=== PATIENT | female | born 1975 | race Caucasian/White ===

== ENCOUNTER 2017-01-02 21:22 | Observation (INO) | payer MEDICARE, OTHER ==
[2017-01-02] MEDS ORDERED: SODIUM CHLORIDE 0.9% 500 ML IV STA (22:55)
[2017-01-02] MEDS ORDERED: ONDANSETRON 4 MG/2 ML VIAL IVP STA (22:55)
[2017-01-02] MEDS ORDERED: HYDROmorphone 1 MG/ML 1 ML SYRINGE IVP STA (22:55)
[2017-01-02] MEDS ORDERED: SODIUM CHLORIDE 0.9% 1,000 ML IV STA (22:55)
[2017-01-02] MEDS ORDERED: PANTOPRAZOLE 40 MG/10 ML VIAL IVP STA (22:55)
--- NOTE | 2017-01-02 23:02 | ED ---
General Adult HPI <Pawel Pemberton - Last Filed: 01/03/17 03:28> - General Source: patient, family, RN notes reviewed, old records reviewed Mode of arrival: ambulatory Limitations: no limitations <AlfredoNilay - Last Filed: 01/09/17 13:30> - General Chief complaint: Abdominal Pain Stated complaint: abdominal pain/vomiting/diarrhea Time Seen by Provider: 01/02/17 22:24 - History of Present Illness Initial comments: Chief complaint and history of present illness a 41-year-old female with complaint of epigastric to the supraumbilical area pain started acutely approximately 6 hours ago. Started 1 hour after eating. She had nausea vomiting 2 times and loose stool 4 times. Patient points to the area just above the umbilicus is feeling is a hard ball there. (Nilay Fuentes) - Related Data Home Medications Medication Instructions Recorded Confirmed ALPRAZolam [Xanax] 0.5 mg PO QID PRN 04/03/14 01/02/17 Cyclobenzaprine [Flexeril] 10 mg PO HS PRN 04/03/14 01/02/17 DULoxetine HCL [Cymbalta] 60 mg PO BID 04/03/14 01/02/17 HYDROcodone/APAP 10-325MG [[place] 1 tab PO Q4HR PRN 04/03/14 01/02/17 10-325] Pantoprazole Sodium [Protonix] 40 mg PO BID 04/03/14 01/02/17 Albuterol Nebulized [Ventolin 2.5 mg INHALATION RT-Q6H PRN 03/29/16 01/02/17 Nebulized] Albuterol Inhaler [Ventolin Hfa 1 - 2 puff INHALATION RT-Q4H PRN 08/15/16 Inhaler] EPINEPHrine (Auto Inject) [Epipen] 0.3 mg IM ONCE PRN 08/15/16 01/02/17 Nicotine Polacrilex [Nicorette] 4 mg PO QID PRN 08/15/16 01/02/17 Zolpidem [Ambien] 10 mg PO HS PRN 08/15/16 01/02/17 traMADol HCL [Tramadol HCl] 50 mg PO TID 11/11/16 01/02/17 Metoprolol Tartrate [Lopressor] 25 mg PO BID 01/02/17 01/02/17 Previous Rx's Medication Instructions Recorded Budesonide-Formot 160-4.5 Mcg 2 puff INHALATION BID #1 inhaler 01/04/17 [Symbicort 160-4.5 Mcg Inhaler] Ondansetron Odt [Zofran Odt] 4 mg PO Q8HR PRN #20 tab 01/04/17 predniSONE 10 mg PO DAILY #30 tab 01/04/17 Allergies Allergy/AdvReac Type Severity Reaction Status Date / Time fentanyl Allergy Rash/Hives Verified 01/03/17 04:52 Iodinated Contrast Media - Allergy Anaphylaxis Verified 01/03/17 04:52 Oral and [Iodinated Contrast Media - IV Dye] shellfish derived Allergy Anaphylaxis Verified 01/03/17 04:52 buspirone AdvReac Confusion Verified 01/03/17 04:52 Review of Systems ROS Other: All systems not noted in ROS Statement are negative. <Pawel Pemberton - Last Filed: 01/03/17 03:28> ROS Other: All systems not noted in ROS Statement are negative. <Nilay Fuentes - Last Filed: 01/09/17 13:30> ROS Statement: Those systems with pertinent positive or pertinent negative responses have been documented in the HPI. Review of systems no headache no chest pain no shortness of breath she has epigastric pain that is episodic. No radiation to the back. Nausea vomiting several times diarrhea 4 times. No neuro deficits. All systems are reviewed. Past medical problems significant for asthma, TIA, DVT 15 years ago. Fibro-myalgia, GERD, osteoarthritis clubfeet. Surgeries lumpectomy on the breast benign. Multiple ear surgeries. Hysterectomy. Multiple bilateral club foot surgeries. Family history oximetry. Patient has ALLERGIES to fentanyl, IV dye and buspirone. Patient is a smoker strongly encouraged to stop smoking. (Nilay Fuentes) Past Medical History Past Medical History: Asthma, COPD, CVA/TIA, Deep Vein Thrombosis (DVT), Fibromyalgia, GERD/Reflux, Osteoarthritis (OA) Additional Past Medical History / Comment(s): *DEAF IN RIGHT EAR.RECENT: PATIENT STATES HER PCP TOLD HER SHE MIGHT HAVE HAD A TIA & INCREASED HEART RATE. SEE DR[facility] FOR CARDIOVASCULAR DETAILS. Neuropathy feet; UNSTEADY WHEN UP/BALANCE ISSUES. Dvt right leg-2001. PT STATED HAS BEEN EXPOSED TO BLACK MOLD . History of Any Multi-Drug Resistant Organisms: None Reported Past Surgical History: Breast Surgery, Ear Surgery, Hysterectomy Additional Past Surgical History / Comment(s): Multiple day clubfoot. TUBES IN EARS, Kartush patches both ears D/T PERFORATED TYMPANIC MEMBRANES. POLYPS REMOVED FROM THROAT-BENIGN. Lt breast biopsy-NEG. BRONCHOSOCPY-BENIGN NODULE REMOVED. DEVIATED SEPTUM. COLONOSOCPY. Past Anesthesia/Blood Transfusion Reactions: Motion Sickness, Postoperative Nausea & Vomiting (PONV) Additional Past Anesthesia/Blood Transfusion Reaction / Comment(s): Problems/w/ anes in Nov after colonoscopy. Too much given & couldn't wake up".....However, patient states they have to give her more meds to get her to be sedated. Past Psychological History: Anxiety Smoking Status: Current every day smoker Past Alcohol Use History: None Reported Additional Past Alcohol Use History / Comment(s): PT STATED HAS SMOKED ON AND OFF X 25 YEARS CURRENTLY SMOKING LESS THAN A PACK A WEEK. Past Drug Use History: None Reported - Past Family History Mother Family Medical History: Diabetes Mellitus Additional Family Medical History / Comment(s): IRREG HEART BEAT. GRANDMOTHER HAD COLON CANCER AND HEART DISEASE Father Family Medical History: Hyperlipidemia, Hypertension Sister(s) Family Medical History: AFIB, Cancer, CVA/TIA, Hypertension Additional Family Medical History / Comment(s): CERVICAL CANCER <Nilay Fuentes - Last Filed: 01/09/17 13:30> General Exam <Pawel Pemberton - Last Filed: 01/03/17 03:28> Limitations: no limitations <Nilay Fuentes - Last Filed: 01/09/17 13:30> - General Exam Comments Initial Comments: General: The patient is awake and alert, mild to moderate distress. Low epigastric and high Cipro umbilical area pain. Vital signs temp 98.9 pulse 1:30, respiratory rate 20 pulse ox 97% room air blood pressure 135/85. Elevated systolic diastolic most likely due to pain. Eye: Pupils are equal, round and reactive to light, extra-ocular movements are intact ; there is normal conjunctiva bilaterally. No signs of icterus. Ears, nose, mouth and throat: There are moist mucous membranes and no oral lesions. Neck: The neck is supple, there is no tenderness , no anterior cervical lymphadenopathy. Cardiovascular: No murmur, rub or gallop is appreciated. Tachycardic heart rate 1:30 down to 1:15. Patient reports she's always tachycardia. She is on metoprolol. Respiratory: Lungs are clear to auscultation, respirations are non-labored, breath sounds are equal. No wheezes, stridor, rales, or rhonchi. Gastrointestinal: Rebound or referred pain to the mid abdomen just above the umbilicus. Palpation finds mild firmness and possible small hernia causing a discomfort in the mid abdomen. Active bowel sounds.. Back: No back pain Musculoskeletal: History of clubfeet multiple surgeries. Neurological: No neuro deficits. Skin: Skin is warm and dry and no rashes or lesions are noted. (Nilay Fuentes) Course <Pawel Pemberton - Last Filed: 01/03/17 03:28> <Nilay Fuentes - Last Filed: 01/09/17 13:30> Vital Signs 01/02/17 01/02/17 01/02/17 21:56 22:52 23:59 Temperature 98.9 F 98.3 F 97.0 F L Pulse Rate 130 H 122 H 96 Respiratory 20 20 18 Rate Blood Pressure 135/85 148/82 142/80 O2 Sat by Pulse 97 98 100 Oximetry 01/03/17 01/03/17 01/03/17 00:24 01:45 02:41 Temperature 101.5 F H 100.0 F H 99.0 F Pulse Rate 110 H 98 Respiratory 18 18 Rate Blood Pressure 126/88 128/76 O2 Sat by Pulse 98 98 Oximetry - Reevaluation(s) Reevaluation #1: 01/03/17 01:18 The patient was endorsed to me by Dr. Fuentes at 1 AM at our shift change. CAT scan the abdomen is pending. (Pawel Pemberton) Reevaluation #2: 01/03/17 03:28 Evaluation the patient reveals she still has severe crampy abdominal pain. Is more upper than lower. I did discuss the findings with her. She will be admitted for pain control (Pawel Pemberton) Medical Decision Making - Lab Data Result diagrams: 01/02/17 22:15 01/02/17 22:15 - Radiology Data Radiology results: report reviewed (I did review the imaging and reports is evidence of 4.5 cm adnexal mass likely a cyst.), image reviewed <Pawel Pemberton - Last Filed: 01/03/17 03:28> - Lab Data Result diagrams: 01/02/17 22:15 01/02/17 22:15 <Nilay Fuentes - Last Filed: 01/09/17 13:30> - Medical Decision Making Labs show white count 12 hemoglobin 16 hematocrit of 49. Potassium is 4.0 with a BUN of 17 creatinine 0.7 with a GFR greater than 60. Glucose 112. Plasma lactic acid mildly elevated 3.5. Amylase lipase within normal limits. X-ray of the abdomen was done and reviewed by radiologist his impression is there is no sign of intestinal obstruction or pneumoperitoneum. There is no fecal pattern seen. There are no pathologic calcifications over the kidneys. Lung bases are clear. Impression; there is a lack of fecal pattern that could relate to diarrhea. No free air. This is a change compared to old abdomen x- ray. No evidence of bowel obstruction. As read by Dr. Mclain The patient's lactic acid is elevated she continues to mid abdominal discomfort. She does have an ALLERGY to iodine. But when she has her CAT scan she is premedicated. The patient will receive IV Benadryl, Pepcid and Solu- Medrol per protocol. Patient will have the redi-cat2 agent used for iodine ALLERGY risk. Final disposition will be made by Dr. Pemberton (Nilay Fuentes) - Lab Data Lab Results 01/02/17 01/02/17 01/02/17 Range/Units 22:15 22:15 22:15 WBC 12.4 H (3.8-10.6) k/uL RBC 5.29 (3.80-5.40) m/uL Hgb 16.4 H (11.4-16.0) gm/dL Hct 49.4 H (34.0-46.0) % MCV 93.5 (80.0-100.0) fL MCH 31.1 (25.0-35.0) pg MCHC 33.3 (31.0-37.0) g/dL RDW 13.1 (11.5-15.5) % Plt Count 293 (150-450) k/uL Neutrophils % 88 % Lymphocytes % 7 % Monocytes % 3 % Eosinophils % 2 % Basophils % 0 % Neutrophils # 10.9 H (1.3-7.7) k/uL Lymphocytes # 0.9 L (1.0-4.8) k/uL Monocytes # 0.3 (0-1.0) k/uL Eosinophils # 0.2 (0-0.7) k/uL Basophils # 0.0 (0-0.2) k/uL Sodium 141 (137-145) mmol/L Potassium 4.0 (3.5-5.1) mmol/L Chloride 105 (98-107) mmol/L Carbon Dioxide 20 L (22-30) mmol/L Anion Gap 16 mmol/L BUN 17 (7-17) mg/dL Creatinine 0.70 (0.52-1.04) mg/dL Est GFR (MDRD) Af Amer >60 (>60 ml/min/1.73 sqM) Est GFR (MDRD) Non-Af >60 (>60 ml/min/1.73 sqM) Glucose 112 H (74-99) mg/dL Plasma Lactic Acid Louie 3.5 H* (0.7-2.0) mmol/L Calcium 9.5 (8.4-10.2) mg/dL Total Bilirubin 0.6 (0.2-1.3) mg/dL AST 23 (14-36) U/L ALT 26 (9-52) U/L Alkaline Phosphatase 100 (38-126) U/L Total Protein 7.7 (6.3-8.2) g/dL Albumin 4.6 (3.5-5.0) g/dL Amylase 43 (30-110) U/L Lipase 36 (23-300) U/L Urine Color Urine Appearance (Clear) Urine pH (5.0-8.0) Ur Specific [place] (1.001-1.035) Urine Protein (Negative) Urine Glucose (UA) (Negative) Urine Ketones (Negative) Urine Blood (Negative) Urine Nitrate (Negative) Urine Bilirubin (Negative) Urine Urobilinogen (<2.0) mg/dL Ur Leukocyte Esterase (Negative) 01/03/17 01/03/17 Range/Units 00:15 03:15 WBC (3.8-10.6) k/uL RBC (3.80-5.40) m/uL Hgb (11.4-16.0) gm/dL Hct (34.0-46.0) % MCV (80.0-100.0) fL MCH (25.0-35.0) pg MCHC (31.0-37.0) g/dL RDW (11.5-15.5) % Plt Count (150-450) k/uL Neutrophils % % Lymphocytes % % Monocytes % % Eosinophils % % Basophils % % Neutrophils # (1.3-7.7) k/uL Lymphocytes # (1.0-4.8) k/uL Monocytes # (0-1.0) k/uL Eosinophils # (0-0.7) k/uL Basophils # (0-0.2) k/uL Sodium (137-145) mmol/L Potassium (3.5-5.1) mmol/L Chloride (98-107) mmol/L Carbon Dioxide (22-30) mmol/L Anion Gap mmol/L BUN (7-17) mg/dL Creatinine (0.52-1.04) mg/dL Est GFR (MDRD) Af Amer (>60 ml/min/1.73 sqM) Est GFR (MDRD) Non-Af (>60 ml/min/1.73 sqM) Glucose (74-99) mg/dL Plasma Lactic Acid Louie 1.6 (0.7-2.0) mmol/L Calcium (8.4-10.2) mg/dL Total Bilirubin (0.2-1.3) mg/dL AST (14-36) U/L ALT (9-52) U/L Alkaline Phosphatase (38-126) U/L Total Protein (6.3-8.2) g/dL Albumin (3.5-5.0) g/dL Amylase (30-110) U/L Lipase (23-300) U/L Urine Color Yellow Urine Appearance Clear (Clear) Urine pH 5.0 (5.0-8.0) Ur Specific [place] 1.019 (1.001-1.035) Urine Protein Negative (Negative) Urine Glucose (UA) Negative (Negative) Urine Ketones Negative (Negative) Urine Blood Negative (Negative) Urine Nitrate Negative (Negative) Urine Bilirubin Negative (Negative) Urine Urobilinogen <2.0 (<2.0) mg/dL Ur Leukocyte Esterase Negative (Negative) Disposition <Pawel Pemberton - Last Filed: 01/03/17 03:28> <Nilay Fuentes - Last Filed: 01/09/17 13:30> Clinical Impression: Abdominal pain, Intractable abdominal pain, Spastic colon, Adnexal cyst Disposition: ADMITTED IP TO THIS HOSP Condition: Stable
[2017-01-02 23:22] LABS: Basophils % (A) 0 %; CH 31.9; CHCM 34.3; Eosinophils # (A) 0.2 k/uL (0-0.7); Eosinophils % (A) 2 %; HCT 49.4 % (34.0-46.0); HDW 2.55; HGB 16.4 gm/dL (11.4-16.0); Luc # (Auto) 0.06; Luc % (Auto) 1; Lymphocytes # (A) 0.9 k/uL (1.0-4.8); Lymphocytes % (A) 7 %; MCH 31.1 pg (25.0-35.0); MCHC 33.3 g/dL (31.0-37.0); MCV 93.5 fL (80.0-100.0); Mean Platelet Volume 7.7; Monocytes # (A) 0.3 k/uL (0-1.0); Monocytes % (A) 3 %; Neutrophils # (A) 10.9 k/uL (1.3-7.7); Neutrophils % (A) 88 %; RBC 5.29 m/uL (3.80-5.40); RDW 13.1 % (11.5-15.5); WBC 12.4 k/uL (3.8-10.6); WBC (Perox) 11.32
[2017-01-02 23:33] LABS: ALT 26 U/L (9-52); AST 23 U/L (14-36); Alkaline Phosphatase 100 U/L (38-126); Amylase 43 U/L (30-110); Anion Gap 16 mmol/L; Blood Urea Nitrogen 17 mg/dL (7-17); Calcium 9.5 mg/dL (8.4-10.2); Carbon Dioxide 20 mmol/L (22-30); Chloride 105 mmol/L (98-107); Glucose 112 mg/dL (74-99); Non-African American GFR(MDRD) >60 (>60 ml/min/1.73 sqM); Sodium 141 mmol/L (137-145); Total Bilirubin 0.6 mg/dL (0.2-1.3); Total Protein 7.7 g/dL (6.3-8.2)
--- NOTE | 2017-01-02 23:41 | XR ---
EXAMINATION TYPE: XR KUB DATE OF EXAM: 01/02/2017 11:36 PM COMPARISON: 10/18/2013 HISTORY: Abdominal pain TECHNIQUE: 2 views FINDINGS: There is no sign of intestinal obstruction or pneumoperitoneum. There is no fecal pattern s een. There are no pathologic calcifications over the kidneys. Lung bases are clear. IMPRESSION: There is a lack of fecal pattern that could relate to diarrhea. No free air. This is a ch joel compared to old abdomen x-ray. No evidence of a bowel obstruction.
[2017-01-03] MEDS ORDERED: ACETAMINOPHEN IV (For NPO) 1,000 MG in EMPTY BAG 1 BAG IVPB STA (00:17)
[2017-01-03] MEDS ORDERED: FAMOTIDINE 20 MG/2 ML VIAL IV STA (00:25)
[2017-01-03] MEDS ORDERED: diphenhydrAMINE 50 MG/ML 1 ML VIAL IVP STA (00:25)
[2017-01-03] MEDS ORDERED: PROMETHAZINE INJ 6.25 MG in SODIUM CHLORIDE 0.9% 50 ML IVPB STA (00:25)
[2017-01-03] MEDS ORDERED: methylPREDNISolone SOD SUCCI 125 MG/2 ML VIAL IM STA (00:26)
[2017-01-03] MEDS ORDERED: BARIUM SULFATE 450 ML ORAL.SUSP BOTTLE PO PRN (00:26)
[2017-01-03] MEDS ORDERED: RX INFO: IV CONTRAST WAS GIVEN 1 EACH MISC MISCELLANE PRN (00:26)
[2017-01-03 00:28] LABS: Appearance,Urine Clear (Clear); Bilirubin,Urine Negative (Negative); Glucose,Urine (UA) Negative (Negative); Ketones,Urine Negative (Negative); Leukocyte Esterase,Urine Negative (Negative); Nitrite,Urine Negative (Negative); Protein,Urine Negative (Negative); Specific Gravity,Urine 1.019 (1.001-1.035); UA Billing (MACRO vs. MICRO) CHEM; Urobilinogen,Urine <2.0 mg/dL (<2.0)
[2017-01-03] MEDS ORDERED: HYDROmorphone 1 MG/ML 1 ML SYRINGE IVP STA ×2 (01:43→03:11)
--- NOTE | 2017-01-03 02:50 | CT ---
EXAMINATION TYPE: CT abdomen pelvis wo con DATE OF EXAM: 01/03/2017 2:38 AM COMPARISON: 10/18/2013 HISTORY: Abdominal pain CT DLP: mGycm Automated exposure control for dose reduction was used. TECHNIQUE: Helical acquisition of images was performed from the lung bases through the pelvis. FINDINGS: Lung bases are clear. There is no pleural effusion. The liver spleen pancreas appear normal. Bile lori ts are not dilated. Gallbladder appears normal. There is no adrenal mass. Kidneys have normal size an d contour. There is no hydronephrosis. There is no retroperitoneal adenopathy. There is no ascites. B ladder distends smoothly. There is no sign of a pelvic mass. There is a 4.5 cm cyst in the pelvis on the right side. Hysterectomy is noted. Appendix is not seen. There is no sign of appendicitis. I see no intestinal wall thickening. There are no dilated loops. There is no evidence of a bowel obstructio n. There is fairly normal contrast opacification of the small bowel. Bony structures are intact. IMPRESSION: LARGE RIGHT ADNEXAL CYST CONSISTENT WITH OVARIAN CYST APPEARS NEW COMPARED TO LAST CT SCAN. APPENDIX IS NOT SEEN. THERE IS NO SIGN OF APPENDICITIS.
[2017-01-03] MEDS ORDERED: DICYCLOMINE 10 MG/ML 2 ML AMP IM STA (03:11)
[2017-01-03] MEDS ORDERED: NALOXONE 0.4 MG/ML 1 ML VIAL IV PRN (03:29)
[2017-01-03] MEDS: SODIUM CHLORIDE 0.9% 1,000 ML IV SCH ×4 (04:28→18:23)
[2017-01-03 04:44] VITALS: BMI 34.4
[2017-01-03] MEDS: HYDROmorphone 1 MG/ML 1 ML SYRINGE IV PRN ×5 (05:41→23:36)
[2017-01-03] MEDS: ONDANSETRON 4 MG/2 ML VIAL IVP PRN ×3 (05:42→23:36)
[2017-01-03] MEDS: PANTOPRAZOLE 40 MG/10 ML VIAL IV SCH ×2 (07:48→20:11)
[2017-01-03] MEDS: IPRATROPIUM-ALBUTEROL 3 ML NEB INHALATION SCH ×4 (09:40→20:30)
[2017-01-03] MEDS ORDERED: traMADol 50 MG TAB PO PRN (13:45)
[2017-01-03] MEDS ORDERED: ALBUTEROL NEBULIZED 2.5 MG/3 ML INHALATION PRN (13:46)
[2017-01-03] MEDS ORDERED: HYDROcodone/APAP 10-325MG 1 EACH TAB PO PRN (13:47)
[2017-01-03] MEDS ORDERED: CYCLOBENZAPRINE 10 MG TAB PO PRN (13:47)
[2017-01-03] MEDS ORDERED: ALPRAZolam 0.5 MG TAB PO PRN (13:47)
--- NOTE | 2017-01-03 17:18 | HP ---
DATE OF ADMISSION: Patient is a 41-year-old female who came in with epigastric abdominal pain, generalized body aches and fevers which started yesterday. Patient has not been eating well and patient has nausea, vomiting and loose stools; about 4 times loose stools and nausea, vomiting twice ( ) and patient was found to have fevers. Patient had an abdominal CT which was negative except for incidental finding of an ovarian cyst which appears to be a physiological cyst. Patient denies any cough, runny nose. Patient denied any dysuria. Home medications include: 1. Alprazolam. 2. Cyclobenzaprine. 3. Duloxetine. 4. Hydrocodone/acetaminophen . 5. Pantoprazole. 6. Albuterol. 7. Epinephrine. 8. Nicorette. 9. Zolpidem. 10. Tramadol. 11. Metoprolol. ALLERGIES: 1. FENTANYL. 2. IODINATED CONTRAST. 3. SHELLFISH. 4. BUSPIRONE. REVIEW OF SYSTEMS: GENERAL: As described in HPI. CONSTITUTIONAL: No fever, no malaise, no fatigue. HEENT: No recent visual problems or hearing problems. Denied any sore throat. CARDIOVASCULAR: No chest pain, orthopnea, PND, no palpitations, no syncope. PULMONARY: No shortness of breath, no cough, no hemoptysis. GASTROINTESTINAL: As described in HPI. NEUROLOGICAL: No headaches, no weakness, no numbness. HEMATOLOGICAL: Denies any bleeding or petechiae. GENITOURINARY: Denies any burning micturition, frequency, or urgency. MUSCULOSKELETAL/RHEUMATOLOGICAL: Denies any joint pain, swelling, or any muscle pain. ENDOCRINE: Denies any polyuria or polydipsia. The rest of the 14 point review of systems is negative. Past medical history is significant for: 1. COPD. 2. CVA/TIA. 3. DVT in the past. 4. Asthma. 5. Fibromyalgia. 6. Gastroesophageal reflux disease. 7. Neuropathy. 8. Obesity. SOCIAL HISTORY: Patient continues to smoke; trying to cut down on smoking. Denied any alcohol abuse or any drug abuse. Psychological history is significant for anxiety. FAMILY HISTORY: Mother had diabetes mellitus. Father had hypertension, hyperlipidemia. Sister had atrial fibrillation, cancer, CVA, TIA. PHYSICAL EXAMINATION: VITAL SIGNS: Temperature 98.9, pulse of 130 when she came in; 24 hour T-max of 101.5, respiratory rate of 18. Blood pressure is 142/80. Saturating at 100% on room air. GENERAL: Patient appears to be sick-looking tired, with malaise. Alert and oriented x3. HEENT: Pupils are round and equally reacting to light. EOMI. No scleral icterus. No conjunctival pallor. Normocephalic, atraumatic. No pharyngeal erythema. No thyromegaly. CARDIOVASCULAR: S1 and S2 present. No murmurs, rubs, or gallops. PULMONARY: Chest is clear to auscultation, no wheezing or crackles. ABDOMEN: Soft, nontender, nondistended, normoactive bowel sounds. No palpable organomegaly. MUSCULOSKELETAL: No joint swelling or deformity. EXTREMITIES: No cyanosis, clubbing, or pedal edema. NEUROLOGICAL: Gross neurological examination did not reveal any focal deficits. SKIN: No rashes. LABORATORY DATA: CBC, CMP are abnormal for elevated WBC count of 12,400, hemoglobin of 16.4. Patient does have elevated lactic acid of 3.5. UA is essentially negative. Chest x-ray did not show any acute abnormality. ASSESSMENT AND PLAN: 1. Severe sepsis secondary to viral gastroenteritis. Patient is on IV fluids. I do not believe patient will need any antibiotics. Will continue to watch her with IV fluids. Patient's lactic acidosis has improved. If patient's symptoms improve, patient will discharged tomorrow. 2. Patient has history of sinus tachycardia, for which patient is on metoprolol, which will be continued. 3. Chronic obstructive pulmonary disease with minimal exacerbation. 4. Asthma with minimal exacerbation. 5. Nicotine ( ) counseling was provided. Patient will be started on albuterol as well as Symbicort. 6. History of cerebrovascular accident, transient ischemic attack in the past. 7. History of deep venous thrombosis. 8. Fibromyalgia. 9. Gastroesophageal reflux disease. For above-mentioned chronic medical problems, I will go and continue her home medications.
[2017-01-03] MEDS: METOPROLOL TARTRATE 25 MG TAB PO SCH (20:11)
[2017-01-03] MEDS: DULoxetine HCL 60 MG CAPSULE.DR PO SCH (20:11)
[2017-01-03] MEDS: SYMBICORT 160-4.5 MCG INHALER INHALATION SCH (20:30)
[2017-01-04] MEDS: SYMBICORT 160-4.5 MCG INHALER INHALATION SCH (07:58)
[2017-01-04] MEDS: IPRATROPIUM-ALBUTEROL 3 ML NEB INHALATION SCH ×2 (07:58→14:35)
[2017-01-04] MEDS: METOPROLOL TARTRATE 25 MG TAB PO SCH (08:40)
[2017-01-04] MEDS: DULoxetine HCL 60 MG CAPSULE.DR PO SCH (08:41)
[2017-01-04] MEDS: ONDANSETRON 4 MG/2 ML VIAL IVP PRN (09:18)
[2017-01-04] MEDS: SODIUM CHLORIDE 0.9% 1,000 ML IV SCH (10:38)
[2017-01-04 14:00] VITALS: BP 138/84; PULSE 76; RESP 16; TEMP 97.9
--- NOTE | 2017-01-05 08:10 | DS ---
DATE OF ADMISSION: 01/03/2017 DATE OF DISCHARGE: 01/04/2017 Patient is admitted secondary to gastroenteritis. Patient has significant improvement but patient is still nauseous. Patient is still wheezing significantly, because of which I am starting on oral steroids for her asthma exacerbation. Patient was seen and examined on the day of discharge. Patient is still wheezing significantly because of which I am starting her on oral steroid for her asthma exacerbation. Patient was seen and examined on the day of discharge. Vitals are stable. PHYSICAL EXAMINATION: GENERAL: The patient is alert and oriented x3, not in any acute distress. Well developed, well nourished. HEENT: Pupils are round and equally reacting to light. EOMI. No scleral icterus. No conjunctival pallor. Normocephalic, atraumatic. No pharyngeal erythema. No thyromegaly. CARDIOVASCULAR: S1 and S2 present. No murmurs, rubs, or gallops. PULMONARY: Patient is still wheezing, has significant expiratory wheezing. ABDOMEN: Soft, nontender, nondistended, normoactive bowel sounds. No palpable organomegaly. MUSCULOSKELETAL: No joint swelling or deformity. EXTREMITIES: No cyanosis, clubbing, or pedal edema. NEUROLOGICAL: Gross neurological examination did not reveal any focal deficits. SKIN: No rashes. ASSESSMENT AND PLAN: 1. Severe sepsis secondary to viral gastroenteritis, which is improving. Patient was asked to take ( ), resolved. Patient improved with IV fluids and patient was asked to drink lots of water at home. Patient had 4 episodes of diarrhea today. 2. Sinus tachycardia due to intravascular volume depletion. 3. Asthma with acute asthma exacerbation. Patient appears to have moderate persistent asthma. 4. Nicotine dependence counseling was provided. 5. Cerebrovascular accident. 6. Deep venous thrombosis. 7. Fibromyalgia. 8. Gastroesophageal reflux disease. I am discharging patient on budesonide formoterol and tapering dose of prednisone and patient will follow with Dr. Judah Murdock on January 11 at 2:45. Please refer to my depart summary for further details of discharge medications. Activity as tolerated. Regular diet. Nicotine cessation counseling was provided and low-calorie diet. Spent greater than 35 minutes in total discharge process.
== END 2017-01-04 17:22 | disposition home or self-care (01) ==
LOC: EC 21:22 → 3SUR 01-03 03:30
PROVIDERS: ADMIT Internal Medicine; ATTEND Internal Medicine
DX: A08.4 Viral intestinal infection, unspecified (principal); R65.20 Severe sepsis without septic shock; B97.89 Other viral agents as the cause of diseases classified elsewhere; A41.89 Other specified sepsis; E86.9 Volume depletion, unspecified; J45.41 Moderate persistent asthma with (acute) exacerbation; M79.7 Fibromyalgia; K21.9 Gastro-esophageal reflux disease without esophagitis; Z86.73 Personal history of transient ischemic attack (TIA), and cerebral infarction without residual deficits; Z86.718 Personal history of other venous thrombosis and embolism; F41.9 Anxiety disorder, unspecified; E87.2 Acidosis; F17.210 Nicotine dependence, cigarettes, uncomplicated; Z91.041 Radiographic dye allergy status; N83.201 Unspecified ovarian cyst, right side; Z79.891 Long term (current) use of opiate analgesic; Z79.899 Other long term (current) drug therapy; Z88.5 Allergy status to narcotic agent; Z88.8 Allergy status to other drugs, medicaments and biological substances
CPT/HCPCS: 36415 ×2; 80053; 82150; 83605 ×2; 83690; 85025; 81003; 87086; 80299; 74000; 74176; 99285; 96375 ×2; 96361 ×2; 96365; 96376 ×2; 96372; G0378 ×2; J0500; J2550; J2405 ×3; J1170 ×2; J0131; C9113 ×2; 87324

== ENCOUNTER → 2017-02-14 | Outpatient (CLI) | payer MEDICARE, OTHER ==
--- NOTE | 2017-02-14 17:54 | US ---
EXAMINATION TYPE: US transvaginal DATE OF EXAM: 02/14/2017 5:18 PM COMPARISON: NONE CLINICAL HISTORY: N83.291 Cyst of ovary. Abnormal CT TECHNIQUE: Transvaginal pelvic ultrasound with color Doppler. Date of LMP: hysterectomy EXAM MEASUREMENTS: Uterus: Surgically absent cm Endometrial Stripe: Surgically absent cm Right Ovary: 1.9 x 0.9 x 1.1 cm Left Ovary: not identified cm TECHNOLOGIST IMPRESSION: wnl 1. Uterus: Surgically absent 2. Endometrium: Surgically absent 3. Right Ovary: normal appearing ovary with large cyst measuring 5.1 x 4.2 x 4.4 cm, there does appe ar to be normal blood flow to the ovarian tissue 4. Left Ovary: not identified 5. Bilateral Adnexa: wnl 6. Posterior cul-de-sac: no free fluid IMPRESSION: There is a large simple cyst on the right ovary. Hysterectomy noted. The cyst measures 5 x 4 cm. Right ovary shows no sign of torsion on the color Doppler images. Cyst is not changed compare d to CT scan of 01/03/2017.
== END | disposition home or self-care (01) ==
LOC: RADUSWWP 16:57
PROVIDERS: ATTEND Family Medicine
DX: N83.291 Other ovarian cyst, right side (principal)
CPT/HCPCS: 76830

== ENCOUNTER → 2017-03-22 | Outpatient (CLI) | payer MEDICARE, OTHER ==
[2017-03-22 11:44] LABS: Basophils # (A) 0.1 k/uL (0-0.2); Basophils % (A) 1 %; CH 31.9; CHCM 34.3; Eosinophils # (A) 0.2 k/uL (0-0.7); Eosinophils % (A) 2 %; HCT 45.5 % (34.0-46.0); HDW 2.52; HGB 15.5 gm/dL (11.4-16.0); Luc % (Auto) 2; Lymphocytes % (A) 28 %; MCH 31.7 pg (25.0-35.0); MCHC 33.9 g/dL (31.0-37.0); MCV 93.4 fL (80.0-100.0); Mean Platelet Volume 7.1; Monocytes # (A) 0.4 k/uL (0-1.0); Monocytes % (A) 4 %; Neutrophils # (A) 6.8 k/uL (1.3-7.7); Neutrophils % (A) 64 %; RBC 4.88 m/uL (3.80-5.40); RDW 13.5 % (11.5-15.5); WBC 10.6 k/uL (3.8-10.6); WBC (Perox) 10.61
== END | disposition home or self-care (01) ==
LOC: LABPAT 10:48
PROVIDERS: ATTEND Obstetrics & Gynecology
DX: Z01.812 Encounter for preprocedural laboratory examination (principal)
CPT/HCPCS: 85025

== ENCOUNTER 2017-03-28 06:19 | Day surgery (SDC) | payer MEDICARE, OTHER ==
[2017-03-23 14:27] VITALS: BMI 33.4
[~2017-03-28 06:19] MED LIST: DEXAMETHASONE SOD PHOSPHATE 10 MG/ML 1 ML VIAL IV ONE; LACTATED RINGERS 1,000 ML IV SCH; LIDOCAINE 1% 20 ML VIAL (10MG/ML) FOR IV START INTRADERMA PRN; MIDAZOLAM 2 MG/2 ML VIAL IV PRN; ONDANSETRON 4 MG/2 ML VIAL IVP ONE; Pre Op ABX Message 1 EACH MISC MISCELLANE ONE; SCOPOLAMINE 1.5MG/72HR PATCH TRANSDERM ONE
[2017-03-28] MEDS ORDERED: HEPARIN SODIUM,PORCINE 5,000 UNIT/ML 1 ML VIAL SQ ONE (07:39)
[2017-03-28] MEDS ORDERED: KETOROLAC 30 MG/ML 1 ML VIAL ONE (07:42)
[2017-03-28] MEDS ORDERED: SUCCINYLCHOLINE CHLORIDE VIAL 200 MG/10 ML VIAL IV ONE (07:42)
[2017-03-28] MEDS ORDERED: MIDAZOLAM 2 MG/2 ML VIAL ONE (07:42)
[2017-03-28] MEDS ORDERED: fentaNYL (PF) 50 MCG/ML 2 ML AMP ONE (07:42)
[2017-03-28] MEDS ORDERED: ONDANSETRON 4 MG/2 ML VIAL ONE (07:42)
[2017-03-28] MEDS ORDERED: LIDOCAINE 1% INJ 10MG/ML (20 ML MDV) ONE (07:42)
[2017-03-28] MEDS ORDERED: PROPOFOL 10 MG/ML 20 ML VIAL IV ONE (07:42)
[2017-03-28] MEDS ORDERED: BUPIVACAINE (PF) 0.25% 30 ML VIAL SQ ONE ×2 (08:13→08:39)
[2017-03-28] MEDS ORDERED: LACTATED RINGERS 1,000 ML IV ONE ×2 (08:37)
--- NOTE | 2017-03-28 08:56 | P.OP ---
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 She was prepped and draped in normal sterile fashion and placed in the dorsal lithotomy position. Initially bladder was drained of urine with red rubber catheter and a force of with tach were inserted in the vagina to help lift the ovary. Once this, gloves were changed attention was turned to the abdominal portion procedure where 3 mL of quarter percent Marcaine were injected periumbilically. Through this injected anesthetic a 5 mm skin incision was made and through this incision under direct visualization with an optical trocar and sleeve the camera was inserted. Once peritoneal placement was assured gas was left fully insufflate the abdomen and patient's placement steep Trendelenburg position. Second port and sleeve were then inserted 4 cm inferior intensity murmurs lateral to the umbilicus and again another 5 mm skin incision was made and this port was also placed under direct visualization. Once placed ovary was identified and elevated. Once this was accomplished a J- hook was used to create a opening in the ovary. And some clear mucinous fluid did expel. However I was unable to extend the opening and open drainage was unable to make any more changes to the ovary due to how much was moving its proximity to the bowel therefore a third port was inserted through a 1 cm skin incision on the side of the abdomen and once this was placed again under direct visualization R was elevated and removed laterally the left side sit infundibula pelvic ligaments and she structures to the tube could be identified due to the fact that I was unable to continue to open the cyst up I was concerned that it would just recur and with its mucinous nature having a higher rate of recurrence we did use a 5 mm paddle LigaSure to clamp behind the right ovary through the infundibulopelvic ligament and going stepwise across the adjacent mesosalpinx tissues to remove the ovary and tube. Once it was removed the LigaSure system was removed and the ovary was grasped and elevated and using a gallbladder bag was placed in the gallbladder bag and removed. Once this was removed observations the pelvis was completely done and irrigation of the pelvis was completely done. Once this was accomplished instruments were removed and seeing no other gross pathology gas was allowed to expel from the abdomen. 5 deep breaths were provided during this process. 4-0 Vicryl was then used to close the 2 smaller incision subcuticularly single 0 Vicryl sutures then placed at the deep subcuticular tissues and the larger incision and the skin there was also closed with 4-0 Vicryl. The remaining 7 mL of quarter percent Marcaine were then injected around these incisions instruments removed from vagina sponge, lap, needle counts were correct 2 and patient was taken to the recovery room in stable and satisfactory condition. Plan - Discharge Summary New Discharge Prescriptions: HYDROcodone/APAP 10-325MG [[place] 10-325] 1 tab PO Q4HR PRN #30 tab PRN Reason: Pain Discharge Medication List ALPRAZolam [Xanax] 0.5 mg PO QID PRN 04/03/14 [History] Cyclobenzaprine [Flexeril] 10 mg PO HS PRN 04/03/14 [History] DULoxetine HCL [Cymbalta] 60 mg PO BID 04/03/14 [History] HYDROcodone/APAP 10-325MG [[place] 10-325] 1 tab PO Q4HR PRN 04/03/14 [History] Pantoprazole Sodium [Protonix] 40 mg PO BID 04/03/14 [History] Albuterol Nebulized [Ventolin Nebulized] 2.5 mg INHALATION RT-Q6H PRN 03/29/16 [ History] EPINEPHrine (Auto Inject) [Epipen] 0.3 mg IM ONCE PRN 08/15/16 [History] traMADol HCL [Tramadol HCl] 50 mg PO TID 11/11/16 [History] Metoprolol Tartrate [Lopressor] 37.5 mg PO BID 01/02/17 [History] Budesonide-Formot 160-4.5 Mcg [Symbicort 160-4.5 Mcg Inhaler] 2 puff INHALATION BID #1 inhaler 01/04/17 [Rx] Albuterol Sulfate [Proair Hfa] 1 - 2 puff INHALATION Q6HR PRN 03/23/17 [History] Promethazine [Phenergan] 25 mg PO TID PRN 03/23/17 [History] hydrOXYzine HCL [Atarax] 25 mg PO TID PRN 03/23/17 [History] rOPINIRole HCL [Requip] 0.5 mg PO HS 03/23/17 [History] HYDROcodone/APAP 10-325MG [[place] 10-325] 1 tab PO Q4HR PRN #30 tab 03/28/17 [Rx] Follow up Appointment(s)/Referral(s): Talib Atkins DO [Doctor of Osteopathic Medicine] - 2 Weeks Patient Instructions/Handouts: *Surgery [facility] - Scopalamine Patch Instructions Activity/Diet/Wound Care/Special Instructions: The pelvic rest, no heavy lifting, limit stairs and driving. If any high temperatures, heavy bleeding, or severe pain call my office
[2017-03-28 09:09] VITALS: TEMP 96.8
--- NOTE | 2017-03-28 09:20 | P.HPOB ---
History of Present Illness H&P Date: 03/28/17 Chief Complaint: Right ovarian mass Anna is 41-year-old female who has a enlarging 6-8 cm right ovarian mass. It was noted in December when she was having significant pelvic and abdominal pain. She was seen in the emergency room. I did see her in follow-up from her primary care provider. She did have an ultrasound revealed slightly enlarging cystic mass with a normal CA-125. Due to the fact that she was in such significant pain and she was having severe nausea and difficulty and functioning she was scheduled for a diagnostic laparoscopy with possible very and cystotomy versus oophorectomy. Risks/benefits/alternatives to this procedure were discussed with the patient in detail and all questions were answered for her prior to proceeding to the operating room. Risks did include but were not limited to damage to bladder, bowel, vascular injuries, nerve injuries, bleeding, and infection. On physical exam her vital signs are stable and afebrile. Heart regular, lungs clear, extremities without pain. Pelvic exam is notable for some pelvic fullness on the right side. Abdomen is otherwise soft and nontender. Assessment enlarging right ovarian mass with significant pain. Plan diagnostic laparoscopy with possible ovarian cystotomy versus cystectomy versus oophorectomy. Past Medical History Past Medical History: Asthma, COPD, CVA/TIA, Deep Vein Thrombosis (DVT), Fibromyalgia, GERD/Reflux, Osteoarthritis (OA) Additional Past Medical History / Comment(s): *DEAF IN RIGHT EAR.RECENT: PATIENT STATES HER PCP TOLD HER SHE MIGHT HAVE HAD A TIA & INCREASED HEART RATE. SEE DR. [facility] H & P FOR CARDIOVASCULAR DETAILS. Neuropathy feet; UNSTEADY WHEN UP/BALANCE ISSUES. Dvt right leg-2001. PT STATED HAS BEEN EXPOSED TO BLACK MOLD . History of Any Multi-Drug Resistant Organisms: None Reported Past Surgical History: Breast Surgery, Ear Surgery, Heart Catheterization, Hysterectomy Additional Past Surgical History / Comment(s): Multiple day clubfoot. TUBES IN EARS, Kartush patches both ears D/T PERFORATED TYMPANIC MEMBRANES. POLYPS REMOVED FROM THROAT-BENIGN. Lt breast biopsy-NEG. BRONCHOSOCPY-BENIGN NODULE REMOVED. DEVIATED SEPTUM. COLONOSOCPY. Past Anesthesia/Blood Transfusion Reactions: Motion Sickness, Postoperative Nausea & Vomiting (PONV) Additional Past Anesthesia/Blood Transfusion Reaction / Comment(s): Problems/w/ anes in Nov after colonoscopy. Too much given & couldn't wake up".....However, patient states they have to give her more meds to get her to be sedated. Past Psychological History: Anxiety Smoking Status: Current every day smoker Past Alcohol Use History: None Reported Additional Past Alcohol Use History / Comment(s): PT STATED HAS SMOKED ON AND OFF X 25 YEARS CURRENTLY SMOKING LESS THAN A PACK A WEEK. Past Drug Use History: None Reported - Past Family History Mother Family Medical History: Diabetes Mellitus Additional Family Medical History / Comment(s): IRREG HEART BEAT. GRANDMOTHER HAD COLON CANCER AND HEART DISEASE Father Family Medical History: Hyperlipidemia, Hypertension Sister(s) Family Medical History: AFIB, Cancer, CVA/TIA, Hypertension Additional Family Medical History / Comment(s): CERVICAL CANCER Medications and Allergies Home Medications Medication Instructions Recorded Confirmed Type ALPRAZolam [Xanax] 0.5 mg PO QID PRN 04/03/14 03/28/17 History Cyclobenzaprine [Flexeril] 10 mg PO HS PRN 04/03/14 03/28/17 History DULoxetine HCL [Cymbalta] 60 mg PO BID 04/03/14 03/28/17 History HYDROcodone/APAP 10-325MG [[place] 1 tab PO Q4HR PRN 04/03/14 03/28/17 History 10-325] Pantoprazole Sodium [Protonix] 40 mg PO BID 04/03/14 03/28/17 History Albuterol Nebulized [Ventolin 2.5 mg INHALATION RT-Q6H PRN 03/29/16 03/28/17 History Nebulized] EPINEPHrine (Auto Inject) [Epipen] 0.3 mg IM ONCE PRN 08/15/16 03/28/17 History traMADol HCL [Tramadol HCl] 50 mg PO TID 11/11/16 03/28/17 History Metoprolol Tartrate [Lopressor] 37.5 mg PO BID 01/02/17 03/28/17 History Albuterol Sulfate [Proair Hfa] 1 - 2 puff INHALATION Q6HR PRN 03/23/17 03/28/17 History Promethazine [Phenergan] 25 mg PO TID PRN 03/23/17 03/28/17 History hydrOXYzine HCL [Atarax] 25 mg PO TID PRN 03/23/17 03/28/17 History rOPINIRole HCL [Requip] 0.5 mg PO HS 03/23/17 03/28/17 History Allergies Allergy/AdvReac Type Severity Reaction Status Date / Time fentanyl Allergy Rash/Hives Verified 03/28/17 06:35 Iodinated Contrast Media - Allergy Anaphylaxis Verified 03/28/17 06:35 Oral and [Iodinated Contrast Media - IV Dye] shellfish derived Allergy Anaphylaxis Verified 03/28/17 06:35 buspirone AdvReac Confusion Verified 03/28/17 06:35 Exam Osteopathic Statement: *. No significant issues noted on an osteopathic structural exam other than those noted in the History and Physical/Consult. - Vital Signs Vital signs: Vital Signs Temp Pulse Resp BP Pulse Ox 03/28/17 09:10 72 16 120/75 95 03/28/17 08:55 96.8 F L 75 16 121/75 94 L 03/28/17 06:38 97.8 F 104 H 16 115/72 97 Intake and Output 03/27/17 03/28/17 03/28/17 22:59 06:59 14:59 Intake Total 1100 Output Total 80 Balance 1020 Intake: IV 1100 Output: Urine 50 Estimated Blood Loss 30 - OBG Physical Exam Abdomen: bowel sounds normal, no diffuse tenderness, no bruit present, no guarding noted, no hepatomegaly, no splenomegaly, no mass Vagina: normal moisture Cervix: absent Uterus: absent Adnexa: right: mass
[2017-03-28] MEDS: HYDROmorphone 1 MG/ML 1 ML SYRINGE IVP PRN ×4 (09:36→10:18)
[2017-03-28] MEDS ORDERED: METOCLOPRAMIDE 5 MG/ML 2 ML VIAL IVP ONE (09:44)
[2017-03-28 09:56] VITALS: RESP 18
[2017-03-28] MEDS ORDERED: diphenhydrAMINE 50 MG/ML 1 ML VIAL IVP ONE (10:31)
[2017-03-28] MEDS ORDERED: HYDROcodone/APAP 10-325MG 1 EACH TAB PO ONE (11:20)
[2017-03-28 11:54] VITALS: BP 118/76; PULSE 72
== END 2017-03-28 12:19 | disposition home or self-care (01) ==
LOC: OR 06:19
PROVIDERS: ATTEND Obstetrics & Gynecology
DX: D27.0 Benign neoplasm of right ovary (principal); N83.8 Other noninflammatory disorders of ovary, fallopian tube and broad ligament; J44.9 Chronic obstructive pulmonary disease, unspecified; F17.200 Nicotine dependence, unspecified, uncomplicated; K21.9 Gastro-esophageal reflux disease without esophagitis; M19.90 Unspecified osteoarthritis, unspecified site; M79.7 Fibromyalgia; G62.9 Polyneuropathy, unspecified; F41.9 Anxiety disorder, unspecified; F32.9 Major depressive disorder, single episode, unspecified; Z79.891 Long term (current) use of opiate analgesic; Z79.51 Long term (current) use of inhaled steroids; Z79.899 Other long term (current) drug therapy; Z88.8 Allergy status to other drugs, medicaments and biological substances; Z91.041 Radiographic dye allergy status; Z91.013 Allergy to seafood
CPT/HCPCS: 88307; 58661; J2250; J0330; J1200; J1644; J1100; J2765; J2405; J2001; J3010; J1885; J1170; J2704

== ENCOUNTER 2017-04-03 14:23 | Inpatient (IN) | payer MEDICARE, OTHER ==
[2017-04-03] MEDS ORDERED: ONDANSETRON 4 MG/2 ML VIAL IVP STA (15:06)
[2017-04-03] MEDS ORDERED: MORPHINE SULFATE 4 MG/ML SYRINGE IVP STA ×2 (15:06→17:48)
[2017-04-03] MEDS ORDERED: SODIUM CHLORIDE 0.9% 500 ML IV STA (15:06)
[2017-04-03 15:36] LABS: Basophils # (A) 0.1 k/uL (0-0.2); Basophils % (A) 1 %; CH 32.2; CHCM 33.9; Eosinophils # (A) 0.3 k/uL (0-0.7); Eosinophils % (A) 3 %; HCT 36.1 % (34.0-46.0); HDW 2.55; Luc # (Auto) 0.17; Luc % (Auto) 2; Lymphocytes # (A) 2.1 k/uL (1.0-4.8); Lymphocytes % (A) 23 %; MCHC 33.5 g/dL (31.0-37.0); MCV 95.5 fL (80.0-100.0); Monocytes # (A) 0.2 k/uL (0-1.0); Monocytes % (A) 3 %; Neutrophils # (A) 6.4 k/uL (1.3-7.7); Neutrophils % (A) 69 %; RBC 3.78 m/uL (3.80-5.40); RDW 14.5 % (11.5-15.5); WBC 9.3 k/uL (3.8-10.6); WBC (Perox) 9.55
[2017-04-03 15:44] LABS: ALT 27 U/L (9-52); AST 22 U/L (14-36); Alkaline Phosphatase 75 U/L (38-126); Anion Gap 8 mmol/L; Blood Urea Nitrogen 17 mg/dL (7-17); Calcium 8.9 mg/dL (8.4-10.2); Carbon Dioxide 25 mmol/L (22-30); Chloride 107 mmol/L (98-107); Glucose 101 mg/dL (74-99); Non-African American GFR(MDRD) >60 (>60 ml/min/1.73 sqM); Potassium 3.9 mmol/L (3.5-5.1); Sodium 140 mmol/L (137-145); Total Bilirubin 0.6 mg/dL (0.2-1.3); Total Protein 6.3 g/dL (6.3-8.2)
[2017-04-03 15:46] LABS: HGB 12.1 gm/dL (11.4-16.0)
[2017-04-03 15:52] LABS: Prothrombin Time 9.8 sec (9.0-12.0)
--- NOTE | 2017-04-03 15:57 | ED ---
General Adult HPI - General Chief complaint: Abdominal Pain Stated complaint: Post Op, Abcess Time Seen by Provider: 04/03/17 14:46 Source: patient, RN notes reviewed, old records reviewed Mode of arrival: wheelchair Limitations: no limitations - History of Present Illness Initial comments: 42-year-old female presenting for lower abdominal pain. Patient states she had an ovarian surgery and cyst removal on 04-[address] Atkins. She states since this time she said worsening lower abdominal pain. She states her friend who is a nurse evaluated her and thought that she may have an infection of her abdomen such came to the ED. She denies any nausea or vomiting. She denies any fevers or chills. - Related Data Home Medications Medication Instructions Recorded Confirmed ALPRAZolam [Xanax] 0.5 mg PO QID PRN 04/03/14 04/03/17 Cyclobenzaprine [Flexeril] 10 mg PO HS PRN 04/03/14 04/03/17 DULoxetine HCL [Cymbalta] 60 mg PO BID 04/03/14 04/03/17 Pantoprazole Sodium [Protonix] 40 mg PO BID 04/03/14 04/03/17 Albuterol Nebulized [Ventolin 2.5 mg INHALATION RT-Q6H PRN 03/29/16 04/03/17 Nebulized] EPINEPHrine (Auto Inject) [Epipen] 0.3 mg IM ONCE PRN 08/15/16 04/03/17 traMADol HCL [Tramadol HCl] 50 mg PO TID PRN 11/11/16 04/03/17 Albuterol Sulfate [Proair Hfa] 1 - 2 puff INHALATION RT-Q6H PRN 03/23/17 Promethazine [Phenergan] 25 mg PO TID PRN 03/23/17 04/03/17 hydrOXYzine HCL [Atarax] 25 mg PO TID PRN 03/23/17 04/03/17 Budesonide-Formot 160-4.5 Mcg 2 puff INHALATION RT-BID 04/03/17 04/03/17 [Symbicort 160-4.5 Mcg Inhaler] Fluconazole [Diflucan] 100 mg PO BID 04/03/17 04/03/17 HYDROcodone/APAP 10-325MG [[place] 1 tab PO Q4HR PRN 04/03/17 04/03/17 10-325] Magnesium Oxide [Mag-Ox] 400 mg PO BID 04/03/17 04/03/17 Metoprolol Tartrate [Lopressor] 37.5 mg PO BID 04/03/17 04/03/17 rOPINIRole HCL [Requip] 1 mg PO HS 04/03/17 04/03/17 Previous Rx's Medication Instructions Recorded Ibuprofen [Motrin] 600 mg PO Q6HR PRN #30 tab 03/28/17 Allergies Allergy/AdvReac Type Severity Reaction Status Date / Time fentanyl Allergy Rash/Hives Verified 04/03/17 16:00 Iodinated Contrast Media - Allergy Anaphylaxis Verified 04/03/17 16:00 Oral and [Iodinated Contrast Media - IV Dye] shellfish derived Allergy Anaphylaxis Verified 04/03/17 16:00 buspirone AdvReac Hallucinati Verified 04/03/17 16:00 ons Review of Systems ROS Statement: Those systems with pertinent positive or pertinent negative responses have been documented in the HPI. ROS Other: All systems not noted in ROS Statement are negative. Past Medical History Past Medical History: Asthma, COPD, CVA/TIA, Deep Vein Thrombosis (DVT), Fibromyalgia, GERD/Reflux, Osteoarthritis (OA) Additional Past Medical History / Comment(s): *DEAF IN RIGHT EAR.RECENT: PATIENT STATES HER PCP TOLD HER SHE MIGHT HAVE HAD A TIA & INCREASED HEART RATE. SEE DR. [facility] H & P FOR CARDIOVASCULAR DETAILS. Neuropathy feet; UNSTEADY WHEN UP/BALANCE ISSUES. Dvt right leg-2001. PT STATED HAS BEEN EXPOSED TO BLACK MOLD . History of Any Multi-Drug Resistant Organisms: None Reported Past Surgical History: Breast Surgery, Ear Surgery, Heart Catheterization, Hysterectomy Additional Past Surgical History / Comment(s): Multiple day clubfoot. TUBES IN EARS, Kartush patches both ears D/T PERFORATED TYMPANIC MEMBRANES. POLYPS REMOVED FROM THROAT-BENIGN. Lt breast biopsy-NEG. BRONCHOSOCPY-BENIGN NODULE REMOVED. DEVIATED SEPTUM. COLONOSOCPY. right salpingo-oophorectomy Past Anesthesia/Blood Transfusion Reactions: Motion Sickness, Postoperative Nausea & Vomiting (PONV) Additional Past Anesthesia/Blood Transfusion Reaction / Comment(s): Problems/w/ anes in Nov after colonoscopy. Too much given & couldn't wake up".....However, patient states they have to give her more meds to get her to be sedated. Past Psychological History: Anxiety Smoking Status: Current every day smoker Past Alcohol Use History: None Reported Additional Past Alcohol Use History / Comment(s): PT STATED HAS SMOKED ON AND OFF X 25 YEARS CURRENTLY SMOKING LESS THAN A PACK A WEEK. Past Drug Use History: None Reported - Past Family History Mother Family Medical History: Diabetes Mellitus Additional Family Medical History / Comment(s): IRREG HEART BEAT. GRANDMOTHER HAD COLON CANCER AND HEART DISEASE Father Family Medical History: Hyperlipidemia, Hypertension Sister(s) Family Medical History: AFIB, Cancer, CVA/TIA, Hypertension Additional Family Medical History / Comment(s): CERVICAL CANCER General Exam - General Exam Comments Initial Comments: General: Awake and Alert. No acute distress. Does not appear acutely ill. These. Eyes: JOSH, EOM intact. No nystagmus. No scleral icterus. HENT: Atraumatic, normocephalic. Mucous membranes moist. Trachea midline. Neck: The neck is supple, there is no tenderness or JVD. Cardiovascular: Regular rate and rhythm. No murmur, rub, or gallop is appreciated. Distal pulses intact. Respiratory: Lungs are clear to auscultation bilaterally. No wheezes, rales, rhonchi. No respiratory distress. Gastrointestinal: Soft. Lower abdominal tenderness. Surgical port sites appear clean and intact. There is significant ecchymosis of the lower pannus with a firm mass within right lower abdominal wall approximately 5 cm by 5 cm. No rebound or guarding. Non-distended. No masses or organomegaly noted. No CVA tenderness. Musculoskeletal: No tenderness. Normal ROM. No gross deformity. No strength deficits. Neurological: A&Ox3. CN II-XII grossly intact, There are no obvious motor or sensory deficits. Coordination appears grossly intact. Speech is normal. Skin: Skin is warm and dry and no rashes or lesions are noted. Psychiatric: Cooperative, appropriate mood & affect, normal judgment. Limitations: no limitations Course Vital Signs 04/03/17 04/03/17 04/03/17 14:32 15:06 17:28 Temperature 97.2 F L 98.2 F 98.1 F Pulse Rate 99 70 Respiratory 16 16 Rate Blood Pressure 116/66 121/79 O2 Sat by Pulse 99 98 Oximetry 04/03/17 18:28 Temperature 97 F L Pulse Rate 109 H Respiratory 16 Rate Blood Pressure 120/63 O2 Sat by Pulse 96 Oximetry Medical Decision Making - Medical Decision Making 42-year-old female presenting for lower abdominal pain after recent ovarian surgery. No significant lower abdominal ecchymosis likely secondary surgery. There is palpable mass which is likely hematoma. Labwork and imaging ordered. Pain medication ordered. Patient with 3 g drop in hemoglobin since recent value. Given significant abdominal wall hematoma on CT with worsening pain, plan for admission for serial hemoglobins and further surgical intervention if required. Patient updated on results and imaging. Agreeable with plan for admission. Called and spoke to Dr. Atkins, updated on situation. Recommends admission to medicine with him on consult. Spoke with Dr. Winston, agrees with plan for admission. Requests consult to Dr. Atkins. - Lab Data Result diagrams: 04/03/17 15:21 04/03/17 15:21 Lab Results 04/03/17 04/03/17 04/03/17 Range/Units 15:21 15:21 15:21 WBC 9.3 (3.8-10.6) k/uL RBC 3.78 L (3.80-5.40) m/uL Hgb 12.1 D (11.4-16.0) gm/dL Hct 36.1 (34.0-46.0) % MCV 95.5 (80.0-100.0) fL MCH 32.0 (25.0-35.0) pg MCHC 33.5 (31.0-37.0) g/dL RDW 14.5 (11.5-15.5) % Plt Count 299 (150-450) k/uL Neutrophils % 69 % Lymphocytes % 23 % Monocytes % 3 % Eosinophils % 3 % Basophils % 1 % Neutrophils # 6.4 (1.3-7.7) k/uL Lymphocytes # 2.1 (1.0-4.8) k/uL Monocytes # 0.2 (0-1.0) k/uL Eosinophils # 0.3 (0-0.7) k/uL Basophils # 0.1 (0-0.2) k/uL PT 9.8 (9.0-12.0) sec INR 1.0 (<1.1) Sodium 140 (137-145) mmol/L Potassium 3.9 (3.5-5.1) mmol/L Chloride 107 (98-107) mmol/L Carbon Dioxide 25 (22-30) mmol/L Anion Gap 8 mmol/L BUN 17 (7-17) mg/dL Creatinine 0.60 (0.52-1.04) mg/dL Est GFR (MDRD) Af Amer >60 (>60 ml/min/1.73 sqM) Est GFR (MDRD) Non-Af >60 (>60 ml/min/1.73 sqM) Glucose 101 H (74-99) mg/dL Calcium 8.9 (8.4-10.2) mg/dL Total Bilirubin 0.6 (0.2-1.3) mg/dL AST 22 (14-36) U/L ALT 27 (9-52) U/L Alkaline Phosphatase 75 (38-126) U/L Total Protein 6.3 (6.3-8.2) g/dL Albumin 3.5 (3.5-5.0) g/dL Lipase 28 (23-300) U/L Urine Color Urine Appearance (Clear) Urine pH (5.0-8.0) Ur Specific [place] (1.001-1.035) Urine Protein (Negative) Urine Glucose (UA) (Negative) Urine Ketones (Negative) Urine Blood (Negative) Urine Nitrite (Negative) Urine Bilirubin (Negative) Urine Urobilinogen (<2.0) mg/dL Ur Leukocyte Esterase (Negative) 04/03/17 Range/Units 16:08 WBC (3.8-10.6) k/uL RBC (3.80-5.40) m/uL Hgb (11.4-16.0) gm/dL Hct (34.0-46.0) % MCV (80.0-100.0) fL MCH (25.0-35.0) pg MCHC (31.0-37.0) g/dL RDW (11.5-15.5) % Plt Count (150-450) k/uL Neutrophils % % Lymphocytes % % Monocytes % % Eosinophils % % Basophils % % Neutrophils # (1.3-7.7) k/uL Lymphocytes # (1.0-4.8) k/uL Monocytes # (0-1.0) k/uL Eosinophils # (0-0.7) k/uL Basophils # (0-0.2) k/uL PT (9.0-12.0) sec INR (<1.1) Sodium (137-145) mmol/L Potassium (3.5-5.1) mmol/L Chloride (98-107) mmol/L Carbon Dioxide (22-30) mmol/L Anion Gap mmol/L BUN (7-17) mg/dL Creatinine (0.52-1.04) mg/dL Est GFR (MDRD) Af Amer (>60 ml/min/1.73 sqM) Est GFR (MDRD) Non-Af (>60 ml/min/1.73 sqM) Glucose (74-99) mg/dL Calcium (8.4-10.2) mg/dL Total Bilirubin (0.2-1.3) mg/dL AST (14-36) U/L ALT (9-52) U/L Alkaline Phosphatase (38-126) U/L Total Protein (6.3-8.2) g/dL Albumin (3.5-5.0) g/dL Lipase (23-300) U/L Urine Color Yellow Urine Appearance Clear (Clear) Urine pH 6.0 (5.0-8.0) Ur Specific [place] 1.016 (1.001-1.035) Urine Protein Negative (Negative) Urine Glucose (UA) Negative (Negative) Urine Ketones Negative (Negative) Urine Blood Negative (Negative) Urine Nitrite Negative (Negative) Urine Bilirubin Negative (Negative) Urine Urobilinogen <2.0 (<2.0) mg/dL Ur Leukocyte Esterase Negative (Negative) - Radiology Data Radiology results: report reviewed, image reviewed Disposition Clinical Impression: Blood loss anemia, Status post oophorectomy, Postprocedural hematoma of abdominal wall, Abdominal pain Disposition: ADMITTED IP TO THIS [facility] Condition: Stable Decision to Admit Reason: Admit from EC
--- NOTE | 2017-04-03 16:12 | CT ---
EXAMINATION TYPE: CT abdomen pelvis wo con DATE OF EXAM: 04/03/2017 3:48 PM COMPARISON: Prior CT abdomen pelvis 03 January 2017 HISTORY: Right ovarian cyst removed on 03-28-17. Pain and swelling right lower quadrant. CT DLP: 1107.00 mGycm Automated exposure control for dose reduction was used. TECHNIQUE: Helical acquisition of images from the lung bases through the pelvis. FINDINGS: The lack of intravenous contrast could compromise sensitivity LUNG BASES: No significant abnormality is appreciated. AORTA: No significant abnormality is appreciated. LIVER/GB: The liver is enlarged. Gallbladder unremarkable PANCREAS: No significant abnormality is seen. SPLEEN: Borderline enlarged. ADRENALS: No significant abnormality is seen. KIDNEYS: No significant abnormality is seen. REPRODUCTIVE ORGANS: Uterus and right ovary are not visualized, left ovary is unremarkable URINARY BLADDER: No significant abnormality is seen. BOWEL: No significant abnormality is seen. FREE AIR: No Free Air is visible. ASCITES: Minimal free fluid in the pelvis. PELVIC ADENOPATHY: None visualized. RETROPERITONEAL ADENOPATHY: No Retroperitoneal Adenopathy visible. OSSEOUS STRUCTURES: Degenerative disc changes in the visualized spine, there is facet arthropathy Within the subcutaneous fat in the right lower quadrant there is abnormal increased attenuation which is somewhat lobular, measures 8.7 x 5.8 x 8.6 cm. Some associated increased attenuation present with in the subcutaneous fat. IMPRESSION: FINDINGS LIKELY REPRESENT HEMATOMA WITHIN THE SUBCUTANEOUS FAT SUPERFICIAL TO THE RECTUS MUSCLE ON TH E RIGHT POSSIBLY RELATED TO PATIENT'S SURGERY. NONCONTRAST EXAM.
[2017-04-03 16:13] LABS: Appearance,Urine Clear (Clear); Bilirubin,Urine Negative (Negative); Glucose,Urine (UA) Negative (Negative); Ketones,Urine Negative (Negative); Leukocyte Esterase,Urine Negative (Negative); Nitrite,Urine Negative (Negative); Protein,Urine Negative (Negative); Specific Gravity,Urine 1.016 (1.001-1.035); UA Billing (MACRO vs. MICRO) CHEM; Urobilinogen,Urine <2.0 mg/dL (<2.0)
[2017-04-03] MEDS ORDERED: HYDROmorphone 1 MG/ML 1 ML SYRINGE IVP STA (16:44)
[2017-04-03] MEDS ORDERED: LORazepam 1 MG TAB PO STA (16:44)
[2017-04-03] MEDS ORDERED: NALOXONE 0.4 MG/ML 1 ML VIAL IV PRN ×2 (17:18→19:51)
[2017-04-03] MEDS ORDERED: ONDANSETRON 4 MG/2 ML VIAL IVP PRN (17:18)
[2017-04-03] MEDS ORDERED: HYDROmorphone 1 MG/ML 1 ML SYRINGE IV PRN (17:18)
[2017-04-03] MEDS ORDERED: ACETAMINOPHEN TAB 325 MG TAB PO PRN ×2 (17:18→19:50)
[2017-04-03] MEDS ORDERED: HYDROcodone/APAP 5-325MG 1 EACH TAB PO PRN (17:18)
[2017-04-03] MEDS: HYDROmorphone 1 MG/ML 1 ML SYRINGE IV PRN ×2 (20:04→23:04)
[2017-04-03] MEDS: ONDANSETRON 4 MG/2 ML VIAL IVP PRN (20:09)
[2017-04-03] MEDS ORDERED: traMADol 50 MG TAB PO PRN (21:41)
[2017-04-03] MEDS ORDERED: ALBUTEROL NEBULIZED 2.5 MG/3 ML INHALATION PRN ×2 (21:41)
[2017-04-03] MEDS ORDERED: hydrOXYzine HCL 25 MG TAB PO PRN (21:41)
[2017-04-03] MEDS ORDERED: PROMETHAZINE 25 MG TAB PO PRN (21:41)
[2017-04-03] MEDS: ALPRAZolam 0.5 MG TAB PO PRN (22:00)
[2017-04-03] MEDS: PANTOPRAZOLE 40 MG TABLET PO SCH (22:02)
[2017-04-03] MEDS: MAGNESIUM OXIDE 400 MG TAB PO SCH (22:02)
[2017-04-03] MEDS: METOPROLOL TARTRATE 12.5 MG TAB PO SCH (22:02)
[2017-04-03] MEDS: DULoxetine HCL 60 MG CAPSULE.DR PO SCH (22:02)
[2017-04-03] MEDS: FLUCONAZOLE 100 MG TAB PO SCH (22:02)
[2017-04-03] MEDS: HYDROcodone/APAP 10-325MG 1 EACH TAB PO PRN (22:07)
[2017-04-04] MEDS: HYDROmorphone 1 MG/ML 1 ML SYRINGE IV PRN ×5 (02:01→19:41)
[2017-04-04] MEDS: HYDROcodone/APAP 10-325MG 1 EACH TAB PO PRN (02:02)
[2017-04-04] MEDS: ALPRAZolam 0.5 MG TAB PO PRN ×3 (04:00→19:41)
--- NOTE | 2017-04-04 07:33 | HP ---
DATE OF ADMISSION: 04/03/2017 PRESENTING COMPLAINT: Abdominal wall pain. HISTORY OF PRESENTING COMPLAINT: This is a 42-year-old patient of Dr. Murdock who on 03/28/17 underwent a right salpingo-oophorectomy by Dr. Atkins. Patient was discharged home. Patient is having abdominal wall pain on and off, getting a bit worse. Patient's pain has been rather significant. Denies any fever. This pain has been present since surgery. She says getting a bit worse. Patient's chronic stable medical conditions include asthma, fibromyalgia, GERD, DVT osteoarthritis of the feet and the patient is deaf in the right ear. Patient also has ( ) peripheral neuropathy. The ER physician did speak to Dr. Atkins who requested admission to medical service. REVIEW OF SYSTEMS: CONSTITUTIONAL: Tired. HEENT: None. RESPIRATORY: Occasional wheezing, some cough. CARDIOVASCULAR: None. GASTROINTESTINAL: Non. GENITOURINARY: None. MUSCULOSKELETAL: Aches and pains in different joints. DERMATOLOGICAL: Bruising of the abdominal wall. HEMATOLOGICAL: As above. LYMPHATICS: None. PSYCHIATRY: None. 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 Past medical history of asthma, fibromyalgia, GERD, stroke affecting the speech, DVT, osteoarthritis of the feet, peripheral neuropathy, deaf in the right ear. 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 SOCIAL HISTORY: The patient lives with her . Patient has been smoking for close to 25 years, down to 5 cigarettes a day. Alcohol none. FAMILY HISTORY: History of cervical cancer, hypertension, stroke, A. fib. HOME MEDICATIONS: 1. Ultram 50 mg p.o. t.i.d. p.r.n. 2. Requip 1 mg p.o. q.h.s. 3. Atarax 25 mg p.o. t.i.d. p.r.n. 4. Phenergan 25 mg p.o. t.i.d. p.r.n. 5. Protonix 40 mg p.o. b.i.d. 6. Lopressor 37.5 p.o. b.i.d. 7. Magnesium oxide 400 mg p.o. b.i.d. 8. Motrin 600 mg q.6 p.r.n. 9. [place] 10 one tablet q.6 p.r.n. 10. Diflucan 100 mg p.o. b.i.d. 11. EpiPen 0.3 mg q. p.r.n. 12. Cymbalta 60 mg p.o. b.i.d. 13. Flexeril 10 mg p.o. q.h.s. 14. Symbicort 160/4.5 two puffs b.i.d. 15. ProAir 1 to 2 puffs q.6 p.r.n. 16. Ventolin 2.5 q.6 p.r.n. 17. Xanax 0.5 p.o. t.i.d. p.r.n. Allergies to FENTANYL, IV CONTRAST, SHELLFISH, BUSPIRONE. On examination, temperature 98.1, pulse 70, respirations 16, blood pressure 121/79, pulse ox 98% on room air. GENERAL APPEARANCE: Well built, BMI of 32.6, lying in bed, comfortable. EYES: Pupils equal. Conjunctivae normal. HEENT: Oral cavity normal. NECK: JVD not raised. Mass not palpable. RESPIRATORY: Effort normal. LUNGS: Decreased breath sounds. Mild wheezing. CARDIOVASCULAR: First and second sounds normal. No edema. ABDOMEN: Somewhat distended, bruising of the lower abdomen with some tenderness. Incision sites from the laparoscopy are present, which seems to have abdominal wall hematoma. LYMPHATIC: No lymph node palpable of the neck or axillae. PSYCHIATRY: Alert and oriented x3. Mood and affect normal. NEUROLOGICAL: Pupils equal. Cranial nerves grossly intact. Power and sensation grossly intact. INVESTIGATIONS: White count 9.3, hemoglobin 12.1. Potassium 3.9. UA negative. CT scan of the abdomen and pelvis reveals an abdominal wall hematoma. ASSESSMENT: 1. Acute abdominal wall hematoma in a patient who underwent right salpingo-oophorectomy on 03/28/17. The patient is hemodynamically stable. I expect this is probably old hematoma which is now manifesting itself, maybe getting liquified. 2. Chronic obstructive pulmonary disease in a current smoker. 3. Chronic fibromyalgia. 4. Gastroesophageal reflux disease. 5. 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 6. Patient deaf in the right ear. 7. Peripheral neuropathy, cause unknown. PLAN: Home medications are resumed. Patient will be alternated with heat pad and ice pack. Consultation was made to Dr. Talib Atkins from [facility]. Will also ( ) the patient's hemoglobin and repeat hemoglobin in the morning. At this point, only symptomatic pain control will be done. I do not see any obvious need for intervention as no signs of infection at the present time. Care was discussed in detail with the patient.
[2017-04-04 08:08] LABS: Basophils # (A) 0.1 k/uL (0-0.2); Basophils % (A) 1 %; CH 32.5; CHCM 34.1; Eosinophils # (A) 0.3 k/uL (0-0.7); Eosinophils % (A) 3 %; HCT 33.8 % (34.0-46.0); HDW 2.67; HGB 11.4 gm/dL (11.4-16.0); Luc # (Auto) 0.19; Luc % (Auto) 2; Lymphocytes # (A) 2.4 k/uL (1.0-4.8); Lymphocytes % (A) 29 %; MCH 32.2 pg (25.0-35.0); MCHC 33.6 g/dL (31.0-37.0); MCV 95.9 fL (80.0-100.0); Mean Platelet Volume 6.9; Monocytes # (A) 0.3 k/uL (0-1.0); Monocytes % (A) 4 %; Neutrophils # (A) 5.2 k/uL (1.3-7.7); Neutrophils % (A) 62 %; RBC 3.53 m/uL (3.80-5.40); RDW 14.6 % (11.5-15.5); WBC 8.4 k/uL (3.8-10.6); WBC (Perox) 8.68
--- NOTE | 2017-04-04 08:42 | P.OBCN ---
History of Present Illness Consult date: 04/04/17 Requesting physician: Dillon Winston Reason for consult: pelvic pain Chief complaint: hematoma of incision History of present illness: Anna is seen and evaluated. She is well known to me and had surgery by me approximately a week ago. At that time we did provide her with heparin intraoperatively due to her history of DVT in her. Postoperatively she was noted to have bleeding in around her incisions but that did stop. In seeing her today there is a large amount of bruising all across the lower abdomen and what feels like almost a baseball size lump underneath the right lateral port site. CAT scan revealed what they believed was a hematoma. No hernia was seen. Will discuss possible CAT scan versus ultrasound-guided drainage with radiology. It is palpable and may very well be amenable to this management technique. Unfortunately for Anna, I think the heparin provided intraoperatively made this situation worse. Complicating the issue is her use of narcotics for an extended period of time making it difficult to have adequate pain control. She is otherwise stable in bed she has an appetite she is passing flatus and had bowel movements. She reports that she did not have this much pain when she was sent home. The pain has developed more severely over the last day or 2. As has this lump. Her vital signs are otherwise stable. Assessment postop hematoma subcuticularly. Plan consult radiology for recommendations and possible drainage. From my standpoint and not planning on taking her to surgery and will plan to advance her diet Past Medical History Past Medical History: Asthma, COPD, CVA/TIA, Deep Vein Thrombosis (DVT), Fibromyalgia, GERD/Reflux, Osteoarthritis (OA) Additional Past Medical History / Comment(s): *DEAF IN RIGHT EAR. PATIENT STATES HER PCP TOLD HER SHE MIGHT HAVE HAD A TIA & INCREASED HEART HR. SEE DR. VIVAS'S H & P FOR CARDIOVASCULAR DETAILS. Neuropathy feet; UNSTEADY WHEN UP/ BALANCE ISSUES- BORN CLUB FEET(HAD SEVERALSX) "I HAVE BAD KNEES AND BAD LT HIP" . Dvt right leg-2001. PT STATED HAS BEEN EXPOSED TO BLACK MOLD ."CONSTIPATION NO BM X 1 WEEK EXCEPT FOR FEW TINY PELLETS ONCE" History of Any Multi-Drug Resistant Organisms: None Reported Past Surgical History: Breast Surgery, Ear Surgery, Heart Catheterization, Hysterectomy Additional Past Surgical History / Comment(s): Multiple SX day clubfoot. TUBES IN EARS, Kartush patches both ears D/T PERFORATED TYMPANIC MEMBRANES. POLYPS REMOVED FROM THROAT-BENIGN. Lt breast biopsy-NEG. BRONCHOSOCPY-BENIGN NODULE REMOVED. DEVIATED SEPTUM. COLONOSOCPY. March right salpingo-oophorectomy Past Anesthesia/Blood Transfusion Reactions: Motion Sickness, Postoperative Nausea & Vomiting (PONV) Additional Past Anesthesia/Blood Transfusion Reaction / Comm: Problems/w/anes in Nov after colonoscopy. "Too much given & couldn't wake up".....However, patient states they have to give her more meds to get her to be sedated."AFTER 1 SX THEY TOLD ME STOPPED BREATHING DURING SX" Past Psychological History: Anxiety Additional Psychological History / Comment(s): PT LIVES WITH SUDARSHAN IN A SINGLE LEVEL HOME THAT HAS 2 STEPS IN WHICH TO ENTER. 1 INDOOR PET-DOG. HAS A CAREGIVER. USES A CANE WHEN UP NEEDED. PT STATED REALLY NEEDS A NEW SHOWER CHAIR. Smoking Status: Current every day smoker Past Alcohol Use History: None Reported Additional Past Alcohol Use History / Comment(s): PT STATED HAS SMOKED ON AND OFF X 25 YEARS CURRENTLY SMOKING 5 CIG PER DAY. Past Drug Use History: None Reported - Past Family History Mother Family Medical History: Diabetes Mellitus Additional Family Medical History / Comment(s): IRREG HEART BEAT. GRANDMOTHER HAD COLON CANCER AND HEART DISEASE Father Family Medical History: Hyperlipidemia, Hypertension Sister(s) Family Medical History: AFIB, Cancer, CVA/TIA, Hypertension Additional Family Medical History / Comment(s): CERVICAL CANCER Medications and Allergies Home Medications Medication Instructions Recorded Confirmed Type ALPRAZolam [Xanax] 0.5 mg PO QID PRN 04/03/14 04/03/17 History Cyclobenzaprine [Flexeril] 10 mg PO HS PRN 04/03/14 04/03/17 History DULoxetine HCL [Cymbalta] 60 mg PO BID 04/03/14 04/03/17 History Pantoprazole Sodium [Protonix] 40 mg PO BID 04/03/14 04/03/17 History Albuterol Nebulized [Ventolin 2.5 mg INHALATION RT-Q6H PRN 03/29/16 04/03/17 History Nebulized] EPINEPHrine (Auto Inject) [Epipen] 0.3 mg IM ONCE PRN 08/15/16 04/03/17 History traMADol HCL [Tramadol HCl] 50 mg PO TID PRN 11/11/16 04/03/17 History Albuterol Sulfate [Proair Hfa] 1 - 2 puff INHALATION RT-Q6H PRN 03/23/17 History Promethazine [Phenergan] 25 mg PO TID PRN 03/23/17 04/03/17 History hydrOXYzine HCL [Atarax] 25 mg PO TID PRN 03/23/17 04/03/17 History Budesonide-Formot 160-4.5 Mcg 2 puff INHALATION RT-BID 04/03/17 04/03/17 History [Symbicort 160-4.5 Mcg Inhaler] Fluconazole [Diflucan] 100 mg PO BID 04/03/17 04/03/17 History HYDROcodone/APAP 10-325MG [[place] 1 tab PO Q4HR PRN 04/03/17 04/03/17 History 10-325] Magnesium Oxide [Mag-Ox] 400 mg PO BID 04/03/17 04/03/17 History Metoprolol Tartrate [Lopressor] 37.5 mg PO BID 04/03/17 04/03/17 History rOPINIRole HCL [Requip] 1 mg PO HS 04/03/17 04/03/17 History Allergies Allergy/AdvReac Type Severity Reaction Status Date / Time fentanyl Allergy Rash/Hives Verified 04/03/17 16:00 Iodinated Contrast Media - Allergy Anaphylaxis Verified 04/03/17 16:00 Oral and [Iodinated Contrast Media - IV Dye] shellfish derived Allergy Anaphylaxis Verified 04/03/17 16:00 buspirone AdvReac Hallucinati Verified 04/03/17 16:00 ons Exam Osteopathic Statement: *. No significant issues noted on an osteopathic structural exam other than those noted in the History and Physical/Consult. - Vital Signs Vital signs: Vital Signs Temp Pulse Pulse Resp BP BP Pulse Ox 04/04/17 07:54 96/63 04/04/17 07:00 97.7 F 71 16 89/51 93 L 04/04/17 00:00 87 16 04/03/17 19:38 97.8 F 87 16 125/63 95 04/03/17 18:28 97 F L 109 H 16 120/63 96 Intake and Output 04/03/17 04/04/17 04/04/17 22:59 06:59 14:59 Intake Total 60 Balance 60 Intake: Oral 60 Other: # Voids 2 1 Results Result Diagrams: 04/04/17 07:58 04/03/17 15:21 Abnormal Lab Results - Last 24 Hours (Table) 04/04/17 Range/Units 07:58 RBC 3.53 L (3.80-5.40) m/uL Hct 33.8 L (34.0-46.0) %
[2017-04-04] MEDS: SYMBICORT 160-4.5 MCG INHALER INHALATION SCH ×2 (09:15→20:04)
[2017-04-04] MEDS: METOPROLOL TARTRATE 12.5 MG TAB PO SCH ×2 (09:21→21:32)
[2017-04-04] MEDS: FLUCONAZOLE 100 MG TAB PO SCH ×2 (09:21→21:32)
[2017-04-04] MEDS: DULoxetine HCL 60 MG CAPSULE.DR PO SCH ×2 (09:21→21:32)
[2017-04-04] MEDS: PANTOPRAZOLE 40 MG TABLET PO SCH ×2 (09:22→18:05)
[2017-04-04] MEDS: MAGNESIUM OXIDE 400 MG TAB PO SCH ×2 (09:22→21:32)
[2017-04-04] MEDS: SODIUM CHLORIDE 0.9% 1,000 ML IV SCH ×2 (11:26→17:19)
[2017-04-04 14:32] VITALS: BMI 32.5
[2017-04-04] MEDS ORDERED: LACTATED RINGERS 1,000 ML IV ONE (16:09)
[2017-04-04] MEDS ORDERED: LIDOCAINE 1% 20 ML VIAL (10MG/ML) FOR IV START INTRADERMA ONE (16:10)
[2017-04-04] MEDS ORDERED: ONDANSETRON 4 MG/2 ML VIAL IVP ONE (16:11)
[2017-04-04] MEDS ORDERED: DEXAMETHASONE SOD PHOSPHATE 10 MG/ML 1 ML VIAL IV ONE (16:11)
[2017-04-04] MEDS ORDERED: SCOPOLAMINE 1.5MG/72HR PATCH TRANSDERM ONE (16:14)
--- NOTE | 2017-04-04 16:16 | P.GSCN ---
History of Present Illness Consult date: 04/04/17 Reason for Consult: Abdominal wall hematoma History of present illness: Patient underwent a [place] assisted oophorectomy approximately 2 weeks ago. She has had progressive ecchymosis and swelling in the right lower abdomen since that time. CAT scan confirms a hematoma in the subcutaneous fat of the right lower abdominal wall. Denies fevers or chills. Pain is increasing. No change in bowel habits. No nausea or vomiting. No significant drainage from incision site. Review of Systems The patient denies any acute changes in his vision or hearing, no dysphagia or odynophagia, no chest pain or shortness of breath, no dysuria or hematuria, no headache, no runny nose, no rectal bleeding or melena, no unexplained weight loss Past Medical History Past Medical History: Asthma, COPD, CVA/TIA, Deep Vein Thrombosis (DVT), Fibromyalgia, GERD/Reflux, Osteoarthritis (OA) Additional Past Medical History / Comment(s): *DEAF IN RIGHT EAR. PATIENT STATES HER PCP TOLD HER SHE MIGHT HAVE HAD A TIA & INCREASED HEART HR. SEE DR. VIVAS'S H & P FOR CARDIOVASCULAR DETAILS. Neuropathy feet; UNSTEADY WHEN UP/ BALANCE ISSUES- BORN CLUB FEET(HAD SEVERALSX) "I HAVE BAD KNEES AND BAD LT HIP" . Dvt right leg-2001. PT STATED HAS BEEN EXPOSED TO BLACK MOLD ."CONSTIPATION NO BM X 1 WEEK EXCEPT FOR FEW TINY PELLETS ONCE" History of Any Multi-Drug Resistant Organisms: None Reported Past Surgical History: Breast Surgery, Ear Surgery, Heart Catheterization, Hysterectomy Additional Past Surgical History / Comment(s): Multiple SX day clubfoot. TUBES IN EARS, Kartush patches both ears D/T PERFORATED TYMPANIC MEMBRANES. POLYPS REMOVED FROM THROAT-BENIGN. Lt breast biopsy-NEG. BRONCHOSOCPY-BENIGN NODULE REMOVED. DEVIATED SEPTUM. COLONOSOCPY. March right salpingo-oophorectomy Past Anesthesia/Blood Transfusion Reactions: Motion Sickness, Postoperative Nausea & Vomiting (PONV) Additional Past Anesthesia/Blood Transfusion Reaction / Comm: Problems/w/anes in Nov after colonoscopy. "Too much given & couldn't wake up".....However, patient states they have to give her more meds to get her to be sedated."AFTER 1 SX THEY TOLD ME STOPPED BREATHING DURING SX" Past Psychological History: Anxiety Additional Psychological History / Comment(s): PT LIVES WITH SUDARSHAN IN A SINGLE LEVEL HOME THAT HAS 2 STEPS IN WHICH TO ENTER. 1 INDOOR PET-DOG. HAS A CAREGIVER. USES A CANE WHEN UP NEEDED. PT STATED REALLY NEEDS A NEW SHOWER CHAIR. Smoking Status: Current every day smoker Past Alcohol Use History: None Reported Additional Past Alcohol Use History / Comment(s): PT STATED HAS SMOKED ON AND OFF X 25 YEARS CURRENTLY SMOKING 5 CIG PER DAY. Past Drug Use History: None Reported - Past Family History Mother Family Medical History: Diabetes Mellitus Additional Family Medical History / Comment(s): IRREG HEART BEAT. GRANDMOTHER HAD COLON CANCER AND HEART DISEASE Father Family Medical History: Hyperlipidemia, Hypertension Sister(s) Family Medical History: AFIB, Cancer, CVA/TIA, Hypertension Additional Family Medical History / Comment(s): CERVICAL CANCER Medications and Allergies Home Medications Medication Instructions Recorded Confirmed Type ALPRAZolam [Xanax] 0.5 mg PO QID PRN 04/03/14 04/03/17 History Cyclobenzaprine [Flexeril] 10 mg PO HS PRN 04/03/14 04/03/17 History DULoxetine HCL [Cymbalta] 60 mg PO BID 04/03/14 04/03/17 History Pantoprazole Sodium [Protonix] 40 mg PO BID 04/03/14 04/03/17 History Albuterol Nebulized [Ventolin 2.5 mg INHALATION RT-Q6H PRN 03/29/16 04/03/17 History Nebulized] EPINEPHrine (Auto Inject) [Epipen] 0.3 mg IM ONCE PRN 08/15/16 04/03/17 History traMADol HCL [Tramadol HCl] 50 mg PO TID PRN 11/11/16 04/03/17 History Albuterol Sulfate [Proair Hfa] 1 - 2 puff INHALATION RT-Q6H PRN 03/23/17 History Promethazine [Phenergan] 25 mg PO TID PRN 03/23/17 04/03/17 History hydrOXYzine HCL [Atarax] 25 mg PO TID PRN 03/23/17 04/03/17 History Budesonide-Formot 160-4.5 Mcg 2 puff INHALATION RT-BID 04/03/17 04/03/17 History [Symbicort 160-4.5 Mcg Inhaler] Fluconazole [Diflucan] 100 mg PO BID 04/03/17 04/03/17 History HYDROcodone/APAP 10-325MG [[place] 1 tab PO Q4HR PRN 04/03/17 04/03/17 History 10-325] Magnesium Oxide [Mag-Ox] 400 mg PO BID 04/03/17 04/03/17 History Metoprolol Tartrate [Lopressor] 37.5 mg PO BID 04/03/17 04/03/17 History rOPINIRole HCL [Requip] 1 mg PO HS 04/03/17 04/03/17 History Allergies Allergy/AdvReac Type Severity Reaction Status Date / Time fentanyl Allergy Rash/Hives Verified 04/03/17 16:00 Iodinated Contrast Media - Allergy Anaphylaxis Verified 04/03/17 16:00 Oral and [Iodinated Contrast Media - IV Dye] shellfish derived Allergy Anaphylaxis Verified 04/03/17 16:00 buspirone AdvReac Hallucinati Verified 04/03/17 16:00 ons Surgical - Exam Vital Signs Temp Pulse Resp BP Pulse Ox 97.2 F L 99 16 116/66 99 04/03/17 14:32 04/03/17 14:32 04/03/17 14:32 04/03/17 14:32 04/03/17 14:32 Physical exam: General: Well-developed, well-nourished HEENT: Normocephalic, sclerae nonicteric Abdomen: Ecchymosis involving the entire lower abdomen, hematoma with tenderness right lower abdominal wall beneath the incision site, no erythema, nondistended Extremities: No edema Neuro: Alert and oriented Results - Labs 04/04/17 07:58 04/03/17 15:21 Abnormal Lab Results - Last 24 Hours (Table) 04/04/17 Range/Units 07:58 RBC 3.53 L (3.80-5.40) m/uL Hct 33.8 L (34.0-46.0) % Assessment and Plan (1) Postprocedural hematoma of abdominal wall Narrative/Plan: CAT scan was reviewed. The patient I discussed the options. We'll proceed with incision and drainage of the abdominal wall hematoma at this time. Risk of bleeding, infection, persistent hematoma, persistent ecchymosis, persistent pain, abscess formation, wound formation were discussed. She understands and wishes to proceed. Status: Acute
[2017-04-04] MEDS ORDERED: HYDROmorphone (PF) 1 MG/ML ONE (16:26)
[2017-04-04] MEDS ORDERED: MIDAZOLAM 2 MG/2 ML VIAL ONE (16:26)
[2017-04-04] MEDS ORDERED: PROPOFOL 10 MG/ML 20 ML VIAL IV ONE (16:26)
[2017-04-04] MEDS ORDERED: fentaNYL (PF) 50 MCG/ML 2 ML AMP ONE (16:26)
[2017-04-04] MEDS ORDERED: LIDOCAINE 1% INJ 10MG/ML (20 ML MDV) ONE (16:26)
[2017-04-04] MEDS ORDERED: SUCCINYLCHOLINE CHLORIDE VIAL 200 MG/10 ML VIAL IV ONE (16:26)
--- NOTE | 2017-04-04 16:59 | P.PCN ---
Date of Procedure: 04/04/17 Procedure(s) Performed: PREOPERATIVE DIAGNOSIS: Abdominal Wall hematoma POSTOPERATIVE DIAGNOSIS: Same PROCEDURE: Incision and drainage abdominal wall hematoma SURGEON: Gwen EBL: Minimal ANESTHESIA: General COMPLICATIONS: None OPERATIVE PROCEDURE: Patient was placed in the operating table in the supine position. The patient was placed under general anesthesia. The abdomen was prepped and draped in the usual sterile fashion. The previous right lower quadrant incision was lengthened slightly for a distance of approximately 2 cm total. Entrance into a subcutaneous hematoma cavity took place bluntly. The hematoma was evacuated fully. This was approximately 300 mL. The area was irrigated with saline. No active bleeding was seen. A 1/2 inch Anastasiia drain was left deep in the and sutured to the skin using a 4-0 nylon stitch. An additional 4-0 nylon suture was used to reapproximate the skin. A sterile dressing was applied. No active bleeding was seen during the procedure. DISPOSITION: Stable to recovery room
[2017-04-04] MEDS: ONDANSETRON 4 MG/2 ML VIAL IVP PRN (19:49)
[2017-04-04] MEDS: CYCLOBENZAPRINE 10 MG TAB PO PRN (21:32)
[2017-04-04] MEDS: HYDROcodone/APAP 5-325MG 1 EACH TAB PO PRN (22:34)
[2017-04-05] MEDS: ONDANSETRON 4 MG/2 ML VIAL IVP PRN ×2 (06:00→17:00)
[2017-04-05] MEDS: HYDROcodone/APAP 5-325MG 1 EACH TAB PO PRN (06:00)
[2017-04-05] MEDS: ALPRAZolam 0.5 MG TAB PO PRN ×3 (06:00→21:15)
[2017-04-05] MEDS: SODIUM CHLORIDE 0.9% 1,000 ML IV SCH ×2 (06:21→14:01)
--- NOTE | 2017-04-05 06:44 | PN ---
DATE OF SERVICE: 04/04/2017 PRESENTING COMPLAINT: Abdominal wall pain. INTERVAL HISTORY: This is a 42-year-old female who underwent a right salpingo-oophorectomy on 03/28/2017. Patient's hospital course was uneventful and was subsequently discharged home. Patient presented to emergency department on 04/03/2017 with worsening abdominal pain. Today the patient is awake, talking on the phone, alert, able to answer questions, talking to the nurse. Complains of abdominal pain. Review of systems done for constitutional, cardiovascular, GI, pulmonary, with relevant findings as above. CURRENT MEDICATIONS: [place], albuterol, Flexeril, Cymbalta, Dilaudid. Lopressor, Protonix, Ultram. VITAL SIGNS: Temperature 98.0, pulse 77. respirations 18, blood pressure 108/63, oxygen saturation 92% on 3 L nasal cannula. GENERAL APPEARANCE: Patient is awake, alert, participatory, talking on the phone, using personal electronic device. Patient was just informed; however, she is going to be going to surgery later in the day. Patient expressed some concerns regarding this and asked a few questions regarding the procedure itself. The patient is otherwise stable and in no acute distress. EYES: Pupils equal. Conjunctivae normal. NECK: JVD not raised. Mass not palpable. Respiratory effort normal. LUNGS: Decreased breath sounds, mild wheezing noted. CARDIOVASCULAR: S1, S2 sounds normal. No edema noted. ABDOMEN: Distended, bruising of the lower abdomen with some tenderness. Two puncture wounds on either side of both the left and right side of the abdomen from laparoscopy able to appreciate a rather significant hematoma to the right abdominal wall. PSYCHIATRY: Alert and oriented x3. Mood and affect are normal. INVESTIGATIONS: Hemoglobin 11.4. INR 1.0. ASSESSMENT: 1. Acute abdominal wall hematoma in a patient who underwent right salpingo-oophorectomy on 03/28/2017. The patient is hemodynamically stable. General Surgery was consulted and plans to take patient later today to OR for incision and drainage of the hematoma. 2. Chronic obstructive pulmonary disease in a current smoker. 3. Chronic fibromyalgia. 4. Gastroesophageal reflux disease. 5. 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 6. Patient deaf in the right ear. 7. Peripheral neuropathy, cause unknown. PLAN: Pain management of abdominal hematoma. Consultation with Dr. Talib Atkins. Labs to be repeated each day. Continue current pain management regimen. General Surgery consulted and plans to take patient to OR for an incision and drainage of the hematoma. Patient was seen and examined by nurse practitioner, Zamzam Hayes, and all elements of the case was discussed with attending, Dr. Winston.
[2017-04-05] MEDS: FLUCONAZOLE 100 MG TAB PO SCH ×2 (07:53→21:16)
[2017-04-05] MEDS: PANTOPRAZOLE 40 MG TABLET PO SCH ×2 (07:53→17:18)
[2017-04-05] MEDS: DULoxetine HCL 60 MG CAPSULE.DR PO SCH ×2 (07:53→21:15)
[2017-04-05] MEDS: METOPROLOL TARTRATE 12.5 MG TAB PO SCH ×2 (07:54→21:16)
[2017-04-05] MEDS: MAGNESIUM OXIDE 400 MG TAB PO SCH ×2 (07:55→21:16)
--- NOTE | 2017-04-05 07:55 | PN ---
DATE OF SERVICE: 04/04/2017 ATTENDING NOTE: This patient was seen and examined by me earlier today. I saw the note of my nurse practitioner, Ms. Raymelianae, I agree with the same except discussed below. This is a patient status post right salpingo-oophorectomy presented with rather large painful abdominal wall hematoma. Saw the patient earlier today, Dr. Hidalgo saw the patient, he is taking the patient down to the OR. Patient's is at the bedside. Still having significant pain abdominal wall. On examination, temperature 97.7, pulse 72, respiration 16, abdominal wall tender with an area of firmness in the lower abdominal wall, felt to be the hematoma. PSYCH: Alert and oriented x3. INVESTIGATIONS: White count 8.4. ASSESSMENT: 1. Large abdominal wall hematoma status post right salpingo-oophorectomy on 03/28/2017, slow to respond. To be evacuated today by Dr. Hidalgo. 2. Chronic obstructive pulmonary disease. 3. Medical condition, stable. PLAN: Care was discussed with the patient's at the bedside. The patient is going done for evacuation. Later in the evening I learned patient had about 300 mL of hematoma evacuated.
[2017-04-05] MEDS: SYMBICORT 160-4.5 MCG INHALER INHALATION SCH ×2 (07:57→19:41)
[2017-04-05] MEDS: HYDROcodone/APAP 10-325MG 1 EACH TAB PO PRN ×2 (08:01→20:35)
[2017-04-05] MEDS: HYDROmorphone 1 MG/ML 1 ML SYRINGE IV PRN ×4 (10:07→22:41)
--- NOTE | 2017-04-05 11:06 | P.PN ---
Progress Note - Text This a progress note from gynecologic standpoint. Anna is seen and evaluated this morning following her in the last night but Dr. Hidalgo. Overall she appears stable she does continue to complain of being very weak and tired hemoglobin stable vital signs are stable is unclear other than from an anesthetic standpoint why she would be week. We will try and add Motrin 600 into her medication regimen to decrease some of the inflammation as her principal complaint now is incisional tenderness. She does report that she feels significantly better than she did yesterday prior to having the I&D. We will defer to Dr. hopson and his associates for wound care. At this time she does not appear stable for discharge based on her increasing pain levels as she is having to do Dilaudid for pain IV. There could be consideration for switching her from [place] to Dilaudid by mouth but I will leave that up to medicine at this time. Otherwise from my standpoint she is stable but would prefer to keep her until tomorrow
[2017-04-05] MEDS: IBUPROFEN 600 MG TAB PO PRN ×2 (12:32→21:15)
[2017-04-05] MEDS ORDERED: MAGNESIUM CITRATE 296 ML BOTTLE PO ONE (20:35)
--- NOTE | 2017-04-05 21:31 | PN ---
DATE OF SERVICE: 04/05/2017 PRESENTING COMPLAINT: Abdominal wall pain. INTERVAL HISTORY: The patient is a 42-year-old female who underwent a right salpingo-oophorectomy on 03/28/2017. Patient's hospital course was uneventful and subsequently was discharged home. Patient presented to the emergency department on 04/03/2017 with worsening abdominal pain. Surgery was consulted and decision was made to take patient to the OR and she is postop day one from incision and drainage of abdominal wall hematoma. Today the patient is sitting up, family and friends at the bedside. Patient looks very worried, concerned regarding discharge planning as many multiple questions regarding home care and has a great concern about continuation of IV push Dilaudid. Review of systems done for constitutional, cardiovascular, GI, gastrointestinal pulmonary, with relevant findings as above. CURRENT MEDICATIONS: [place], albuterol, Flexeril, Cymbalta, Dilaudid, Lopressor, Protonix, Ultram. PHYSICAL EXAMINATION: VITAL SIGNS: Temperature 97.9, pulse 82, respiratory rate 16, blood pressure 120/60. Oxygen saturation 95% on room air. GENERAL APPEARANCE: Patient again is awake, alert, oriented. No acute distress noted or voiced. Has some complaints of abdominal pain, but otherwise in good spirits. EYES: Pupils equal. Conjunctivae normal. NECK: JVD not raised. Mass not palpable. RESPIRATORY: Effort normal. LUNGS: Decreased breath sounds mild wheezing noted. CARDIOVASCULAR: S1, S2 sounds normal. No edema noted. ABDOMEN: Distended bruising of the lower abdomen with some tenderness. Two puncture wounds on either side of both the left and the right abdomen from laparoscopic procedure. Two puncture wounds on either side of both the left and right side of the abdomen from laparoscopic procedure. Surgical dressing in place on the right side of the abdomen. Significant amount of drainage noted to the dressing. However, it is not seeped through. PSYCHIATRY: Alert and oriented x3. Mood and affect are normal. INVESTIGATIONS: No new lab values to report. Dr. Atkins saw the patient today and recommends holding discharge until tomorrow 04/06/2017. ASSESSMENT: 1. Acute abdominal wall hematoma in a patient who underwent right salpingo-oophorectomy on 03/28/2017. Patient is hemodynamically stable. General surgery consulted and completed incision and drainage of right abdominal wall hematoma. 300 mL of sanguinous drainage was evacuated. 2. Chronic obstructive pulmonary disease in a current smoker. 3. Chronic fibromyalgia. 4. Gastroesophageal reflux disease. 5. 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 6. Patient deaf in the right ear. 7. Peripheral neuropathy, cause unknown. PLAN: Continue management of abdominal pain attempting to eliminate hydromorphone as patient will not go home on IV medications. Dr. Atkins and Dr. Hidalgo will continue to follow patient's course. Labs to be repeated in the morning. Possible discharge on 04/06/2017. Patient was seen and examined by nurse practitioner Zamzam Hayes, all the elements of the case was discussed with the attending Dr. Winston. I performed a history and physical examination of this patient and discussed the same with the dictator. I agree with the dictator's note. Any additional findings/opinions, etc. will be noted.
[2017-04-05] MEDS: CYCLOBENZAPRINE 10 MG TAB PO PRN (22:18)
[2017-04-06] MEDS: ONDANSETRON 4 MG/2 ML VIAL IVP PRN ×2 (01:15→09:21)
[2017-04-06] MEDS: SODIUM CHLORIDE 0.9% 1,000 ML IV SCH (06:02)
[2017-04-06] MEDS: SYMBICORT 160-4.5 MCG INHALER INHALATION SCH (07:35)
--- NOTE | 2017-04-06 07:56 | PN ---
DATE OF SERVICE: 04/05/2017 ATTENDING NOTE: This patient is seen and examined by me earlier today. I reviewed the note of my nurse practitioner, Ms. Hayes. Patient's abdominal pain is actually better. Patient started to eat better. Feels that she has been puffing up getting IV fluids. On examination, LUNGS: Fair air entry. CARDIOVASCULAR: First and second sounds normal. ABDOMEN: Decreased tenderness. INVESTIGATIONS: No blood work from today. ASSESSMENT: 1. Status post abdominal wall hematoma, removed about 300 mL. 2. Chronic obstructive pulmonary disease in a current smoker. 3. Severe constipation. Patient has not a bowel movement for 4 to 5 days, she states from pain medications and decreased mobility. PLAN: Patient was ordered a soapsuds enema, but patient declined the same. Hence will go ahead and give the patient MAC citrate. Will discontinue the patient's IV Dilaudid later today and keep the patient on Brea temporarily. Patient may use a heating pad if needed. Encouraged to be out of bed. This was discussed with the patient and at the bedside. Patient should be able to be hopefully discharged tomorrow.
[2017-04-06 08:04] VITALS: BP 93/55; PULSE 68; RESP 18; TEMP 98
[2017-04-06 08:22] LABS: CH 32.5; CHCM 34.1; HCT 29.4 % (34.0-46.0); HDW 2.69; HGB 10.1 gm/dL (11.4-16.0); MCHC 34.5 g/dL (31.0-37.0); MCV 95.7 fL (80.0-100.0); Mean Platelet Volume 7.3; RBC 3.07 m/uL (3.80-5.40); RDW 14.9 % (11.5-15.5); WBC 10.6 k/uL (3.8-10.6)
[2017-04-06 08:34] LABS: Anion Gap 7 mmol/L; Blood Urea Nitrogen 19 mg/dL (7-17); Calcium 8.5 mg/dL (8.4-10.2); Carbon Dioxide 28 mmol/L (22-30); Chloride 104 mmol/L (98-107); Glucose 110 mg/dL (74-99); Non-African American GFR(MDRD) >60 (>60 ml/min/1.73 sqM); Potassium 4.2 mmol/L (3.5-5.1); Sodium 139 mmol/L (137-145)
[2017-04-06] MEDS: METOPROLOL TARTRATE 12.5 MG TAB PO SCH ×2 (09:19→09:22)
[2017-04-06] MEDS: MAGNESIUM OXIDE 400 MG TAB PO SCH (09:20)
[2017-04-06] MEDS: HYDROcodone/APAP 10-325MG 1 EACH TAB PO PRN (09:20)
[2017-04-06] MEDS: DULoxetine HCL 60 MG CAPSULE.DR PO SCH (09:20)
[2017-04-06] MEDS: PANTOPRAZOLE 40 MG TABLET PO SCH (09:20)
[2017-04-06] MEDS: ALPRAZolam 0.5 MG TAB PO PRN (09:20)
[2017-04-06] MEDS: FLUCONAZOLE 100 MG TAB PO SCH (09:23)
--- NOTE | 2017-04-07 10:39 | DS ---
DATE OF ADMISSION: 04/03/2017 DATE OF DISCHARGE: 04/06/2017 FINAL DIAGNOSES: 1. Acute abdominal wall hematoma secondary to abdominal surgery. 2. Recent right salpingo-oophorectomy. 3. Chronic obstructive pulmonary disease in a current smoker. 4. Chronic fibromyalgia. 5. Gastroesophageal reflux disease. 6. 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 7. Patient is deaf in the right ear. 8. Peripheral neuropathy. PROCEDURE: Surgical evacuation of hematoma in the abdominal wall. [employer]: Dr. Chandler Hidalgo from general surgery. HOSPITAL COURSE: This patient underwent a right salpingo-oophorectomy on 03/28/17 presented with abdominal hematoma. The hematoma ( ) 300 mL was removed. Doing much better at the time of discharge. On examination, decreased bruising, decreased tenderness. Patient had been advised against smoking. DISCHARGE MEDICATIONS: 1. Xanax 0.5 p.o. q.i.d. p.r.n. 2. Flexeril 10 mg p.o. q.h.s. p.r.n. 3. Cymbalta 60 mg p.o. b.i.d. 4. Protonix 40 mg p.o. b.i.d. 5. Ventolin 2.5 q.6 p.r.n. 6. EpiPen 0.3 IM p.r.n. 7. Tramadol 50 mg p.o. t.i.d. p.r.n. 8. ProAir 1 to 2 puffs q.6 p.r.n. 9. Phenergan 25 mg p.o. t.i.d. p.r.n. 10. Atarax 25 mg p.o. t.i.d. 11. Motrin 600 mg q.6 p.r.n. 12. Symbicort 160/4.5 two puffs b.i.d. 13. Diflucan 100 mg p.o. b.i.d. 14. [place] 10 one q.4 p.r.n. 15. Magnesium oxide 400 mg p.o. b.i.d. 16. Lopressor 37.5 p.o. b.i.d. 17. Requip 1 mg p.o. q.h.s. Follow up with Dr. Hidalgo on 04/13/17. Follow up with Dr. Atkins. Follow up with Dr. Murdock on 04/10/17. On exam, lungs decreased breath sounds. Decreased lower abdominal tenderness with mild bruising. PSYCH: Alert and oriented x3.
== END 2017-04-06 11:55 | disposition home or self-care (01) | DRG 909 ==
LOC: EC 14:23 → UNDOADMOB 17:18 → 3OBS 17:18 → EC 18:08 → OBSVTOIN 18:17 → 5MS5E 18:29
PROVIDERS: ADMIT Hospitalist; ATTEND Hospitalist
PROC: 0J980ZZ Drainage of Abdomen Subcutaneous Tissue and Fascia, Open Approach (ICD-10-PCS; principal; 2017-04-04 07:30)
DX: L76.32 Postprocedural hematoma of skin and subcutaneous tissue following other procedure (principal); G62.9 Polyneuropathy, unspecified; D50.0 Iron deficiency anemia secondary to blood loss (chronic); F17.210 Nicotine dependence, cigarettes, uncomplicated; H91.91 Unspecified hearing loss, right ear; J44.9 Chronic obstructive pulmonary disease, unspecified; J45.909 Unspecified asthma, uncomplicated; K21.9 Gastro-esophageal reflux disease without esophagitis; K59.00 Constipation, unspecified; M19.071 Primary osteoarthritis, right ankle and foot; M79.7 Fibromyalgia; Z80.0 Family history of malignant neoplasm of digestive organs; Z82.49 Family history of ischemic heart disease and other diseases of the circulatory system; Z86.718 Personal history of other venous thrombosis and embolism; Z86.73 Personal history of transient ischemic attack (TIA), and cerebral infarction without residual deficits; Z91.041 Radiographic dye allergy status; Z88.5 Allergy status to narcotic agent; Z91.013 Allergy to seafood
CPT/HCPCS: 36415; 74176; 80048; 80053; 81003; 83690; 85025; 85027; 85610; 96361; 96374; 96375; 96376; 99285

== ENCOUNTER → 2017-06-10 | Outpatient (CLI) | payer MEDICARE, OTHER | END | disposition home or self-care (01) | LOC: LABWHC1 11:12 | PROVIDERS: ATTEND Family Medicine | DX: Z01.810 Encounter for preprocedural cardiovascular examination (principal) | CPT/HCPCS: 36415; 93005 ==

== ENCOUNTER 2017-07-23 23:03 | Emergency (ER) | payer MEDICARE, OTHER ==
[2017-07-23] MEDS ORDERED: SODIUM CHLORIDE 0.9% 500 ML IV STA (23:32)
[2017-07-23] MEDS ORDERED: IPRATROPIUM-ALBUTEROL 3 ML NEB INHALATION STA (23:32)
[2017-07-23] MEDS ORDERED: KETOROLAC 30 MG/ML 1 ML VIAL IVP STA (23:32)
--- NOTE | 2017-07-23 23:37 | ED ---
General Adult HPI - General Chief complaint: Dizziness Stated complaint: blood pressure Time Seen by Provider: 07/23/17 23:21 Source: patient, RN notes reviewed Mode of arrival: wheelchair Limitations: no limitations - History of Present Illness Initial comments: This a 42-year-old female presents emergency Department chief complaint of fatigue. Patient states she's been fatigue over the last few days. Patient states that she is actually her primary care physician's yesterday for a checkup because she has thrush. Patient states that she was prescribed medications for thrush. Patient states that her vitals were stable and was not told any was abnormal. She states that she felt tired and slightly lightheaded at home so she decided take her blood pressure in which she has a wrist cough. She states she had multiple recurrent readings anywhere with a systolic pressure of 74-90. Patient states she call her primary care physician and advised to come emergency department. She denies any chest pain. She states she has ongoing shortness breath secondary to smoking and asthma. She has not used any breathing treatments or inhalers recently. Patient states she does have right low back pain and chronic pain though she takes Percocet and [place] for. She states that she's had increase in back pain because she had recent left foot surgery causing her to walk differently. Patient is requesting Toradol for this. Patient denies any dysuria or hematuria. Denies any abdominal pain including nausea vomiting diarrhea constipation. Patient has no focal weakness. Denies any headache or blurred vision. - Related Data Home Medications Medication Instructions Recorded Confirmed ALPRAZolam [Xanax] 0.5 mg PO QID PRN 04/03/14 04/03/17 Cyclobenzaprine [Flexeril] 10 mg PO HS PRN 04/03/14 04/03/17 DULoxetine HCL [Cymbalta] 60 mg PO BID 04/03/14 04/03/17 Pantoprazole Sodium [Protonix] 40 mg PO BID 04/03/14 04/03/17 Albuterol Nebulized [Ventolin 2.5 mg INHALATION RT-Q6H PRN 03/29/16 04/03/17 Nebulized] EPINEPHrine (Auto Inject) [Epipen] 0.3 mg IM ONCE PRN 08/15/16 04/03/17 traMADol HCL [Tramadol HCl] 50 mg PO TID PRN 11/11/16 04/03/17 Albuterol Sulfate [Proair Hfa] 1 - 2 puff INHALATION RT-Q6H PRN 03/23/17 Promethazine [Phenergan] 25 mg PO TID PRN 03/23/17 04/03/17 hydrOXYzine HCL [Atarax] 25 mg PO TID PRN 03/23/17 04/03/17 Budesonide-Formot 160-4.5 Mcg 2 puff INHALATION RT-BID 04/03/17 04/03/17 [Symbicort 160-4.5 Mcg Inhaler] Fluconazole [Diflucan] 100 mg PO BID 04/03/17 04/03/17 HYDROcodone/APAP 10-325MG [[place] 1 tab PO Q4HR PRN 04/03/17 04/03/17 10-325] Magnesium Oxide [Mag-Ox] 400 mg PO BID 04/03/17 04/03/17 Metoprolol Tartrate [Lopressor] 37.5 mg PO BID 04/03/17 04/03/17 rOPINIRole HCL [Requip] 1 mg PO HS 04/03/17 04/03/17 Previous Rx's Medication Instructions Recorded Ibuprofen [Motrin] 600 mg PO Q6HR PRN #30 tab 03/28/17 Allergies Allergy/AdvReac Type Severity Reaction Status Date / Time fentanyl Allergy Rash/Hives Verified 07/23/17 23:08 Iodinated Contrast- Oral and Allergy Anaphylaxis Verified 07/23/17 23:08 IV Dye [Iodinated Contrast Media - IV Dye] shellfish derived Allergy Anaphylaxis Verified 07/23/17 23:08 buspirone AdvReac Hallucinati Verified 07/23/17 23:08 ons Review of Systems ROS Statement: Those systems with pertinent positive or pertinent negative responses have been documented in the HPI. ROS Other: All systems not noted in ROS Statement are negative. Past Medical History Past Medical History: Asthma, COPD, CVA/TIA, Deep Vein Thrombosis (DVT), Fibromyalgia, GERD/Reflux, Osteoarthritis (OA) Additional Past Medical History / Comment(s): *DEAF IN RIGHT EAR. PATIENT STATES HER PCP TOLD HER SHE MIGHT HAVE HAD A TIA & INCREASED HEART HR. SEE DR. [facility] P FOR CARDIOVASCULAR DETAILS. Neuropathy feet; UNSTEADY WHEN UP/ BALANCE ISSUES- BORN CLUB FEET(HAD SEVERALSX) "I HAVE BAD KNEES AND BAD LT HIP" . Dvt right leg-2001. PT STATED HAS BEEN EXPOSED TO BLACK [facility] ."CONSTIPATION NO BM X 1 WEEK EXCEPT FOR FEW TINY PELLETS ONCE" History of Any Multi-Drug Resistant Organisms: None Reported Past Surgical History: Breast Surgery, Ear Surgery, Heart Catheterization, Hysterectomy Additional Past Surgical History / Comment(s): Multiple SX day clubfoot. TUBES IN EARS, [place] patches both ears D/T PERFORATED TYMPANIC MEMBRANES. POLYPS REMOVED FROM THROAT-BENIGN. Lt breast biopsy-NEG. BRONCHOSOCPY-BENIGN NODULE REMOVED. DEVIATED SEPTUM. COLONOSOCPY. March right salpingo-oophorectomy Past Anesthesia/Blood Transfusion Reactions: Motion Sickness, Postoperative Nausea & Vomiting (PONV) Additional Past Anesthesia/Blood Transfusion Reaction / Comment(s): Problems/w/ anes in Nov after colonoscopy. "Too much given & couldn't wake up".....However, patient states they have to give her more meds to get her to be sedated."AFTER 1 SX THEY TOLD ME STOPPED BREATHING DURING SX" Past Psychological History: Anxiety Smoking Status: Current every day smoker Past Alcohol Use History: None Reported Past Drug Use History: None Reported - Past Family History Mother Family Medical History: Diabetes Mellitus Additional Family Medical History / Comment(s): IRREG HEART BEAT. GRANDMOTHER HAD COLON CANCER AND HEART DISEASE Father Family Medical History: Hyperlipidemia, Hypertension Sister(s) Family Medical History: AFIB, Cancer, CVA/TIA, Hypertension Additional Family Medical History / Comment(s): CERVICAL CANCER General Exam Limitations: no limitations General appearance: alert, in no apparent distress Head exam: Present: atraumatic, normocephalic, normal inspection Eye exam: Present: normal appearance, PERRL, EOMI. Absent: scleral icterus, conjunctival injection, periorbital swelling ENT exam: Present: normal exam, normal oropharynx, mucous membranes moist, TM's normal bilaterally, normal external ear exam Neck exam: Present: normal inspection, full ROM. Absent: tenderness, meningismus, lymphadenopathy Respiratory exam: Present: normal lung sounds bilaterally. Absent: respiratory distress, wheezes, rales, rhonchi, stridor Cardiovascular Exam: Present: regular rate, normal rhythm, normal heart sounds. Absent: systolic murmur, diastolic murmur, rubs, gallop, clicks GI/Abdominal exam: Present: soft, normal bowel sounds. Absent: distended, tenderness, guarding, rebound, rigid Extremities exam: Present: normal inspection, full ROM, normal capillary refill. Absent: tenderness, pedal edema, joint swelling, calf tenderness Back exam: Present: full ROM, tenderness, paraspinal tenderness (Right low back) Neurological exam: Present: alert, oriented X3, CN II-XII intact, reflexes normal, other (Finger to nose intact bilaterally without or shooting.). Absent : motor sensory deficit Skin exam: Present: warm, dry, intact, normal color. Absent: rash Course Vital Signs 07/23/17 07/24/17 07/24/17 23:05 00:28 00:38 Temperature 98.6 F Pulse Rate 86 84 84 Respiratory 16 Rate Blood Pressure 107/63 O2 Sat by Pulse 98 Oximetry 07/24/17 01:16 Temperature Pulse Rate 72 Respiratory 18 Rate Blood Pressure 93/50 O2 Sat by Pulse 98 Oximetry EKG Findings - EKG Comments: EKG Findings:: EKG performed at 0:39 normal sinus rhythm with a rate of 71 NH interval 178, QRS duration 98 QTC is QTC 438/475 Medical Decision Making - Medical Decision Making 42-year-old female presented for fatigue. Patient's lab work essentially unremarkable. Patient's blood pressure is on the lower end of normal though this is appears to be her baseline. Patient is able to ambulate around emergency Department with no difficulty denies dizziness denies chest pain denies shortness of breath denies any focal weakness. Patient is requesting to be discharged at this time. Patient states her back pain is improved. Patient is advised to follow-up with Dr. Murdock tomorrow morning to review her medications. - Lab Data Result diagrams: 07/23/17 23:50 07/23/17 23:50 Lab Results 07/23/17 07/23/17 07/23/17 Range/Units 23:50 23:50 23:50 WBC 6.8 (3.8-10.6) k/uL RBC 4.30 (3.80-5.40) m/uL Hgb 13.7 (11.4-16.0) gm/dL Hct 39.8 (34.0-46.0) % MCV 92.6 (80.0-100.0) fL MCH 31.8 (25.0-35.0) pg MCHC 34.3 (31.0-37.0) g/dL RDW 13.6 (11.5-15.5) % Plt Count 281 (150-450) k/uL Neutrophils % 53 % Lymphocytes % 39 % Monocytes % 3 % Eosinophils % 4 % Basophils % 1 % Neutrophils # 3.6 (1.3-7.7) k/uL Lymphocytes # 2.6 (1.0-4.8) k/uL Monocytes # 0.2 (0-1.0) k/uL Eosinophils # 0.2 (0-0.7) k/uL Basophils # 0.0 (0-0.2) k/uL PT (9.0-12.0) sec INR (<1.2) APTT (22.0-30.0) sec Sodium 137 (137-145) mmol/L Potassium 3.7 (3.5-5.1) mmol/L Chloride 103 (98-107) mmol/L Carbon Dioxide 27 (22-30) mmol/L Anion Gap 7 mmol/L BUN 15 (7-17) mg/dL Creatinine 0.60 (0.52-1.04) mg/dL Est GFR (MDRD) Af Amer >60 (>60 ml/min/1.73 sqM) Est GFR (MDRD) Non-Af >60 (>60 ml/min/1.73 sqM) Glucose 124 H (74-99) mg/dL Calcium 9.2 (8.4-10.2) mg/dL Magnesium 1.9 (1.6-2.3) mg/dL Total Bilirubin 0.3 (0.2-1.3) mg/dL AST 20 (14-36) U/L ALT 29 (9-52) U/L Alkaline Phosphatase 83 (38-126) U/L Total Creatine Kinase 45 (30-135) U/L CK-MB (CK-2) <0.2 (0.0-2.4) ng/mL CK-MB (CK-2) Rel Index Troponin I <0.012 (0.000-0.034) ng/mL Total Protein 6.3 (6.3-8.2) g/dL Albumin 3.7 (3.5-5.0) g/dL TSH 3.590 (0.465-4.680) mIU/L Urine Color Urine Appearance (Clear) Urine pH (5.0-8.0) Ur Specific [place] (1.001-1.035) Urine Protein (Negative) Urine Glucose (UA) (Negative) Urine Ketones (Negative) Urine Blood (Negative) Urine Nitrite (Negative) Urine Bilirubin (Negative) Urine Urobilinogen (<2.0) mg/dL Ur Leukocyte Esterase (Negative) Urine RBC (0-5) /hpf Urine WBC (0-5) /hpf Ur Squamous Epith Cells (0-4) /hpf Hyaline Casts (0-2) /lpf Urine Mucus (None) /hpf Heterophile Antibody (Negative) 07/23/17 07/23/17 07/24/17 Range/Units 23:50 23:50 01:00 WBC (3.8-10.6) k/uL RBC (3.80-5.40) m/uL Hgb (11.4-16.0) gm/dL Hct (34.0-46.0) % MCV (80.0-100.0) fL MCH (25.0-35.0) pg MCHC (31.0-37.0) g/dL RDW (11.5-15.5) % Plt Count (150-450) k/uL Neutrophils % % Lymphocytes % % Monocytes % % Eosinophils % % Basophils % % Neutrophils # (1.3-7.7) k/uL Lymphocytes # (1.0-4.8) k/uL Monocytes # (0-1.0) k/uL Eosinophils # (0-0.7) k/uL Basophils # (0-0.2) k/uL PT 10.2 (9.0-12.0) sec INR 1.0 (<1.2) APTT 26.9 (22.0-30.0) sec Sodium (137-145) mmol/L Potassium (3.5-5.1) mmol/L Chloride (98-107) mmol/L Carbon Dioxide (22-30) mmol/L Anion Gap mmol/L BUN (7-17) mg/dL Creatinine (0.52-1.04) mg/dL Est GFR (MDRD) Af Amer (>60 ml/min/1.73 sqM) Est GFR (MDRD) Non-Af (>60 ml/min/1.73 sqM) Glucose (74-99) mg/dL Calcium (8.4-10.2) mg/dL Magnesium (1.6-2.3) mg/dL Total Bilirubin (0.2-1.3) mg/dL AST (14-36) U/L ALT (9-52) U/L Alkaline Phosphatase (38-126) U/L Total Creatine Kinase (30-135) U/L CK-MB (CK-2) (0.0-2.4) ng/mL CK-MB (CK-2) Rel Index Troponin I (0.000-0.034) ng/mL Total Protein (6.3-8.2) g/dL Albumin (3.5-5.0) g/dL TSH (0.465-4.680) mIU/L Urine Color Yellow Urine Appearance Cloudy H (Clear) Urine pH 6.0 (5.0-8.0) Ur Specific [place] 1.030 (1.001-1.035) Urine Protein Trace H (Negative) Urine Glucose (UA) Negative (Negative) Urine Ketones Negative (Negative) Urine Blood Negative (Negative) Urine Nitrite Negative (Negative) Urine Bilirubin Negative (Negative) Urine Urobilinogen 2.0 (<2.0) mg/dL Ur Leukocyte Esterase Negative (Negative) Urine RBC 1 (0-5) /hpf Urine WBC 1 (0-5) /hpf Ur Squamous Epith Cells 5 H (0-4) /hpf Hyaline Casts 3 H (0-2) /lpf Urine Mucus Many H (None) /hpf Heterophile Antibody Negative (Negative) Disposition Clinical Impression: Fatigue, Back pain, Nausea Disposition: HOME SELF-CARE Condition: Stable Instructions: Fatigue (ED) Additional Instructions: Please return to the Emergency Department if symptoms worsen or any other concerns. Referrals: Judah Murdock DO [Primary Care Provider] - 1-2 days Time of Disposition: 02:00
[2017-07-23] MEDS ORDERED: ONDANSETRON 4 MG/2 ML VIAL IVP STA (23:53)
[2017-07-24 00:09] LABS: Basophils % (A) 1 %; CH 31.9; CHCM 34.6; Eosinophils # (A) 0.2 k/uL (0-0.7); Eosinophils % (A) 4 %; HCT 39.8 % (34.0-46.0); HDW 2.48; HGB 13.7 gm/dL (11.4-16.0); Luc % (Auto) 2; Lymphocytes # (A) 2.6 k/uL (1.0-4.8); Lymphocytes % (A) 39 %; MCH 31.8 pg (25.0-35.0); MCHC 34.3 g/dL (31.0-37.0); MCV 92.6 fL (80.0-100.0); Mean Platelet Volume 7.3; Monocytes # (A) 0.2 k/uL (0-1.0); Monocytes % (A) 3 %; Neutrophils # (A) 3.6 k/uL (1.3-7.7); Neutrophils % (A) 53 %; RDW 13.6 % (11.5-15.5); WBC 6.8 k/uL (3.8-10.6); WBC (Perox) 7.21
--- NOTE | 2017-07-24 00:16 | XR ---
EXAM: XR Chest, 2 Views CLINICAL HISTORY: Reason: Weakness TECHNIQUE: Frontal and lateral views of the chest. COMPARISON: 08/15/16 FINDINGS: Lungs: Unremarkable. No consolidation. Pleural space: Unremarkable. No pneumothorax. Heart: Unremarkable. No cardiomegaly. Mediastinum: Unremarkable. Bones/joints: Unremarkable. IMPRESSION: Normal chest x-rays.
[2017-07-24 00:17] LABS: Partial Thromboplastin Time 26.9 sec (22.0-30.0); Prothrombin Time 10.2 sec (9.0-12.0)
[2017-07-24 00:21] LABS: ALT 29 U/L (9-52); AST 20 U/L (14-36); Alkaline Phosphatase 83 U/L (38-126); Anion Gap 7 mmol/L; Blood Urea Nitrogen 15 mg/dL (7-17); Calcium 9.2 mg/dL (8.4-10.2); Carbon Dioxide 27 mmol/L (22-30); Chloride 103 mmol/L (98-107); Glucose 124 mg/dL (74-99); Magnesium 1.9 mg/dL (1.6-2.3); Non-African American GFR(MDRD) >60 (>60 ml/min/1.73 sqM); Potassium 3.7 mmol/L (3.5-5.1); Sodium 137 mmol/L (137-145); Total Bilirubin 0.3 mg/dL (0.2-1.3); Total Protein 6.3 g/dL (6.3-8.2)
[2017-07-24 00:34] LABS: Creatine Kinase 45 U/L (30-135)
[2017-07-24 00:46] LABS: Creatine Kinase MB <0.2 ng/mL (0.0-2.4); Troponin I <0.012 ng/mL (0.000-0.034)
[2017-07-24] MEDS ORDERED: METOCLOPRAMIDE 5 MG/ML 2 ML VIAL IVP STA (01:01)
[2017-07-24 01:18] VITALS: RESP 18
[2017-07-24] MEDS ORDERED: ORPHENADRINE 30 MG/ML 2 ML VIAL IVP STA (01:23)
[2017-07-24] MEDS ORDERED: SODIUM CHLORIDE 0.9% 1,000 ML IV ONE (01:23)
[2017-07-24 01:38] LABS: Appearance,Urine Cloudy (Clear); Bilirubin,Urine Negative (Negative); Glucose,Urine (UA) Negative (Negative); Ketones,Urine Negative (Negative); Leukocyte Esterase,Urine Negative (Negative); Mucus,Urine Many /hpf; Nitrite,Urine Negative (Negative); Particle Count 11351; Protein,Urine Trace (Negative); RBC,Urine 1 /hpf (0-5); Squamous Epithelial Cell,Urine 5 /hpf (0-4); UA Billing (MACRO vs. MICRO) MICRO; WBC,Urine 1 /hpf (0-5)
[2017-07-24 02:08] VITALS: BP 101/58; PULSE 98; TEMP 97.2
== END 2017-07-24 02:06 | disposition home or self-care (01) ==
LOC: EC 23:03
DX: R53.83 Other fatigue (principal); M54.5 Low back pain; R11.0 Nausea; B37.9 Candidiasis, unspecified; R05 Cough; R06.02 Shortness of breath; G89.29 Other chronic pain; K21.9 Gastro-esophageal reflux disease without esophagitis; M19.90 Unspecified osteoarthritis, unspecified site; M79.7 Fibromyalgia; F41.9 Anxiety disorder, unspecified; F17.200 Nicotine dependence, unspecified, uncomplicated; Z95.5 Presence of coronary angioplasty implant and graft; Z98.890 Other specified postprocedural states; Z79.899 Other long term (current) drug therapy; Z79.51 Long term (current) use of inhaled steroids; Z88.5 Allergy status to narcotic agent; Z91.041 Radiographic dye allergy status; Z91.013 Allergy to seafood; Z88.8 Allergy status to other drugs, medicaments and biological substances; J44.9 Chronic obstructive pulmonary disease, unspecified; J45.909 Unspecified asthma, uncomplicated; Z86.73 Personal history of transient ischemic attack (TIA), and cerebral infarction without residual deficits
CPT/HCPCS: 36415; 94640; 80053; 84443; 82550; 82553; 83735; 84484; 85025; 85610; 85730; 86308; 81001; 71020; 99284; 96374; 96375 ×3; 96361; J2360; J2765; J2405; J1885

== ENCOUNTER 2018-03-16 09:46 | Observation (INO) | payer MEDICARE, OTHER ==
[2018-03-16] MEDS ORDERED: ONDANSETRON 4 MG/2 ML VIAL IVP STA (10:06)
[2018-03-16] MEDS ORDERED: SODIUM CHLORIDE 0.9% 500 ML IV STA (10:06)
--- NOTE | 2018-03-16 10:11 | ED ---
General Adult HPI - General Chief complaint: Chest Pain Stated complaint: Chest Pain Time Seen by Provider: 03/16/18 09:46 Source: patient, EMS, RN notes reviewed Mode of arrival: EMS Limitations: no limitations - History of Present Illness Initial comments: This a 42-year-old female presents emergency Department and reportedly was having some chest discomfort became very nauseated and vomited multiple times at home. Patient currently states she doesn't remember a lot of that in this is all related to be of the family. Patient currently only complains of nausea and some chest tightness. Patient denies any difficulty breathing shortness of breath per patient denies any episodes diaphoresis. Patient and family deny any syncopal episode. Patient denies any abdominal pain. Patient denies any dysuria hematuria urinary frequency. Patient denies any recent fever chills or cough. Patient denies headache patient denies numbness weakness. She had foot surgery about 7 weeks ago she was on antibiotics for infection there but is healing well now. - Related Data Home Medications Medication Instructions Recorded Confirmed DULoxetine HCL [Cymbalta] 60 mg PO BID 04/03/14 03/16/18 Pantoprazole Sodium [Protonix] 40 mg PO BID 04/03/14 03/16/18 Albuterol Nebulized [Ventolin 2.5 mg INHALATION RT-Q6H PRN 03/29/16 03/16/18 Nebulized] EPINEPHrine (Auto Inject) [Epipen] 0.3 mg IM ONCE PRN 08/15/16 03/16/18 traMADol HCL [Tramadol HCl] 50 mg PO TID PRN 11/11/16 03/16/18 Albuterol Sulfate [Proair Hfa] 1 - 2 puff INHALATION RT-Q6H PRN 03/23/17 hydrOXYzine HCL [Atarax] 25 mg PO TID PRN 03/23/17 03/16/18 Budesonide-Formot 160-4.5 Mcg 2 puff INHALATION RT-BID 04/03/17 03/16/18 [Symbicort 160-4.5 Mcg Inhaler] Carvedilol [Coreg] 3.125 mg PO DAILY 03/16/18 03/16/18 Cephalexin [Keflex] 500 mg PO QID 03/16/18 03/16/18 Pnv No.95/Ferrous Fum/Folic AC 1 tab PO DAILY 03/16/18 03/16/18 [ Multivitamin Tablet] oxyCODONE-APAP 10-325MG [Percocet 1 tab PO Q6HR PRN 03/16/18 03/16/18 10-325 mg] rOPINIRole HCL [Requip] 4 mg PO BID 03/16/18 03/16/18 tiZANidine [Zanaflex] 4 mg PO Q8HR 03/16/18 03/16/18 Allergies Allergy/AdvReac Type Severity Reaction Status Date / Time fentanyl Allergy Rash/Hives Verified 03/16/18 10:19 Iodinated Contrast- Oral and Allergy Anaphylaxis Verified 03/16/18 10:19 IV Dye [Iodinated Contrast Media - IV Dye] shellfish derived Allergy Anaphylaxis Verified 03/16/18 10:19 buspirone AdvReac Hallucinati Verified 03/16/18 10:19 ons Review of Systems ROS Statement: Those systems with pertinent positive or pertinent negative responses have been documented in the HPI. ROS Other: All systems not noted in ROS Statement are negative. Past Medical History Past Medical History: Asthma, COPD, CVA/TIA, Deep Vein Thrombosis (DVT), Fibromyalgia, GERD/Reflux, Osteoarthritis (OA) Additional Past Medical History / Comment(s): *DEAF IN RIGHT EAR. PATIENT STATES HER PCP TOLD HER SHE MIGHT HAVE HAD A TIA & INCREASED HEART HR. SEE DR. [facility]AS[facility] P FOR CARDIOVASCULAR DETAILS. Neuropathy feet; UNSTEADY WHEN UP/ BALANCE ISSUES- BORN CLUB FEET(HAD SEVERALSX) "I HAVE BAD KNEES AND BAD LT HIP" . Dvt right leg-2001. PT STATED HAS BEEN EXPOSED TO [facility] ."CONSTIPATION NO BM X 1 WEEK EXCEPT FOR FEW TINY PELLETS ONCE" History of Any Multi-Drug Resistant Organisms: None Reported Past Surgical History: Breast Surgery, Ear Surgery, Heart Catheterization, Hysterectomy Additional Past Surgical History / Comment(s): Multiple SX day clubfoot. TUBES IN EARS, Kartush patches both ears D/T PERFORATED TYMPANIC MEMBRANES. POLYPS REMOVED FROM THROAT-BENIGN. Lt breast biopsy-NEG. BRONCHOSOCPY-BENIGN NODULE REMOVED. DEVIATED SEPTUM. COLONOSOCPY. March right salpingo-oophorectomy Past Anesthesia/Blood Transfusion Reactions: Motion Sickness, Postoperative Nausea & Vomiting (PONV) Additional Past Anesthesia/Blood Transfusion Reaction / Comment(s): Problems/w/ anes in Nov after colonoscopy. "Too much given & couldn't wake up".....However, patient states they have to give her more meds to get her to be sedated."AFTER 1 SX THEY TOLD ME STOPPED BREATHING DURING SX" Past Psychological History: Anxiety Smoking Status: Current every day smoker Past Alcohol Use History: None Reported Past Drug Use History: None Reported - Past Family History Mother Family Medical History: Diabetes Mellitus Additional Family Medical History / Comment(s): IRREG HEART BEAT. GRANDMOTHER HAD COLON CANCER AND HEART DISEASE Father Family Medical History: Hyperlipidemia, Hypertension Sister(s) Family Medical History: AFIB, Cancer, CVA/TIA, Hypertension Additional Family Medical History / Comment(s): CERVICAL CANCER General Exam - General Exam Comments Initial Comments: GENERAL: Patient is well-developed and well-nourished. Patient is nontoxic and well- hydrated and is in mild distress. ENT: Neck is soft and supple. No significant lymphadenopathy is noted. Oropharynx is clear. Moist mucous membranes. Neck has full range of motion without eliciting any pain. EYES: The sclera were anicteric and conjunctiva were pink and moist. Extraocular movements were intact and pupils were equal round and reactive to light. Eyelids were unremarkable. PULMONARY: Unlabored respirations. Good breath sounds bilaterally. No audible rales rhonchi or wheezing was noted. CARDIOVASCULAR: There is a regular rate and rhythm without any murmurs gallops or rubs. ABDOMEN: Soft and nontender with normal bowel sounds. No palpable organomegaly was noted. There is no palpable pulsatile mass. SKIN: Skin is clear with no lesions or rashes and otherwise unremarkable. NEUROLOGIC: Patient is alert and oriented x3. Cranial nerves II through XII are grossly intact. Motor and sensory are also intact. Normal speech, volume and content. Symmetrical smile. MUSCULOSKELETAL: Normal extremities with adequate strength and full range of motion. No lower extremity swelling or edema. No calf tenderness. LYMPHATICS: No significant lymphadenopathy is noted PSYCHIATRIC: Normal psychiatric evaluation. Normal interpersonal interactions appears functionally intact in deals appropriately with others. No signs of depression. No signs of anxiety. Limitations: no limitations Course Vital Signs 03/16/18 03/16/18 03/16/18 09:46 10:58 11:00 Temperature 97.1 F L Pulse Rate 81 78 83 Respiratory 16 18 16 Rate Blood Pressure 127/77 115/64 111/56 O2 Sat by Pulse 95 97 97 Oximetry 03/16/18 03/16/18 11:58 14:45 Temperature Pulse Rate 83 81 Respiratory 16 16 Rate Blood Pressure 117/62 126/71 O2 Sat by Pulse 97 94 L Oximetry Medical Decision Making - Medical Decision Making EKG shows normal sinus rhythm at 76 bpm DE interval is 174 tresses 88 QT interval is 418 QTC is 470. Patient's EKG shows no ST segment elevation or depression or T wave abnormalities are seen. Chest x-ray shows no acute abnormality. Patient states she still having chest pain. Patient states she still does not remember what happened at the house. I spoke with Dr. Winston agreed to admit the patient I admitted the patient I consult to cardiology. - Lab Data Result diagrams: 03/16/18 09:59 03/16/18 09:59 Lab Results 03/16/18 03/16/18 03/16/18 Range/Units 09:59 09:59 09:59 WBC 9.7 (3.8-10.6) k/uL RBC 4.30 (3.80-5.40) m/uL Hgb 13.4 (11.4-16.0) gm/dL Hct 39.7 (34.0-46.0) % MCV 92.3 (80.0-100.0) fL MCH 31.2 (25.0-35.0) pg MCHC 33.8 (31.0-37.0) g/dL RDW 13.0 (11.5-15.5) % Plt Count 292 (150-450) k/uL Neutrophils % 63 % Lymphocytes % 29 % Monocytes % 3 % Eosinophils % 3 % Basophils % 1 % Neutrophils # 6.1 (1.3-7.7) k/uL Lymphocytes # 2.8 (1.0-4.8) k/uL Monocytes # 0.3 (0-1.0) k/uL Eosinophils # 0.3 (0-0.7) k/uL Basophils # 0.1 (0-0.2) k/uL PT (9.0-12.0) sec INR (<1.2) APTT (22.0-30.0) sec Sodium 141 (137-145) mmol/L Potassium 4.2 (3.5-5.1) mmol/L Chloride 103 (98-107) mmol/L Carbon Dioxide 26 (22-30) mmol/L Anion Gap 12 mmol/L BUN 19 H (7-17) mg/dL Creatinine 0.58 (0.52-1.04) mg/dL Est GFR (CKD-EPI)AfAm >90 (>60 ml/min/1.73 sqM) Est GFR (CKD-EPI)NonAf >90 (>60 ml/min/1.73 sqM) Glucose 121 H (74-99) mg/dL Calcium 9.1 (8.4-10.2) mg/dL Magnesium 2.0 (1.6-2.3) mg/dL Total Bilirubin 0.2 (0.2-1.3) mg/dL AST 30 (14-36) U/L ALT 41 (9-52) U/L Alkaline Phosphatase 97 (38-126) U/L Total Creatine Kinase 46 (30-135) U/L CK-MB (CK-2) 0.2 (0.0-2.4) ng/mL CK-MB (CK-2) Rel Index 0.4 Troponin I <0.012 (0.000-0.034) ng/mL Total Protein 6.3 (6.3-8.2) g/dL Albumin 3.9 (3.5-5.0) g/dL Amylase 50 (30-110) U/L Lipase 78 (23-300) U/L 03/16/18 Range/Units 09:59 WBC (3.8-10.6) k/uL RBC (3.80-5.40) m/uL Hgb (11.4-16.0) gm/dL Hct (34.0-46.0) % MCV (80.0-100.0) fL MCH (25.0-35.0) pg MCHC (31.0-37.0) g/dL RDW (11.5-15.5) % Plt Count (150-450) k/uL Neutrophils % % Lymphocytes % % Monocytes % % Eosinophils % % Basophils % % Neutrophils # (1.3-7.7) k/uL Lymphocytes # (1.0-4.8) k/uL Monocytes # (0-1.0) k/uL Eosinophils # (0-0.7) k/uL Basophils # (0-0.2) k/uL PT 10.0 (9.0-12.0) sec INR 1.0 (<1.2) APTT 25.5 (22.0-30.0) sec Sodium (137-145) mmol/L Potassium (3.5-5.1) mmol/L Chloride (98-107) mmol/L Carbon Dioxide (22-30) mmol/L Anion Gap mmol/L BUN (7-17) mg/dL Creatinine (0.52-1.04) mg/dL Est GFR (CKD-EPI)AfAm (>60 ml/min/1.73 sqM) Est GFR (CKD-EPI)NonAf (>60 ml/min/1.73 sqM) Glucose (74-99) mg/dL Calcium (8.4-10.2) mg/dL Magnesium (1.6-2.3) mg/dL Total Bilirubin (0.2-1.3) mg/dL AST (14-36) U/L ALT (9-52) U/L Alkaline Phosphatase (38-126) U/L Total Creatine Kinase (30-135) U/L CK-MB (CK-2) (0.0-2.4) ng/mL CK-MB (CK-2) Rel Index Troponin I (0.000-0.034) ng/mL Total Protein (6.3-8.2) g/dL Albumin (3.5-5.0) g/dL Amylase (30-110) U/L Lipase (23-300) U/L Disposition Clinical Impression: Chest pain, Altered mental status Disposition: ADMITTED IP TO THIS HOSP Is patient prescribed a controlled substance at d/c from ED?: No Time of Disposition: 12:02
[2018-03-16 10:19] LABS: Basophils # (A) 0.1 k/uL (0-0.2); Basophils % (A) 1 %; Eosinophils # (A) 0.3 k/uL (0-0.7); Eosinophils % (A) 3 %; HCT 39.7 % (34.0-46.0); HGB 13.4 gm/dL (11.4-16.0); Lymphocytes # (A) 2.8 k/uL (1.0-4.8); Lymphocytes % (A) 29 %; MCH 31.2 pg (25.0-35.0); MCHC 33.8 g/dL (31.0-37.0); MCV 92.3 fL (80.0-100.0); Mean Platelet Volume 7.1; Monocytes # (A) 0.3 k/uL (0-1.0); Monocytes % (A) 3 %; Neutrophils # (A) 6.1 k/uL (1.3-7.7); Neutrophils % (A) 63 %; Platelet Count 292 k/uL (150-450); WBC 9.7 k/uL (3.8-10.6)
[2018-03-16 10:29] LABS: ALT 41 U/L (9-52); AST 30 U/L (14-36); Albumin 3.9 g/dL (3.5-5.0); Alkaline Phosphatase 97 U/L (38-126); Amylase 50 U/L (30-110); Anion Gap 12 mmol/L; Blood Urea Nitrogen 19 mg/dL (7-17); Calcium 9.1 mg/dL (8.4-10.2); Carbon Dioxide 26 mmol/L (22-30); Chloride 103 mmol/L (98-107); Glucose 121 mg/dL (74-99); Lipase 78 U/L (23-300); Potassium 4.2 mmol/L (3.5-5.1); Sodium 141 mmol/L (137-145); Total Bilirubin 0.2 mg/dL (0.2-1.3); Total Protein 6.3 g/dL (6.3-8.2)
[2018-03-16 10:30] LABS: Partial Thromboplastin Time 25.5 sec (22.0-30.0)
[2018-03-16 10:54] LABS: Creatine Kinase 46 U/L (30-135)
[2018-03-16 11:07] LABS: Creatine Kinase MB 0.2 ng/mL (0.0-2.4); Troponin I <0.012 ng/mL (0.000-0.034)
--- NOTE | 2018-03-16 11:24 | XR ---
EXAMINATION TYPE: XR chest 2V DATE OF EXAM: 03/16/2018 COMPARISON: Chest x-ray July 23, 2017. HISTORY: Chest pain and nausea today. TECHNIQUE: Frontal and lateral views of the chest are obtained. FINDINGS: There is no focal air space opacity, pleural effusion, or pneumothorax seen. The cardiac silhouette size is stable and upper limits of normal. The osseous structures are intact. IMPRESSION: No acute process identified.
[2018-03-16] MEDS ORDERED: LORazepam 2 MG/ML INJ IV STA (12:01)
[2018-03-16] MEDS ORDERED: NITROGLYCERIN SL TABS 0.4 MG TAB SUBLINGUAL PRN (12:02)
[2018-03-16] MEDS ORDERED: oxyCODONE-APAP 10-325MG 1 EACH TAB PO STA (12:55)
[2018-03-16 14:13] LABS: Appearance,Urine Clear (Clear); Bilirubin,Urine Negative (Negative); Blood,Urine Negative (Negative); Color,Urine Yellow; Glucose,Urine (UA) Negative (Negative); Ketones,Urine Negative (Negative); Leukocyte Esterase,Urine Negative (Negative); Nitrite,Urine Negative (Negative); PH, Urine 6.5 (5.0-8.0); Protein,Urine Negative (Negative); Specific Gravity,Urine 1.017 (1.001-1.035); Urobilinogen,Urine <2.0 mg/dL (<2.0)
[2018-03-16 16:32] LABS: Creatine Kinase 40 U/L (30-135)
[2018-03-16 16:43] LABS: Creatine Kinase MB <0.2 ng/mL (0.0-2.4)
[2018-03-16 16:47] LABS: Troponin I <0.012 ng/mL (0.000-0.034)
[2018-03-16] MEDS ORDERED: oxyCODONE-APAP 10-325MG 1 EACH TAB PO PRN (16:48)
[2018-03-16] MEDS ORDERED: traMADol 50 MG TAB PO PRN ×2 (16:48→20:30)
[2018-03-16] MEDS ORDERED: PROCHLORPERAZINE 10 MG TAB PO PRN (16:48)
[2018-03-16] MEDS ORDERED: ALBUTEROL NEBULIZED 2.5 MG/3 ML INHALATION PRN (16:48)
[2018-03-16] MEDS: NITROGLYCERIN OINT 1 INCH/GM PACKET TOPICAL SCH (18:38)
[2018-03-16] MEDS: PANTOPRAZOLE 40 MG TABLET PO SCH (20:10)
[2018-03-16] MEDS: rOPINIRole HCL 4 MG TABLET PO SCH (20:10)
[2018-03-16] MEDS: DULoxetine HCL 60 MG CAPSULE.DR PO SCH (20:10)
[2018-03-16] MEDS: SYMBICORT 160-4.5 MCG INHALER INHALATION SCH (20:15)
[2018-03-16] MEDS: CEPHALEXIN 500 MG CAP PO SCH (21:23)
[2018-03-16] MEDS ORDERED: RX INFO: IV CONTRAST WAS GIVEN 1 EACH MISC MISCELLANE PRN (22:29)
[2018-03-16] MEDS ORDERED: diphenhydrAMINE 50 MG/ML 1 ML VIAL IVP ONE (22:30)
[2018-03-16] MEDS ORDERED: methylPREDNISolone SOD SUCCI 125 MG/2 ML VIAL IV ONE (22:30)
[2018-03-16] MEDS ORDERED: FAMOTIDINE 20 MG/2 ML VIAL IV ONE (22:30)
[2018-03-16] MEDS: tiZANidine 4 MG TAB PO SCH (22:59)
--- NOTE | 2018-03-16 23:50 | HP ---
HISTORY AND PHYSICAL DATE OF SERVICE: 03/16/2018 PRESENTING COMPLAINT: Chest pain. HISTORY OF PRESENT COMPLAINT: Pleasant 42-year-old patient of Dr. Murdock whose chronic stable medical conditions include COPD, fibromyalgia, GERD, deaf in the right ear, peripheral neuropathy. The patient states she was lying on the couch and she felt some discomfort in the chest. Then she turned around and next thing she remembers, EMS was there. I called the patient's at home. He told me that the patient was lying in the couch and started complaining of chest pain and then they called the caregiver Effie and the patient started having more and more chest pain, then started throwing up. Then EMS arrived and the patient was confused, did not remember that episode at all. Hence the patient was brought in here. The patient was related the incident by her , but the states the patient still does not remember what is going on. No prior history of head injury or seizure activity. Currently chest pain-free. The patient's EKG showed nonspecific findings and troponins were negative. REVIEW OF SYSTEMS: CONSTITUTIONAL: None. HEENT: Deaf in the right ear. RESPIRATORY: As above. CARDIOVASCULAR: As above. GASTROINTESTINAL: Heartburn. GENITOURINARY: None. MUSCULOSKELETAL: Pain in both the feet. DERMATOLOGICAL: None. HEMATOLOGIC: None. LYMPHATIC: None. PSYCHIATRY: None. NEUROLOGICAL: Peripheral neuropathy. PAST MEDICAL HISTORY: COPD, fibromyalgia, GERD, deaf in the right ear, peripheral neuropathy, osteoarthritis of the feet, DVT in the right leg in 2001. PAST SURGICAL HISTORY: Breast surgery, ear surgery, tubes in the ear, right salpingo-oophorectomy. PSYCH HISTORY: Anxiety. SOCIAL HISTORY: , smoking half a pack a day for last 18 years. , has a caregiver. FAMILY HISTORY: A. fib., stroke, hypertension. MEDICATIONS: 1. Compazine 25 q.8. 2. ProAir 1-2 puffs every 6 hours p.r.n. 3. Ventolin 2.5 every 6 hours p.r.n. 4. Cymbalta 60 mg b.i.d. 5. Keflex 500 mg p.o. q.i.d. 6. Zanaflex 4 mg p.o. q.8. 7. Percocet 10, 1 tablet every 6 hours p.r.n. 8. 1 tablet p.o. daily. 9. Requip 4 mg p.o. b.i.d. 10.Coreg 3.125 p.o. daily. 11.Ultram 50 mg p.o. t.i.d. p.r.n. 12.Protonix 40 mg p.o. b.i.d. 13.EpiPen p.r.n. 14.Symbicort 160/4.5, 2 puffs b.i.d. ALLERGY: PENICILLIN, IV CONTRAST DYE, BUSPIRONE. EXAMINATION: VITAL SIGNS: On presentation, temperature 97.1, pulse 81, respirations 16, blood pressure 127/37, pulse ox 95% on room air. GENERAL APPEARANCE: Well-built, BMI 34.2, lying in bed, comfortable. EYES: Pupils equal. Conjunctivae normal. HEENT: External ears and nose normal. Oral cavity normal. NECK: JVD not raised. Mass not palpable. RESPIRATORY: Effort normal. LUNGS: Mild wheezing. CARDIOVASCULAR: First and second sounds normal. No edema. ABDOMEN: Soft, nontender. Liver and spleen not palpable. LYMPHATIC: No lymph nodes palpable in neck or axillae. PSYCHIATRY: Alert and oriented x3. Mood and affect normal. NEUROLOGICAL: Pupils equal. Cranial nerves grossly intact. Power and sensation grossly intact. INVESTIGATIONS: White count 9.7, hemoglobin 13.4. Potassium 4.2, BUN 19, creatinine 0.58. Troponin less than 0.012 x2. EKG: Some nonspecific findings. UA negative. ASSESSMENT: 1. This is a patient presents with chest pain, episodes of vomiting, does not remember the episode. Given that the patient has a history of deep venous thrombosis in the past, need to rule out pulmonary embolism. Also, cardiac cause needs to be ruled out. Will send up for urgent CT scan. 2. Chronic obstructive pulmonary disease in a current smoker. 3. Chronic fibromyalgia. 4. Gastroesophageal reflux disease. 5. Deaf in the right ear. 6. Peripheral neuropathy. 7. Secondary osteoarthritis in both the feet. 8. Obesity; BMI 34.2. PLAN: CT scan of the chest ordered. Home medications are resumed. Cardiac enzymes are in place. Will have Cardiology see the patient. MMODL / IJN: [id number] /
[2018-03-16 23:53] LABS: Creatine Kinase 41 U/L (30-135)
[2018-03-17 00:06] LABS: Creatine Kinase MB <0.2 ng/mL (0.0-2.4); Troponin I <0.012 ng/mL (0.000-0.034)
[2018-03-17] MEDS: NITROGLYCERIN OINT 1 INCH/GM PACKET TOPICAL SCH ×2 (00:33→05:26)
--- NOTE | 2018-03-17 00:44 | CT ---
EXAMINATION TYPE: CT angio chest DATE OF EXAM: 03/17/2018 12:32 AM COMPARISON: 01/28/2013 HISTORY: Prior on syanpse 2012, R/O PE, cough, congestion CT DLP: 516.00 mGycm Automated exposure control for dose reduction was used. CONTRAST: CTA scan of the thorax is performed with IV Contrast, patient injected with 70 mL of Isovue 370, pulm onary embolism protocol. There are 3-D post processed images.. FINDINGS: The lungs are clear of infiltrate. There is no pleural effusion. There is no evidence of a pulmonary mass. Heart size is normal. There is no pericardial effusion. There is no evidence of thoracic aortic aneurysm or dissection. Ascending aorta measures 2.7 cm. There is normal contrast opacification of the pulmonary arteries. I see no filling defects. There is no mediastinal adenopathy. There are a few bronchial lymph nodes that measure up to 1.4 cm. There is a 1.5 cm single pretracheal lymph node. The bony thorax is intact. There is minor spurring in the tho racic spine. IMPRESSION: NO EVIDENCE OF PULMONARY EMBOLISM. NONSPECIFIC MEDIASTINAL AND BRONCHIAL LYMPH NODES. BRONCHIAL LYMPH NODES ARE SLIGHTLY INCREASED COMPARED TO LAST EXAM.
[2018-03-17 01:48] LABS: Cholesterol 164 mg/dL (<200); HDL Cholesterol 42 mg/dL (40-60); LDL Cholesterol,Calculated 98 mg/dL (0-99); Triglycerides 120 mg/dL (<150)
[2018-03-17] MEDS: oxyCODONE-APAP 10-325MG 1 EACH TAB PO PRN ×2 (07:01→12:24)
[2018-03-17] MEDS: rOPINIRole HCL 4 MG TABLET PO SCH (07:02)
[2018-03-17] MEDS: SYMBICORT 160-4.5 MCG INHALER INHALATION SCH (07:11)
[2018-03-17] MEDS ORDERED: CARVEDILOL 3.125 MG TAB PO SCH (07:30)
[2018-03-17] MEDS ORDERED: ASPIRIN 325 MG TAB PO SCH (09:00)
--- NOTE | 2018-03-17 09:29 | CONS ---
CONSULTATION Mrs. Medrano is a 42-year-old female who presented with symptoms of chest discomfort. According to her, she was sitting on the couch when she had a squeezing feeling in the chest. She kind of squeezed her chest and subsequently she could not remember anything until the EMS came in and was quite confused. She has no chest pain at this point. She is not very active physically, but has no significant exertional chest pain. She has dyspnea on exertion. She has some dizziness. No palpitation. No syncope. She has some peripheral edema after leg surgery. No PND. No orthopnea. She has been followed by Dr. Epps in the past and was seen by him in July of 2016, at that time for chest discomfort. Because of an abnormal EKG, Dr. Epps proceeded to perform cardiac catheterization revealed no evidence of obstructive coronary disease with preserved ventricular size and systolic function. Subsequently, she underwent transesophageal echocardiogram in October of the same year because of a possible TIA and the left ventricular size and systolic function were normal. There was trace mitral regurgitation. No other acute changes. She feels some fluttering in the chest and has been documented to have sinus tachycardia on an event monitor. The patient is quite concerned about the palpitation and the chest discomfort. She denies any recent syncope. Her coronary risk factors are remarkable for the history of smoking. She is nondiabetic. Her lipid profile is not available to me. MEDICATION: List includes: Albuterol, Symbicort, Coreg 3.125 mg daily, Duloxetine, Protonix, Compazine, Percocet, Requip, Zanaflex, and tramadol. REVIEW OF SYSTEMS: RESPIRATORY system: She has history of asthma, chronic obstructive lung disease. GI system. She has no recent GI bleed. No peptic ulcer disease. system: No recent dysuria or hematuria. Nervous system: She has a questionable history of TIA in the past. PAST MEDICAL HISTORY: Past medical history remarkable for history of fibromyalgia, gastroesophageal reflux disease, history of COPD, and chronic tobacco use. PHYSICAL EXAMINATION: She is a 42-year-old female, alert, oriented, no apparent distress. Blood pressure 110/60 with a heart in the 80s. HEAD: Normocephalic. Eyes: Sclerae anicteric. Neck good upstroke. No bruit. No jugular venous distention. LUNGS: Clear to auscultation. Heart regular rate and rhythm S1, S2. No S3 with systolic murmur heard at the base. No diastolic murmur. No rub. ABDOMEN: Soft, obese, nontender. Positive bowel sounds. No megaly. EXTREMITIES: No edema. LAB DATA: Revealed hemoglobin of 13.4, troponin less than 0.012, BUN and creatinine of 19 and 0.58, potassium 4.2, cholesterol 164, LDL of 42. EKG revealed a sinus mechanism, normal axis and intervals with minor nonspecific ST-T wave changes. CT angiogram revealed no evidence of pulmonary embolism. IMPRESSION: 1. Chest discomfort, atypical for ischemic heart disease. No evidence to suggest cardiac etiology. 2. History of fibromyalgia. 3. History of chronic tobacco use. 4. History of aortic regurgitation, mild with no evidence of consequence at this point. 5. Questionable history of transient ischemic attack with recent change in mental status. RECOMMENDATION: From the cardiac standpoint, I do not see any evidence to suggest any cardiac abnormality. She should be able to be discharged home from the cardiac standpoint and follow as an outpatient with Dr. Epps. Thank you for this consult. MMODL / IJN: [id number] /
[2018-03-17 09:40] VITALS: RESP 16
[2018-03-17] MEDS: CEPHALEXIN 500 MG CAP PO SCH ×2 (09:43→12:22)
[2018-03-17] MEDS: PANTOPRAZOLE 40 MG TABLET PO SCH (09:43)
[2018-03-17] MEDS: DULoxetine HCL 60 MG CAPSULE.DR PO SCH (09:43)
[2018-03-17] MEDS: tiZANidine 4 MG TAB PO SCH (09:43)
[2018-03-17] MEDS ORDERED: PRENATAL VIT-IRON-FOLIC ACID 1 EACH CAP PO SCH (12:00)
[2018-03-17 12:33] VITALS: BP 101/56; PULSE 94; TEMP 98.2
--- NOTE | 2018-03-17 16:27 | DS ---
DISCHARGE SUMMARY DATE OF ADMISSION: 03/16/2018. DATE OF DISCHARGE: 03/17/2018 FINAL DIAGNOSES: 1. Possible panic attack. 2. Chronic obstructive pulmonary disease in a current smoker. 3. Chronic fibromyalgia. 4. Gastroesophageal reflux disease. 5. Deaf in the right ear. 6. Peripheral neuropathy. 7. Secondary osteoarthritis of both feet. 8. Obesity; body mass index 34.2. 9. Chronic nicotine dependence. Patient is a cigarette smoker. HOSPITAL COURSE: This patient presented with an episode of some chest pain. Troponins were negative. EKG was unremarkable. PE was ruled out. It is possible patient may have had a panic attack. Patient otherwise is feeling well. Patient's caregiver is present. Patient did not have any tongue-biting or incontinence or any shaking episode. Troponins were negative. CONSULTATION: Dr. Gomez from Cardiology. DISCHARGE MEDICATIONS: 1. Cymbalta 60 mg b.i.d. 2. Protonix 40 mg b.i.d. 3. Albuterol 2.5 q.6 p.r.n. 4. EpiPen p.r.n. 5. Ultram 50 mg t.i.d. p.r.n. 6. ProAir 1-2 puffs q.6 p.r.n. 7. Symbicort 160/4.5 two puffs b.i.d. 8. Coreg 3.125 p.o. daily. 9. Keflex complete course. 10. multivitamin 1 tablet p.o. daily. 11.Compazine 25 q.8 p.r.n. 12.Percocet 10 one tablet q.6 p.r.n. 13.Requip 4 mg p.o. b.i.d. 14.Zanaflex 4 mg p.o. q.8. 15.Aspirin 81 mg p.o. daily. 16.Nicotine 14 mg patch. DISPOSITION: Home. Follow up with Dr. Murdock in 3 days Smoking cessation counseling was done with the patient at length and the caregiver and did tell her this was the best time to stop. More than 3 minutes was spent on this aspect of the care. MMODL / IJN: [id number] /
--- NOTE | 2018-03-19 08:50 | EEG ---
ELECTROENCEPHALOGRAM REPORT DATE OF SERVICE: 03/17/2018. REASON FOR TESTING: Altered mental status. DESCRIPTION OF THE PROCEDURE: This EEG was performed using a 21 channel digital electroencephalograph, following international 10-20 system. DESCRIPTION OF THE RECORDING: From the beginning of the tracing, and with patient's eyes closed, the background rhythm was mostly consisting of 8 Hz alpha frequency in the posterior occipital leads. No obvious asymmetry is seen. Photic stimulation was performed with a good driving response seen. No pathological waves were elicited. Occasional dysregulation is seen. Movement and muscle artifacts are seen. Hyperventilation was not performed. Later in the tracing, the patient does reach stage II of sleep during the tracing and occasional sleep spindles are seen. No epileptiform discharges were seen. Her EKG lead showed a regular rate and rhythm. INTERPRETATION: This asleep and awake EEG is abnormal due to the presence of occasional dysregulation. This could be consistent with a reduced seizure threshold. No obvious epileptiform discharges were seen. The absence of epileptiform discharges does not rule out the diagnosis of epilepsy, therefore clinical correlation is recommended. Thank you for allowing me to participate in the care of your patient. If you have any questions, please feel free to contact me. MMODL / IJN: [id number] /
--- NOTE | 2018-04-19 23:05 | DS ---
DISCHARGE SUMMARY ADDENDUM TO DISCHARGE SUMMARY: DATE OF ADMISSION: 03/16/2018 DATE OF DISCHARGE: 03/17/2018 On examination, lungs reveal fair air entry. CARDIOVASCULAR: First and second sounds normal. PSYCHIATRY: Alert and oriented x3. Mood and affect normal. MMODL / IJN: [id number] /
== END 2018-03-17 15:40 | disposition home or self-care (01) ==
LOC: EC 09:46 → 3OBS 12:02
PROVIDERS: ADMIT Hospitalist; ATTEND Hospitalist
DX: R07.89 Other chest pain (principal); R41.82 Altered mental status, unspecified; R11.2 Nausea with vomiting, unspecified; J44.9 Chronic obstructive pulmonary disease, unspecified; F17.210 Nicotine dependence, cigarettes, uncomplicated; M79.7 Fibromyalgia; K21.9 Gastro-esophageal reflux disease without esophagitis; H91.91 Unspecified hearing loss, right ear; G62.9 Polyneuropathy, unspecified; Z68.34 Body mass index [BMI] 34.0-34.9, adult; R42 Dizziness and giddiness; I35.1 Nonrheumatic aortic (valve) insufficiency; K59.00 Constipation, unspecified; F41.9 Anxiety disorder, unspecified; Q66.89 Other specified congenital deformities of feet; M19.272 Secondary osteoarthritis, left ankle and foot; M19.271 Secondary osteoarthritis, right ankle and foot; E66.9 Obesity, unspecified; Z79.51 Long term (current) use of inhaled steroids; Z88.8 Allergy status to other drugs, medicaments and biological substances; Z91.041 Radiographic dye allergy status; Z88.5 Allergy status to narcotic agent; Z91.013 Allergy to seafood; Z86.73 Personal history of transient ischemic attack (TIA), and cerebral infarction without residual deficits; Z83.3 Family history of diabetes mellitus; Z80.0 Family history of malignant neoplasm of digestive organs; Z82.49 Family history of ischemic heart disease and other diseases of the circulatory system; Z83.49 Family history of other endocrine, nutritional and metabolic diseases; Z80.49 Family history of malignant neoplasm of other genital organs
CPT/HCPCS: 96361 ×2; 96374 ×2; 96375 ×3; 99285 ×2; 36415; 95819; 93005; 80061; 80053; 82150; 82550; 82553; 83690; 83735; 84484; 85025; 85610; 85730; 81003; 71046; 71275; G0378 ×2; J2060; J1200; J2930; J2405; S0197; Q9967

== ENCOUNTER 2018-04-29 18:18 | Emergency (ER) | payer MEDICARE, OTHER ==
[2018-04-29] MEDS ORDERED: methylPREDNISolone SOD SUCCI 125 MG/2 ML VIAL IV STA (18:39)
[2018-04-29] MEDS ORDERED: IPRATROPIUM-ALBUTEROL 3 ML NEB INHALATION STA (18:39)
--- NOTE | 2018-04-29 18:42 | ED ---
SOB HPI - General Chief Complaint: Shortness of Breath Stated Complaint: MOHINDER Time Seen by Provider: 04/29/18 18:31 Source: patient, RN notes reviewed, old records reviewed Mode of arrival: wheelchair Limitations: no limitations - History of Present Illness Initial Comments: 43-year-old with history of asthma presents emergency Department with 2 days of difficulty breathing and cough. Patient states that she's been using her breathing treatments at home with very little relief. Patient states that she has had no nausea or vomiting. She denies any chest pain. Patient states that she feels like she vomited cold and cannot get a good deep breath of air. Patient denies any fever or chills. Cough has been nonproductive. - Related Data Home Medications Medication Instructions Recorded Confirmed DULoxetine HCL [Cymbalta] 60 mg PO BID 04/03/14 03/16/18 Pantoprazole Sodium [Protonix] 40 mg PO BID 04/03/14 03/16/18 Albuterol Nebulized [Ventolin 2.5 mg INHALATION RT-Q6H PRN 03/29/16 03/16/18 Nebulized] EPINEPHrine (Auto Inject) [Epipen] 0.3 mg IM ONCE PRN 08/15/16 03/16/18 traMADol HCL [Tramadol HCl] 50 mg PO TID PRN 11/11/16 03/16/18 Albuterol Sulfate [Proair Hfa] 1 - 2 puff INHALATION RT-Q6H PRN 03/23/17 Budesonide-Formot 160-4.5 Mcg 2 puff INHALATION RT-BID 04/03/17 03/16/18 [Symbicort 160-4.5 Mcg Inhaler] Carvedilol [Coreg] 3.125 mg PO DAILY 03/16/18 03/16/18 Cephalexin [Keflex] 500 mg PO QID 03/16/18 03/16/18 Pnv No.95/Ferrous Fum/Folic AC 1 tab PO DAILY 03/16/18 03/16/18 [ Multivitamin Tablet] Prochlorperazine [Compazine] 25 mg PO Q8H PRN 03/16/18 03/16/18 oxyCODONE-APAP 10-325MG [Percocet 1 tab PO Q6HR PRN 03/16/18 03/16/18 10-325 mg] rOPINIRole HCL [Requip] 4 mg PO BID 03/16/18 03/16/18 tiZANidine [Zanaflex] 4 mg PO Q8HR 03/16/18 03/16/18 Previous Rx's Medication Instructions Recorded Aspirin 81 mg PO DAILY #1 chewable 03/17/18 Nicotine 14Mg/24Hr Patch [Habitrol] 1 patch TRANSDERM DAILY #30 patch 03/17/18 Azithromycin [Zithromax Z-pack] 250 mg PO DIRECTED #6 tab 04/29/18 predniSONE 50 mg PO DAILY #5 tablet 04/29/18 Allergies Allergy/AdvReac Type Severity Reaction Status Date / Time fentanyl Allergy Rash/Hives Verified 04/29/18 18:26 Iodinated Contrast- Oral and Allergy Anaphylaxis Verified 04/29/18 18:26 IV Dye [Iodinated Contrast Media - IV Dye] shellfish derived Allergy Anaphylaxis Verified 04/29/18 18:26 buspirone AdvReac Hallucinati Verified 04/29/18 18:26 ons Review of Systems ROS Statement: Those systems with pertinent positive or pertinent negative responses have been documented in the HPI. ROS Other: All systems not noted in ROS Statement are negative. Past Medical History Past Medical History: Asthma, COPD, CVA/TIA, Deep Vein Thrombosis (DVT), Fibromyalgia, GERD/Reflux, Osteoarthritis (OA) Additional Past Medical History / Comment(s): *DEAF IN RIGHT EAR. PATIENT STATES HER PCP TOLD HER SHE MIGHT HAVE HAD A TIA & INCREASED HEART HR- tachycardia. SEE DR. VIVAS'S H & P FOR CARDIOVASCULAR DETAILS. Neuropathy feet ; UNSTEADY WHEN UP/BALANCE ISSUES- BORN CLUB FEET(HAD SEVERALSX) "I HAVE BAD KNEES AND BAD LT HIP". Dvt right leg-2001. PT STATED HAS BEEN EXPOSED TO BLACK MOLD . History of Any Multi-Drug Resistant Organisms: None Reported Past Surgical History: Breast Surgery, Ear Surgery, Heart Catheterization, Hysterectomy Additional Past Surgical History / Comment(s): Multiple SX day clubfoot. TUBES IN EARS, Kartush patches both ears D/T PERFORATED TYMPANIC MEMBRANES. POLYPS REMOVED FROM THROAT-BENIGN. Lt breast biopsy-NEG. BRONCHOSOCPY-BENIGN NODULE REMOVED."brochal septalplasty". COLONOSOCPY. March right salpingo- oophorectomy, rt foot fusion/plate and srews sx done jan 18 2018 pt stated only lite bearing and currently using w/c since sx Past Anesthesia/Blood Transfusion Reactions: Motion Sickness, Postoperative Nausea & Vomiting (PONV) Additional Past Anesthesia/Blood Transfusion Reaction / Comment(s): Problems/w/ anes in Nov after colonoscopy. "Too much given & couldn't wake up".....However, patient states they have to give her more meds to get her to be sedated."AFTER 1 SX THEY TOLD ME I STOPPED BREATHING DURING SX" Past Psychological History: Anxiety Smoking Status: Current every day smoker Past Alcohol Use History: None Reported Past Drug Use History: None Reported - Past Family History Mother Family Medical History: Diabetes Mellitus Additional Family Medical History / Comment(s): IRREG HEART BEAT. GRANDMOTHER HAD COLON CANCER AND HEART DISEASE Father Family Medical History: Hyperlipidemia, Hypertension Sister(s) Family Medical History: AFIB, Cancer, CVA/TIA, Hypertension Additional Family Medical History / Comment(s): CERVICAL CANCER General Exam - General Exam Comments Initial Comments: 43-year-old female. Limitations: no limitations General appearance: alert, in no apparent distress Head exam: Present: atraumatic, normocephalic, normal inspection Eye exam: Present: normal appearance, PERRL, EOMI. Absent: scleral icterus, conjunctival injection, periorbital swelling ENT exam: Present: normal exam, mucous membranes moist Neck exam: Present: normal inspection. Absent: tenderness, meningismus, lymphadenopathy Respiratory exam: Present: normal lung sounds bilaterally, wheezes. Absent: respiratory distress, rales, rhonchi, stridor Cardiovascular Exam: Present: regular rate, normal rhythm, normal heart sounds. Absent: systolic murmur, diastolic murmur, rubs, gallop, clicks GI/Abdominal exam: Present: soft, normal bowel sounds. Absent: distended, tenderness, guarding, rebound, rigid Extremities exam: Present: normal inspection, full ROM, normal capillary refill. Absent: tenderness, pedal edema, joint swelling, calf tenderness Back exam: Present: normal inspection Neurological exam: Present: alert, oriented X3, CN II-XII intact Psychiatric exam: Present: normal affect, normal mood Skin exam: Present: warm, dry, intact, normal color. Absent: rash Course Vital Signs 04/29/18 04/29/18 04/29/18 18:24 18:44 18:57 Temperature 98.0 F Pulse Rate 100 101 H 108 H Respiratory 20 Rate Blood Pressure 121/63 O2 Sat by Pulse 99 Oximetry 04/29/18 04/29/18 04/29/18 19:01 20:04 22:00 Temperature 98.7 F Pulse Rate 94 87 Respiratory 22 18 18 Rate Blood Pressure 135/72 138/87 O2 Sat by Pulse 97 99 Oximetry Medical Decision Making - Medical Decision Making 3-year-old with history of asthma presents emergency Department with 2 days of difficulty breathing and cough. Patient states that she's been using her breathing treatments at home with very little relief. Patient states that she has had no nausea or vomiting. She denies any chest pain. Patient states that she feels like she vomited cold and cannot get a good deep breath of air. Patient denies any fever or chills. PAtient give duonebb treatment and solumedrol. She had significant wheezing. THis was improved. CXR questiion mild CHF. BNP obtianed and negative. EKG was within normal limitis. Troponin negative and other lab work was negative. Patient informed of results. Will treat for asthmatic bronchitis. Will start on azithromycin with close contact with history of CAP and solumedrol. Request new nebulizer machine. Discussed follow up and return parameters. - Lab Data Result diagrams: 04/29/18 18:59 04/29/18 18:59 Lab Results 04/29/18 04/29/18 04/29/18 Range/Units 18:59 18:59 18:59 WBC 13.4 H (3.8-10.6) k/uL RBC 4.39 (3.80-5.40) m/uL Hgb 13.9 (11.4-16.0) gm/dL Hct 40.4 (34.0-46.0) % MCV 91.9 (80.0-100.0) fL MCH 31.6 (25.0-35.0) pg MCHC 34.4 (31.0-37.0) g/dL RDW 13.5 (11.5-15.5) % Plt Count 209 (150-450) k/uL Neutrophils % 83 % Lymphocytes % 10 % Monocytes % 3 % Eosinophils % 3 % Basophils % 0 % Neutrophils # 11.1 H (1.3-7.7) k/uL Lymphocytes # 1.3 (1.0-4.8) k/uL Monocytes # 0.4 (0-1.0) k/uL Eosinophils # 0.3 (0-0.7) k/uL Basophils # 0.1 (0-0.2) k/uL PT (9.0-12.0) sec INR (<1.2) APTT (22.0-30.0) sec D-Dimer (<0.60) mg/L FEU Sodium 139 (137-145) mmol/L Potassium 3.7 (3.5-5.1) mmol/L Chloride 104 (98-107) mmol/L Carbon Dioxide 22 (22-30) mmol/L Anion Gap 13 mmol/L BUN 19 H (7-17) mg/dL Creatinine 0.58 (0.52-1.04) mg/dL Est GFR (CKD-EPI)AfAm >90 (>60 ml/min/1.73 sqM) Est GFR (CKD-EPI)NonAf >90 (>60 ml/min/1.73 sqM) Glucose 101 H (74-99) mg/dL Calcium 9.2 (8.4-10.2) mg/dL Magnesium 1.8 (1.6-2.3) mg/dL Total Bilirubin 0.6 (0.2-1.3) mg/dL AST 64 H (14-36) U/L ALT 59 H (9-52) U/L Alkaline Phosphatase 112 (38-126) U/L Total Creatine Kinase (30-135) U/L CK-MB (CK-2) (0.0-2.4) ng/mL CK-MB (CK-2) Rel Index Troponin I (0.000-0.034) ng/mL NT-Pro-B Natriuret Pep pg/mL Total Protein 6.7 (6.3-8.2) g/dL Albumin 4.2 (3.5-5.0) g/dL 04/29/18 04/29/18 04/29/18 Range/Units 18:59 19:33 19:33 WBC (3.8-10.6) k/uL RBC (3.80-5.40) m/uL Hgb (11.4-16.0) gm/dL Hct (34.0-46.0) % MCV (80.0-100.0) fL MCH (25.0-35.0) pg MCHC (31.0-37.0) g/dL RDW (11.5-15.5) % Plt Count (150-450) k/uL Neutrophils % % Lymphocytes % % Monocytes % % Eosinophils % % Basophils % % Neutrophils # (1.3-7.7) k/uL Lymphocytes # (1.0-4.8) k/uL Monocytes # (0-1.0) k/uL Eosinophils # (0-0.7) k/uL Basophils # (0-0.2) k/uL PT 10.0 (9.0-12.0) sec INR 1.0 (<1.2) APTT 26.0 (22.0-30.0) sec D-Dimer 0.54 (<0.60) mg/L FEU Sodium (137-145) mmol/L Potassium (3.5-5.1) mmol/L Chloride (98-107) mmol/L Carbon Dioxide (22-30) mmol/L Anion Gap mmol/L BUN (7-17) mg/dL Creatinine (0.52-1.04) mg/dL Est GFR (CKD-EPI)AfAm (>60 ml/min/1.73 sqM) Est GFR (CKD-EPI)NonAf (>60 ml/min/1.73 sqM) Glucose (74-99) mg/dL Calcium (8.4-10.2) mg/dL Magnesium (1.6-2.3) mg/dL Total Bilirubin (0.2-1.3) mg/dL AST (14-36) U/L ALT (9-52) U/L Alkaline Phosphatase (38-126) U/L Total Creatine Kinase 56 (30-135) U/L CK-MB (CK-2) 0.5 (0.0-2.4) ng/mL CK-MB (CK-2) Rel Index 0.9 Troponin I <0.012 (0.000-0.034) ng/mL NT-Pro-B Natriuret Pep 133 pg/mL Total Protein (6.3-8.2) g/dL Albumin (3.5-5.0) g/dL 04/29/18 20:06 EKG performed at 19 drainage is normal sinus rhythm, nonspecific T-wave abnormality. Ventricular rate about her basement. Intervals 162. QRS is 90. QTQTC 346/446 ms. - Radiology Data Radiology results: report reviewed Correlate with CHF exacerbation as there is cardiomegaly with perhaps central alveolar edema bilaterally. No suspicious. Focal infiltrate is seen. Disposition Clinical Impression: Asthma, Bronchitis Disposition: HOME SELF-CARE Condition: Good Instructions: Asthma (ED), Acute Bronchitis (ED) Additional Instructions: Patient has follow-up with primary care provider. Take the medication as prescribed. Return to the emergency department if any alarming signs or symptoms occur. Prescriptions: Azithromycin [Zithromax Z-pack] 250 mg PO DIRECTED #6 tab predniSONE 50 mg PO DAILY #5 tablet Is patient prescribed a controlled substance at d/c from ED?: No When asked, does pt state using other controlled substances?: No If prescribed controlled substance>3 days was MAPS reviewed?: No If opioid is for acute pain is fill amount 7 days or less?: No If Rx opioid, was Start Talking consent form obtained?: No Referrals: Judah Murdock DO [Primary Care Provider] - 1-2 days Time of Disposition: 21:55
[2018-04-29 19:13] LABS: Basophils # (A) 0.1 k/uL (0-0.2); Basophils % (A) 0 %; Eosinophils # (A) 0.3 k/uL (0-0.7); Eosinophils % (A) 3 %; HCT 40.4 % (34.0-46.0); HGB 13.9 gm/dL (11.4-16.0); Lymphocytes # (A) 1.3 k/uL (1.0-4.8); Lymphocytes % (A) 10 %; MCH 31.6 pg (25.0-35.0); MCHC 34.4 g/dL (31.0-37.0); MCV 91.9 fL (80.0-100.0); Mean Platelet Volume 7.5; Monocytes # (A) 0.4 k/uL (0-1.0); Monocytes % (A) 3 %; Neutrophils # (A) 11.1 k/uL (1.3-7.7); Neutrophils % (A) 83 %; Platelet Count 209 k/uL (150-450); RBC 4.39 m/uL (3.80-5.40); RDW 13.5 % (11.5-15.5); WBC 13.4 k/uL (3.8-10.6)
[2018-04-29 19:22] LABS: ALT 59 U/L (9-52); AST 64 U/L (14-36); Albumin 4.2 g/dL (3.5-5.0); Alkaline Phosphatase 112 U/L (38-126); Anion Gap 13 mmol/L; Blood Urea Nitrogen 19 mg/dL (7-17); Calcium 9.2 mg/dL (8.4-10.2); Carbon Dioxide 22 mmol/L (22-30); Chloride 104 mmol/L (98-107); Glucose 101 mg/dL (74-99); Potassium 3.7 mmol/L (3.5-5.1); Sodium 139 mmol/L (137-145); Total Bilirubin 0.6 mg/dL (0.2-1.3); Total Protein 6.7 g/dL (6.3-8.2)
--- NOTE | 2018-04-29 19:22 | XR ---
EXAMINATION TYPE: XR chest 2V DATE OF EXAM: 04/29/2018 COMPARISON: Chest x-ray March 16, 2018. HISTORY: History of recent surgery to foot with chest pain today. TECHNIQUE: Frontal and lateral views of the chest are obtained. FINDINGS: There is persistent cardiomegaly. Perihilar opacities bilaterally are now present . No ple ural effusion or pneumothorax is seen bilaterally. The osseous structures are intact. IMPRESSION: Correlate for CHF exacerbation as there is cardiomegaly with perhaps mild central alveol ar edema bilaterally. No suspicious peripheral focal infiltrate is seen.
[2018-04-29] MEDS ORDERED: SODIUM CHLORIDE 0.9% 1,000 ML IV STA (19:24)
[2018-04-29] MEDS ORDERED: ACETAMINOPHEN TAB 500 MG TAB PO STA (19:46)
[2018-04-29] MEDS ORDERED: ONDANSETRON 4 MG/2 ML VIAL IVP STA (20:03)
[2018-04-29 20:05] VITALS: RESP 18
[2018-04-29 20:07] LABS: Creatine Kinase 56 U/L (30-135); D-Dimer 0.54 mg/L FEU (<0.60)
[2018-04-29 20:20] LABS: Creatine Kinase MB 0.5 ng/mL (0.0-2.4); Troponin I <0.012 ng/mL (0.000-0.034)
[2018-04-29 22:15] VITALS: BP 138/87; PULSE 87; TEMP 98.7
== END 2018-04-29 22:15 | disposition home or self-care (01) ==
LOC: EC 18:18
DX: J44.9 Chronic obstructive pulmonary disease, unspecified (principal); K21.9 Gastro-esophageal reflux disease without esophagitis; F41.9 Anxiety disorder, unspecified; F17.200 Nicotine dependence, unspecified, uncomplicated; Z86.718 Personal history of other venous thrombosis and embolism; Z86.73 Personal history of transient ischemic attack (TIA), and cerebral infarction without residual deficits; Z95.5 Presence of coronary angioplasty implant and graft; Z88.5 Allergy status to narcotic agent; Z88.8 Allergy status to other drugs, medicaments and biological substances; Z91.013 Allergy to seafood; Z91.041 Radiographic dye allergy status; Z79.02 Long term (current) use of antithrombotics/antiplatelets; Z79.51 Long term (current) use of inhaled steroids; Z79.899 Other long term (current) drug therapy
CPT/HCPCS: 99285; 96374; 96375; 96361 ×2; 36415; 94640; 85379; 83880; 80053; 82550; 82553; 83735; 84484; 85025; 85610; 85730; 71046; J2930; J2405

== ENCOUNTER 2018-05-21 04:36 | Inpatient (IN) | payer MEDICARE, OTHER ==
[2018-05-21] MEDS ORDERED: ALBUTEROL NEBULIZED 2.5 MG/3 ML INHALATION STA (04:52)
[2018-05-21] MEDS ORDERED: IPRATROPIUM 0.5 MG/2.5 ML NEBU INHALATION STA (04:52)
[2018-05-21] MEDS ORDERED: methylPREDNISolone SOD SUCCI 125 MG/2 ML VIAL IV STA (04:52)
[2018-05-21] MEDS ORDERED: SODIUM CHLORIDE 0.9% 1,000 ML IV STA (04:52)
[2018-05-21] MEDS ORDERED: FAMOTIDINE 20 MG/2 ML VIAL IV STA (05:23)
[2018-05-21] MEDS ORDERED: diphenhydrAMINE 50 MG/ML 1 ML VIAL IVP STA (05:23)
--- NOTE | 2018-05-21 05:44 | ED ---
General Adult HPI - General Source: patient, RN notes reviewed, old records reviewed Mode of arrival: ambulatory Limitations: no limitations <Rodger Peck - Last Filed: 05/21/18 06:11> <Billy Lopez - Last Filed: 05/21/18 08:57> - General Chief complaint: Shortness of Breath Stated complaint: congestion,SOB Time Seen by Provider: 05/21/18 04:49 - History of Present Illness Initial comments: This is a 43-year-old female to the ER today. Patient presents for evaluation regards to multiple complaints, most complaints relating to cough congestion chest pain. Patient states she was recently seen and evaluated 1 month ago hasn 't seen her family doctor multiple times and prescribed steroids and antibiotics with no improvement. She states she does not feel well and has not continued to feel well. Denies specific fever currently. He states she was told she has fluid on her heart but is unsure of cause. Again no recent travel history. No change in medications (Rodger Peck) - Related Data Home Medications Medication Instructions Recorded Confirmed DULoxetine HCL [Cymbalta] 60 mg PO BID 04/03/14 05/21/18 Pantoprazole Sodium [Protonix] 40 mg PO BID 04/03/14 05/21/18 Albuterol Nebulized [Ventolin 2.5 mg INHALATION RT-QID PRN 03/29/16 05/21/18 Nebulized] EPINEPHrine (Auto Inject) [Epipen] 0.3 mg IM ONCE PRN 08/15/16 05/21/18 traMADol HCL [Tramadol HCl] 100 mg PO Q6H PRN 11/11/16 05/21/18 Albuterol Sulfate [Proair Hfa] 1 - 2 puff INHALATION RT-Q6H PRN 03/23/17 Budesonide-Formot 160-4.5 Mcg 2 puff INHALATION RT-BID 04/03/17 05/21/18 [Symbicort 160-4.5 Mcg Inhaler] Carvedilol [Coreg] 3.125 mg PO DAILY 03/16/18 05/21/18 Pnv No.95/Ferrous Fum/Folic AC 1 tab PO DAILY 03/16/18 05/21/18 [ Multivitamin Tablet] Prochlorperazine [Compazine] 25 mg PO Q8H PRN 03/16/18 05/21/18 oxyCODONE-APAP 10-325MG [Percocet 1 tab PO Q4H PRN 03/16/18 05/21/18 10-325 mg] rOPINIRole HCL [Requip] 4 mg PO TID 03/16/18 05/21/18 tiZANidine [Zanaflex] 4 mg PO Q8HR 03/16/18 05/21/18 Previous Rx's Medication Instructions Recorded Aspirin 81 mg PO DAILY #1 chewable 03/17/18 Allergies Allergy/AdvReac Type Severity Reaction Status Date / Time fentanyl Allergy Rash/Hives Verified 05/21/18 07:38 Iodinated Contrast- Oral and Allergy Anaphylaxis Verified 05/21/18 07:38 IV Dye [Iodinated Contrast Media - IV Dye] shellfish derived Allergy Anaphylaxis Verified 05/21/18 07:38 buspirone AdvReac Hallucinati Verified 05/21/18 07:38 ons Review of Systems ROS Other: All systems not noted in ROS Statement are negative. <Rodger Peck - Last Filed: 05/21/18 06:11> ROS Other: All systems not noted in ROS Statement are negative. <Billy Lopez - Last Filed: 05/21/18 08:57> ROS Statement: Those systems with pertinent positive or pertinent negative responses have been documented in the HPI. Past Medical History Past Medical History: Asthma, COPD, CVA/TIA, Deep Vein Thrombosis (DVT), Fibromyalgia, GERD/Reflux, Osteoarthritis (OA) Additional Past Medical History / Comment(s): *DEAF IN RIGHT EAR. PATIENT STATES HER PCP TOLD HER SHE MIGHT HAVE HAD A TIA & INCREASED HEART HR- tachycardia. SEE DR. VIVAS'S H & P FOR CARDIOVASCULAR DETAILS. Neuropathy feet ; UNSTEADY WHEN UP/BALANCE ISSUES- BORN CLUB FEET(HAD SEVERALSX) "I HAVE BAD KNEES AND BAD LT HIP". Dvt right leg-2001. PT STATED HAS BEEN EXPOSED TO BLACK MOLD . History of Any Multi-Drug Resistant Organisms: None Reported Past Surgical History: Breast Surgery, Ear Surgery, Heart Catheterization, Hysterectomy Additional Past Surgical History / Comment(s): Multiple SX day clubfoot. TUBES IN EARS, Kartush patches both ears D/T PERFORATED TYMPANIC MEMBRANES. POLYPS REMOVED FROM THROAT-BENIGN. Lt breast biopsy-NEG. BRONCHOSOCPY-BENIGN NODULE REMOVED."brochal septalplasty". COLONOSOCPY. March right salpingo- oophorectomy, rt foot fusion/plate and srews sx done jan 18 2018 pt stated only lite bearing and currently using w/c since sx Past Anesthesia/Blood Transfusion Reactions: Motion Sickness, Postoperative Nausea & Vomiting (PONV) Additional Past Anesthesia/Blood Transfusion Reaction / Comment(s): Problems/w/ anes in Nov after colonoscopy. "Too much given & couldn't wake up".....However, patient states they have to give her more meds to get her to be sedated."AFTER 1 SX THEY TOLD ME I STOPPED BREATHING DURING SX" Past Psychological History: Anxiety Smoking Status: Current every day smoker Past Alcohol Use History: None Reported Past Drug Use History: None Reported - Past Family History Mother Family Medical History: Diabetes Mellitus Additional Family Medical History / Comment(s): IRREG HEART BEAT. GRANDMOTHER HAD COLON CANCER AND HEART DISEASE Father Family Medical History: Hyperlipidemia, Hypertension Sister(s) Family Medical History: AFIB, Cancer, CVA/TIA, Hypertension Additional Family Medical History / Comment(s): CERVICAL CANCER <Rodger Peck - Last Filed: 05/21/18 06:11> General Exam Limitations: no limitations General appearance: alert, in no apparent distress Head exam: Present: atraumatic, normocephalic, normal inspection Eye exam: Present: normal appearance, PERRL, EOMI. Absent: scleral icterus, conjunctival injection, periorbital swelling ENT exam: Present: normal exam, mucous membranes moist Neck exam: Present: normal inspection. Absent: tenderness, meningismus, lymphadenopathy Respiratory exam: Present: normal lung sounds bilaterally. Absent: respiratory distress, wheezes, rales, rhonchi, stridor Cardiovascular Exam: Present: regular rate, normal rhythm, normal heart sounds. Absent: systolic murmur, diastolic murmur, rubs, gallop, clicks GI/Abdominal exam: Present: soft, normal bowel sounds. Absent: distended, tenderness, guarding, rebound, rigid Extremities exam: Present: normal inspection, full ROM, normal capillary refill. Absent: tenderness, pedal edema, joint swelling, calf tenderness Back exam: Present: normal inspection Neurological exam: Present: alert, oriented X3, CN II-XII intact Psychiatric exam: Present: normal affect, normal mood Skin exam: Present: warm, dry, intact, normal color. Absent: rash <Rodger Peck - Last Filed: 05/21/18 06:11> Course <Rodger Peck - Last Filed: 05/21/18 06:11> <Billy Lopez - Last Filed: 05/21/18 08:57> Vital Signs 05/21/18 05/21/18 05/21/18 04:49 05:48 05:59 Temperature 98.3 F Pulse Rate 87 80 Respiratory 18 20 Rate Blood Pressure 132/84 O2 Sat by Pulse 95 Oximetry 05/21/18 05/21/18 05/21/18 06:10 06:15 06:53 Temperature 97.7 F Pulse Rate 75 83 87 Respiratory 18 19 Rate Blood Pressure 128/75 130/67 O2 Sat by Pulse 100 98 Oximetry 05/21/18 06:57 Temperature Pulse Rate 90 Respiratory Rate Blood Pressure O2 Sat by Pulse Oximetry - Reevaluation(s) Reevaluation #1: 05/21/18 06:12 Medical record is reviewed (Rodger Peck) 05/21/18 08:57 Patient does not meet criteria for sepsis. (Billy Lopez) EKG Findings - EKG Comments: EKG Findings:: EKG shows normal sinus rhythm rate of 87, AK 164, QRS 94, QTc 474 <Rodger Peck - Last Filed: 05/21/18 06:11> Medical Decision Making - Lab Data Result diagrams: 05/21/18 05:30 05/21/18 05:30 <Rodger Peck - Last Filed: 05/21/18 06:11> - Lab Data Result diagrams: 05/21/18 05:30 05/21/18 05:30 - Radiology Data Radiology results: report reviewed (Computed tomography scan the chest shows no evidence for pulmonary embolism. Focal patchy groundglass densities lower lobes. Suggesting inflammation versus infectious.) <Billy Lopez - Last Filed: 05/21/18 08:57> - Medical Decision Making Patient reevaluated and still has wheezing. Patient still feels somewhat short of breath. Patient is recommended admission. Case was discussed with Dr. french , covering for Dr. Major, who will admit for Dr. Murdock patient. Patient is updated. (Billy Lopez) - Lab Data Lab Results 05/21/18 05/21/18 05/21/18 Range/Units 05:30 05:30 05:30 WBC 13.1 H (3.8-10.6) k/uL RBC 4.08 (3.80-5.40) m/uL Hgb 13.2 (11.4-16.0) gm/dL Hct 39.0 (34.0-46.0) % MCV 95.6 (80.0-100.0) fL MCH 32.3 (25.0-35.0) pg MCHC 33.7 (31.0-37.0) g/dL RDW 15.1 (11.5-15.5) % Plt Count 288 (150-450) k/uL Neutrophils % 61 % Lymphocytes % 32 % Monocytes % 3 % Eosinophils % 2 % Basophils % 1 % Neutrophils # 8.1 H (1.3-7.7) k/uL Lymphocytes # 4.2 (1.0-4.8) k/uL Monocytes # 0.4 (0-1.0) k/uL Eosinophils # 0.3 (0-0.7) k/uL Basophils # 0.1 (0-0.2) k/uL PT (9.0-12.0) sec INR (<1.2) APTT (22.0-30.0) sec Sodium 141 (137-145) mmol/L Potassium 3.6 (3.5-5.1) mmol/L Chloride 105 (98-107) mmol/L Carbon Dioxide 27 (22-30) mmol/L Anion Gap 9 mmol/L BUN 18 H (7-17) mg/dL Creatinine 0.70 (0.52-1.04) mg/dL Est GFR (CKD-EPI)AfAm >90 (>60 ml/min/1.73 sqM) Est GFR (CKD-EPI)NonAf >90 (>60 ml/min/1.73 sqM) Glucose 103 H (74-99) mg/dL Calcium 9.5 (8.4-10.2) mg/dL Magnesium 1.9 (1.6-2.3) mg/dL Total Bilirubin 0.1 L (0.2-1.3) mg/dL AST 17 (14-36) U/L ALT 29 (9-52) U/L Alkaline Phosphatase 90 (38-126) U/L Total Creatine Kinase 31 (30-135) U/L CK-MB (CK-2) 0.2 (0.0-2.4) ng/mL CK-MB (CK-2) Rel Index 0.6 Troponin I <0.012 (0.000-0.034) ng/mL NT-Pro-B Natriuret Pep pg/mL Total Protein 6.2 L (6.3-8.2) g/dL Albumin 3.9 (3.5-5.0) g/dL 05/21/18 05/21/18 Range/Units 05:30 05:30 WBC (3.8-10.6) k/uL RBC (3.80-5.40) m/uL Hgb (11.4-16.0) gm/dL Hct (34.0-46.0) % MCV (80.0-100.0) fL MCH (25.0-35.0) pg MCHC (31.0-37.0) g/dL RDW (11.5-15.5) % Plt Count (150-450) k/uL Neutrophils % % Lymphocytes % % Monocytes % % Eosinophils % % Basophils % % Neutrophils # (1.3-7.7) k/uL Lymphocytes # (1.0-4.8) k/uL Monocytes # (0-1.0) k/uL Eosinophils # (0-0.7) k/uL Basophils # (0-0.2) k/uL PT 9.5 (9.0-12.0) sec INR 1.0 (<1.2) APTT 23.1 (22.0-30.0) sec Sodium (137-145) mmol/L Potassium (3.5-5.1) mmol/L Chloride (98-107) mmol/L Carbon Dioxide (22-30) mmol/L Anion Gap mmol/L BUN (7-17) mg/dL Creatinine (0.52-1.04) mg/dL Est GFR (CKD-EPI)AfAm (>60 ml/min/1.73 sqM) Est GFR (CKD-EPI)NonAf (>60 ml/min/1.73 sqM) Glucose (74-99) mg/dL Calcium (8.4-10.2) mg/dL Magnesium (1.6-2.3) mg/dL Total Bilirubin (0.2-1.3) mg/dL AST (14-36) U/L ALT (9-52) U/L Alkaline Phosphatase (38-126) U/L Total Creatine Kinase (30-135) U/L CK-MB (CK-2) (0.0-2.4) ng/mL CK-MB (CK-2) Rel Index Troponin I (0.000-0.034) ng/mL NT-Pro-B Natriuret Pep 157 pg/mL Total Protein (6.3-8.2) g/dL Albumin (3.5-5.0) g/dL Disposition <Rodger Peck - Last Filed: 05/21/18 06:11> Is patient prescribed a controlled substance at d/c from ED?: No Decision Time: 08:57 <Billy Lopez - Last Filed: 05/21/18 08:57> Clinical Impression: Asthma, Pneumonia Disposition: ADMITTED IP TO THIS HOSP Referrals: Judah Murdock DO [Primary Care Provider] - 1-2 days
[2018-05-21 05:48] LABS: Basophils # (A) 0.1 k/uL (0-0.2); Basophils % (A) 1 %; Eosinophils # (A) 0.3 k/uL (0-0.7); Eosinophils % (A) 2 %; HGB 13.2 gm/dL (11.4-16.0); Lymphocytes # (A) 4.2 k/uL (1.0-4.8); Lymphocytes % (A) 32 %; MCH 32.3 pg (25.0-35.0); MCHC 33.7 g/dL (31.0-37.0); MCV 95.6 fL (80.0-100.0); Mean Platelet Volume 6.7; Monocytes # (A) 0.4 k/uL (0-1.0); Monocytes % (A) 3 %; Neutrophils # (A) 8.1 k/uL (1.3-7.7); Neutrophils % (A) 61 %; Platelet Count 288 k/uL (150-450); RBC 4.08 m/uL (3.80-5.40); RDW 15.1 % (11.5-15.5); WBC 13.1 k/uL (3.8-10.6)
[2018-05-21 05:57] LABS: ALT 29 U/L (9-52); AST 17 U/L (14-36); Albumin 3.9 g/dL (3.5-5.0); Alkaline Phosphatase 90 U/L (38-126); Anion Gap 9 mmol/L; Blood Urea Nitrogen 18 mg/dL (7-17); Calcium 9.5 mg/dL (8.4-10.2); Carbon Dioxide 27 mmol/L (22-30); Chloride 105 mmol/L (98-107); Glucose 103 mg/dL (74-99); Magnesium 1.9 mg/dL (1.6-2.3); Potassium 3.6 mmol/L (3.5-5.1); Sodium 141 mmol/L (137-145); Total Bilirubin 0.1 mg/dL (0.2-1.3); Total Protein 6.2 g/dL (6.3-8.2)
[2018-05-21 06:01] LABS: Partial Thromboplastin Time 23.1 sec (22.0-30.0); Prothrombin Time 9.5 sec (9.0-12.0)
[2018-05-21 06:09] LABS: Creatine Kinase 31 U/L (30-135)
[2018-05-21 06:22] LABS: Creatine Kinase MB 0.2 ng/mL (0.0-2.4); Troponin I <0.012 ng/mL (0.000-0.034)
[2018-05-21] MEDS ORDERED: KETOROLAC 30 MG/ML 1 ML VIAL IVP STA (07:23)
--- NOTE | 2018-05-21 08:20 | CT ---
EXAMINATION TYPE: CT angio chest DATE OF EXAM: 05/21/2018 COMPARISON: 03/17/2018 HISTORY: 43-year-old female pain, Congestion, SOB TECHNIQUE: Contiguous axial scanning of the chest performed with IV Contrast, patient injected with 1 00 ml mL of Isovue 370. Coronal/sagittal MIP reconstructions performed. CT DLP: 436.90 mGycm Automated exposure control for dose reduction was used. FINDINGS: Heart is normal size with trace basilar pericardial fluid/thickening. Aorta normal caliber with very direct takeoff of the left vertebral artery directly from the aortic a rch. Prominent bilateral hilar lymph nodes measuring up to 1.1 cm on the right, not significantly changed. No mediastinal lymphadenopathy. Satisfactory opacification of the pulmonary arterial system without evidence for pulmonary embolus. Some minimal strandy right mid lung areas of atelectasis. Some patchy areas of multifocal groundglass densities are present in the lung bases. No cassidy consolidation or pleural effusion.. Visualized upper abdomen shows no gross abnormality. Bones: Endplate spondylosis lower thoracic spine. No osseous destructive process. IMPRESSION: 1. NO EVIDENCE FOR PULMONARY EMBOLUS. 2. MULTIFOCAL PATCHY GROUNDGLASS DENSITIES IN THE LOWER LUNGS. NONSPECIFIC INFECTIOUS/INFLAMMATORY FO CI ARE SUGGESTED. CORRELATE FOR ANY SYMPTOMS OF PNEUMONIA OR INTERSTITIAL PNEUMONITIS. 3. PROMINENT BILATERAL HILAR LYMPH NODES MEASURING UP TO 1.1 CM REMAIN UNCHANGED.
[2018-05-21] MEDS ORDERED: IPRATROPIUM-ALBUTEROL 3 ML NEB INHALATION PRN (08:57)
[2018-05-21] MEDS ORDERED: SODIUM CHLORIDE 0.9% 1,000 ML IV SCH (09:00)
[2018-05-21] MEDS ORDERED: AZITHROMYCIN 500 MG in SODIUM CHLORIDE 0.9% 250 ML IVPB STA (09:01)
[2018-05-21] MEDS ORDERED: cefTRIAXone IN SWFI 1,000 MG/10 ML SYRINGE IVP STA (09:02)
[2018-05-21 09:57] VITALS: BP 158/92; PULSE 69; RESP 16; TEMP 97.9
[2018-05-21] MEDS ORDERED: methylPREDNISolone SOD SUCCI 125 MG/2 ML VIAL IV SCH (12:00)
[2018-05-21] MEDS ORDERED: IPRATROPIUM-ALBUTEROL 3 ML NEB INHALATION SCH (12:00)
--- NOTE | 2018-05-21 21:49 | P.HPIM ---
History of Present Illness pt signed AMA. info is taken from medical records and staff. This is a 43-year-old female to the ER today. Patient presents for evaluation regards to multiple complaints, most complaints relating to cough congestion chest pain. Patient states she was recently seen and evaluated 1 month ago hasn 't seen her family doctor multiple times and prescribed steroids and antibiotics with no improvement. She states she does not feel well and has not continued to feel well. Denies specific fever currently. He states she was told she has fluid on her heart but is unsure of cause. Again no recent travel history. No change in medications (Rodger Peck) pt signed AMA before i have the chance to see her as i was walking into the [facility] coming to see the pt I was informed from staff occupational therapist pt signed AMA. . Past Medical History Past Medical History: Asthma, COPD, CVA/TIA, Deep Vein Thrombosis (DVT), Fibromyalgia, GERD/Reflux, Osteoarthritis (OA) Additional Past Medical History / Comment(s): *DEAF IN RIGHT EAR. PATIENT STATES HER PCP TOLD HER SHE MIGHT HAVE HAD A TIA & INCREASED HEART HR- tachycardia. SEE DR. [facility] FOR CARDIOVASCULAR DETAILS. Neuropathy feet ; UNSTEADY WHEN UP/BALANCE ISSUES- BORN CLUB FEET(HAD SEVERALSX) "I HAVE BAD KNEES AND BAD LT HIP". Dvt right leg-2001. PT STATED HAS BEEN EXPOSED TO BLACK MOLD . History of Any Multi-Drug Resistant Organisms: None Reported Past Surgical History: Breast Surgery, Ear Surgery, Heart Catheterization, Hysterectomy Additional Past Surgical History / Comment(s): Multiple SX day clubfoot. TUBES IN EARS, Kartush patches both ears D/T PERFORATED TYMPANIC MEMBRANES. POLYPS REMOVED FROM THROAT-BENIGN. Lt breast biopsy-NEG. BRONCHOSOCPY-BENIGN NODULE REMOVED."brochal septalplasty". COLONOSOCPY. March right salpingo- oophorectomy, rt foot fusion/plate and srews sx done jan 18 2018 pt stated only lite bearing and currently using w/c since sx Past Anesthesia/Blood Transfusion Reactions: Motion Sickness, Postoperative Nausea & Vomiting (PONV) Additional Past Anesthesia/Blood Transfusion Reaction / Comment(s): Problems/w/ anes in Nov after colonoscopy. "Too much given & couldn't wake up".....However, patient states they have to give her more meds to get her to be sedated."AFTER 1 SX THEY TOLD ME I STOPPED BREATHING DURING SX" Past Psychological History: Anxiety Smoking Status: Current every day smoker Past Alcohol Use History: None Reported Past Drug Use History: None Reported - Past Family History Mother Family Medical History: Diabetes Mellitus Additional Family Medical History / Comment(s): IRREG HEART BEAT. GRANDMOTHER HAD COLON CANCER AND HEART DISEASE Father Family Medical History: Hyperlipidemia, Hypertension Sister(s) Family Medical History: AFIB, Cancer, CVA/TIA, Hypertension Additional Family Medical History / Comment(s): CERVICAL CANCER Medications and Allergies Home Medications Medication Instructions Recorded Confirmed Type DULoxetine HCL [Cymbalta] 60 mg PO BID 04/03/14 05/21/18 History Pantoprazole Sodium [Protonix] 40 mg PO BID 04/03/14 05/21/18 History Albuterol Nebulized [Ventolin 2.5 mg INHALATION RT-QID PRN 03/29/16 05/21/18 History Nebulized] EPINEPHrine (Auto Inject) [Epipen] 0.3 mg IM ONCE PRN 08/15/16 05/21/18 History traMADol HCL [Tramadol HCl] 100 mg PO Q6H PRN 11/11/16 05/21/18 History Albuterol Sulfate [Proair Hfa] 1 - 2 puff INHALATION RT-Q6H PRN 03/23/17 History Budesonide-Formot 160-4.5 Mcg 2 puff INHALATION RT-BID 04/03/17 05/21/18 History [Symbicort 160-4.5 Mcg Inhaler] Carvedilol [Coreg] 3.125 mg PO DAILY 03/16/18 05/21/18 History Pnv No.95/Ferrous Fum/Folic AC 1 tab PO DAILY 03/16/18 05/21/18 History [ Multivitamin Tablet] Prochlorperazine [Compazine] 25 mg PO Q8H PRN 03/16/18 05/21/18 History oxyCODONE-APAP 10-325MG [Percocet 1 tab PO Q4H PRN 03/16/18 05/21/18 History 10-325 mg] rOPINIRole HCL [Requip] 4 mg PO TID 03/16/18 05/21/18 History tiZANidine [Zanaflex] 4 mg PO Q8HR 03/16/18 05/21/18 History Aspirin 81 mg PO DAILY #1 chewable 03/17/18 05/21/18 Rx Allergies Allergy/AdvReac Type Severity Reaction Status Date / Time fentanyl Allergy Rash/Hives Verified 05/21/18 07:38 Iodinated Contrast- Oral and Allergy Anaphylaxis Verified 05/21/18 07:38 IV Dye [Iodinated Contrast Media - IV Dye] shellfish derived Allergy Anaphylaxis Verified 05/21/18 07:38 buspirone AdvReac Hallucinati Verified 05/21/18 07:38 ons Physical Exam Vitals: Vital Signs Temp Pulse Resp BP Pulse Ox 05/21/18 09:56 97.9 F 69 16 158/92 97 05/21/18 06:57 90 05/21/18 06:53 97.7 F 87 19 130/67 98 05/21/18 06:15 83 05/21/18 06:10 75 18 128/75 100 05/21/18 05:59 80 05/21/18 05:48 20 05/21/18 04:49 98.3 F 87 18 132/84 95 Intake and Output 05/21/18 05/21/18 05/21/18 06:59 14:59 22:59 Other: Weight 104.78 kg Results CBC & Chem 7: 05/21/18 05:30 05/21/18 05:30 Labs: Abnormal Lab Results - Last 24 Hours (Table) 05/21/18 05/21/18 Range/Units 05:30 05:30 WBC 13.1 H (3.8-10.6) k/uL Neutrophils # 8.1 H (1.3-7.7) k/uL BUN 18 H (7-17) mg/dL Glucose 103 H (74-99) mg/dL Total Bilirubin 0.1 L (0.2-1.3) mg/dL Total Protein 6.2 L (6.3-8.2) g/dL
--- NOTE | 2018-05-21 21:51 | P.DS ---
Providers Date of admission: 05/21/18 08:58 Attending physician: Mario Duenas MD Consults: 05/21/18 08:57 Consult Physician Routine Consulting Provider: Desmond Victoria Consult Reason/Comments: pulmonary evaluation Do you want consulting provider notified?: Yes Primary care physician: [facility] Course: pt signed Leaving AMA before i have the chance to see the pt. please refer for previous documents for more details Plan - Discharge Summary New Discharge Prescriptions: No Action Pantoprazole Sodium [Protonix] 40 mg PO BID DULoxetine HCL [Cymbalta] 60 mg PO BID Albuterol Nebulized [Ventolin Nebulized] 2.5 mg INHALATION RT-QID PRN PRN Reason: Shortness Of Breath EPINEPHrine (Auto Inject) [Epipen] 0.3 mg IM ONCE PRN PRN Reason: Anaphylaxis traMADol HCL [Tramadol HCl] 100 mg PO Q6H PRN PRN Reason: Pain Albuterol Sulfate [Proair Hfa] 1 - 2 puff INHALATION RT-Q6H PRN PRN Reason: Shortness Of Breath Budesonide-Formot 160-4.5 Mcg [Symbicort 160-4.5 Mcg Inhaler] 2 puff INHALATION RT-BID tiZANidine [Zanaflex] 4 mg PO Q8HR oxyCODONE-APAP 10-325MG [Percocet 10-325 mg] 1 tab PO Q4H PRN PRN Reason: Pain Pnv No.95/Ferrous Fum/Folic AC [ Multivitamin Tablet] 1 tab PO DAILY rOPINIRole HCL [Requip] 4 mg PO TID Carvedilol [Coreg] 3.125 mg PO DAILY Prochlorperazine [Compazine] 25 mg PO Q8H PRN PRN Reason: Nausea And Vomiting Aspirin 81 mg PO DAILY #1 chewable Discharge Medication List DULoxetine HCL [Cymbalta] 60 mg PO BID 04/03/14 [History] Pantoprazole Sodium [Protonix] 40 mg PO BID 04/03/14 [History] Albuterol Nebulized [Ventolin Nebulized] 2.5 mg INHALATION RT-QID PRN 03/29/16 [ History] EPINEPHrine (Auto Inject) [Epipen] 0.3 mg IM ONCE PRN 08/15/16 [History] traMADol HCL [Tramadol HCl] 100 mg PO Q6H PRN 11/11/16 [History] Albuterol Sulfate [Proair Hfa] 1 - 2 puff INHALATION RT-Q6H PRN 03/23/17 [ History] Budesonide-Formot 160-4.5 Mcg [Symbicort 160-4.5 Mcg Inhaler] 2 puff INHALATION RT-BID 04/03/17 [History] Carvedilol [Coreg] 3.125 mg PO DAILY 03/16/18 [History] Pnv No.95/Ferrous Fum/Folic AC [ Multivitamin Tablet] 1 tab PO DAILY [History] Prochlorperazine [Compazine] 25 mg PO Q8H PRN 03/16/18 [History] oxyCODONE-APAP 10-325MG [Percocet 10-325 mg] 1 tab PO Q4H PRN 03/16/18 [History] rOPINIRole HCL [Requip] 4 mg PO TID 03/16/18 [History] tiZANidine [Zanaflex] 4 mg PO Q8HR 03/16/18 [History] Aspirin 81 mg PO DAILY #1 chewable 03/17/18 [Rx] Follow up Appointment(s)/Referral(s): Judah Murdock DO [Primary Care Provider] - 1-2 days Discharge Disposition: Left Against Medical Advice
[2018-05-22] MEDS ORDERED: cefTRIAXone IN SWFI 1,000 MG/10 ML SYRINGE IVP SCH (09:00)
[2018-05-22] MEDS ORDERED: AZITHROMYCIN 500 MG TAB PO SCH (09:00)
== END 2018-05-21 13:54 | disposition left against medical advice (07) | DRG 194 ==
LOC: EC 04:36 → 4MS4W 08:58
PROVIDERS: ADMIT Internal Medicine; ATTEND Internal Medicine
DX: J18.9 Pneumonia, unspecified organism (principal); J44.0 Chronic obstructive pulmonary disease with (acute) lower respiratory infection; F17.200 Nicotine dependence, unspecified, uncomplicated; F41.9 Anxiety disorder, unspecified; H91.91 Unspecified hearing loss, right ear; K21.9 Gastro-esophageal reflux disease without esophagitis; M79.7 Fibromyalgia; G62.9 Polyneuropathy, unspecified; M19.90 Unspecified osteoarthritis, unspecified site; Z79.51 Long term (current) use of inhaled steroids; Z79.82 Long term (current) use of aspirin; Z79.899 Other long term (current) drug therapy; Z88.8 Allergy status to other drugs, medicaments and biological substances; Z91.041 Radiographic dye allergy status; Z88.5 Allergy status to narcotic agent; Z91.013 Allergy to seafood; Z90.710 Acquired absence of both cervix and uterus; Z86.73 Personal history of transient ischemic attack (TIA), and cerebral infarction without residual deficits; Z86.718 Personal history of other venous thrombosis and embolism; Z86.010 Personal history of colon polyps; Z90.79 Acquired absence of other genital organ(s); Z90.721 Acquired absence of ovaries, unilateral; Z83.3 Family history of diabetes mellitus; Z82.49 Family history of ischemic heart disease and other diseases of the circulatory system; Z80.49 Family history of malignant neoplasm of other genital organs; Z80.0 Family history of malignant neoplasm of digestive organs; Z82.3 Family history of stroke
CPT/HCPCS: 36415; 71275; 80053; 82550; 82553; 83735; 83880; 84484; 85025; 85610; 85730; 93005; 94644; 96361; 96374; 96375; 99285

== ENCOUNTER → 2018-06-05 | Outpatient (CLI) | payer MEDICARE, OTHER ==
--- NOTE | 2018-06-05 14:27 | XR ---
EXAMINATION TYPE: XR chest 2V DATE OF EXAM: 06/05/2018 COMPARISON: Prior chest x-ray 04/29/2018 HISTORY: Pneumonia TECHNIQUE: Frontal and lateral views of the chest are obtained. FINDINGS: There is no focal air space opacity, pleural effusion, or pneumothorax seen. The cardiac silhouette size is within normal limits. The osseous structures are intact. IMPRESSION: Improved aeration
== END | disposition home or self-care (01) ==
LOC: RADXRMAIN 14:03
PROVIDERS: ATTEND Physician Assistant
DX: J18.9 Pneumonia, unspecified organism (principal)
CPT/HCPCS: 71046

== ENCOUNTER → 2018-06-18 | Outpatient (CLI) | payer MEDICARE, OTHER ==
[2018-06-19 04:50] LABS: C Reactive Protein, High Sens 8.33 mg/L (0.000-3.000)
[2018-06-19 05:37] LABS: Angiotensin-1 Converting Enz. 44 U/L (8-52)
[2018-06-19 11:01] LABS: Immunoglobulin M 90.4 mg/dL (40.0-280.0)
[2018-06-19 11:25] LABS: IgG Subclass 3 73.8 mg/dL (11.0-85.0); IgG Subclass 4 20.1 mg/dL (3.0-175.0)
== END | disposition home or self-care (01) ==
LOC: LABWHC1 13:46
PROVIDERS: ATTEND Internal Medicine Critical Care Medicine
DX: J44.9 Chronic obstructive pulmonary disease, unspecified (principal); J45.909 Unspecified asthma, uncomplicated; R05 Cough
CPT/HCPCS: 36415; 82164; 82784; 82785; 82787; 85652; 86001; 86140; 86141; 86606; 86609

== ENCOUNTER 2018-06-20 10:38 | Day surgery (SDC) | payer MEDICARE, OTHER ==
[2018-06-19 12:41] VITALS: BMI 33.1
[~2018-06-20 10:38] MED LIST changes: +ALBUTEROL NEB (CONC) 2.5 MG/0.5 ML INHALATION ONE; +ATROPINE SULFATE 0.4 MG/ML 1 ML VIAL IM ONE; -DEXAMETHASONE SOD PHOSPHATE 10 MG/ML 1 ML VIAL IV ONE; -LIDOCAINE 1% 20 ML VIAL (10MG/ML) FOR IV START INTRADERMA PRN; -MIDAZOLAM 2 MG/2 ML VIAL IV PRN; -ONDANSETRON 4 MG/2 ML VIAL IVP ONE; -SCOPOLAMINE 1.5MG/72HR PATCH TRANSDERM ONE
[2018-06-20] MEDS ORDERED: LIDOCAINE 2% (PF) 20 MG/ML 10 ML AMP INHALATION STA (11:01)
[2018-06-20 11:17] VITALS: TEMP 98.2
[2018-06-20] MEDS ORDERED: ONDANSETRON 4 MG/2 ML VIAL IVP ONE (11:18)
[2018-06-20] MEDS ORDERED: LIDOCAINE 1% 20 ML VIAL (10MG/ML) FOR IV START INTRADERMA ONE (11:18)
[2018-06-20] MEDS ORDERED: PROMETHAZINE INJ 25 MG/ML 1 ML VIAL IVPB ONE (11:53)
[2018-06-20 11:57] LABS: Glucose,Whole Blood 105 mg/dL (75-99)
[2018-06-20] MEDS ORDERED: LIDOCAINE 1% INJ 10MG/ML (20 ML MDV) ONE (12:15)
[2018-06-20] MEDS ORDERED: PROPOFOL 10 MG/ML 20 ML VIAL IV ONE (12:15)
[2018-06-20] MEDS ORDERED: MIDAZOLAM 2 MG/2 ML VIAL ONE (12:15)
[2018-06-20] MEDS ORDERED: LIDOCAINE 1% INJ 10MG/ML (20 ML MDV) INTRATRACH ONE (12:22)
[2018-06-20 13:07] VITALS: RESP 16
[2018-06-20 13:22] VITALS: BP 120/77; PULSE 66
[2018-06-20 16:18] LABS: Color,BF Colorless
[2018-06-20 16:19] LABS: Appearance,BF Cloudy; Nucleated Cells, Body Fluid 27 /uL; RBC, Body Fluid 51 /uL
[2018-06-20 16:25] LABS: Mononuclear WBC,Body Fluid 56 %; Polynuclear WBC,Body Fluid 44 %; Total Cells Counted,Body Fluid 100
--- NOTE | 2018-06-20 16:52 | PCN ---
PROCEDURE NOTE PROCEDURES: Bronchoscopy, airway examination, therapeutic lavage, BAL. PREOP DIAGNOSES: Recurrent pneumonia and bronchitis. POSTOP DIAGNOSES: Recurrent pneumonia and bronchitis. The patient's procedure took place in room #2. There was informed consent and universal timeout. ALUMINUM POLISHER provided general anesthesia and unconscious sedation. After the patient was sedated fully monitored, the bronchoscope was inserted through the right nostril. It passed through the right nasopharynx into the oropharynx. The hypopharynx was identified and topicalized. The hypopharyngeal structures all appeared relatively normal including anterior commissure, true cords, false cords, arytenoids, piriform sinuses, right and left vallecula and epiglottis. After topicalization, the bronchoscope was pushed through the glottic opening into the trachea. The trachea had some mild erythema and inflammation. There was some thick secretions noted in the trachea. They were suctioned without difficulty. Tracheal panda was sharp. The right mainstem and the left mainstem were topicalized. Afterwards, the right upper lobe and its 3 segments, right middle lobe and its 2 segments, the right lower lobe and its 5 segments were all evaluated. Likewise, the left upper lobe proper, lingula and left lower lobe with its 2, 2 and 4 segments respectively were evaluated. Findings were similar throughout. Of note was the fact that there was sort of a fishmouth opening to the right middle lobe. There was difficult to get the bronchoscope into the right middle lobe. 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 Anyway, there was diffuse erythema throughout. There was mucosal erythema and hyperemia. There was vascular engorgement. There was minimal mucosal friability. There were thick secretions noted throughout. There was no dominant mass. Next, bronchoscope was placed in the area of the right middle lobe and right lower lobe and the BAL took place. Again, I could not actually insert the tip of the bronchoscope into the right middle lobe. The secretions and fluid analysis will be combined wash of the right middle lobe and right lower lobe. The patient tolerated the procedure well. Additional secretions were removed from the left lung. The bronchoscope was withdrawn. There was no immediate complication. MMODL / IJN: [id number] /
== END 2018-06-20 13:25 | disposition home or self-care (01) ==
LOC: ORWHC2ENDO 10:38
PROVIDERS: ATTEND Internal Medicine Critical Care Medicine
DX: J18.0 Bronchopneumonia, unspecified organism (principal); J18.9 Pneumonia, unspecified organism; J40 Bronchitis, not specified as acute or chronic; G47.00 Insomnia, unspecified; F41.1 Generalized anxiety disorder; K21.9 Gastro-esophageal reflux disease without esophagitis; G25.81 Restless legs syndrome; Z86.718 Personal history of other venous thrombosis and embolism; M79.7 Fibromyalgia; F39 Unspecified mood [affective] disorder; I10 Essential (primary) hypertension; Z72.0 Tobacco use; Z79.891 Long term (current) use of opiate analgesic; Z79.51 Long term (current) use of inhaled steroids; Z79.899 Other long term (current) drug therapy; Z88.5 Allergy status to narcotic agent; Z91.013 Allergy to seafood; Z88.8 Allergy status to other drugs, medicaments and biological substances; Z91.048 Other nonmedicinal substance allergy status; Z91.041 Radiographic dye allergy status
CPT/HCPCS: 94640; 87798 ×3; 87496; 87498; 87529; 88108; 88305; 89050; 87252; 87502; 87634; 87070; 87205; 87116; 87102; 87077; 87186; 87206; 31624; J2250; J0461; J2550; J2001 ×2; J2405; J2704

== ENCOUNTER → 2018-07-19 | Outpatient (CLI) | payer MEDICARE, OTHER ==
[~2018-07-19] MED LIST changes: -ALBUTEROL NEB (CONC) 2.5 MG/0.5 ML INHALATION ONE; -ATROPINE SULFATE 0.4 MG/ML 1 ML VIAL IM ONE; +COSYNTROPIN 0.25 MG VIAL IVP NR; -LACTATED RINGERS 1,000 ML IV SCH; -Pre Op ABX Message 1 EACH MISC MISCELLANE ONE; +SODIUM CHLORIDE 0.9% 500 ML in EMPTY BAG 1 BAG IV PRN
[2018-07-19 09:19] VITALS: BP 116/76; PULSE 83; RESP 16; TEMP 98.2
== END | disposition home or self-care (01) ==
LOC: PROCWHC3 08:56
PROVIDERS: ATTEND Internal Medicine Infectious Disease
DX: E27.40 Unspecified adrenocortical insufficiency (principal)
CPT/HCPCS: 82533; 82024; 96374; 36415; J0834

== ENCOUNTER 2018-08-12 18:46 | Emergency (ER) | payer MEDICARE, OTHER ==
[2018-08-12 18:50] VITALS: BP 119/75; PULSE 115; RESP 18; TEMP 98.2
[2018-08-12] MEDS ORDERED: ORPHENADRINE 30 MG/ML 2 ML VIAL IM STA (19:18)
[2018-08-12] MEDS ORDERED: KETOROLAC 30 MG/ML 1 ML VIAL IM STA (19:18)
--- NOTE | 2018-08-12 19:33 | ED ---
General Adult HPI - General Chief complaint: Extremity Injury, Lower Stated complaint: Back & hip pain Time Seen by Provider: 08/12/18 18:53 Source: patient Mode of arrival: wheelchair Limitations: no limitations - History of Present Illness Initial comments: 43-year-old female patient presents to the emergency department today for complaints of increased low back and left hip pain. Patient states that she has a history of chronic low back pain and has had an increase in her symptoms over the last few months. Patient states that she is being treated and managed by her primary care physician who wants to perform MRI. The patient states that she also has been dealing with a bout of pneumonia that they are having difficulty treating. Patient states that she is unable to lie flat due to increased shortness of breath. States that she is scheduled to have a lung biopsy with Dr. Rivero. Until she gets her lungs figured out she is unable to schedule the MRI. Patient is taking Percocet at home for pain control. States that her Percocet is no longer helping her. States that today she feels like her legs are unstable. States that she is able to ambulate however feels like her joints will not hold her. Patient states that she does have pain radiating down the left leg. States that she does have some numbness along the outside of the left leg. Patient denies any new symptoms today just states that the pain is worse than usual. She denies any saddle anesthesia or loss of bowel or bladder control. Denies any fevers or chills. Patient denies any recent rash, shortness breath, chest pain, abdominal pain, nausea, vomiting, diarrhea, constipation, dizziness, hematuria, dysuria, urinary urgency, urinary frequency , headache, visual changes, or any other complaints. - Related Data Home Medications Medication Instructions Recorded Confirmed DULoxetine HCL [Cymbalta] 60 mg PO BID 04/03/14 07/19/18 Pantoprazole Sodium [Protonix] 40 mg PO BID 04/03/14 07/19/18 Albuterol Nebulized [Ventolin 2.5 mg INHALATION RT-QID PRN 03/29/16 07/19/18 Nebulized] EPINEPHrine (Auto Inject) [Epipen] 0.3 mg IM ONCE PRN 08/15/16 07/19/18 traMADol HCL [Tramadol HCl] 100 mg PO Q6H PRN 11/11/16 07/19/18 Albuterol Sulfate [Proair Hfa] 1 - 2 puff INHALATION RT-Q6H PRN 03/23/17 Budesonide-Formot 160-4.5 Mcg 2 puff INHALATION RT-BID 04/03/17 07/19/18 [Symbicort 160-4.5 Mcg Inhaler] Carvedilol [Coreg] 3.125 mg PO HS 03/16/18 07/19/18 Pnv No.95/Ferrous Fum/Folic AC 1 tab PO DAILY 03/16/18 07/19/18 [ Multivitamin Tablet] Prochlorperazine [Compazine] 25 mg PO Q8H PRN 03/16/18 07/19/18 oxyCODONE-APAP 10-325MG [Percocet 1 tab PO Q4H PRN 03/16/18 07/19/18 10-325 mg] rOPINIRole HCL [Requip] 4 mg PO TID 03/16/18 07/19/18 tiZANidine [Zanaflex] 4 mg PO Q8HR 03/16/18 07/19/18 Ondansetron [Zofran] 4 mg PO Q8HR PRN 06/19/18 07/19/18 Previous Rx's Medication Instructions Recorded Aspirin 81 mg PO DAILY #1 chewable 03/17/18 Allergies Allergy/AdvReac Type Severity Reaction Status Date / Time fentanyl Allergy Rash/Hives Verified 08/12/18 18:51 Iodinated Contrast- Oral and Allergy Anaphylaxis Verified 08/12/18 18:51 IV Dye [Iodinated Contrast Media - IV Dye] shellfish derived Allergy Anaphylaxis Verified 08/12/18 18:51 buspirone AdvReac Hallucinati Verified 08/12/18 18:51 ons escitalopram [From Lexapro] AdvReac Unknown Verified 08/12/18 18:51 Review of Systems ROS Statement: Those systems with pertinent positive or pertinent negative responses have been documented in the HPI. ROS Other: All systems not noted in ROS Statement are negative. Past Medical History Past Medical History: Asthma, COPD, CVA/TIA, Deep Vein Thrombosis (DVT), Fibromyalgia, GERD/Reflux, Osteoarthritis (OA), Pneumonia Additional Past Medical History / Comment(s): pneumonia for 3 months-multiple courses of A/B & steroids,*DEAF IN RIGHT EAR. TIA x2-speech affected & INCREASED HR-tachycardia. Neuropathy feet; UNSTEADY WHEN UP/BALANCE ISSUES- BORN CLUB FEET(HAD SEVERALSX) "I HAVE BAD KNEES AND BAD LT HIP". Dvt right leg- 2001. PT STATED HAS BEEN EXPOSED TO BLACK MOLD, low threshold for seizures per pt History of Any Multi-Drug Resistant Organisms: None Reported Past Surgical History: Breast Surgery, Ear Surgery, Heart Catheterization, Hysterectomy Additional Past Surgical History / Comment(s): Multiple SX day clubfoot. TUBES IN EARS, Kartush patches both ears, POLYPS REMOVED FROM THROAT-BENIGN. Lt breast biopsy BRONCHOSCOPY-BENIGN NODULE REMOVED."bronchial septalplasty". COLONOSCOPY, right salpingo-oophorectomy, rt foot fusion/plate and screws jan 18 2018 Past Anesthesia/Blood Transfusion Reactions: Previous Problems w/ Anesthesia, Motion Sickness, Postoperative Nausea & Vomiting (PONV) Additional Past Anesthesia/Blood Transfusion Reaction / Comment(s): Problems/w/ anes in Nov after colonoscopy. "Too much given & couldn't wake up".....However, patient states they have to give her more meds to get her to be sedated."AFTER 1 SX THEY TOLD ME I STOPPED BREATHING DURING SX" Past Psychological History: Anxiety Smoking Status: Current every day smoker Past Alcohol Use History: None Reported Past Drug Use History: None Reported - Past Family History Mother Family Medical History: Diabetes Mellitus Additional Family Medical History / Comment(s): IRREG HEART BEAT. GRANDMOTHER HAD COLON CANCER AND HEART DISEASE Father Family Medical History: Hyperlipidemia, Hypertension Sister(s) Family Medical History: AFIB, Cancer, CVA/TIA, Hypertension Additional Family Medical History / Comment(s): CERVICAL CANCER General Exam Limitations: no limitations General appearance: alert, in no apparent distress, other (This is a well- developed, well-nourished adult female patient in no acute distress. Vital signs upon presentation are temperature 98.2F, pulse 1:15, respirations 18, blood pressure 119/75, pulse ox 97% on room air.) Eye exam: Present: normal appearance, PERRL, EOMI. Absent: scleral icterus, conjunctival injection, periorbital swelling ENT exam: Present: normal exam, normal oropharynx, mucous membranes moist Respiratory exam: Present: wheezes (Generalized coarse wheezing, inspiratory and expiratory). Absent: normal lung sounds bilaterally, respiratory distress, rales, rhonchi, stridor Cardiovascular Exam: Present: regular rate, normal rhythm, normal heart sounds. Absent: systolic murmur, diastolic murmur, rubs, gallop, clicks GI/Abdominal exam: Present: soft, normal bowel sounds. Absent: distended, tenderness, guarding, rebound, rigid Extremities exam: Present: full ROM, tenderness (Tenderness over the left hip), normal capillary refill, other (Left hip is warm to touch. No erythema or swelling. Skin to the lower extremities pink, warm, and dry. Cap refills less than 3 seconds. Pedal and posttibial pulses are 2+ and equal bilaterally.). Absent: normal inspection, pedal edema, joint swelling, calf tenderness Neurological exam: Present: alert, oriented X3, CN II-XII intact, other ( Strength in all 4 extremities is 5/5.) Psychiatric exam: Present: normal affect, normal mood Skin exam: Present: warm, dry, intact, normal color. Absent: rash Course Vital Signs 08/12/18 18:48 Temperature 98.2 F Pulse Rate 115 H Respiratory 18 Rate Blood Pressure 119/75 O2 Sat by Pulse 97 Oximetry Medical Decision Making - Medical Decision Making 43-year-old female patient presents to emergency department today for complaints of increased lower back pain, hip pain, and weakness of her legs. Physical examination did reveal some left hip tenderness. Patient good strength in the lower extremities. Neurovascular status was intact to the lower extremities. Did perform CT of the lumbar spine and the pelvis. The CT of the lumbar spine did show small disc bulging at L4 to [address] L[address] to S[address]. [address] of the pelvis did show evidence of arthritis in the bilateral hips. Did discuss findings and results with the patient. We did discuss lumbar radiculopathy as a cause for her symptoms given the disc bulging. She is instructed to follow- up with her primary care physician to discuss MRI. She does have pain medication at home for pain management. She is instructed to continue to use this. She is instructed to return here immediately for any new, worsening, or concerning symptoms per she verbalizes understanding and agrees with this plan. - Lab Data Lab Results 08/12/18 Range/Units 19:35 Urine Color Light Yellow Urine Appearance Clear (Clear) Urine pH 6.0 (5.0-8.0) Ur Specific [place] 1.005 (1.001-1.035) Urine Protein Negative (Negative) Urine Glucose (UA) Negative (Negative) Urine Ketones Negative (Negative) Urine Blood Negative (Negative) Urine Nitrite Negative (Negative) Urine Bilirubin Negative (Negative) Urine Urobilinogen <2.0 (<2.0) mg/dL Ur Leukocyte Esterase Negative (Negative) - Radiology Data Radiology results: report reviewed CT lumbar spine without contrast. Report was reviewed in its entirety. Impression by Dr. Stern shows mild facet arthropathy in the lower lumbar spine. No fracture. No spinal stenosis. There is small posterior disc bulge at L4 to [address] L[address] to S[address]. [address] of the pelvis without contrast was performed. Report was reviewed in its entirety. Impression by Dr. Stern showed mild facet arthropathy in the lower lumbar spine. No fracture seen. There is mild acetabular spurring at the hip joints without significant joint space narrowing. Disposition Clinical Impression: Bulging lumbar disc, Leg weakness Disposition: HOME SELF-CARE Condition: Good Instructions: Lumbar Radiculopathy (ED), Weakness (ED) Additional Instructions: Follow-up with her primary care physician for recheck as soon as possible. Continue home medications as directed. Return here immediately for any new, worsening, or concerning symptoms. Is patient prescribed a controlled substance at d/c from ED?: No Referrals: Judah Murdock DO [Primary Care Provider] - 1-2 days Time of Disposition: 20:35
[2018-08-12 19:44] LABS: Appearance,Urine Clear (Clear); Bilirubin,Urine Negative (Negative); Blood,Urine Negative (Negative); Color,Urine Light Yellow; Glucose,Urine (UA) Negative (Negative); Ketones,Urine Negative (Negative); Leukocyte Esterase,Urine Negative (Negative); Nitrite,Urine Negative (Negative); Protein,Urine Negative (Negative); Specific Gravity,Urine 1.005 (1.001-1.035); Urobilinogen,Urine <2.0 mg/dL (<2.0)
--- NOTE | 2018-08-12 19:52 | CT ---
EXAMINATION TYPE: CT lumbar spine wo con DATE OF EXAM: 08/12/2018 7:43 PM COMPARISON: None HISTORY: Low back and left hip pain. CT DLP: 1491.4 mGycm Automated exposure control for dose reduction was used. Unenhanced CT of the lumbar spine was performed. Bone and soft tissue window settings are submitted as well as coronal and sagittal reconstructions. Lumbar vertebra have normal spacing and alignment. There is no compression fracture. Posterior elemen ts are intact. There is no lumbar paraspinal mass. I see no bony destructive process. There is no barrera dence of spinal stenosis. There is some facet arthropathy at L4-5 L5-S1. Sacroiliac joints are intact . IMPRESSION: Mild facet arthropathy in the lower lumbar spine. No fracture. No spinal stenosis. Small posterior di sc bulge is present at L4-5 and L5-S1.
--- NOTE | 2018-08-12 19:56 | CT ---
EXAMINATION TYPE: CT pelvis wo con DATE OF EXAM: 08/12/2018 COMPARISON: None HISTORY: Low back and left hip pain. CT DLP: 672.9 mGycm Automated exposure control for dose reduction was used. FINDINGS: There is some facet arthropathy in the lower lumbar spine. Sacroiliac joints appear normal. The pelvi c ring appears intact. The proximal femurs and hip joints appear intact. There is no sign of hip dysp lasia. There is mild acetabular spurring. There is no evidence of a pelvic mass. Bladder distends smo othly. There is no free fluid in the pelvis. IMPRESSION: MILD FACET ARTHROPATHY IN THE LOWER LUMBAR SPINE. NO FRACTURE SEEN. THERE IS MILD ACETABULAR SPURRING AT THE HIP JOINTS WITHOUT SIGNIFICANT JOINT SPACE NARROWING..
[2018-08-12] MEDS ORDERED: MORPHINE SULFATE 4 MG/ML SYRINGE IM STA (20:36)
== END 2018-08-12 20:45 | disposition home or self-care (01) ==
LOC: EC 18:46
DX: M51.26 Other intervertebral disc displacement, lumbar region (principal); R53.1 Weakness; M16.0 Bilateral primary osteoarthritis of hip; J44.9 Chronic obstructive pulmonary disease, unspecified; M79.7 Fibromyalgia; K21.9 Gastro-esophageal reflux disease without esophagitis; F41.9 Anxiety disorder, unspecified; F17.200 Nicotine dependence, unspecified, uncomplicated; Z86.73 Personal history of transient ischemic attack (TIA), and cerebral infarction without residual deficits; Z86.718 Personal history of other venous thrombosis and embolism; Z95.818 Presence of other cardiac implants and grafts; Z79.51 Long term (current) use of inhaled steroids; Z79.899 Other long term (current) drug therapy; Z88.5 Allergy status to narcotic agent; Z91.041 Radiographic dye allergy status; Z91.013 Allergy to seafood; Z88.8 Allergy status to other drugs, medicaments and biological substances
CPT/HCPCS: 81003; 72192; 72131; 99284; 96372 ×3; J2270; J2360; J1885

== ENCOUNTER 2018-09-13 07:30 | Inpatient (IN) | payer MEDICARE, OTHER ==
[2018-09-05 10:40] VITALS: BMI 34.4
[~2018-09-13 07:30] MED LIST changes: -COSYNTROPIN 0.25 MG VIAL IVP NR; +LACTATED RINGERS 1,000 ML IV SCH; +ONDANSETRON 4 MG/2 ML VIAL IVP PRN; -SODIUM CHLORIDE 0.9% 500 ML in EMPTY BAG 1 BAG IV PRN; +ceFAZolin IN SWFI 2 GM/20 ML SYRINGE IVP ONE
[2018-09-13] MEDS ORDERED: LIDOCAINE 1% 20 ML VIAL (10MG/ML) FOR IV START INTRADERMA ONE (08:52)
[2018-09-13] MEDS ORDERED: SCOPOLAMINE 1.5MG/72HR PATCH TRANSDERM ONE (08:58)
[2018-09-13] MEDS ORDERED: DEXAMETHASONE SOD PHOSPHATE 4 MG/ML 1 ML VIAL IVP ONE (09:00)
[2018-09-13] MEDS ORDERED: SUCCINYLCHOLINE CHLORIDE 100 MG/5 ML SYR IV ONE (10:03)
[2018-09-13] MEDS ORDERED: GLYCOPYRROLATE 0.2 MG/ML 2 ML VIAL ONE (10:03)
[2018-09-13] MEDS ORDERED: fentaNYL (PF) 50 MCG/ML 2 ML AMP ONE (10:03)
[2018-09-13] MEDS ORDERED: ROCURONIUM BROMIDE 10 MG/ML 10 ML VIAL IV ONE (10:03)
[2018-09-13] MEDS ORDERED: LIDOCAINE 1% INJ 10MG/ML (20 ML MDV) ONE (10:03)
[2018-09-13] MEDS ORDERED: PROPOFOL 10 MG/ML 20 ML VIAL IV ONE (10:03)
[2018-09-13] MEDS ORDERED: ePHEDrine SULFATE/0.9% NACL/PF 50 MG/5 ML SYRINGE IV ONE (10:03)
[2018-09-13] MEDS ORDERED: NEOSTIGMINE 1 MG/ML 10 ML VIAL ONE (10:03)
[2018-09-13] MEDS ORDERED: MIDAZOLAM 2 MG/2 ML VIAL ONE (10:03)
[2018-09-13] MEDS ORDERED: ROPIVACAINE 5 MG/ML 30 ML VIAL MISCELLANE ONE (10:31)
[2018-09-13] MEDS ORDERED: LACTATED RINGERS 1,000 ML IV ONE (10:41)
[2018-09-13] MEDS ORDERED: PROCHLORPERAZINE 10 MG TAB PO PRN (11:18)
[2018-09-13] MEDS ORDERED: IPRATROPIUM-ALBUTEROL 3 ML NEB IH PRN (11:19)
--- NOTE | 2018-09-13 11:34 | P.OP ---
Date of Procedure: 09/13/18 Preoperative Diagnosis: Bilateral pulmonary infiltrates Postoperative Diagnosis: Same Procedure(s) Performed: Right thoracoscopic lung biopsy [facility] Surgeon: Zenon Rivero Estimated Blood Loss (ml): 25 IV fluids (ml): 1,000 Urine output (ml): 0 Pathology: other (A generous biopsy of the right middle lobe was sent for both culture and pathology, a smaller biopsy of the inferior portion of the right lower lobe was sent chest for pathology) Condition: stable Disposition: PACU Indications for Procedure: 43-year-old female presents with dyspnea and cough. Computed tomography scan demonstrated bilateral pulmonary infiltrates most pronounced in the anterior portion of the right middle lobe. Pulmonary workup was negative. Lung biopsy was requested by Dr. Cain. Operative Findings: Grossly the lung looked and appeared normal. Description of Procedure: The patient was brought to the operating room, placed supine on the operating table, anesthetized and intubated with a double-lumen endotracheal tube. Tube was positioned with fiberoptic bronchoscopy. No endobronchial lesions were noted. The tube was secured and the patient was turned in the left lateral decubitus position. The right chest was sterilely prepped and draped. Single lung ventilation was initiated. The patient was stable from a pulmonary and hemodynamic standpoint. 3 one-inch incisions were made in the right chest. These were carried down through skin and subcutaneous tissue, through the muscle and into the pleural space. A 10.5 Thoracoport was used for the camera. Generous wedge biopsies were taken of the anterior portion of the middle lobe. A smaller biopsy was taken of the inferior portion of the lower lobe. These were placed on the back table. A 28-Namibian chest tube was placed through the most anterior incision and positioned posterior apically. It was secured with an 0 Ethibond suture. The incisions were closed with layers of Vicryl suture. Rib blocks were performed posteriorly at the level of the incisions with half percent Marcaine. Skin glue and dry sterile dressings were applied. The patient was turned supine. The chest tube was connected to suction. Patient was extubated and transferred to recovery in stable condition. No air leak was noted.
[2018-09-13] MEDS: HYDROmorphone 1 MG/ML 1 ML SYRINGE IVP PRN ×4 (11:41→12:25)
[2018-09-13] MEDS: ONDANSETRON 4 MG/2 ML VIAL IVP PRN (11:42)
[2018-09-13] MEDS: MEPERIDINE 50 MG/ML SYRINGE IVP ONE ×2 (11:57→12:06)
--- NOTE | 2018-09-13 12:00 | XR ---
EXAMINATION TYPE: XR chest 1V portable DATE OF EXAM: 09/13/2018 COMPARISON: 06/05/2018 HISTORY: Postoperative evaluation after VATS TECHNIQUE: Single frontal view of the chest is obtained. FINDINGS: Right hemidiaphragm elevation and right basilar airspace disease as developed in the inter im. Scattered horizontally oriented left lower lung airspace disease is also seen. Right-sided thorac ostomy tube has been placed in the interim after thoracotomy. No residual pneumothorax is seen. Subcu taneous air is noted along the lateral chest wall. Heart is mildly enlarged. IMPRESSION: Postoperative changes status post thoracostomy with no residual pneumothorax. Bibasilar airspace disease likely represents atelectasis.
[2018-09-13] MEDS ORDERED: diphenhydrAMINE 50 MG/ML 1 ML VIAL IVP ONE (12:26)
[2018-09-13] MEDS: fentaNYL (PF) 50 MCG/ML 2 ML AMP IV ONE ×2 (12:38→12:48)
[2018-09-13] MEDS: IPRATROPIUM-ALBUTEROL 3 ML NEB IH SCH ×3 (13:15→19:18)
--- NOTE | 2018-09-13 14:31 | P.CNPUL ---
History of Present Illness Consult date: 09/13/18 Reason for consult: dyspnea, cough, pneumonia, pulmonary fibrosis, abnormal CXR/ CT Chief complaint: Shortness of breath and cough History of present illness: Pulmonary consult dated 09/13/2018 This is a 43-year-old female that had a lung biopsy done today by Dr. Zenon Rivero. She has about a 6-7 month history of increasing shortness of breath cough and sputum production with fever. She's had multiple courses of antibiotics and steroids without much or any improvement. She had a computed tomography scan which revealed bilateral groundglass infiltrates. It was more pronounced in the right lung than on the left. The patient was also seen by infectious disease. She had a hypersensitivity screening which was positive for penicillium notatum and Cladosporium herbarium. In addition, she had a IgG level that was low. The patient was seen by infectious disease as mentioned above. She was also noted to have some very mild mediastinal adenopathy. For this reason she was sent to cardiothoracic surgery for consideration of a video- assisted thoracoscopic lung biopsy. That was done today. She had wedge biopsy from the right middle lobe and right lower lobe. I told the patient would be probably 10 days before we would have an answer. This is because his specimens are initially interpreted here and then sent to [facility] for their interpretation. Currently, she is resting comfortably in the room following surgery. She has a chest tube and on the right side. She was told by the cardiothoracic surgeon she might be a be discharged tomorrow. She is hoping to. Other than pain, she has no major complaints at this time. Review of Systems A 14 point review of system is positive for shortness of breath cough wheezing and phlegm production. In addition she had some fevers as well. Past Medical History Past Medical History: Asthma, COPD, CVA/TIA, Deep Vein Thrombosis (DVT), Fibromyalgia, GERD/Reflux, Osteoarthritis (OA), Pneumonia Additional Past Medical History / Comment(s): pneumonia for 3 months-multiple courses of A/B & steroids,*DEAF IN RIGHT EAR. TIA x2-speech affected & INCREASED HR-tachycardia. Neuropathy feet; UNSTEADY WHEN UP/BALANCE ISSUES- BORN CLUB FEET "I HAVE BAD KNEES AND BAD LT HIP". Dvt right leg-2001. PT STATED HAS BEEN EXPOSED TO BLACK MOLD, low threshold for seizures per pt, chronic back pain,unable to lay flat History of Any Multi-Drug Resistant Organisms: None Reported Past Surgical History: Breast Surgery, Ear Surgery, Heart Catheterization, Hysterectomy Additional Past Surgical History / Comment(s): Multiple SX day clubfeet. TUBES IN EARS, Kartush patches both ears, POLYPS REMOVED FROM THROAT-BENIGN. Lt breast biopsy BRONCHOSCOPY-BENIGN NODULE REMOVED."bronchial septalplasty". COLONOSCOPY, right salpingo-oophorectomy, rt foot fusion/plate and screws jan 18 2018 Past Anesthesia/Blood Transfusion Reactions: Previous Problems w/ Anesthesia, Motion Sickness, Postoperative Nausea & Vomiting (PONV) Additional Past Anesthesia/Blood Transfusion Reaction / Comment(s): Problems/w/ anes in Nov after colonoscopy. "Too much given & couldn't wake up".....However, patient states they have to give her more meds to get her to be sedated."AFTER 1 SX THEY TOLD ME I STOPPED BREATHING DURING SX approx 14 yrs ago" Smoking Status: Current every day smoker - Past Family History Mother Family Medical History: Diabetes Mellitus Additional Family Medical History / Comment(s): IRREG HEART BEAT. GRANDMOTHER HAD COLON CANCER AND HEART DISEASE Father Family Medical History: Hyperlipidemia, Hypertension Sister(s) Family Medical History: AFIB, Cancer, CVA/TIA, Hypertension Additional Family Medical History / Comment(s): CERVICAL CANCER Medications and Allergies Home Medications Medication Instructions Recorded Confirmed Type DULoxetine HCL [Cymbalta] 60 mg PO BID 04/03/14 09/13/18 History Pantoprazole Sodium [Protonix] 40 mg PO BID 04/03/14 09/13/18 History Albuterol Nebulized [Ventolin 2.5 mg INHALATION RT-QID PRN 03/29/16 09/13/18 History Nebulized] EPINEPHrine (Auto Inject) [Epipen] 0.3 mg IM ONCE PRN 08/15/16 09/13/18 History traMADol HCL [Tramadol HCl] 100 mg PO Q6H PRN 11/11/16 09/13/18 History Albuterol Sulfate [Proair Hfa] 1 - 2 puff INHALATION RT-Q6H PRN 03/23/17 History Budesonide-Formot 160-4.5 Mcg 2 puff INHALATION RT-BID 04/03/17 09/13/18 History [Symbicort 160-4.5 Mcg Inhaler] Carvedilol [Coreg] 3.125 mg PO HS 03/16/18 09/13/18 History oxyCODONE-APAP 10-325MG [Percocet 1 tab PO Q4H PRN 03/16/18 09/13/18 History 10-325 mg] rOPINIRole HCL [Requip] 4 mg PO TID 03/16/18 09/13/18 History tiZANidine [Zanaflex] 4 mg PO Q8HR 03/16/18 09/13/18 History Aspirin 81 mg PO DAILY #1 chewable 03/17/18 09/13/18 Rx Ondansetron [Zofran] 4 mg PO Q6H PRN 06/19/18 09/13/18 History Ketorolac [Toradol] 10 - 20 mg PO Q6HR PRN 09/05/18 09/13/18 History Ondansetron Odt [Zofran Odt] 8 mg PO Q12HR PRN 09/13/18 09/13/18 History Allergies Allergy/AdvReac Type Severity Reaction Status Date / Time aripiprazole [From Abilify] Allergy tremors,spa Verified 09/05/18 10:16 sms fentanyl Allergy Rash/Hives Verified 09/05/18 10:16 (only with patch) Iodinated Contrast- Oral and Allergy Anaphylaxis Verified 09/05/18 10:16 IV Dye [Iodinated Contrast Media - IV Dye] shellfish derived Allergy Anaphylaxis Verified 09/05/18 10:16 buspirone AdvReac Hallucinati Verified 09/05/18 10:16 ons escitalopram [From Lexapro] AdvReac "mean Verified 09/05/18 10:16 behavior" Physical Exam Osteopathic Statement: *. No significant issues noted on an osteopathic structural exam other than those noted in the History and Physical/Consult. Vitals: Vital Signs Temp Pulse Resp BP Pulse Ox 09/13/18 13:00 78 18 119/69 97 09/13/18 12:45 76 18 116/67 97 09/13/18 12:30 80 18 109/64 96 09/13/18 12:15 68 18 118/59 95 09/13/18 12:00 61 20 140/75 99 09/13/18 11:45 61 20 137/80 98 09/13/18 11:29 97 F L 57 L 18 137/80 96 09/13/18 08:40 907.9 F H 88 16 118/82 100 Intake and Output 09/12/18 09/13/18 09/13/18 22:59 06:59 14:59 Intake Total 1750 Output Total 65 Balance 1685 Intake: IV 1750 Output: Estimated Blood Loss 65 No acute distress, oriented 3. Nasal O2 was noted. HEENT examination is grossly unremarkable. Mucous membranes are moist. No oral lesions. Neck supple. Full range of motion. No adenopathy thyromegaly or neck vein distention. Cardiovascular examination reveals regular rhythm rate. S1-S2 normal. No S3 or S4. No discernible murmur noted. Lungs reveal diminished breath sounds throughout. She cannot take a deep breath because of the recent surgery. A few scattered rhonchi are noted. No wheezes or crackles. Abdomen soft bowel sounds are heard. No masses or tenderness. Extremities are intact. No cyanosis clubbing or edema. Skin is without rash or lesion. Neurologic examination is brief but nonfocal. Results - Diagnostic Findings Chest x-ray: report reviewed, image reviewed (Chest x-ray, labs, and medications are reviewed.) Assessment and Plan Assessment: Assessment Shortness of breath, cough, phlegm production and fevers, with a computed tomography scan showing groundglass opacities, of unclear etiology. Postop day #0, status post video-assisted thoracoscopic lung biopsy. History of tobacco use History of chronic pain syndrome History of DVT History of hearing loss History of TIA Plan: Plan dated 09/13/2018 The patient seemed be doing relatively well. We will continue to follow along. She's been for that she can be discharged tomorrow from the hospital. I did tell her that sometimes it takes up to 10 days or so to get the final path report. Initially, the pathology specimen is looked at here by our pathologist and is typically set [facility] for their expert opinion. The patient will see me back in the office. No additional recommendations are made. We will continue to follow. Time with Patient: Greater than 30
[2018-09-13] MEDS: DEXTROSE 5%-0.45% NACL 1,000 ML IV SCH ×2 (14:43→16:24)
[2018-09-13] MEDS: KETOROLAC 30 MG/ML 1 ML VIAL IVP SCH ×2 (14:52→17:25)
[2018-09-13] MEDS: rOPINIRole HCL 4 MG TABLET PO SCH ×3 (14:53→21:29)
[2018-09-13] MEDS ORDERED: HYDROmorphone 1 MG/ML 1 ML SYRINGE IVP STA (16:12)
[2018-09-13] MEDS: oxyCODONE-APAP 10-325MG 1 EACH TAB PO PRN ×2 (16:20→20:05)
[2018-09-13] MEDS: ceFAZolin IN SWFI 2 GM/20 ML SYRINGE IVP SCH (17:24)
[2018-09-13] MEDS: tiZANidine 4 MG TAB PO SCH (17:25)
[2018-09-13] MEDS: HEPARIN SODIUM,PORCINE 5,000 UNIT/ML 1 ML VIAL SQ SCH (17:38)
[2018-09-13] MEDS: SYMBICORT 160-4.5 MCG INHALER INHALATION SCH (19:18)
[2018-09-13] MEDS: DULoxetine HCL 60 MG CAPSULE.DR PO SCH (20:05)
[2018-09-13] MEDS: PANTOPRAZOLE 40 MG TABLET PO SCH (20:05)
[2018-09-13] MEDS: traMADol 50 MG TAB PO PRN (20:06)
[2018-09-13] MEDS ORDERED: CARVEDILOL 3.125 MG TAB PO SCH (21:00)
[2018-09-13 21:34] VITALS: RESP 18
[2018-09-14] MEDS: KETOROLAC 30 MG/ML 1 ML VIAL IVP SCH ×3 (00:11→12:09)
[2018-09-14] MEDS: ceFAZolin IN SWFI 2 GM/20 ML SYRINGE IVP SCH (00:11)
[2018-09-14] MEDS: oxyCODONE-APAP 10-325MG 1 EACH TAB PO PRN ×3 (00:11→10:21)
[2018-09-14] MEDS: tiZANidine 4 MG TAB PO SCH ×2 (00:12→10:16)
[2018-09-14] MEDS: HEPARIN SODIUM,PORCINE 5,000 UNIT/ML 1 ML VIAL SQ SCH ×2 (00:12→10:16)
[2018-09-14] MEDS: ONDANSETRON 4 MG/2 ML VIAL IVP PRN (00:18)
[2018-09-14 01:57] VITALS: TEMP 97.8
[2018-09-14] MEDS: traMADol 50 MG TAB PO PRN ×2 (04:34→10:22)
[2018-09-14 05:39] VITALS: BP 109/70
[2018-09-14 06:46] LABS: Anion Gap 7 mmol/L; Blood Urea Nitrogen 24 mg/dL (7-17); Calcium 9.3 mg/dL (8.4-10.2); Carbon Dioxide 25 mmol/L (22-30); Chloride 104 mmol/L (98-107); Glucose 178 mg/dL (74-99); Potassium 3.9 mmol/L (3.5-5.1); Sodium 136 mmol/L (137-145)
[2018-09-14 07:09] LABS: Basophils % (A) 0 %; Eosinophils # (A) 0.1 k/uL (0-0.7); Eosinophils % (A) 1 %; HCT 36.8 % (34.0-46.0); HGB 12.2 gm/dL (11.4-16.0); Lymphocytes # (A) 2.6 k/uL (1.0-4.8); Lymphocytes % (A) 20 %; MCH 31.8 pg (25.0-35.0); MCV 96.3 fL (80.0-100.0); Mean Platelet Volume 7.5; Monocytes # (A) 0.4 k/uL (0-1.0); Monocytes % (A) 3 %; Neutrophils # (A) 9.5 k/uL (1.3-7.7); Neutrophils % (A) 74 %; Platelet Count 250 k/uL (150-450); RBC 3.83 m/uL (3.80-5.40); RDW 13.6 % (11.5-15.5); WBC 12.8 k/uL (3.8-10.6)
[2018-09-14] MEDS: SYMBICORT 160-4.5 MCG INHALER INHALATION SCH (07:51)
[2018-09-14] MEDS: IPRATROPIUM-ALBUTEROL 3 ML NEB IH SCH ×2 (07:51→11:41)
[2018-09-14 08:05] VITALS: PULSE 90
--- NOTE | 2018-09-14 08:29 | XR ---
EXAMINATION TYPE: XR chest 1V DATE OF EXAM: 09/14/2018 COMPARISON: Prior chest x-ray 09/13/2018 HISTORY: Status post VATS, chest tube TECHNIQUE: Single frontal view of the chest is obtained. FINDINGS: Right-sided chest tube, subcutaneous emphysema are again noted. No evident sizable pneumot horax. Patchy basilar density likely reflects atelectasis, postop change. There are overlying cardiac leads. Heart size is stable. IMPRESSION: Basilar atelectasis, there may be some improvement in aeration as compared to prior exam
[2018-09-14] MEDS ORDERED: ASPIRIN 81 MG PO SCH (09:00)
[2018-09-14] MEDS: PANTOPRAZOLE 40 MG TABLET PO SCH (10:16)
[2018-09-14] MEDS: DULoxetine HCL 60 MG CAPSULE.DR PO SCH (10:16)
--- NOTE | 2018-09-14 11:33 | P.PN ---
Subjective Progress Note Date: 09/14/18 Principal diagnosis: Dyspnea with shortness of breath phlegm and fevers. Computed tomography scan reveals chronic glass opacities of unclear etiology. This is a 43-year-old female that had a lung biopsy done today by Dr. Zenon Rivero. She has about a 6-7 month history of increasing shortness of breath cough and sputum production with fever. She's had multiple courses of antibiotics and steroids without much or any improvement. She had a computed tomography scan which revealed bilateral groundglass infiltrates. It was more pronounced in the right lung than on the left. The patient was also seen by infectious disease. She had a hypersensitivity screening which was positive for penicillium notatum and Cladosporium herbarium. In addition, she had a IgG level that was low. The patient was seen by infectious disease as mentioned above. She was also noted to have some very mild mediastinal adenopathy. For this reason she was sent to cardiothoracic surgery for consideration of a video- assisted thoracoscopic lung biopsy. That was done today. She had wedge biopsy from the right middle lobe and right lower lobe. I told the patient would be probably 10 days before we would have an answer. This is because his specimens are initially interpreted here and then sent to [facility] for their interpretation. Currently, she is resting comfortably in the room following surgery. She has a chest tube and on the right side. She was told by the cardiothoracic surgeon she might be a be discharged tomorrow. She is hoping to. Other than pain, she has no major complaints at this time. The patient is seen again today 09/14/2018 in follow-up on the cardiac floor. She is status post right thorascopic lung biopsy. Postoperative day #1. Chest x-ray shows a right-sided chest tube in place subcutaneous emphysema noted. No sizable pneumothorax. There is basilar atelectasis with improved aeration compared to previous. She is currently sitting up in a chair at the bedside. She is awake and alert in no acute distress. She is anxious to go home. She is maintaining good O2 saturations in the 90s on room air. She's been afebrile. Hemodynamically stable. Cultures are pending. Pathology is pending. White count 12.8. Hemoglobin 12.2. Creatinine 0.74. She remains on Symbicort and DuoNeb inhalations. She is working well with the incentive spirometer. Objective - Vital Signs Vital signs: Vital Signs Temp 97.8 F 09/14/18 00:00 Pulse 90 09/14/18 08:01 Resp 18 09/14/18 08:00 BP 109/70 09/14/18 04:00 Pulse Ox 97 09/14/18 04:00 Intake & Output 09/13/18 09/14/18 09/14/18 18:59 06:59 18:59 Intake Total 1870 960 354 Output Total 65 800 Balance 1805 160 354 Weight 111.6 kg Intake: IV 1750 Oral 120 960 354 Output: Urine 800 Estimated Blood Loss 65 Other: Voiding Method Toilet Toilet # Voids 1 0 - Exam GENERAL EXAM: Alert, active, comfortable in no apparent distress. HEAD: Normocephalic. EYES: Normal reaction of pupils, equal size. NOSE: Clear with pink turbinates. THROAT: No erythema or exudates. NECK: No masses, no JVD. CHEST: No chest wall deformity. LUNGS: Equal air entry with faint basilar crackles. Right-sided chest tube removed. CVS: S1 and S2 normal with no audible murmur, regular rhythm. ABDOMEN: No hepatosplenomegaly, normal bowel sounds, no guarding or rigidity. SPINE: No scoliosis or deformity SKIN: No rashes CENTRAL NERVOUS SYSTEM: No focal deficits, tone is normal in all 4 extremities. EXTREMITIES: There is no peripheral edema. No clubbing, no cyanosis. Peripheral pulses are intact. - Labs CBC & Chem 7: 09/14/18 05:42 09/14/18 05:42 Labs: Abnormal Lab Results - Last 24 Hours (Table) 09/14/18 09/14/18 Range/Units 05:42 05:42 WBC 12.8 H (3.8-10.6) k/uL Neutrophils # 9.5 H (1.3-7.7) k/uL Sodium 136 L (137-145) mmol/L BUN 24 H (7-17) mg/dL Glucose 178 H (74-99) mg/dL Microbiology - Last 24 Hours (Table) 09/13/18 11:17 Gram Stain - Preliminary Lung - Right Tissue Culture - Preliminary 09/13/18 11:17 Acid Fast Bacilli Culture - Preliminary Lung - Right 09/13/18 11:17 Fungal Culture - Preliminary Lung - Right 09/13/18 11:17 Anaerobic Culture - Preliminary Lung - Right Assessment and Plan Assessment: Assessment Shortness of breath, cough, phlegm production and fevers, with a computed tomography scan showing groundglass opacities, of unclear etiology. Postop day #1, status post video-assisted thoracoscopic lung biopsy. History of tobacco use History of chronic pain syndrome History of DVT History of hearing loss History of TIA Plan: The patient was seen and evaluated by Dr. Cain. Chest x-rays were reviewed. She is cleared for discharge from the pulmonary standpoint. She'll resume her home pulmonary medications. She will follow-up in our office with Dr. Khan next Monday. Hopefully results of the biopsy of be available by then. We'll repeat a chest x-ray then. She is however encouraged to call sooner with any recurrence of symptoms or other questions or concerns. I, the cosigning physician, performed a history & physical examination of the patient. Lungs sounds with faint crackles in the bilateral bases. Maintaining good O2 saturations in the 90s on room air. I discussed the assessment and plan of care with my nurse practitioner, Marylin Elaine. I attest to the above note as dictated by her.
--- NOTE | 2018-09-14 11:52 | P.PN ---
Subjective Progress Note Date: 09/14/18 Principal diagnosis: Bilateral pulmonary infiltrates. Previous medical history of TIAs, mild mitral regurgitation, persistent tachycardia, DVT with thrombectomy, chronic narcotic dependence, current tobacco dependence, and obesity. POD 1 right thoracoscopic lung biopsy. Upon assessment this morning the patient was sitting up in bed in no acute distress. Chest tube was placed to waterseal yesterday with no air leak present this morning. Patient states she does have right lateral chest wall pain which is only partially relieved with ordered medications, she does state the Toradol is what is working best. Denies shortness of breath. Has ambulated to and from the bathroom without difficulty. She is tolerating her diet. Objective - Vital Signs Vital signs: Vital Signs Temp 97.8 F 09/14/18 00:00 Pulse 90 09/14/18 08:01 Resp 18 09/14/18 08:00 BP 109/70 09/14/18 04:00 Pulse Ox 97 09/14/18 04:00 Intake & Output 09/13/18 09/14/18 09/14/18 18:59 06:59 18:59 Intake Total 1870 960 354 Output Total 65 800 Balance 1805 160 354 Weight 111.6 kg Intake: IV 1750 Oral 120 960 354 Output: Urine 800 Estimated Blood Loss 65 Other: Voiding Method Toilet Toilet # Voids 1 0 - Constitutional General appearance: Present: cooperative, no acute distress, obese - Respiratory Details: Lungs sounds diminished bilaterally, right greater than left. Respirations even , nonlabored. Currently on room air with oxygen saturation 97%. Able to achieve 1500 mL on her incentive spirometry. Right pleural chest tube to waterseal, 160 mL serosanguineous drainage since surgery, no air leak present. - Cardiovascular Details: S1, S2 present. Regular rate and rhythm, sinus rhythm on telemetry. Palpable peripheral pulses bilaterally. No edema present. No calf pain or tenderness noted. - Gastrointestinal Gastrointestinal Comment(s): Abdomen soft, nontender, nondistended. Active bowel sounds 4 quadrants. Tolerating diet. - Genitourinary Genitourinary Comment(s): Continues to void clear, yellow urine. - Integumentary Integumentary Comment(s): Skin is warm and dry with evidence of good perfusion. Right lateral wall incisions well approximated covered with dry dressings. - Neurologic Neurologic: Present: CNII-XII intact - Musculoskeletal Musculoskeletal: Present: gait normal, strength equal bilaterally - Psychiatric Psychiatric: Present: A&O x's 3, appropriate affect, intact judgment & insight - Allied health notes Allied health notes reviewed: nursing - Labs CBC & Chem 7: 09/14/18 05:42 09/14/18 05:42 Labs: Abnormal Lab Results - Last 24 Hours (Table) 09/14/18 09/14/18 Range/Units 05:42 05:42 WBC 12.8 H (3.8-10.6) k/uL Neutrophils # 9.5 H (1.3-7.7) k/uL Sodium 136 L (137-145) mmol/L BUN 24 H (7-17) mg/dL Glucose 178 H (74-99) mg/dL Microbiology - Last 24 Hours (Table) 09/13/18 11:17 Gram Stain - Preliminary Lung - Right Tissue Culture - Preliminary 09/13/18 11:17 Acid Fast Bacilli Culture - Preliminary Lung - Right 09/13/18 11:17 Fungal Culture - Preliminary Lung - Right 09/13/18 11:17 Anaerobic Culture - Preliminary Lung - Right - Imaging and Cardiology Chest x-ray: report reviewed, image reviewed Assessment and Plan (1) Bilateral pulmonary infiltrates on chest x-ray Current Visit: Yes Status: Chronic Code(s): R91.8 - OTHER NONSPECIFIC ABNORMAL FINDING OF LUNG FIELD SNOMED Code(s): 516207743 (2) Tobacco dependence Current Visit: Yes Status: Chronic Code(s): F17.200 - NICOTINE DEPENDENCE, UNSPECIFIED, UNCOMPLICATED SNOMED Code(s): 90919743 (3) Chronic pain Current Visit: Yes Status: Chronic Code(s): G89.29 - OTHER CHRONIC PAIN SNOMED Code(s): 39848705 Plan: 1. Right pleural chest tube discontinued without incident. Repeat chest x-ray demonstrates no pneumothorax. 2. Encourage continued incentive spirometry use 10 times every hour while awake. 3. Encourage's smoking cessation. 4. Pain control with current medication regimen. 5. Will discharge to home on current home medications with a follow-up appointments for Dr. Cain and Dr. Rivero. Time with Patient: Greater than 30
[2018-09-14] MEDS: rOPINIRole HCL 4 MG TABLET PO SCH (12:07)
--- NOTE | 2018-09-14 12:22 | XR ---
EXAMINATION TYPE: XR chest 2V DATE OF EXAM: 09/14/2018 COMPARISON: Prior chest x-ray 09/14/2018 HISTORY: Status post chest tube removal TECHNIQUE: Frontal and lateral views of the chest are obtained. FINDINGS: There is been interval removal of the right chest tube. Minimal apical pneumothorax noted. Patchy basilar density persists. Patient is rotated. No other significant interval change. IMPRESSION: Only minimal apical pneumothorax. Basilar atelectasis. Status post chest tube removal.
--- NOTE | 2018-09-18 12:45 | P.DS ---
Providers Date of admission: 09/13/18 08:14 Expected date of discharge: 09/14/18 Attending physician: Zenon Rivero Consults: 09/13/18 11:19 Consult Physician Routine Consulting Provider: Pawel Cain Reason/Comments: pulm managment post R VATS bx, known to you Do you want consulting provider notified?: Yes Primary care physician: Juadh Murdock [facility] Course: FINAL DIAGNOSIS: 1. Bilateral pulmonary infiltrates Previous medical history: 1. DVT with thrombectomy 2. TIAs 3. Mild mitral regurgitation 4. Persistent tachycardia 5. Chronic narcotic dependence 6. Current tobacco dependence 7. Obesity PRINCIPAL PROCEDURE: 1. Right thoracoscopic lung biopsy HISTORY OF PRESENT ILLNESS: This is a 43-year-old female patient who follows with Dr. Yin Murdock and Dr. Pawel Cain on an outpatient basis. She had a seven-month history of coughing with productive sputum and fever. She had completed multiple courses of antibiotics as well as several courses of steroids without any improvement. She underwent CT scanning which demonstrated bilateral ground-glass pulmonary patchy infiltrates, more pronounced in the right lung than the left and more pronounced in the lower middle lobes than in the upper lobes. There was noted mild mediastinal adenopathy. She underwent bronchoscopy and BAL, which were positive for strep pneumoniae as well as evidence of viral infection, however she became unresponsive to any antibiotic therapy. Also noted on the bronchoscopy was chronic erythema and irritation of the lining of the airways and some degree of narrowing of the orifice of the right middle lobe bronchus. She had skin testing and serology completed which were nondiagnostic. She had relatively normal pulmonary function testing. She had low IgG levels and hypersensitivity screens were notable for penicillin notatum and Cladosporium herbarum. She was seen by infectious disease with suggestion for inpatient course of Rocephin, however she did not want to spend any prolonged time in the hospital and therefore Dr. Cain referred her to Dr. Rivero for lung biopsy. The usual perioperative course was explained in detail to the patient, all risks and benefits were discussed, all questions were answered, and consent was obtained to proceed with surgery. HOSPITAL COURSE: The patient was brought to the hospital on 09/13/2018, taken to the preoperative area, prepared in the usual fashion, and subsequently taken to the operating room where Dr. Rivero performed a right thoracoscopic lung biopsy. Upon completion of surgery the patient was extubated, taken to the recovery room where she was recovered and monitored hemodynamically. Once stable she was admitted to [address] [place] [address] cardiac stepdown unit for further monitoring and rehabilitation. Her oxygen was titrated down, her chest tube was discontinued the day after surgery, she was tolerating oral diet, her pain was controlled, and she was ready to be discharged to home on postoperative day #1. She received written and verbal instruction regarding her medications, activity restrictions, signs and symptoms requiring physician notification, and follow-up appointments. COMPLICATIONS: The patient experienced no postoperative complications. Patient Condition at Discharge: Stable Plan - Discharge Summary Discharge Rx Participant: Yes New Discharge Prescriptions: Continue Pantoprazole Sodium [Protonix] 40 mg PO BID DULoxetine HCL [Cymbalta] 60 mg PO BID Albuterol Nebulized [Ventolin Nebulized] 2.5 mg INHALATION RT-QID PRN PRN Reason: Shortness Of Breath EPINEPHrine (Auto Inject) [Epipen] 0.3 mg IM ONCE PRN PRN Reason: Anaphylaxis traMADol HCL [Tramadol HCl] 100 mg PO Q6H PRN PRN Reason: Pain Albuterol Sulfate [Proair Hfa] 1 - 2 puff INHALATION RT-Q6H PRN PRN Reason: Shortness Of Breath Budesonide-Formot 160-4.5 Mcg [Symbicort 160-4.5 Mcg Inhaler] 2 puff INHALATION RT-BID tiZANidine [Zanaflex] 4 mg PO Q8HR oxyCODONE-APAP 10-325MG [Percocet 10-325 mg] 1 tab PO Q4H PRN PRN Reason: Pain rOPINIRole HCL [Requip] 4 mg PO TID Carvedilol [Coreg] 3.125 mg PO HS Aspirin 81 mg PO DAILY #1 chewable Ondansetron [Zofran] 4 mg PO Q6H PRN PRN Reason: Nausea Ketorolac [Toradol] 10 - 20 mg PO Q6HR PRN PRN Reason: Pain Ondansetron Odt [Zofran ODT] 8 mg PO Q12HR PRN PRN Reason: Nausea Discharge Medication List DULoxetine HCL [Cymbalta] 60 mg PO BID 04/03/14 [History] Pantoprazole Sodium [Protonix] 40 mg PO BID 04/03/14 [History] Albuterol Nebulized [Ventolin Nebulized] 2.5 mg INHALATION RT-QID PRN 03/29/16 [ History] EPINEPHrine (Auto Inject) [Epipen] 0.3 mg IM ONCE PRN 08/15/16 [History] traMADol HCL [Tramadol HCl] 100 mg PO Q6H PRN 11/11/16 [History] Albuterol Sulfate [Proair Hfa] 1 - 2 puff INHALATION RT-Q6H PRN 03/23/17 [ History] Budesonide-Formot 160-4.5 Mcg [Symbicort 160-4.5 Mcg Inhaler] 2 puff INHALATION RT-BID 04/03/17 [History] Carvedilol [Coreg] 3.125 mg PO HS 03/16/18 [History] oxyCODONE-APAP 10-325MG [Percocet 10-325 mg] 1 tab PO Q4H PRN 03/16/18 [History] rOPINIRole HCL [Requip] 4 mg PO TID 03/16/18 [History] tiZANidine [Zanaflex] 4 mg PO Q8HR 03/16/18 [History] Aspirin 81 mg PO DAILY #1 chewable 03/17/18 [Rx] Ondansetron [Zofran] 4 mg PO Q6H PRN 06/19/18 [History] Ketorolac [Toradol] 10 - 20 mg PO Q6HR PRN 09/05/18 [History] Ondansetron Odt [Zofran ODT] 8 mg PO Q12HR PRN 09/13/18 [History] Follow up Appointment(s)/Referral(s): Zenon Rivero MD [STAFF PHYSICIAN] - 09/27/18 1:00 pm Pawel Cain DO [Doctor of Osteopathic Medicine] - 09/21/18 2:30 pm Ambulatory/Diagnostic Orders: XR chest 2V [RAD.AMB] Time Frame: 09/27/18, Facility: [facility], Location: [facility] Activity/Diet/Wound Care/Special Instructions: DISCHARGE INSTRUCTIONS: 1. No driving for 2 weeks, or until physician gives their ok. 2. No lifting, pushing, or pulling more than 10 pounds for 2 weeks. The physician will advise of any restriction changes. 3. Continue pain control per as needed orders. 4. Continue with incentive spirometry and splinting until otherwise directed by the physician. 5. May shower daily after Suday. No baths, hot tubs for 2 weeks. 6. Routine incision care. No powders, lotions, ointments on incisions. 7. Please call surgeon/AIRPLANE ELECTRICAL REPAIRER for temp greater than 101 F or purulent drainage from incisions. 8. Please obtain chest x-ray prior to appointment with Dr. Rivero. Discharge Disposition: HOME SELF-CARE
--- NOTE | 2018-09-19 09:01 | CDI ---
Documentation Clarification Form Date: 09/19/2018 8:51:01 AM From: SAURABH Madsen; Marisa Taveras Control System Computer Scientist Phone: If you have a question about this query, please contact Marisa Taveras Control System Computer Scientist at [phone] between 8am and 5pm. Admit Date: 09/13/2018 8:14:00 AM Patient Name: Key Medrano Visit Number: [id number] Discharge Date: 09/14/2018 ATTENTION: The Clinical Documentation Specialists (CDI) and [facility] Coding Staff appreciate your assistance in clarifying documentation. Please respond to the clarification below the line at the bottom and electronically sign. The CDI & [facility] Coding staff will review the response and follow-up if needed. Please note: Queries are made part of the Legal Health Record. If you have any questions, please contact the author of this message via ITS. Zenon Lauren MD The final diagnosis of the pathology report states: Bronchiolitis. Documentation states: Bilateral pulmonary infiltrates. Patient history/risk factors: Smoker, increasing shortness of breath, cough, sputum production, fever. Clinical Indicators: Dyspnea, phlegm, fevers. Treatment: Lung biopsy In your professional opinion, do you agree with the pathology report specifying lung biopsy as bronchiolitis? Yes No Other (please specify) Unable to determine yes MTDD
== END 2018-09-14 13:10 | disposition home or self-care (01) | DRG 167 ==
LOC: 2ORMAIN 08:14 → 3SCARD 11:57
PROVIDERS: ADMIT Thoracic Surgery (Cardiothoracic Vascular Surgery); ATTEND Thoracic Surgery (Cardiothoracic Vascular Surgery)
PROC: 0BBF4ZX Excision of Right Lower Lung Lobe, Percutaneous Endoscopic Approach, Diagnostic (ICD-10-PCS; principal; 2018-09-13 10:00)
PROC: 0BBD4ZX Excision of Right Middle Lung Lobe, Percutaneous Endoscopic Approach, Diagnostic (ICD-10-PCS; principal; 2018-09-13 10:00)
DX: J84.115 Respiratory bronchiolitis interstitial lung disease (principal); F11.20 Opioid dependence, uncomplicated; J44.0 Chronic obstructive pulmonary disease with (acute) lower respiratory infection; J98.11 Atelectasis; E66.9 Obesity, unspecified; Z68.35 Body mass index [BMI] 35.0-35.9, adult; F17.200 Nicotine dependence, unspecified, uncomplicated; G89.4 Chronic pain syndrome; H91.91 Unspecified hearing loss, right ear; I34.0 Nonrheumatic mitral (valve) insufficiency; J44.9 Chronic obstructive pulmonary disease, unspecified; K21.9 Gastro-esophageal reflux disease without esophagitis; M79.7 Fibromyalgia; Z79.51 Long term (current) use of inhaled steroids; Z79.82 Long term (current) use of aspirin; Z80.0 Family history of malignant neoplasm of digestive organs; Z80.49 Family history of malignant neoplasm of other genital organs; Z82.49 Family history of ischemic heart disease and other diseases of the circulatory system; Z83.3 Family history of diabetes mellitus; Z86.718 Personal history of other venous thrombosis and embolism; Z86.73 Personal history of transient ischemic attack (TIA), and cerebral infarction without residual deficits; Z90.710 Acquired absence of both cervix and uterus; Z79.899 Other long term (current) drug therapy; Z88.8 Allergy status to other drugs, medicaments and biological substances; Z91.041 Radiographic dye allergy status; Z88.5 Allergy status to narcotic agent; Z91.013 Allergy to seafood
CPT/HCPCS: 71045; 71046; 80048; 85025; 87070; 87075; 87102; 87116; 87205; 87206; 88307; 94640

== ENCOUNTER → 2018-09-27 | Outpatient (CLI) | payer MEDICARE, OTHER ==
--- NOTE | 2018-09-27 10:15 | XR ---
EXAMINATION TYPE: XR chest 2V DATE OF EXAM: 09/27/2018 COMPARISON: 09/14/2018 TECHNIQUE: PA and lateral views submitted. HISTORY: VATS procedure FINDINGS: Heart is enlarged and there is subsegmental consolidation at the right lung base which appears stable . No pleural effusion or pneumothorax. No overt failure. Underlying COPD suggested. Hypertrophic and degenerative change of the spine. No overt failure. IMPRESSION: 1. Cardiomegaly and right lower lobe area of consolidation or infiltrate slightly improved from the p rior exam.
== END ==
LOC: RADXRMAIN 09:50
PROVIDERS: ATTEND Nurse Practitioner Acute Care
DX: Z09 Encounter for follow-up examination after completed treatment for conditions other than malignant neoplasm (principal); Z98.890 Other specified postprocedural states; I51.7 Cardiomegaly; R91.8 Other nonspecific abnormal finding of lung field
CPT/HCPCS: 71046

== ENCOUNTER 2018-11-26 21:40 | Inpatient (IN) | payer MEDICARE, OTHER ==
[2018-11-26] MEDS ORDERED: ACETAMINOPHEN TAB 500 MG TAB PO STA (22:12)
[2018-11-26] MEDS ORDERED: IPRATROPIUM-ALBUTEROL 3 ML NEB INHALATION STA (22:13)
[2018-11-26] MEDS ORDERED: methylPREDNISolone SOD SUCCI 125 MG/2 ML VIAL IV STA (22:13)
--- NOTE | 2018-11-26 22:18 | ED ---
General Adult HPI - General Chief complaint: Upper Respiratory Infection Stated complaint: COLD SYMPTOMS Time Seen by Provider: 11/26/18 21:56 Source: patient Mode of arrival: ambulatory Limitations: no limitations - History of Present Illness Initial comments: This is a 43-year-old female with a history of smoking induced lung disease and recurrent pneumonia who presents emergent department for cough and congestion. The patient states that she has been feeling ill for the last month. She states that she's been on 2 courses of doxycycline through Dr. Rivero who recently performed a lung biopsy. She states that she also sees Dr. Fallon for her lung disease. She states that approximately 2 weeks ago she started feeling she had an upper respiratory infection. She has not been able to get in to see her physicians. She does report gradually feeling worse and had a fever 2 days ago of 104. She states the fever has improved however she has continued to cough and feel short of breath. She is currently on 40 mg of prednisone daily and also has been using DuoNeb treatments at home. These have not relieved her symptoms so she decided to come to the emergency department. She does admit to some mild right ear pain. She also admits to some sore throat that she attributes to the coughing. She also admits to some pain over the right chest wall where her biopsy was taken. She denies any nausea, vomiting, or diarrhea. She is concerned that she may have recurrent pneumonia. No other acute complaints. - Related Data Home Medications Medication Instructions Recorded Confirmed DULoxetine HCL [Cymbalta] 60 mg PO BID 04/03/14 11/26/18 Pantoprazole Sodium [Protonix] 40 mg PO BID 04/03/14 11/26/18 Albuterol Nebulized [Ventolin 2.5 mg INHALATION RT-QID PRN 03/29/16 11/26/18 Nebulized] EPINEPHrine (Auto Inject) [Epipen] 0.3 mg IM ONCE PRN 08/15/16 11/26/18 traMADol HCL [Tramadol HCl] 100 mg PO Q6H PRN 11/11/16 11/26/18 Albuterol Sulfate [Proair Hfa] 1 - 2 puff INHALATION RT-Q6H PRN 03/23/17 Budesonide-Formot 160-4.5 Mcg 2 puff INHALATION RT-BID 04/03/17 11/26/18 [Symbicort 160-4.5 Mcg Inhaler] Carvedilol [Coreg] 3.125 mg PO HS 03/16/18 11/26/18 oxyCODONE-APAP 10-325MG [Percocet 1 tab PO Q4H PRN 03/16/18 11/26/18 10-325 mg] rOPINIRole HCL [Requip] 4 mg PO TID 03/16/18 11/26/18 Ondansetron Odt [Zofran ODT] 8 mg PO Q12HR PRN 09/13/18 11/26/18 Ipratropium Nebulized [Atrovent 0.5 mg INHALATION RT-QID 11/26/18 11/26/18 Nebulized 0.2 MG/ML] predniSONE 40 mg PO DAILY 11/26/18 11/26/18 tiZANidine [Zanaflex] 8 mg PO HS 11/26/18 11/26/18 Allergies Allergy/AdvReac Type Severity Reaction Status Date / Time aripiprazole [From Abilify] Allergy tremors,spa Verified 11/26/18 22:57 sms fentanyl Allergy Rash/Hives Verified 11/26/18 22:57 (only with patch) Iodinated Contrast- Oral and Allergy Anaphylaxis Verified 11/26/18 22:57 IV Dye [Iodinated Contrast Media - IV Dye] shellfish derived Allergy Anaphylaxis Verified 11/26/18 22:57 buspirone AdvReac Hallucinati Verified 11/26/18 22:57 ons escitalopram [From Lexapro] AdvReac "mean Verified 11/26/18 22:57 behavior" Review of Systems ROS Statement: Those systems with pertinent positive or pertinent negative responses have been documented in the HPI. ROS Other: All systems not noted in ROS Statement are negative. Past Medical History Past Medical History: Asthma, COPD, CVA/TIA, Deep Vein Thrombosis (DVT), Fibromyalgia, GERD/Reflux, Osteoarthritis (OA), Pneumonia Additional Past Medical History / Comment(s): pneumonia for 3 months-multiple courses of A/B & steroids,*DEAF IN RIGHT EAR. TIA x2-speech affected & INCREASED HR-tachycardia. Neuropathy feet; UNSTEADY WHEN UP/BALANCE ISSUES- BORN CLUB FEET "I HAVE BAD KNEES AND BAD LT HIP". Dvt right leg-2001. PT STATED HAS BEEN EXPOSED TO BLACK MOLD, low threshold for seizures per pt, chronic back pain,unable to lay flat History of Any Multi-Drug Resistant Organisms: None Reported Past Surgical History: Breast Surgery, Ear Surgery, Heart Catheterization, Hysterectomy Additional Past Surgical History / Comment(s): Multiple SX day clubfeet. TUBES IN EARS, Kartush patches both ears, POLYPS REMOVED FROM THROAT-BENIGN. Lt breast biopsy BRONCHOSCOPY-BENIGN NODULE REMOVED."bronchial septalplasty". COLONOSCOPY, right salpingo-oophorectomy, rt foot fusion/plate and screws jan 18 2018. lung biopsy. Past Anesthesia/Blood Transfusion Reactions: Previous Problems w/ Anesthesia, Motion Sickness, Postoperative Nausea & Vomiting (PONV) Additional Past Anesthesia/Blood Transfusion Reaction / Comment(s): Problems/w/ anes in Nov after colonoscopy. "Too much given & couldn't wake up".....However, patient states they have to give her more meds to get her to be sedated."AFTER 1 SX THEY TOLD ME I STOPPED BREATHING DURING SX approx 14 yrs ago" Past Psychological History: Anxiety Smoking Status: Current every day smoker Past Alcohol Use History: None Reported Past Drug Use History: None Reported - Past Family History Mother Family Medical History: Diabetes Mellitus Additional Family Medical History / Comment(s): IRREG HEART BEAT. GRANDMOTHER HAD COLON CANCER AND HEART DISEASE Father Family Medical History: Hyperlipidemia, Hypertension Sister(s) Family Medical History: AFIB, Cancer, CVA/TIA, Hypertension Additional Family Medical History / Comment(s): CERVICAL CANCER General Exam - General Exam Comments Initial Comments: Constitutional: Awake alert Appears comfortable Head: Normocephalic atraumatic Eyes: no conjunctival injection No scleral icterus EOMI ENT: There is some irritation to the right external auditory canal. Left ear appears normal. Oropharynx was mildly erythematous without exudate or edema Neck: No JVD Supple, no lymphadenopathy Heart: Tachycardia with regular rhythm normal S1-S2 no murmurs Lungs: The patient has expiratory wheezes bilaterally, there were no rales or rhonchi on examination Abdomen: Soft nondistended nontender Extremities: Non edematous DP pulses intact Radial pulses intact Neuro: A&Ox3 No focal neurologic deficits Psych: Appropriate mood and affect Limitations: no limitations Course Vital Signs 11/26/18 21:50 Temperature 98.1 F Pulse Rate 122 H Respiratory 24 Rate Blood Pressure 132/86 O2 Sat by Pulse 96 Oximetry EKG Findings - EKG Comments: EKG Findings:: EKG showing sinus tachycardia with a rate of 111. There is no abnormal ST segment changes or T-wave inversions. QTC is 456. Other intervals normal. No ectopy. Medical Decision Making - Medical Decision Making Is a 43-year-old female who presents emergency department for fevers and cough at home. The patient was found to be tachycardic on arrival. She also has leukocytosis. She does have evidence for sepsis however the leukocytosis could be from her prednisone use which is chronic. The patient's heart rate improved with fluids. Her fluid bolus was Completed based off ideal body weight since the patient has a BMI of 33 and is obese. Patient was started on Rocephin and azithromycin. She also be started on breathing treatments and steroids. The patient will be admitted because she has failed outpatient therapy twice on doxycycline. She may require pulmonology consultation as well. Dr. Zuniga accepts the admission. - Lab Data Result diagrams: 11/26/18 23:20 11/26/18 23:20 Lab Results 11/26/18 11/26/18 11/26/18 Range/Units 23:20 23:20 23:20 WBC 15.5 H (3.8-10.6) k/uL RBC 4.60 (3.80-5.40) m/uL Hgb 14.5 (11.4-16.0) gm/dL Hct 43.7 (34.0-46.0) % MCV 95.1 (80.0-100.0) fL MCH 31.6 (25.0-35.0) pg MCHC 33.3 (31.0-37.0) g/dL RDW 13.8 (11.5-15.5) % Plt Count 283 (150-450) k/uL Neutrophils % 82 % Lymphocytes % 14 % Monocytes % 3 % Eosinophils % 1 % Basophils % 0 % Neutrophils # 12.6 H (1.3-7.7) k/uL Lymphocytes # 2.1 (1.0-4.8) k/uL Monocytes # 0.5 (0-1.0) k/uL Eosinophils # 0.1 (0-0.7) k/uL Basophils # 0.1 (0-0.2) k/uL Sodium 139 (137-145) mmol/L Potassium 5.5 H (3.5-5.1) mmol/L Chloride 106 (98-107) mmol/L Carbon Dioxide 22 (22-30) mmol/L Anion Gap 11 mmol/L BUN 25 H (7-17) mg/dL Creatinine 0.54 (0.52-1.04) mg/dL Est GFR (CKD-EPI)AfAm >90 (>60 ml/min/1.73 sqM) Est GFR (CKD-EPI)NonAf >90 (>60 ml/min/1.73 sqM) Glucose 110 H (74-99) mg/dL Plasma Lactic Acid Louie (0.7-2.0) mmol/L Calcium 9.5 (8.4-10.2) mg/dL Total Bilirubin 0.7 (0.2-1.3) mg/dL AST 49 H (14-36) U/L ALT 19 (9-52) U/L Alkaline Phosphatase 96 (38-126) U/L Total Protein 8.2 (6.3-8.2) g/dL Albumin 4.6 (3.5-5.0) g/dL Urine Color Urine Appearance (Clear) Urine pH (5.0-8.0) Ur Specific [place] (1.001-1.035) Urine Protein (Negative) Urine Glucose (UA) (Negative) Urine Ketones (Negative) Urine Blood (Negative) Urine Nitrite (Negative) Urine Bilirubin (Negative) Urine Urobilinogen (<2.0) mg/dL Ur Leukocyte Esterase (Negative) Influenza Type A RNA Not Detected (Not Detectd) Influenza Type B (PCR) Not Detected (Not Detectd) 11/26/18 11/26/18 Range/Units 23:20 23:21 WBC (3.8-10.6) k/uL RBC (3.80-5.40) m/uL Hgb (11.4-16.0) gm/dL Hct (34.0-46.0) % MCV (80.0-100.0) fL MCH (25.0-35.0) pg MCHC (31.0-37.0) g/dL RDW (11.5-15.5) % Plt Count (150-450) k/uL Neutrophils % % Lymphocytes % % Monocytes % % Eosinophils % % Basophils % % Neutrophils # (1.3-7.7) k/uL Lymphocytes # (1.0-4.8) k/uL Monocytes # (0-1.0) k/uL Eosinophils # (0-0.7) k/uL Basophils # (0-0.2) k/uL Sodium (137-145) mmol/L Potassium (3.5-5.1) mmol/L Chloride (98-107) mmol/L Carbon Dioxide (22-30) mmol/L Anion Gap mmol/L BUN (7-17) mg/dL Creatinine (0.52-1.04) mg/dL Est GFR (CKD-EPI)AfAm (>60 ml/min/1.73 sqM) Est GFR (CKD-EPI)NonAf (>60 ml/min/1.73 sqM) Glucose (74-99) mg/dL Plasma Lactic Acid Louie 1.9 (0.7-2.0) mmol/L Calcium (8.4-10.2) mg/dL Total Bilirubin (0.2-1.3) mg/dL AST (14-36) U/L ALT (9-52) U/L Alkaline Phosphatase (38-126) U/L Total Protein (6.3-8.2) g/dL Albumin (3.5-5.0) g/dL Urine Color Yellow Urine Appearance Clear (Clear) Urine pH 5.5 (5.0-8.0) Ur Specific [place] 1.025 (1.001-1.035) Urine Protein Trace H (Negative) Urine Glucose (UA) Negative (Negative) Urine Ketones Negative (Negative) Urine Blood Negative (Negative) Urine Nitrite Negative (Negative) Urine Bilirubin Negative (Negative) Urine Urobilinogen <2.0 (<2.0) mg/dL Ur Leukocyte Esterase Negative (Negative) Influenza Type A RNA (Not Detectd) Influenza Type B (PCR) (Not Detectd) Disposition Clinical Impression: CAP (community acquired pneumonia) Disposition: ADMITTED IP TO THIS HOSP Condition: Stable Referrals: Judah Murdock DO [Primary Care Provider] - 1-2 days Decision to Admit Reason: Admit from EC
--- NOTE | 2018-11-26 22:56 | XR ---
EXAMINATION TYPE: XR chest 2V DATE OF EXAM: 11/26/2018 COMPARISON: 09/27/2018 HISTORY: Fever and cough TECHNIQUE: Frontal and lateral views of the chest are obtained. FINDINGS: Heart and mediastinum are normal. There is a mild infiltrate in the right lower lung field . The other lung greenberg are clear. There is no heart failure. Costophrenic angles are clear. Bony tho rax is intact. IMPRESSION: There is a small minimal infiltrate in the anterior right middle lobe is mostly cleared compared to old exam.
[2018-11-26] MEDS ORDERED: AZITHROMYCIN 500 MG in SODIUM CHLORIDE 0.9% 250 ML IVPB STA (23:35)
[2018-11-26 23:40] LABS: Appearance,Urine Clear (Clear); Bilirubin,Urine Negative (Negative); Blood,Urine Negative (Negative); Color,Urine Yellow; Glucose,Urine (UA) Negative (Negative); Ketones,Urine Negative (Negative); Leukocyte Esterase,Urine Negative (Negative); Nitrite,Urine Negative (Negative); PH, Urine 5.5 (5.0-8.0); Protein,Urine Trace (Negative); Specific Gravity,Urine 1.025 (1.001-1.035); Urobilinogen,Urine <2.0 mg/dL (<2.0)
[2018-11-26 23:50] LABS: Basophils # (A) 0.1 k/uL (0-0.2); Basophils % (A) 0 %; Eosinophils # (A) 0.1 k/uL (0-0.7); Eosinophils % (A) 1 %; HCT 43.7 % (34.0-46.0); HGB 14.5 gm/dL (11.4-16.0); Lymphocytes # (A) 2.1 k/uL (1.0-4.8); Lymphocytes % (A) 14 %; MCH 31.6 pg (25.0-35.0); MCHC 33.3 g/dL (31.0-37.0); MCV 95.1 fL (80.0-100.0); Mean Platelet Volume 7.1; Monocytes # (A) 0.5 k/uL (0-1.0); Monocytes % (A) 3 %; Neutrophils # (A) 12.6 k/uL (1.3-7.7); Neutrophils % (A) 82 %; Platelet Count 283 k/uL (150-450); RDW 13.8 % (11.5-15.5); WBC 15.5 k/uL (3.8-10.6)
[2018-11-26 23:54] LABS: ALT 19 U/L (9-52); AST 49 U/L (14-36); Albumin 4.6 g/dL (3.5-5.0); Alkaline Phosphatase 96 U/L (38-126); Anion Gap 11 mmol/L; Blood Urea Nitrogen 25 mg/dL (7-17); Calcium 9.5 mg/dL (8.4-10.2); Carbon Dioxide 22 mmol/L (22-30); Chloride 106 mmol/L (98-107); Glucose 110 mg/dL (74-99); Sodium 139 mmol/L (137-145); Total Bilirubin 0.7 mg/dL (0.2-1.3); Total Protein 8.2 g/dL (6.3-8.2)
[2018-11-27 00:25] LABS: Potassium 5.5 mmol/L (3.5-5.1)
[2018-11-27] MEDS: SODIUM CHLORIDE 0.9% 500 ML 500 ML IV SCH ×4 (00:32→03:58)
[2018-11-27] MEDS: SODIUM CHLORIDE 0.9% 1,000 ML IV SCH ×2 (00:32→05:58)
[2018-11-27] MEDS ORDERED: PNEUMONIA PROTOCOL UTILIZED 1 EACH MISC PO PRN (00:35)
[2018-11-27] MEDS ORDERED: ONDANSETRON 4 MG/2 ML VIAL IVP STA (00:35)
[2018-11-27 00:39] LABS: INR 0.9 (<1.2); Prothrombin Time 9.4 sec (9.0-12.0)
[2018-11-27] MEDS ORDERED: FLUCONAZOLE 100 MG TAB PO ONE (03:00)
[2018-11-27] MEDS ORDERED: CARVEDILOL 3.125 MG TAB PO ONE (03:10)
[2018-11-27] MEDS: oxyCODONE-APAP 10-325MG 1 EACH TAB PO PRN ×4 (03:47→19:57)
[2018-11-27] MEDS: SODIUM CHLORIDE 0.65% NASAL SPRAY 44 ML BTL NASAL PRN (04:34)
[2018-11-27] MEDS: rOPINIRole HCL 4 MG TABLET PO SCH ×4 (04:35→22:04)
[2018-11-27] MEDS: methylPREDNISolone SOD SUCCI 125 MG/2 ML VIAL IV SCH ×3 (05:58→17:54)
[2018-11-27] MEDS: ONDANSETRON ODT 4 MG TAB PO PRN ×2 (06:03→18:01)
[2018-11-27] MEDS: SYMBICORT 160-4.5 MCG INHALER INHALATION SCH ×2 (06:42→19:43)
[2018-11-27] MEDS: IPRATROPIUM-ALBUTEROL 3 ML NEB INHALATION PRN ×3 (06:42→19:43)
[2018-11-27 07:40] LABS: Glucose,Whole Blood 252 mg/dL (75-99)
[2018-11-27] MEDS ORDERED: rOPINIRole HCL 4 MG TABLET PO SCH (09:00)
[2018-11-27] MEDS ORDERED: INSULIN ASPART 100 UNIT/ML 1 ML 10 ML VIAL SQ ONE (09:29)
[2018-11-27] MEDS: PANTOPRAZOLE 40 MG TABLET PO SCH ×2 (09:40→22:03)
[2018-11-27] MEDS: DULoxetine HCL 60 MG CAPSULE.DR PO SCH ×2 (09:41→22:03)
[2018-11-27 12:09] LABS: Glucose,Whole Blood 151 mg/dL (75-99)
[2018-11-27] MEDS: INSULIN ASPART 100 UNIT/ML 1 ML 10 ML VIAL SQ SCH ×3 (13:29→22:03)
[2018-11-27] MEDS: BENZONATATE 100 MG CAP PO PRN ×2 (13:33→22:07)
[2018-11-27 17:32] LABS: Glucose,Whole Blood 218 mg/dL (75-99)
[2018-11-27] MEDS ORDERED: TEMAZEPAM 15 MG CAP PO PRN (17:47)
[2018-11-27] MEDS ORDERED: ACETAMINOPHEN TAB 500 MG TAB PO PRN (17:47)
[2018-11-27 20:01] LABS: Glucose,Whole Blood 239 mg/dL (75-99)
--- NOTE | 2018-11-27 20:32 | HP ---
HISTORY AND PHYSICAL DATE OF SERVICE: 11/27/2018 CHIEF COMPLAINT: Shortness of breath with cough and sputum. HISTORY OF PRESENT ILLNESS: This 43-year-old gentleman with a past medical history of multiple medical problems including recurrent pneumonia, history of COPD, panic attacks, fibromyalgia, GERD, history of right ear deafness, peripheral neuropathy, DJD, history of nicotine dependence being followed by Dr. Yin Murdock in the outpatient setting, recently had a lung biopsy from Dr. Rivero. The final biopsy apparently is pending and suggestive of chronic interstitial fibrosis and biopsy was done and was sent to the [facility]. Currently the patient is complaining of increasing shortness of breath and cough for the past several days and the patient had 2 course of doxycycline and because of lack of improvement, the patient came to [facility] and was admitted for further evaluation and treatment. The patient had a fever up to 100.4. The patient is on steroids and DuoNeb also. On admission, the chest x- ray has showed possible infiltrate in the right middle lobe compared to the previous exam and the patient admitted to the hospital for further evaluation and treatment. There is no history of fever, rigors or chills. No history of headache, loss of consciousness or seizures at this time. PAST MEDICAL HISTORY: History of recurrent pneumonia, history of asthma, COPD, DVTs, fibromyalgia, DJD , history of pneumonia, history of breast surgery, history of cardiac catheterization, and anxiety. MEDICATIONS: Prior to admission include home medications are: 1. Ultram 100 mg q.6h p.r.n. 2. Zanaflex 8 mg q.h.s. 4. Prednisone 40 mg daily. 5. Percocet 10 mg q.4 p.r.n. 6. Protonix 40 mg p.o. daily. 7. Zofran 8 mg p.o. b.i.d. 8. Atrovent 0.5 q.i.d. 9. EpiPen 0.3 p.r.n. 10.Cymbalta 60 mg p.o. b.i.d. 11.Coreg 3.125 mg q.h.s. 12.Symbicort 160/4.5 two puffs b.i.d. 13.ProAir 1-2 puffs q.6h p.r.n. 14.Ventolin 2.5 q.i.d. p.r.n. ALLERGIES: ABILIFY, FENTANYL, IODINATED CONTRAST DYE, SHELLFISH, BUSPIRONE, LEXAPRO. FAMILY HISTORY: History of cervical cancer in the family. SOCIAL HISTORY: History of smoking, continued ongoing. No history of alcohol intake. REVIEW OF SYSTEMS: ENT: No diminished vision. No diminished hearing. CARDIOVASCULAR: No angina or palpitations. RESPIRATORY: As mentioned earlier. GI no nausea or vomiting. no dysuria. CENTRAL NERVOUS SYSTEM: No numbness, weakness. ALLERGY/IMMUNOLOGY: No asthma or hayfever. MUSCULOSKELETAL: As mentioned earlier. HEMATOLOGY/ONCOLOGY: No history of anemia. ENDOCRINE: No history of diabetes or hypothyroidism. CONSTITUTIONAL: As mentioned earlier. Dermatology: Negative. Rheumatology: Negative. Psychiatry: As mentioned earlier. PHYSICAL EXAMINATION: GENERAL: Alert and oriented x3. VITAL SIGNS: Pulse 78, blood pressure 130/70, respiration 16, temperature 97.2, pulse ox 98% on room air. HEENT: Conjunctivae normal. NECK: No jugular venous distention. CARDIOVASCULAR: S1, S2 muffled. RESPIRATIONS: Breath sounds diminished in the bases. A few scattered rhonchi and crackles. Expiratory wheezing present. ABDOMEN: Soft, nontender. No mass palpable. LEGS: No edema. No swelling. NERVOUS SYSTEM: Higher functions as mentioned earlier. Moves all 4 limbs. No focal motor deficits. LYMPHATICS: No lymph nodes palpable in the neck, axillae or groin. SKIN: No ulcer, rash or bleeding. LAB STUDIES: WBC 15.5, sodium 110, potassium 5.5. ASSESSMENT: 1. Possible right middle lobe pneumonia with failure of outpatient treatment. 2. History of recent bilateral pneumonia, recurrent pneumonia possibly interstitial lung disease. 3. History of recent right biopsy. 4. Hyperkalemia, mild. 5. Continued ongoing nicotine dependence. 6. Increased WBC. 7. History of asthma. 8. History of chronic obstructive pulmonary disease. 9. History of cerebrovascular accident, transient ischemic attack. 10.History of deep vein thrombosis. 11.History of fibromyalgia. 12.Gastroesophageal reflux disease. 13.History of degenerative joint disease. 14.History of breast surgery. 15.History of motion sickness. 16.History of anxiety. RECOMMENDATIONS AND DISCUSSION: In this 43-year-old woman who presented with multiple complex medical issues, we will monitor the patient closely, continue the current medications, management and symptomatic treatment. We will initiate broad-spectrum IV antibiotics, IV steroids. Monitor blood sugars closely. We will obtain the final report of the biopsy. Otherwise, continue the home medications. DVT prophylaxis. See orders. Prognosis guarded. Further recommendations to follow. A copy of dictation forwarded to Dr. Yin Murdock who is the primary physician. MMODL / IJN: [id number] / MTDD
[2018-11-27] MEDS: CARVEDILOL 3.125 MG TAB PO SCH (22:02)
[2018-11-27] MEDS: HEPARIN SODIUM,PORCINE 5,000 UNIT/ML 1 ML VIAL SQ SCH (22:03)
[2018-11-27] MEDS: traMADol 50 MG TAB PO PRN (22:04)
[2018-11-27] MEDS: tiZANidine 4 MG TAB PO SCH (22:04)
[2018-11-28] MEDS: methylPREDNISolone SOD SUCCI 125 MG/2 ML VIAL IV SCH ×4 (00:26→18:35)
[2018-11-28] MEDS: SODIUM CHLORIDE 0.65% NASAL SPRAY 44 ML BTL NASAL PRN (00:33)
[2018-11-28] MEDS: oxyCODONE-APAP 10-325MG 1 EACH TAB PO PRN ×4 (04:09→22:40)
[2018-11-28] MEDS: IPRATROPIUM-ALBUTEROL 3 ML NEB INHALATION PRN ×5 (04:35→19:39)
[2018-11-28] MEDS: SODIUM CHLORIDE 0.9% 1,000 ML IV SCH (04:58)
[2018-11-28] MEDS ORDERED: AZITHROMYCIN 500 MG in SODIUM CHLORIDE 0.9% 250 ML IVPB SCH (06:00)
[2018-11-28] MEDS: ONDANSETRON ODT 4 MG TAB PO PRN (06:29)
[2018-11-28 07:14] LABS: Glucose,Whole Blood 236 mg/dL (75-99)
[2018-11-28] MEDS: SYMBICORT 160-4.5 MCG INHALER INHALATION SCH ×2 (08:40→19:39)
[2018-11-28] MEDS: INSULIN ASPART 100 UNIT/ML 1 ML 10 ML VIAL SQ SCH ×4 (08:50→22:39)
[2018-11-28] MEDS: HEPARIN SODIUM,PORCINE 5,000 UNIT/ML 1 ML VIAL SQ SCH ×2 (08:53→22:39)
[2018-11-28] MEDS: DULoxetine HCL 60 MG CAPSULE.DR PO SCH ×2 (08:53→22:39)
[2018-11-28] MEDS: PANTOPRAZOLE 40 MG TABLET PO SCH ×2 (08:53→22:40)
[2018-11-28] MEDS: rOPINIRole HCL 4 MG TABLET PO SCH ×3 (08:54→22:40)
[2018-11-28] MEDS: BENZONATATE 100 MG CAP PO PRN ×2 (11:14→22:57)
[2018-11-28 12:01] LABS: Glucose,Whole Blood 197 mg/dL (75-99)
[2018-11-28 14:12] LABS: Rheumatoid Factor 14 IU/mL (0-15)
--- NOTE | 2018-11-28 15:24 | P.CNPUL ---
History of Present Illness Consult date: 11/28/18 Requesting physician: Yuliet Zuniga Reason for consult: dyspnea, cough, pneumonia, abnormal CXR/CT Chief complaint: Cough, congestion, fever History of present illness: This is a 43-year-old white female patient of Dr. Murdock with past medical history of smoking induced interstitial lung disease, recurrent pneumonia, smoking, recent VATS with wedge biopsy of the right middle lobe in August [address] Rivero, which were positive for respiratory bronchiolitis, and cultures were negative. Patient follows with Dr. Cain in the pulmonary clinic, has a history of COPD, asthma, chronic pain syndrome, hearing loss, osteoarthritis, anxiety. Patient presented to the emergency department on 11/26/2018 for evaluation of cough, congestion, and has been feeling ill for the last month. She completed 2 courses of doxycycline through Dr. Rivero. She had a recent upper respiratory infection. She did have a fever at home, the temp of 104F. She was started on oral prednisone taper, and nebulized treatments, with no improvement. Was having some mild right ear pain, sore throat. Chest x-ray showed small minimal infiltrate in the anterior right middle lobe, which was actually improved compared the previous chest x-ray from 09/27/2018. Labs showed WBC of 15.5, hemoglobin of 14.5, sodium of 139, potassium is 5.5, chloride is 106, CO2 is 22, BUN is 25 and creatinine 0.54, troponin was negative 1, CRP was 52.6, urinalysis was negative, influenza screen was negative. Patient was started on azithromycin and Rocephin, IV steroids, and nebulized bronchodilators. Review of Systems All systems: negative Constitutional: Denies chills, Denies fever Eyes: denies blurred vision, denies pain Ears, nose, mouth and throat: Denies headache, Denies sore throat Cardiovascular: Denies chest pain, Denies shortness of breath Respiratory: Reports congestion, Reports cough with sputum, Reports dyspnea, Denies cough Gastrointestinal: Denies abdominal pain, Denies diarrhea, Denies nausea, Denies vomiting Genitourinary: Denies dysuria, Denies hematuria Musculoskeletal: Denies myalgias Integumentary: Denies pruritus, Denies rash Neurological: Denies numbness, Denies weakness Psychiatric: Denies anxiety, Denies depression Endocrine: Denies fatigue, Denies weight change Past Medical History Past Medical History: Asthma, COPD, CVA/TIA, Deep Vein Thrombosis (DVT), Fibromyalgia, GERD/Reflux, Osteoarthritis (OA), Pneumonia Additional Past Medical History / Comment(s): pneumonia for 3 months-multiple courses of A/B & steroids,*DEAF IN RIGHT EAR. TIA x2-speech affected & INCREASED HR-tachycardia. Neuropathy feet; UNSTEADY WHEN UP/BALANCE ISSUES- BORN CLUB FEET "I HAVE BAD KNEES AND BAD LT HIP". Dvt right leg-2001. PT STATED HAS BEEN EXPOSED TO BLACK MOLD, low threshold for seizures per pt, chronic back pain,unable to lay flat History of Any Multi-Drug Resistant Organisms: None Reported Past Surgical History: Breast Surgery, Ear Surgery, Heart Catheterization, Hysterectomy Additional Past Surgical History / Comment(s): Multiple SX day clubfeet. TUBES IN EARS, Kartush patches both ears, POLYPS REMOVED FROM THROAT-BENIGN. Lt breast biopsy BRONCHOSCOPY-BENIGN NODULE REMOVED."bronchial septalplasty". COLONOSCOPY, right salpingo-oophorectomy, rt foot fusion/plate and screws jan 18 2018. lung biopsy. Past Anesthesia/Blood Transfusion Reactions: Previous Problems w/ Anesthesia, Motion Sickness, Postoperative Nausea & Vomiting (PONV) Additional Past Anesthesia/Blood Transfusion Reaction / Comment(s): Problems/w/ anes in Nov after colonoscopy. "Too much given & couldn't wake up".....However, patient states they have to give her more meds to get her to be sedated."AFTER 1 SX THEY TOLD ME I STOPPED BREATHING DURING SX approx 14 yrs ago" Past Psychological History: Anxiety Additional Psychological History / Comment(s): PT LIVES WITH IN A SINGLE LEVEL HOME THAT HAS 2 STEPS IN WHICH TO ENTER. 1 INDOOR PET-DOG. HAS A CAREGIVER. WAS USING A CANE WHEN UP NEEDED.BUT SINCE FOOT SX IN DEC USING W/ C AND ONLY LITE WT BEARING. Smoking Status: Current some day smoker Past Alcohol Use History: None Reported Additional Past Alcohol Use History / Comment(s): PT STARTED SMOKING AT AGE 25( 1999) SMOKES 1/2 PPD Past Drug Use History: None Reported - Past Family History Mother Family Medical History: Diabetes Mellitus Additional Family Medical History / Comment(s): IRREG HEART BEAT. GRANDMOTHER HAD COLON CANCER AND HEART DISEASE Father Family Medical History: Hyperlipidemia, Hypertension Sister(s) Family Medical History: AFIB, Cancer, CVA/TIA, Hypertension Additional Family Medical History / Comment(s): CERVICAL CANCER Medications and Allergies Home Medications Medication Instructions Recorded Confirmed Type DULoxetine HCL [Cymbalta] 60 mg PO BID 04/03/14 11/26/18 History Pantoprazole Sodium [Protonix] 40 mg PO BID 04/03/14 11/26/18 History Albuterol Nebulized [Ventolin 2.5 mg INHALATION RT-QID PRN 03/29/16 11/26/18 History Nebulized] EPINEPHrine (Auto Inject) [Epipen] 0.3 mg IM ONCE PRN 08/15/16 11/26/18 History traMADol HCL [Tramadol HCl] 100 mg PO Q6H PRN 11/11/16 11/26/18 History Albuterol Sulfate [Proair Hfa] 1 - 2 puff INHALATION RT-Q6H PRN 03/23/17 History Budesonide-Formot 160-4.5 Mcg 2 puff INHALATION RT-BID 04/03/17 11/26/18 History [Symbicort 160-4.5 Mcg Inhaler] Carvedilol [Coreg] 3.125 mg PO HS 03/16/18 11/26/18 History oxyCODONE-APAP 10-325MG [Percocet 1 tab PO Q4H PRN 03/16/18 11/26/18 History 10-325 mg] rOPINIRole HCL [Requip] 4 mg PO TID 03/16/18 11/26/18 History Ondansetron Odt [Zofran ODT] 8 mg PO Q12HR PRN 09/13/18 11/26/18 History Ipratropium Nebulized [Atrovent 0.5 mg INHALATION RT-QID 11/26/18 11/26/18 History Nebulized 0.2 MG/ML] predniSONE 40 mg PO DAILY 11/26/18 11/26/18 History tiZANidine [Zanaflex] 8 mg PO HS 11/26/18 11/26/18 History Allergies Allergy/AdvReac Type Severity Reaction Status Date / Time aripiprazole [From [facility]] Allergy tremors,spa Verified 11/26/18 22:57 sms fentanyl Allergy Rash/Hives Verified 11/26/18 22:57 (only with patch) Iodinated Contrast- Oral and Allergy Anaphylaxis Verified 11/26/18 22:57 IV Dye [Iodinated Contrast Media - IV Dye] shellfish derived Allergy Anaphylaxis Verified 11/26/18 22:57 buspirone AdvReac Hallucinati Verified 11/26/18 22:57 ons escitalopram [From Lexapro] AdvReac "mean Verified 11/26/18 22:57 behavior" Physical Exam Vitals: Vital Signs Temp Pulse Pulse Resp BP BP Pulse Ox 11/28/18 12:36 98 11/28/18 12:25 94 11/28/18 08:49 92 11/28/18 08:40 94 11/28/18 07:27 97.9 F 82 20 142/73 93 L 11/28/18 04:47 96 11/28/18 04:37 92 11/28/18 00:03 97.9 F 74 16 108/65 94 L 11/27/18 19:55 94 11/27/18 19:44 90 94 L 11/27/18 19:15 98.0 F 75 16 135/84 90 L 11/27/18 15:00 97.5 F L 78 16 137/75 90 L Intake and Output 11/27/18 11/28/18 11/28/18 22:59 06:59 14:59 Intake Total 180 800 Balance 180 800 Intake: Intake, IV Titration 180 800 Amount Sodium Chloride 0.9% 1, 80 000 ml @ 20 mls/hr IV . Q24H NICOLA Rx#:[id number] cefTRIAXone 1,000 mg In 100 800 Sodium Chloride 0.9% 50 ml @ 100 mls/hr IVPB NICOLA Rx#:[id number] Other: Voiding Method Toilet Toilet # Voids 2 2 GENERAL EXAM: Alert, active, comfortable in no apparent distress. HEAD: Normocephalic/atraumatic. EYES: Normal reaction of pupils, equal size. Conjunctiva pink, sclera white. NOSE: Clear with pink turbinates. THROAT: No erythema or exudates. NECK: No masses, no JVD, no thyroid enlargement, no adenopathy. CHEST: No chest wall deformity. Symmetrical expansion. LUNGS: Equal air entry, diminished, with expiratory wheezing prolongation of expiratory phase CVS: Regular rate and rhythm, normal S1 and S2, no gallops, no murmurs, no rubs ABDOMEN: Soft, nontender. No hepatosplenomegaly, normal bowel sounds, no guarding or rigidity. EXTREMITIES: No clubbing, no edema, no cyanosis, 2+ pulses and upper and lower extremities. MUSCULOSKELETAL: Muscle strength and tone normal. SPINE: No scoliosis or deformity SKIN: No rashes CENTRAL NERVOUS SYSTEM: Alert and oriented -3. No focal deficits, tone is normal in all 4 extremities. PSYCHIATRIC: Alert and oriented -3. Appropriate affect. Intact judgment and insight. Results - Laboratory Findings CBC and BMP: 11/26/18 23:20 11/26/18 23:20 PT/INR, D-dimer PT 9.4 sec (9.0-12.0) 11/26/18 23:20 INR 0.9 (<1.2) 11/26/18 23:20 Abnormal lab findings: Abnormal Labs 11/26/18 11/26/18 11/26/18 23:20 23:20 23:21 WBC 15.5 H Neutrophils # 12.6 H ESR Potassium 5.5 H BUN 25 H Glucose 110 H POC Glucose (mg/dL) AST 49 H C-Reactive Protein Urine Protein Trace H 11/27/18 11/27/18 11/27/18 07:27 11:58 17:20 WBC Neutrophils # ESR Potassium BUN Glucose POC Glucose (mg/dL) 252 H 151 H 218 H AST C-Reactive Protein Urine Protein 11/27/18 11/27/18 11/27/18 19:31 19:31 19:48 WBC Neutrophils # ESR 40 H Potassium BUN Glucose POC Glucose (mg/dL) 239 H AST C-Reactive Protein 52.6 H Urine Protein 11/28/18 11/28/18 07:02 11:50 WBC Neutrophils # ESR Potassium BUN Glucose POC Glucose (mg/dL) 236 H 197 H AST C-Reactive Protein Urine Protein - Diagnostic Findings Chest x-ray: report reviewed, image reviewed Additional studies: EKG reviewed Assessment and Plan Plan: Assessment: #1. Cough, congestion, dyspnea, likely related to acute COPD exacerbation, chest x-ray did not show any clear cut evidence of pneumonia, right middle lobe showed a small minimal infiltrate which actually improved from 09/27/2018 #2. Fever, leukocytosis #3. Recurrent episodes of pulmonary infections #4. Recent wedge biopsy of the right middle lobe in August 2018, and pathology was positive for smoking related respiratory bronchiolitis #5. History of chronic obstructive pulmonary disease #6. Nicotine dependence, ongoing #7. History of CVA/TIA #8. GERD #9. History of left breast biopsy #10. Anxiety Plan: Continue current antibiotic coverage, continue IV steroids and bronchodilators. Chest x-ray has been reviewed by Dr. Victoria, right middle lobe minimal infiltrate is actually improved from previous exam on 09/27/2018. No fever, no chills, room air pulse ox is 93%. Patient is still dyspneic, wheezy and congested. We'll continue treating her for acute COPD exacerbation, smoking cessation was strongly encouraged, she states unfortunately her smokes in the house, makes it more difficult for her to quit smoking. We'll continue to follow, if patient continues to improve may consider discharge in the next 24 -48 hours. I performed a history & physical examination of the patient and discussed their management with my nurse practitioner, Mehreen Montejo. I reviewed the nurse practitioner's note and agree with the documented findings and plan of care. Lung sounds are positive for diffuse wheezes throughout the lung greenberg. The findings and the impression was discussed with the patient. I attest to the documentation by the nurse practitioner. Time with Patient: Greater than 30
[2018-11-28 17:37] LABS: Glucose,Whole Blood 300 mg/dL (75-99)
[2018-11-28] MEDS ORDERED: INSULIN ASPART 100 UNIT/ML 1 ML 10 ML VIAL SQ ONE (19:01)
--- NOTE | 2018-11-28 21:00 | PN ---
PROGRESS NOTE DATE OF SERVICE: 11/28/2018 This 43-year-old woman who was admitted for shortness of breath and cough and sputum was suspected to have pneumonia. The patient also had interstitial lung disease. The final report from [facility] is pending at this time. Dr. Victoria is following the patient closely. Patient was started on broad-spectrum IV antibiotics. The patient is feeling slightly better. She is still short of breath. Blood sugar is also elevated. Patient is complaining of severe pain, also. Dr. Victoria has recommended continued antibiotics. Past medical history reviewed. REVIEW OF SYSTEMS: CARDIOVASCULAR SYSTEM: No angina, palpitations. RESPIRATORY SYSTEM: As mentioned earlier. GI: No nausea, vomiting. : No dysuria or retention. NERVOUS SYSTEM: No numbness, weakness. CURRENT MEDICATIONS: Reviewed. They include: 1. Tylenol 500 mg q.6 p.r.n. 2. DuoNeb q.i.d. and p.r.n. 3. Xanax 0.25 t.i.d. 4. Zithromax 500 mg daily. 5. Tessalon Perles. 6. Symbicort 160/4.5 two puffs b.i.d. 7. Coreg 3.125 at bedtime. 8. Rocephin 1 gram daily. 9. Cymbalta 60 mg p.o. b.i.d. 10.Heparin 5000 units subcutaneously b.i.d. 11.NovoLog scale. 12.Solu-Medrol 60 IV q.6. 13.Zofran. 14.Percocet. 15.Protonix 40 mg b.i.d. 16.Requip. 17.Restoril p.r.n. 18.Zanaflex 8 mg at bedtime. 19.Ultram 100 mg q.6 p.r.n. PHYSICAL EXAMINATION: Patient is alert, oriented x3. Pulse 77, blood pressure 134/78, respiration 16, temperature 98.2, pulse ox 89% on room air. HEENT: Conjunctivae normal. Oral mucosa moist. NECK: No jugular venous distention. No carotid bruit. No lymph node enlargement. CARDIOVASCULAR SYSTEM: S1, S2 muffled. RESPIRATORY SYSTEM: Breath sounds diminished at the bases. Bilateral scattered rhonchi and crackles. Expiratory wheezing also present. ABDOMEN: Soft, non-tender. No mass palpable. LEGS: No edema. No swelling. NERVOUS SYSTEM: Higher functions as mentioned earlier. Moves all 4 limbs. No focal motor or sensory deficit. LYMPHATICS: No lymph node palpable in neck, axillae or groin. SKIN: No ulcer, rash, bleeding. LABS: WBC 15.5. Glucose noted. C-reactive protein is 52.6. ISATU negative. ASSESSMENT: 1. Possible right middle lobe pneumonia, community-acquired, with failure of outpatient treatment. 2. History of recent bilateral pneumonia, recurrent pneumonia; possible interstitial lung disease. 3. Urine culture showed Streptococcus agalactiae group B. 4. History of recent right lung biopsy. 5. Hyperkalemia, mild. 6. Continued ongoing nicotine dependence. 7. Increased white count. 8. History of asthma, chronic obstructive pulmonary disease. 9. History of cerebrovascular accident, transient ischemic attack. 10.History of deep venous thrombosis. 11.History of fibromyalgia. 12.Gastroesophageal reflux disease. 13.History of degenerative joint disease. 14.History of breast surgery. 15.History of motion sickness. 16.History of anxiety. RECOMMENDATIONS AND DISCUSSION: I recommend to continue current medication, continue with the monitoring, symptomatic treatment. Otherwise at this time I would recommend closely following with Dr. Victoria. Continue with IV steroids. Monitor blood sugars closely. Repeat labs. IV antibiotics. Follow the cultures. Urine culture shows Strep agalactiae group B. Will also obtain infectious disease evaluation. Guarded prognosis. Further recommendations to follow. MMODL / IJN: [id number] /
[2018-11-28] MEDS: CARVEDILOL 3.125 MG TAB PO SCH (22:37)
[2018-11-28] MEDS: OXYMETAZOLINE 0.05% NASL SPRAY 1 SPRAY BOTTLE NASAL SCH (22:39)
[2018-11-28] MEDS: tiZANidine 4 MG TAB PO SCH (22:40)
[2018-11-28 22:46] LABS: Glucose,Whole Blood 200 mg/dL (75-99)
[2018-11-29] MEDS: methylPREDNISolone SOD SUCCI 125 MG/2 ML VIAL IV SCH ×5 (00:35→23:31)
[2018-11-29] MEDS: IPRATROPIUM-ALBUTEROL 3 ML NEB INHALATION PRN ×3 (01:02→12:55)
[2018-11-29] MEDS: traMADol 50 MG TAB PO PRN ×3 (01:03→18:36)
[2018-11-29] MEDS: SODIUM CHLORIDE 0.9% 1,000 ML IV SCH (04:25)
[2018-11-29 07:22] LABS: Glucose,Whole Blood 199 mg/dL (75-99)
[2018-11-29] MEDS: SYMBICORT 160-4.5 MCG INHALER INHALATION SCH ×2 (07:46→19:53)
[2018-11-29] MEDS: INSULIN ASPART 100 UNIT/ML 1 ML 10 ML VIAL SQ SCH ×4 (08:26→21:38)
[2018-11-29] MEDS: rOPINIRole HCL 4 MG TABLET PO SCH ×3 (08:26→21:37)
[2018-11-29] MEDS: AZITHROMYCIN 500 MG TAB PO SCH (08:26)
[2018-11-29] MEDS: OXYMETAZOLINE 0.05% NASL SPRAY 1 SPRAY BOTTLE NASAL SCH ×2 (08:26→21:37)
[2018-11-29] MEDS: ALPRAZolam 0.25 MG TAB PO PRN ×2 (08:56→15:33)
[2018-11-29] MEDS: oxyCODONE-APAP 10-325MG 1 EACH TAB PO PRN ×3 (08:56→21:38)
[2018-11-29] MEDS: PANTOPRAZOLE 40 MG TABLET PO SCH ×2 (08:56→21:37)
[2018-11-29] MEDS: DULoxetine HCL 60 MG CAPSULE.DR PO SCH ×2 (08:56→21:38)
[2018-11-29] MEDS: BENZONATATE 100 MG CAP PO PRN ×2 (08:56→15:33)
[2018-11-29] MEDS: HEPARIN SODIUM,PORCINE 5,000 UNIT/ML 1 ML VIAL SQ SCH ×2 (08:57→21:38)
[2018-11-29 09:05] LABS: Basophils # (A) 0.1 k/uL (0-0.2); Basophils % (A) 0 %; Eosinophils % (A) 0 %; HGB 12.6 gm/dL (11.4-16.0); Lymphocytes # (A) 1.6 k/uL (1.0-4.8); Lymphocytes % (A) 8 %; MCH 30.5 pg (25.0-35.0); MCHC 31.5 g/dL (31.0-37.0); MCV 96.8 fL (80.0-100.0); Mean Platelet Volume 7.2; Monocytes # (A) 0.4 k/uL (0-1.0); Monocytes % (A) 2 %; Neutrophils # (A) 17.7 k/uL (1.3-7.7); Neutrophils % (A) 89 %; Platelet Count 325 k/uL (150-450); RBC 4.13 m/uL (3.80-5.40); RDW 13.9 % (11.5-15.5); WBC 19.9 k/uL (3.8-10.6)
[2018-11-29 09:26] LABS: Anion Gap 9 mmol/L; Blood Urea Nitrogen 24 mg/dL (7-17); Calcium 9.6 mg/dL (8.4-10.2); Carbon Dioxide 26 mmol/L (22-30); Chloride 104 mmol/L (98-107); Glucose 196 mg/dL (74-99); Potassium 4.6 mmol/L (3.5-5.1); Sodium 139 mmol/L (137-145)
[2018-11-29] MEDS: ONDANSETRON ODT 4 MG TAB PO PRN ×3 (11:10→23:39)
[2018-11-29 12:12] LABS: Glucose,Whole Blood 149 mg/dL (75-99)
--- NOTE | 2018-11-29 13:54 | P.PN ---
Subjective Progress Note Date: 11/29/18 Principal diagnosis: Cough, congestion, fever This is a 43-year-old white female patient of Dr. Murdock with past medical history of smoking induced interstitial lung disease, recurrent pneumonia, smoking, recent VATS with wedge biopsy of the right middle lobe in August [address] Rivero, which were positive for respiratory bronchiolitis, and cultures were negative. Patient follows with Dr. Cain in the pulmonary clinic, has a history of COPD, asthma, chronic pain syndrome, hearing loss, osteoarthritis, anxiety. Patient presented to the emergency department on 11/26/2018 for evaluation of cough, congestion, and has been feeling ill for the last month. She completed 2 courses of doxycycline through Dr. Rivero. She had a recent upper respiratory infection. She did have a fever at home, the temp of 104F. She was started on oral prednisone taper, and nebulized treatments, with no improvement. Was having some mild right ear pain, sore throat. Chest x-ray showed small minimal infiltrate in the anterior right middle lobe, which was actually improved compared the previous chest x-ray from 09/27/2018. Labs showed WBC of 15.5, hemoglobin of 14.5, sodium of 139, potassium is 5.5, chloride is 106, CO2 is 22, BUN is 25 and creatinine 0.54, troponin was negative 1, CRP was 52.6, urinalysis was negative, influenza screen was negative. Patient was started on azithromycin and Rocephin, IV steroids, and nebulized bronchodilators. On 11/29/2018 patient seen in follow-up on medical surgical floor. He still remains quite bronchospastic, feeling a little better overall, but still has chest tightness, lung sounds are positive for end expiratory wheezes, few rales at the left lung base. Today's labs have been reviewed, WBC is 19.9, hemoglobin was 12.6, electrolytes were within normal limits, BUN is 24 creatinine 0.61. Pulse ox is 92%, no fever or chills, vital signs are stable. Urine cultures showed strep agalactiae, group B, less than 10,000 colonies/ml. The patient denies any urinary symptoms. Sputum culture growing few gram- positive bacilli, few gram-positive cocci. Final cultures pending. Current abiotic coverage includes Zithromax and Rocephin. Objective - Vital Signs Vital signs: Vital Signs Temp 97.4 F L 11/29/18 07:00 Pulse 88 11/29/18 13:07 Resp 16 11/29/18 07:00 BP 130/73 11/29/18 07:00 Pulse Ox 92 L 11/29/18 07:00 Intake & Output 11/28/18 11/29/18 11/29/18 18:59 06:59 18:59 Intake Total 160 360 Balance 160 360 Intake: IV 160 Sodium Chloride 0.9% 1, 160 000 ml @ 20 mls/hr IV . Q24H [facility] Rx#:[id number] Intake, IV Titration 360 Amount Sodium Chloride 0.9% 1, 260 000 ml @ 20 mls/hr IV . Q24H [facility] Rx#:[id number] cefTRIAXone 1,000 mg In 100 Sodium Chloride 0.9% 50 ml @ 100 mls/hr IVPB HS [facility] Rx#:[id number] Other: Voiding Method Toilet Toilet # Voids 2 2 - Exam GENERAL EXAM: Alert, active, comfortable in no apparent distress. HEAD: Normocephalic/atraumatic. EYES: Normal reaction of pupils, equal size. Conjunctiva pink, sclera white. NOSE: Clear with pink turbinates. THROAT: No erythema or exudates. NECK: No masses, no JVD, no thyroid enlargement, no adenopathy. CHEST: No chest wall deformity. Symmetrical expansion. LUNGS: Equal air entry, diminished, with expiratory wheezing prolongation of expiratory phase CVS: Regular rate and rhythm, normal S1 and S2, no gallops, no murmurs, no rubs ABDOMEN: Soft, nontender. No hepatosplenomegaly, normal bowel sounds, no guarding or rigidity. EXTREMITIES: No clubbing, no edema, no cyanosis, 2+ pulses and upper and lower extremities. MUSCULOSKELETAL: Muscle strength and tone normal. SPINE: No scoliosis or deformity SKIN: No rashes CENTRAL NERVOUS SYSTEM: Alert and oriented -3. No focal deficits, tone is normal in all 4 extremities. PSYCHIATRIC: Alert and oriented -3. Appropriate affect. Intact judgment and insight. - Labs CBC & Chem 7: 11/29/18 08:02 11/29/18 08:02 Labs: Abnormal Lab Results - Last 24 Hours (Table) 11/28/18 11/28/18 11/29/18 Range/Units 17:25 22:33 07:11 WBC (3.8-10.6) k/uL Neutrophils # (1.3-7.7) k/uL BUN (7-17) mg/dL Glucose (74-99) mg/dL POC Glucose (mg/dL) 300 H 200 H 199 H (75-99) mg/dL 11/29/18 11/29/18 11/29/18 Range/Units 08:02 08:02 12:00 WBC 19.9 H (3.8-10.6) k/uL Neutrophils # 17.7 H (1.3-7.7) k/uL BUN 24 H (7-17) mg/dL Glucose 196 H (74-99) mg/dL POC Glucose (mg/dL) 149 H (75-99) mg/dL Microbiology - Last 24 Hours (Table) 11/26/18 23:20 Blood Culture - Preliminary Blood No Growth after 48 hours 11/28/18 12:55 Gram Stain - Preliminary Sputum 11/26/18 23:21 Urine Culture - Final Urine,Clean Catch Strep agalactiae - (group b) Assessment and Plan Plan: Assessment: #1. Cough, congestion, dyspnea, likely related to acute COPD exacerbation, chest x-ray did not show any clear cut evidence of pneumonia, right middle lobe showed a small minimal infiltrate which actually improved from 09/27/2018 #2. Fever, leukocytosis #3. Recurrent episodes of pulmonary infections #4. Recent wedge biopsy of the right middle lobe in August 2018, and pathology was positive for smoking related respiratory bronchiolitis #5. History of chronic obstructive pulmonary disease #6. Nicotine dependence, ongoing #7. History of CVA/TIA #8. GERD #9. History of left breast biopsy #10. Anxiety Plan: Continue current medical treatment, IV steroids, antibiotic coverage, awaiting final sputum culture. Patient is still bronchospastic, with chest tightness. Not ready for discharge. Continue current IV steroid dose. Will await further improvement I performed a history & physical examination of the patient and discussed their management with my nurse practitioner, Mehreen Montejo. I reviewed the nurse practitioner's note and agree with the documented findings and plan of care. Lung sounds are positive for diffuse wheezes throughout the lung greenberg. The findings and the impression was discussed with the patient. I attest to the documentation by the nurse practitioner. Time with Patient: Less than 30
[2018-11-29] MEDS: IPRATROPIUM-ALBUTEROL 3 ML NEB INHALATION SCH ×3 (16:58→23:44)
[2018-11-29 17:18] LABS: Glucose,Whole Blood 162 mg/dL (75-99)
[2018-11-29 20:09] LABS: Glucose,Whole Blood 246 mg/dL (75-99)
[2018-11-29] MEDS: CARVEDILOL 3.125 MG TAB PO SCH (21:37)
[2018-11-29] MEDS: tiZANidine 4 MG TAB PO SCH (21:37)
[2018-11-29 23:43] LABS: Glucose,Whole Blood 239 mg/dL (75-99)
--- NOTE | 2018-11-30 00:18 | P.CONS ---
History of Present Illness - Reason for Consult Consult date: 11/29/18 - Chief Complaint Shortness of breath - History of Present Illness 43-year-old female who is well known to infectious disease service from earlier this year when she has had multiple illnesses. 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 In May 2018 the patient was ill and underwent intervention with bronchoscopy she'll evidence of Streptococcus pneumoniae that was multidrug resistant, parainfluenza 3 was also isolated. There was evidence of marked abnormality or imaging studies. She was found in the outpatient clinic and had extensive testing revealing evidence of negative HIV, in no evidence of underlying significant autoimmune disease. Evidence of some positive ALLERGIC antibodies to environmental molds. Because of the ongoing significant improvement as of shortness of breath she was sent to the cardiothoracic surgeon, Dr. Rivero, and an open lung biopsy was performed which has revealed evidence of interstitial lung disease thought to be in the basis of her smoking and secondhand smoke. She is working diligently to become a nonsmoker but regretfully lives with a smoker. She has been instructed by her coding tech as well as her cardiothoracic surgeon that she needs to be removed from the smoking environment. Patient relates that she's had the sudden onset of an acute illness after exposure to a family member that had a significant viral infection. She's had waxing and waning symptoms with fevers chills and shortness of breath. However symptoms peaked and she had 104 fever significant shortness of breath and tightness in her chest and CAT scan presented to the emergency center. Is now feeling slightly better. She still has wheezing but has overall improved in the last 48 hours. Review of Systems 43-year-old woman with obesity and significant shortness of breath and wheezing and fever at home HEENT:Denies headache or acute visual change. Denies sinus or mouth discomforts. Denies neck stiffness or pain. Denies significant oral cavity pain. Denies difficulty on swallowing. Lungs: As per the HPI Cardiovascular: Positive for shortness of breath and dyspnea on exertion , no significant chest pain, no syncope Gastrointestinal:Denies nausea, vomiting, diarrhea, constipation, hematemesis, melena, hematochezia. No no significant change of bowel habit noticed. Musculoskeletal: denies significant myalgias or arthralgias. No new joint swelling. Denies new back pain. Skin: Denies new rash or lesions. No new ulcers or wounds are related.. Neuro: Denies headache or visual change. Denies any new onset weakness or difficulty with ambulation. Denies falls or seizures. Psychiatric: Chronic anxiety Endocrine: Chronic fatigue and struggles with weight gain Past Medical History Past Medical History: Asthma, COPD, CVA/TIA, Deep Vein Thrombosis (DVT), Fibromyalgia, GERD/Reflux, Osteoarthritis (OA), Pneumonia Additional Past Medical History / Comment(s): pneumonia for 3 months-multiple courses of A/B & steroids,*DEAF IN RIGHT EAR. TIA x2-speech affected & INCREASED HR-tachycardia. Neuropathy feet; UNSTEADY WHEN UP/BALANCE ISSUES- BORN CLUB FEET "I HAVE BAD KNEES AND BAD LT HIP". Dvt right leg-2001. PT STATED HAS BEEN EXPOSED TO BLACK MOLD, low threshold for seizures per pt, chronic back pain,unable to lay flat History of Any Multi-Drug Resistant Organisms: None Reported Past Surgical History: Breast Surgery, Ear Surgery, Heart Catheterization, Hysterectomy Additional Past Surgical History / Comment(s): Multiple SX day clubfeet. TUBES IN EARS, Kartush patches both ears, POLYPS REMOVED FROM THROAT-BENIGN. Lt breast biopsy BRONCHOSCOPY-BENIGN NODULE REMOVED."bronchial septalplasty". COLONOSCOPY, right salpingo-oophorectomy, rt foot fusion/plate and screws jan 18 2018. lung biopsy. Past Anesthesia/Blood Transfusion Reactions: Previous Problems w/ Anesthesia, Motion Sickness, Postoperative Nausea & Vomiting (PONV) Additional Past Anesthesia/Blood Transfusion Reaction / Comm: Problems/w/anes in Nov after colonoscopy. "Too much given & couldn't wake up".....However, patient states they have to give her more meds to get her to be sedated."AFTER 1 SX THEY TOLD ME I STOPPED BREATHING DURING SX approx 14 yrs ago" Past Psychological History: Anxiety Additional Psychological History / Comment(s): PT LIVES WITH IN A SINGLE LEVEL HOME THAT HAS 2 STEPS IN WHICH TO ENTER. 1 INDOOR PET-DOG. HAS A CAREGIVER. WAS USING A CANE WHEN UP NEEDED.BUT SINCE FOOT SX IN DEC USING W/ C AND ONLY LITE WT BEARING. Patient is a smoker as is the . PET dog in the home. No experience. No travel. Medically disabled. Concerns to exposure to black mold within their apartment Smoking Status: Current some day smoker Past Alcohol Use History: None Reported Additional Past Alcohol Use History / Comment(s): PT STARTED SMOKING AT AGE 25( 1999) SMOKES 1/2 PPD Past Drug Use History: None Reported - Past Family History Mother Family Medical History: Diabetes Mellitus Additional Family Medical History / Comment(s): IRREG HEART BEAT. GRANDMOTHER HAD COLON CANCER AND HEART DISEASE Father Family Medical History: Hyperlipidemia, Hypertension Sister(s) Family Medical History: AFIB, Cancer, CVA/TIA, Hypertension Additional Family Medical History / Comment(s): CERVICAL CANCER Medications and Allergies Home Medications and Allergies Comment(s): Current Medications Acetaminophen (Tylenol Tab) 500 mg PO Q6HR PRN PRN Reason: Fever and/ or Mild Pain Albuterol/Ipratropium (Duoneb 0.5 Mg-3 Mg/3 Ml Soln) 3 ml INHALATION Q6HR PRN PRN Reason: Wheezing Last Admin: 11/29/18 12:55 Dose: 3 ml Albuterol/Ipratropium (Duoneb 0.5 Mg-3 Mg/3 Ml Soln) 3 ml INHALATION RT-Q4H [facility] Last Admin: 11/29/18 23:44 Dose: Not Given Alprazolam (Xanax) 0.25 mg PO TID PRN PRN Reason: Anxiety Last Admin: 11/29/18 15:33 Dose: 0.25 mg Azithromycin (Zithromax) 500 mg PO DAILY [facility] Last Admin: 11/29/18 08:26 Dose: 500 mg Benzonatate (Tessalon Perles) 100 mg PO TID PRN PRN Reason: Cough Last Admin: 11/29/18 15:33 Dose: 100 mg Budesonide/Formoterol Fumarate (Symbicort 160-4.5 Mcg Inhaler) 2 puff INHALATION RT-BID [facility] Last Admin: 11/29/18 19:53 Dose: 2 puff Carvedilol (Coreg) 3.125 mg PO HS [facility] Last Admin: 11/29/18 21:37 Dose: 3.125 mg Duloxetine HCl (Cymbalta) 60 mg PO BID [facility] Last Admin: 11/29/18 21:38 Dose: 60 mg Heparin Sodium (Porcine) (Heparin) 5,000 unit SQ Q12HR [facility] Last Admin: 11/29/18 21:38 Dose: 5,000 unit Sodium Chloride (Saline 0.9%) 1,000 mls @ 20 mls/hr IV .Q24H [facility] Last Admin: 11/29/18 04:25 Dose: Not Given Ceftriaxone Sodium 1,000 mg/ (Sodium Chloride) 50 mls @ 100 mls/hr IVPB HS [facility] Last Admin: 11/29/18 21:37 Dose: 100 mls/hr Insulin Aspart (Novolog) 0 unit SQ ACHS [facility]; Protocol Last Admin: 11/29/18 21:38 Dose: 8 unit Methylprednisolone Sodium Succinate (Solu-Medrol) 60 mg IV Q6HR [facility] Last Admin: 11/29/18 23:31 Dose: 60 mg Miscellaneous Information (Pneumonia Protocol Utilized) 1 each PO ONCE PRN PRN Reason: Per Protocol Ondansetron HCl (Zofran Odt) 4 mg PO Q6HR PRN PRN Reason: Nausea Last Admin: 11/29/18 23:39 Dose: 4 mg Oxycodone/Acetaminophen (Percocet 10-325) 1 each PO Q4H PRN PRN Reason: Pain Last Admin: 11/29/18 21:38 Dose: 1 each Oxymetazoline HCl (Afrin 0.05% Nasal [place]) 1 spray NASAL BID [facility] Last Admin: 11/29/18 21:37 Dose: 1 spray Pantoprazole Sodium (Protonix) 40 mg PO BID [facility] Last Admin: 11/29/18 21:37 Dose: 40 mg Ropinirole HCl (Requip) 4 mg PO TID [facility] Last Admin: 11/29/18 21:37 Dose: 4 mg Sodium Chloride (Deep Sea) 2 spray NASAL QID PRN PRN Reason: Nasal Congestion Last Admin: 11/28/18 00:33 Dose: 2 spray Temazepam (Restoril) 15 mg PO HS PRN PRN Reason: Insomnia Tizanidine HCl (Zanaflex) 8 mg PO HS [facility] Last Admin: 11/29/18 21:37 Dose: 8 mg Tramadol HCl (Ultram) 100 mg PO Q6H PRN PRN Reason: Pain Last Admin: 11/29/18 18:36 Dose: 100 mg Home Medications Medication Instructions Recorded Confirmed Type DULoxetine HCL [Cymbalta] 60 mg PO BID 04/03/14 11/26/18 History Pantoprazole Sodium [Protonix] 40 mg PO BID 04/03/14 11/26/18 History Albuterol Nebulized [Ventolin 2.5 mg INHALATION RT-QID PRN 03/29/16 11/26/18 History Nebulized] EPINEPHrine (Auto Inject) [Epipen] 0.3 mg IM ONCE PRN 08/15/16 11/26/18 History traMADol HCL [Tramadol HCl] 100 mg PO Q6H PRN 11/11/16 11/26/18 History Albuterol Sulfate [Proair Hfa] 1 - 2 puff INHALATION RT-Q6H PRN 03/23/17 History Budesonide-Formot 160-4.5 Mcg 2 puff INHALATION RT-BID 04/03/17 11/26/18 History [Symbicort 160-4.5 Mcg Inhaler] Carvedilol [Coreg] 3.125 mg PO HS 03/16/18 11/26/18 History oxyCODONE-APAP 10-325MG [Percocet 1 tab PO Q4H PRN 03/16/18 11/26/18 History 10-325 mg] rOPINIRole HCL [Requip] 4 mg PO TID 03/16/18 11/26/18 History Ondansetron Odt [Zofran ODT] 8 mg PO Q12HR PRN 09/13/18 11/26/18 History Ipratropium Nebulized [Atrovent 0.5 mg INHALATION RT-QID 11/26/18 11/26/18 History Nebulized 0.2 MG/ML] predniSONE 40 mg PO DAILY 11/26/18 11/26/18 History tiZANidine [Zanaflex] 8 mg PO HS 11/26/18 11/26/18 History Allergies Allergy/AdvReac Type Severity Reaction Status Date / Time aripiprazole [From Abilify] Allergy tremors,spa Verified 11/26/18 22:57 sms fentanyl Allergy Rash/Hives Verified 11/26/18 22:57 (only with patch) Iodinated Contrast- Oral and Allergy Anaphylaxis Verified 11/26/18 22:57 IV Dye [Iodinated Contrast Media - IV Dye] shellfish derived Allergy Anaphylaxis Verified 11/26/18 22:57 buspirone AdvReac Hallucinati Verified 11/26/18 22:57 ons escitalopram [From Lexapro] AdvReac "mean Verified 11/26/18 22:57 behavior" Physical Exam Vitals: Vital Signs Temp Pulse Pulse Resp BP Pulse Ox 11/29/18 20:05 88 11/29/18 19:58 87 11/29/18 19:31 98.1 F 87 16 117/66 91 L 11/29/18 17:10 80 11/29/18 16:58 76 11/29/18 15:00 98.4 F 85 16 135/88 90 L 11/29/18 13:07 88 11/29/18 12:55 88 11/29/18 07:57 84 11/29/18 07:46 84 11/29/18 07:00 97.4 F L 75 16 130/73 92 L 11/29/18 01:12 88 11/29/18 01:03 88 11/29/18 00:54 97.8 F 74 14 125/63 92 L Intake and Output 11/29/18 11/29/18 11/30/18 14:59 22:59 06:59 Intake Total 40 300 Balance 40 300 Intake: IV 40 Sodium Chloride 0.9% 1, 40 000 ml @ 20 mls/hr IV . Q24H [facility] Rx#:[id number] Intake, IV Titration 100 Amount cefTRIAXone 1,000 mg In 100 Sodium Chloride 0.9% 50 ml @ 100 mls/hr IVPB HS [facility] Rx#:[id number] Oral 200 Other: Voiding Method Toilet Toilet # Voids 2 Pleasant 43-year-old woman with obesity but seems comfortable less short of breath HEENT: Anicteric conjunctiva are pink and moist nasal mucosa grossly intact without significant lesions, there is no thrush. Neck: The neck is supple without significant lymphadenopathy or thyromegaly. Lungs: Symmetrical air entry with loud expiratory wheezes no cassidy bronchial sounds in all dullness or egophony Heart: Regular rate and rhythm with an audible S1-S2, no S3 no S4. There is no significant murmur click or rub, PMI was nondisplaced. Abdomen: Obese, Positive bowel sounds soft and nontender without palpable masses or organomegaly. There was no guarding or rebound. Extremities: The upper extremities have excellent pulses they are symmetric, no significant petechiae or telangiectasia. No splinter hemorrhages were noted. Lower extremities revealed to the multiple surgical interventions to her bilateral lower extremities with a correction of the clubfoot bilaterally. No open ulcerations or cellulitis is noted Neuro: Awake alert oriented to person place and time. There are no acute new gross focal sensory motor deficits. Patient has significant anxiety. Results CBC & Chem 7: 11/29/18 08:02 11/29/18 08:02 Labs: Abnormal Lab Results - Last 24 Hours (Table) 11/29/18 11/29/18 11/29/18 Range/Units 07:11 08:02 08:02 WBC 19.9 H (3.8-10.6) k/uL Neutrophils # 17.7 H (1.3-7.7) k/uL BUN 24 H (7-17) mg/dL Glucose 196 H (74-99) mg/dL POC Glucose (mg/dL) 199 H (75-99) mg/dL 11/29/18 11/29/18 11/29/18 Range/Units 12:00 17:05 19:57 WBC (3.8-10.6) k/uL Neutrophils # (1.3-7.7) k/uL BUN (7-17) mg/dL Glucose (74-99) mg/dL POC Glucose (mg/dL) 149 H 162 H 246 H (75-99) mg/dL 11/29/18 Range/Units 23:41 WBC (3.8-10.6) k/uL Neutrophils # (1.3-7.7) k/uL BUN (7-17) mg/dL Glucose (74-99) mg/dL POC Glucose (mg/dL) 239 H (75-99) mg/dL Microbiology - Last 24 Hours (Table) 11/28/18 12:55 Gram Stain - Preliminary Sputum Sputum Culture - Preliminary 11/26/18 23:20 Blood Culture - Preliminary Blood No Growth after 48 hours Laboratory Results WBC 19.9 k/uL (3.8-10.6) H 11/29/18 08:02 RBC 4.13 m/uL (3.80-5.40) 11/29/18 08:02 Hgb 12.6 gm/dL (11.4-16.0) 11/29/18 08:02 Hct 40.0 % (34.0-46.0) 11/29/18 08:02 MCV 96.8 fL (80.0-100.0) 11/29/18 08:02 MCH 30.5 pg (25.0-35.0) 11/29/18 08:02 MCHC 31.5 g/dL (31.0-37.0) 11/29/18 08:02 RDW 13.9 % (11.5-15.5) 11/29/18 08:02 Plt Count 325 k/uL (150-450) 11/29/18 08:02 Neutrophils % 89 % 11/29/18 08:02 Lymphocytes % 8 % 11/29/18 08:02 Monocytes % 2 % 11/29/18 08:02 Eosinophils % 0 % 11/29/18 08:02 Basophils % 0 % 11/29/18 08:02 Neutrophils # 17.7 k/uL (1.3-7.7) H 11/29/18 08:02 Lymphocytes # 1.6 k/uL (1.0-4.8) 11/29/18 08:02 Monocytes # 0.4 k/uL (0-1.0) 11/29/18 08:02 Eosinophils # 0.0 k/uL (0-0.7) 11/29/18 08:02 Basophils # 0.1 k/uL (0-0.2) 11/29/18 08:02 ESR 40 mm/hr (0-20) H 11/27/18 19:31 PT 9.4 sec (9.0-12.0) 11/26/18 23:20 INR 0.9 (<1.2) 11/26/18 23:20 APTT 26.0 sec (22.0-30.0) 11/26/18 23:20 Sodium 139 mmol/L (137-145) 11/29/18 08:02 Potassium 4.6 mmol/L (3.5-5.1) 11/29/18 08:02 Chloride 104 mmol/L (98-107) 11/29/18 08:02 Carbon Dioxide 26 mmol/L (22-30) 11/29/18 08:02 Anion Gap 9 mmol/L 11/29/18 08:02 BUN 24 mg/dL (7-17) H 11/29/18 08:02 Creatinine 0.61 mg/dL (0.52-1.04) 11/29/18 08:02 Est GFR (CKD-EPI)AfAm >90 (>60 ml/min/1.73 sqM) 11/29/18 08:02 Est GFR (CKD-EPI)NonAf >90 (>60 ml/min/1.73 sqM) 11/29/18 08:02 Glucose 196 mg/dL (74-99) H 11/29/18 08:02 POC Glucose (mg/dL) 239 mg/dL (75-99) H 11/29/18 23:41 POC Glu [employer]ing [employer] ID Shelby Hunter 11/29/18 23:41 Plasma Lactic Acid Louie 1.9 mmol/L (0.7-2.0) 11/26/18 23:20 Calcium 9.6 mg/dL (8.4-10.2) 11/29/18 08:02 Total Bilirubin 0.7 mg/dL (0.2-1.3) 11/26/18 23:20 AST 49 U/L (14-36) H 11/26/18 23:20 ALT 19 U/L (9-52) 11/26/18 23:20 Alkaline Phosphatase 96 U/L (38-126) 11/26/18 23:20 Troponin I <0.012 ng/mL (0.000-0.034) 11/26/18 23:20 C-Reactive Protein 52.6 mg/L (<10.0) H 11/27/18 19:31 Total Protein 8.2 g/dL (6.3-8.2) 11/26/18 23:20 Albumin 4.6 g/dL (3.5-5.0) 11/26/18 23:20 Urine Color Yellow 11/26/18 23:21 Urine Appearance Clear (Clear) 11/26/18 23:21 Urine pH 5.5 (5.0-8.0) 11/26/18 23:21 Ur Specific [place] 1.025 (1.001-1.035) 11/26/18 23:21 Urine Protein Trace (Negative) H 11/26/18 23:21 Urine Glucose (UA) Negative (Negative) 11/26/18 23:21 Urine Ketones Negative (Negative) 11/26/18 23:21 Urine Blood Negative (Negative) 11/26/18 23:21 Urine Nitrite Negative (Negative) 11/26/18 23:21 Urine Bilirubin Negative (Negative) 11/26/18 23:21 Urine Urobilinogen <2.0 mg/dL (<2.0) 11/26/18 23:21 Ur Leukocyte Esterase Negative (Negative) 11/26/18 23:21 Rheumatoid Factor 14 IU/mL (0-15) 11/27/18 19:31 ISATU Screen NEGATIVE (NEGATIVE) 11/27/18 19:31 Influenza Type A RNA Not Detected (Not Detectd) 11/26/18 23:20 Influenza Type B (PCR) Not Detected (Not Detectd) 11/26/18 23:20 Microbiology 11/28/18 12:55 Sputum Gram Stain - Preliminary 11/28/18 12:55 Sputum Sputum Culture - Preliminary 11/26/18 23:20 Blood Blood Culture - Preliminary No Growth after 48 hours 11/26/18 23:21 Urine,Clean Catch Urine Culture - Final Strep agalactiae - (group b) Chest x-ray: report reviewed (New right middle lobe infiltration) Assessment and Plan (1) CAP (community acquired pneumonia) Narrative/Plan: 43-year-old female known history of underlying interstitial lung disease diagnosed late in 2018 by her open lung biopsy by Dr. Rivero, presents to Hospital with a several day history of fevers up to 104 chills rigors and progressive shortness of breath. It admission she had significant shortness of breath with respiratory distress. Required interventions with multiple respiratory treatments and has been on high doses of steroids to improve her profound shortness of breath. Certainly feel better is having some difficulties with anxiety from the large doses of steroids that have been utilized for her acute exacerbation of her lung disease. Likely had a viral process that resulted in pneumonia which could be bacterial. Cultures however are negative. We'll de-escalate antimicrobial therapy to just levofloxacin. Pulmonary critical care we will initiate steroid taper and potentially could go home by Monday if she is tolerating steroid taper well. Continue respiratory treatments as per pulmonary critical care. She has mild leukocytosis likely and the basis of the current steroid utilization. Her flu a and B are negative. There is evidence of some group B strep in her urine but she does not have significant urinary symptoms. Current Visit: Yes Status: Acute Code(s): J18.9 - PNEUMONIA, UNSPECIFIED ORGANISM SNOMED Code(s): 184711156 (2) Interstitial lung disease Current Visit: Yes Status: Acute Code(s): J84.9 - INTERSTITIAL PULMONARY DISEASE, UNSPECIFIED SNOMED Code(s): 262111523 (3) Smoker Current Visit: Yes Status: Acute Code(s): F17.200 - NICOTINE DEPENDENCE, UNSPECIFIED, UNCOMPLICATED SNOMED Code(s): 28787776
--- NOTE | 2018-11-30 00:19 | PN ---
PROGRESS NOTE DATE OF SERVICE: 11/29/2018. HISTORY: This 43-year-old woman was admitted with right middle lobe pneumonia. She is being closely monitored. The patient is followed by Dr. Victoria also. The patient is on broad- spectrum IV antibiotics. Mostly COPD exacerbation in addition to pneumonia is also considered. No chest pain. No palpitations. No fever. EXAM: Alert and oriented x3. Pulse 87, blood pressure 106/76, respirations 16, temperature 98.2, pulse ox 94% on room air. HEENT: Conjunctivae normal. NECK: No JVD. CARDIOVASCULAR: S1 and S2 muffled. LUNGS: Breath sounds diminished in the bases. Bilateral scattered rhonchi and crackles. ABDOMEN: Soft, nontender. LEGS: No edema, no swelling. NERVOUS SYSTEM: No focal deficits. LAB STUDIES: WBC 19.9, hemoglobin 12.6, sodium 139. ASSESSMENT: 1. Chronic obstructive pulmonary disease acute exacerbation with possible right middle lobe pneumonia, community-acquired, with failure of outpatient treatment. 2. History of recent bilateral pneumonia, recurrent pneumonia, possibly interstitial lung disease. 3. Urine culture showing Streptococcus agalactiae group B. 4. History of recent right lung biopsy. 5. Hypokalemia, mild. 6. Continued ongoing nicotine dependence. 7. Increased WBC. 8. Asthma and chronic obstructive pulmonary disease. 9. Cerebrovascular accident, transient ischemic attack. 10.History of deep vein thrombosis. 11.History of fibromyalgia. 12.Gastroesophageal reflux disease. 13.History of degenerative joint disease. 14.History of breast surgery. 15.History of motion sickness. 16.History of anxiety. RECOMMENDATIONS: Continue current management and symptomatic treatment. At this time I recommend to follow urine culture, strep agalactiae group B. We will continue to monitor. Infectious disease evaluation also has been sought. Further recommendations to follow. MMODL / IJN: [id number] /
[2018-11-30] MEDS: IPRATROPIUM-ALBUTEROL 3 ML NEB INHALATION SCH ×6 (03:32→23:08)
[2018-11-30] MEDS: SODIUM CHLORIDE 0.9% 1,000 ML IV SCH (04:23)
[2018-11-30] MEDS: oxyCODONE-APAP 10-325MG 1 EACH TAB PO PRN ×4 (04:24→18:03)
[2018-11-30] MEDS: BENZONATATE 100 MG CAP PO PRN ×2 (04:24→13:00)
[2018-11-30 05:45] LABS: Mycoplasma IgM Antibody 0.39 INDEX (<=0.90)
[2018-11-30] MEDS: methylPREDNISolone SOD SUCCI 125 MG/2 ML VIAL IV SCH ×3 (06:10→18:04)
[2018-11-30] MEDS: ONDANSETRON ODT 4 MG TAB PO PRN ×2 (06:10→13:00)
[2018-11-30 07:11] LABS: Glucose,Whole Blood 231 mg/dL (75-99)
[2018-11-30] MEDS: HEPARIN SODIUM,PORCINE 5,000 UNIT/ML 1 ML VIAL SQ SCH ×2 (08:15→20:48)
[2018-11-30] MEDS: INSULIN ASPART 100 UNIT/ML 1 ML 10 ML VIAL SQ SCH ×4 (08:15→20:49)
[2018-11-30] MEDS: AZITHROMYCIN 500 MG TAB PO SCH (08:15)
[2018-11-30] MEDS: rOPINIRole HCL 4 MG TABLET PO SCH ×3 (08:15→20:48)
[2018-11-30] MEDS: PANTOPRAZOLE 40 MG TABLET PO SCH ×2 (08:15→20:48)
[2018-11-30] MEDS: DULoxetine HCL 60 MG CAPSULE.DR PO SCH ×2 (08:15→20:48)
[2018-11-30 08:22] LABS: Basophils # (A) 0.1 k/uL (0-0.2); Basophils % (A) 0 %; Eosinophils # (A) 0.1 k/uL (0-0.7); Eosinophils % (A) 1 %; HCT 38.9 % (34.0-46.0); HGB 12.6 gm/dL (11.4-16.0); Lymphocytes # (A) 1.6 k/uL (1.0-4.8); Lymphocytes % (A) 7 %; MCHC 32.2 g/dL (31.0-37.0); Mean Platelet Volume 7.2; Monocytes # (A) 0.5 k/uL (0-1.0); Monocytes % (A) 2 %; Neutrophils # (A) 19.7 k/uL (1.3-7.7); Neutrophils % (A) 89 %; Platelet Count 303 k/uL (150-450); RBC 4.05 m/uL (3.80-5.40); RDW 13.8 % (11.5-15.5); WBC 22.3 k/uL (3.8-10.6)
[2018-11-30] MEDS: OXYMETAZOLINE 0.05% NASL SPRAY 1 SPRAY BOTTLE NASAL SCH ×2 (08:24→20:48)
[2018-11-30 08:36] LABS: Anion Gap 8 mmol/L; Blood Urea Nitrogen 35 mg/dL (7-17); Calcium 9.2 mg/dL (8.4-10.2); Carbon Dioxide 30 mmol/L (22-30); Chloride 101 mmol/L (98-107); Glucose 211 mg/dL (74-99); Potassium 4.6 mmol/L (3.5-5.1); Sodium 139 mmol/L (137-145)
[2018-11-30] MEDS: SYMBICORT 160-4.5 MCG INHALER INHALATION SCH ×2 (08:39→20:04)
[2018-11-30 12:00] LABS: Glucose,Whole Blood 243 mg/dL (75-99)
[2018-11-30] MEDS: traMADol 50 MG TAB PO PRN (16:30)
--- NOTE | 2018-11-30 16:39 | P.PN ---
Subjective Progress Note Date: 11/30/18 Principal diagnosis: Cough congestion fever This is a 43-year-old white female patient of Dr. Murdock with past medical history of smoking induced interstitial lung disease, recurrent pneumonia, smoking, recent VATS with wedge biopsy of the right middle lobe in August [address] Rivero, which were positive for respiratory bronchiolitis, and cultures were negative. Patient follows with Dr. Cain in the pulmonary clinic, has a history of COPD, asthma, chronic pain syndrome, hearing loss, osteoarthritis, anxiety. Patient presented to the emergency department on 11/26/2018 for evaluation of cough, congestion, and has been feeling ill for the last month. She completed 2 courses of doxycycline through Dr. Rivero. She had a recent upper respiratory infection. She did have a fever at home, the temp of 104F. She was started on oral prednisone taper, and nebulized treatments, with no improvement. Was having some mild right ear pain, sore throat. Chest x-ray showed small minimal infiltrate in the anterior right middle lobe, which was actually improved compared the previous chest x-ray from 09/27/2018. Labs showed WBC of 15.5, hemoglobin of 14.5, sodium of 139, potassium is 5.5, chloride is 106, CO2 is 22, BUN is 25 and creatinine 0.54, troponin was negative 1, CRP was 52.6, urinalysis was negative, influenza screen was negative. Patient was started on azithromycin and Rocephin, IV steroids, and nebulized bronchodilators. On 11/29/2018 patient seen in follow-up on medical surgical floor. He still remains quite bronchospastic, feeling a little better overall, but still has chest tightness, lung sounds are positive for end expiratory wheezes, few rales at the left lung base. Today's labs have been reviewed, WBC is 19.9, hemoglobin was 12.6, electrolytes were within normal limits, BUN is 24 creatinine 0.61. Pulse ox is 92%, no fever or chills, vital signs are stable. Urine cultures showed strep agalactiae, group B, less than 10,000 colonies/ml. The patient denies any urinary symptoms. Sputum culture growing few gram- positive bacilli, few gram-positive cocci. Final cultures pending. Current abiotic coverage includes Zithromax and Rocephin. Patient seen today 11/30/2018 in follow-up on the regular medical floor. She is up ambulating in her room. She is awake and alert in no acute distress. She is better but not quite back to her baseline. Blood culture reveals no growth. Sputum reveals no growth. Urine culture was strep agalactia group B. She is maintaining O2 saturations in the low 90s on 2 L/m per nasal cannula. She does desaturate into the 80s on room air and needed some home oxygen. She' s been afebrile. Hemodynamically stable. White count 20.3. Hemoglobin 12.6. Creatinine 0.68. She remains on ceftriaxone and azithromycin along with DuoNeb inhalations, Symbicort, IV Solu-Medrol. Objective - Vital Signs Vital signs: Vital Signs Temp 97.4 F L 11/30/18 15:00 Pulse 84 11/30/18 15:00 Resp 15 11/30/18 15:00 BP 135/81 11/30/18 15:00 Pulse Ox 93 L 11/30/18 15:00 Intake & Output 11/29/18 11/30/18 11/30/18 18:59 06:59 18:59 Intake Total 40 650 200 Balance 40 650 200 Intake: IV 40 Sodium Chloride 0.9% 1, 40 000 ml @ 20 mls/hr IV . Q24H NIC[facility] Rx#:[id number] Intake, IV Titration 200 Amount cefTRIAXone 1,000 mg In 200 Sodium Chloride 0.9% 50 ml @ 100 mls/hr IVPB HS NIC[facility]A Rx#:[id number] Oral 450 200 Other: Voiding Method Toilet Toilet Toilet # Voids 2 2 - Exam GENERAL EXAM: Alert, active, comfortable in no apparent distress. HEAD: Normocephalic/atraumatic. EYES: Normal reaction of pupils, equal size. Conjunctiva pink, sclera white. NOSE: Clear with pink turbinates. THROAT: No erythema or exudates. NECK: No masses, no JVD, no thyroid enlargement, no adenopathy. CHEST: No chest wall deformity. Symmetrical expansion. LUNGS: Equal air entry, diminished, with expiratory wheezing prolongation of expiratory phase CVS: Regular rate and rhythm, normal S1 and S2, no gallops, no murmurs, no rubs ABDOMEN: Soft, nontender. No hepatosplenomegaly, normal bowel sounds, no guarding or rigidity. EXTREMITIES: No clubbing, no edema, no cyanosis, 2+ pulses and upper and lower extremities. MUSCULOSKELETAL: Muscle strength and tone normal. SPINE: No scoliosis or deformity SKIN: No rashes CENTRAL NERVOUS SYSTEM: Alert and oriented -3. No focal deficits, tone is normal in all 4 extremities. PSYCHIATRIC: Alert and oriented -3. Appropriate affect. Intact judgment and insight. - Labs CBC & Chem 7: 11/30/18 07:40 11/30/18 07:40 Labs: Abnormal Lab Results - Last 24 Hours (Table) 11/29/18 11/29/18 11/29/18 Range/Units 17:05 19:57 23:41 WBC (3.8-10.6) k/uL Neutrophils # (1.3-7.7) k/uL BUN (7-17) mg/dL Glucose (74-99) mg/dL POC Glucose (mg/dL) 162 H 246 H 239 H (75-99) mg/dL 11/30/18 11/30/18 11/30/18 Range/Units 06:49 07:40 07:40 WBC 22.3 H (3.8-10.6) k/uL Neutrophils # 19.7 H (1.3-7.7) k/uL BUN 35 H (7-17) mg/dL Glucose 211 H (74-99) mg/dL POC Glucose (mg/dL) 231 H (75-99) mg/dL 11/30/18 Range/Units 11:45 WBC (3.8-10.6) k/uL Neutrophils # (1.3-7.7) k/uL BUN (7-17) mg/dL Glucose (74-99) mg/dL POC Glucose (mg/dL) 243 H (75-99) mg/dL Microbiology - Last 24 Hours (Table) 11/28/18 12:55 Gram Stain - Final Sputum Sputum Culture - Final 11/26/18 23:20 Blood Culture - Preliminary Blood No Growth after 72 hours Assessment and Plan Assessment: Assessment: #1. Cough, congestion, dyspnea, likely related to acute COPD exacerbation, chest x-ray did not show any clear cut evidence of pneumonia, right middle lobe showed a small minimal infiltrate which actually improved from 09/27/2018 #2. Fever, leukocytosis #3. Recurrent episodes of pulmonary infections #4. Recent wedge biopsy of the right middle lobe in August 2018, and pathology was positive for smoking related respiratory bronchiolitis #5. History of chronic obstructive pulmonary disease #6. Nicotine dependence, ongoing #7. History of CVA/TIA #8. GERD #9. History of left breast biopsy #10. Anxiety Plan: The patient was seen and evaluated by Dr. Victoria. She is improved but night not quite back to her baseline. We'll continue her current medications. Probable discharge in the a.m. We'll continue to follow. I, the cosigning physician, performed a history & physical examination of the patient. Lungs sounds with few scattered rhonchi more so on the right. Maintaining good O2 saturations in the 90s on 2 L/m per nasal cannula. I discussed the assessment and plan of care with my nurse practitioner, Marylin Elaine. I attest to the above note as dictated by her.
[2018-11-30 17:08] LABS: Glucose,Whole Blood 189 mg/dL (75-99)
[2018-11-30 20:34] LABS: Glucose,Whole Blood 240 mg/dL (75-99)
[2018-11-30] MEDS: CARVEDILOL 3.125 MG TAB PO SCH (20:48)
[2018-11-30] MEDS: tiZANidine 4 MG TAB PO SCH (20:48)
--- NOTE | 2018-11-30 22:17 | PN ---
PROGRESS NOTE DATE OF SERVICE: 11/30/2018 This 43-year-old woman was admitted with COPD acute exacerbation also had possible right middle lobe pneumonia and interstitial lung disease, being closely monitored. No chest pain. No palpitations. No fever. The patient has also been seen by Dr. Eason and Dr. Victoria. EXAM: On exam, alert and oriented x3. The pulse is 77, blood pressure 129/70, respirations 18, temperature 98.1, pulse ox 97% on room air. HEENT: Conjunctivae normal. NECK: No jugular venous distention. CARDIOVASCULAR: S1, S2 muffled. RESPIRATORY: Breath sounds diminished in the bases. Bilateral scattered rhonchi and crackles. Abdomen is soft, nontender. Legs are no edema. No swelling. LABS: Accu-Cheks 211, 243 and WBC 22.3. ASSESSMENT: 1. Chronic obstructive pulmonary disease acute exacerbation with possible right middle lobe pneumonia, community-acquired with failure of outpatient treatment. 2. History of recent bilateral pneumonia, recurrent pneumonia possibly interstitial lung disease. 3. Urine culture showing strep agalactiae group B. 4. History of recent right lung biopsy. 5. Hypokalemia, mild. 6. Continued ongoing nicotine dependence. 7. Increased WBC. 8. Asthma/chronic obstructive pulmonary disease. 9. History of cerebrovascular accident, transient ischemic attack. 10.History of deep vein thrombosis. 11.History of fibromyalgia. 12.Gastroesophageal reflux disease. 13.History of degenerative joint disease. 14.History of breast surgery. 16.History of anxiety. RECOMMENDATIONS AND DISCUSSION: Recommend to continue current medications, continue with monitoring, symptomatic treatment. Otherwise, at this time, we will monitor the patient closely. Continue with continue current medication, continue with antibiotics. Otherwise, the patient is also on steroids. We will cut down the dose of steroids. Closely follow with Infectious Disease and Pulmonary. Further recommendations to follow. MMODL / IJN: [id number] / MTDRaul
--- NOTE | 2018-11-30 23:56 | P.PN ---
Subjective Progress Note Date: 11/30/18 43-year-old female who is well known to infectious disease service from earlier this year when she has had multiple illnesses. 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 In May 2018 the patient was ill and underwent intervention with bronchoscopy she'll evidence of Streptococcus pneumoniae that was multidrug resistant, parainfluenza 3 was also isolated. There was evidence of marked abnormality or imaging studies. She was found in the outpatient clinic and had extensive testing revealing evidence of negative HIV, in no evidence of underlying significant autoimmune disease. Evidence of some positive ALLERGIC antibodies to environmental molds. Because of the ongoing significant improvement as of shortness of breath she was sent to the cardiothoracic surgeon, Dr. Rivero, and an open lung biopsy was performed which has revealed evidence of interstitial lung disease thought to be in the basis of her smoking and secondhand smoke. She is working diligently to become a nonsmoker but regretfully lives with a smoker. She has been instructed by her yarn inspector as well as her cardiothoracic surgeon that she needs to be removed from the smoking environment. Patient relates that she's had the sudden onset of an acute illness after exposure to a family member that had a significant viral infection. She's had waxing and waning symptoms with fevers chills and shortness of breath. However symptoms peaked and she had 104 fever significant shortness of breath and tightness in her chest and CAT scan presented to the emergency center. Is now feeling slightly better. She still has wheezing but has overall improved in the last 48 hours. 11/30/2018 the patient is started to feel better but not at baseline. Evaluations today reveal evidence of relative hypoxia and consequently she is qualifying for home oxygen therapy. Which is being arranged. Patient's wheezing is somewhat improved but not resolved. She is still on 60 mg of Solu-Medrol every 6 hours. Pain control is adequate. Objective - Vital Signs Vital signs: Vital Signs Temp 98.1 F 11/30/18 19:24 Pulse 78 11/30/18 20:16 Resp 15 11/30/18 19:24 BP 129/77 11/30/18 19:24 Pulse Ox 93 L 11/30/18 19:24 Intake & Output 11/30/18 11/30/1819 06:59 18:59 06:59 Intake Total 650 200 Balance 650 200 Intake: Intake, IV Titration 200 Amount cefTRIAXone 1,000 mg In 200 Sodium Chloride 0.9% 50 ml @ 100 mls/hr IVPB HS [facility] Rx#:[id number] Oral 450 200 Other: Voiding Method Toilet Toilet # Voids 2 2 - Exam Pleasant 43-year-old woman with obesity but seems comfortable less short of breath HEENT: Anicteric conjunctiva are pink and moist nasal mucosa grossly intact without significant lesions, there is no thrush. Neck: The neck is supple without significant lymphadenopathy or thyromegaly. Lungs: Symmetrical air entry with loud expiratory wheezes no cassidy bronchial sounds in all dullness or egophony Heart: Regular rate and rhythm with an audible S1-S2, no S3 no S4. There is no significant murmur click or rub, PMI was nondisplaced. Abdomen: Obese, Positive bowel sounds soft and nontender without palpable masses or organomegaly. There was no guarding or rebound. Extremities: The upper extremities have excellent pulses they are symmetric, no significant petechiae or telangiectasia. No splinter hemorrhages were noted. Lower extremities revealed to the multiple surgical interventions to her bilateral lower extremities with a correction of the clubfoot bilaterally. No open ulcerations or cellulitis is noted Neuro: Awake alert oriented to person place and time. There are no acute new gross focal sensory motor deficits. Patient has significant anxiety. - Labs CBC & Chem 7: 11/30/18 07:40 11/30/18 07:40 Labs: Abnormal Lab Results - Last 24 Hours (Table) 11/30/18 11/30/18 11/30/18 Range/Units 06:49 07:40 07:40 WBC 22.3 H (3.8-10.6) k/uL Neutrophils # 19.7 H (1.3-7.7) k/uL BUN 35 H (7-17) mg/dL Glucose 211 H (74-99) mg/dL POC Glucose (mg/dL) 231 H (75-99) mg/dL 11/30/18 11/30/18 11/30/18 Range/Units 11:45 16:51 20:22 WBC (3.8-10.6) k/uL Neutrophils # (1.3-7.7) k/uL BUN (7-17) mg/dL Glucose (74-99) mg/dL POC Glucose (mg/dL) 243 H 189 H 240 H (75-99) mg/dL Microbiology - Last 24 Hours (Table) 11/28/18 12:55 Gram Stain - Final Sputum Sputum Culture - Final 11/26/18 23:20 Blood Culture - Preliminary Blood No Growth after 72 hours Assessment and Plan (1) CAP (community acquired pneumonia) Narrative/Plan: 43-year-old female known history of underlying interstitial lung disease diagnosed late in 2018 by her open lung biopsy by Dr. Rivero, presents to Hospital with a several day history of fevers up to 104 chills rigors and progressive shortness of breath. It admission she had significant shortness of breath with respiratory distress. Required interventions with multiple respiratory treatments and has been on high doses of steroids to improve her profound shortness of breath. Certainly feel better is having some difficulties with anxiety from the large doses of steroids that have been utilized for her acute exacerbation of her lung disease. Likely had a viral process that resulted in pneumonia which could be bacterial. Cultures however are negative. We'll de-escalate antimicrobial therapy to just levofloxacin. Pulmonary critical care we will initiate steroid taper and potentially could go home by Monday if she is tolerating steroid taper well. Continue respiratory treatments as per pulmonary critical care. She has mild leukocytosis likely and the basis of the current steroid utilization. Her flu a and B are negative. There is evidence of some group B strep in her urine but she does not have significant urinary symptoms. 11/30/2018 the patient is showing improvement but is not nearly at her baseline. It is noted that she is having decrease oxygen levels and is qualifying for home oxygen therapy which is being arranged. The patient understands importance of going into a nonsmoking environment to prevent further recurrence of her current disease state. It is noted by open lung biopsy as interstitial lung disease it seems to be progressive. Pulmonary critical care is following and will arrange for a reducing dose of her steroids when she is stable and improving. She is doing well and levofloxacin which be planned orally for her use at home after discharge. Current Visit: Yes Status: Acute Code(s): J18.9 - PNEUMONIA, UNSPECIFIED ORGANISM SNOMED Code(s): 594245360 (2) Interstitial lung disease Current Visit: Yes Status: Acute Code(s): J84.9 - INTERSTITIAL PULMONARY DISEASE, UNSPECIFIED SNOMED Code(s): 885179622 (3) Smoker Current Visit: Yes Status: Acute Code(s): F17.200 - NICOTINE DEPENDENCE, UNSPECIFIED, UNCOMPLICATED SNOMED Code(s): 77308987
[2018-12-01] MEDS: ONDANSETRON ODT 4 MG TAB PO PRN ×3 (00:41→22:07)
[2018-12-01] MEDS: oxyCODONE-APAP 10-325MG 1 EACH TAB PO PRN ×5 (00:41→22:07)
[2018-12-01] MEDS: methylPREDNISolone SOD SUCCI 40 MG/ML 1 ML VIAL IV SCH ×3 (00:42→21:48)
[2018-12-01] MEDS: BENZONATATE 100 MG CAP PO PRN ×3 (00:51→16:25)
[2018-12-01] MEDS: IPRATROPIUM-ALBUTEROL 3 ML NEB INHALATION SCH ×5 (02:42→20:53)
[2018-12-01] MEDS: ALPRAZolam 0.25 MG TAB PO PRN ×3 (04:01→22:08)
[2018-12-01] MEDS: SODIUM CHLORIDE 0.9% 1,000 ML IV SCH (06:10)
[2018-12-01 07:43] LABS: Glucose,Whole Blood 189 mg/dL (75-99)
[2018-12-01] MEDS: OXYMETAZOLINE 0.05% NASL SPRAY 1 SPRAY BOTTLE NASAL SCH ×2 (08:53→21:47)
[2018-12-01] MEDS: SYMBICORT 160-4.5 MCG INHALER INHALATION SCH ×2 (08:56→20:53)
[2018-12-01] MEDS: traMADol 50 MG TAB PO PRN (09:01)
[2018-12-01] MEDS: DULoxetine HCL 60 MG CAPSULE.DR PO SCH ×2 (09:01→21:47)
[2018-12-01] MEDS: PANTOPRAZOLE 40 MG TABLET PO SCH ×2 (09:01→21:47)
[2018-12-01] MEDS: AZITHROMYCIN 500 MG TAB PO SCH (09:02)
[2018-12-01] MEDS: rOPINIRole HCL 4 MG TABLET PO SCH ×3 (09:02→21:47)
[2018-12-01] MEDS: HEPARIN SODIUM,PORCINE 5,000 UNIT/ML 1 ML VIAL SQ SCH ×2 (09:02→21:47)
[2018-12-01 09:05] LABS: Glucose,Whole Blood 161 mg/dL (75-99)
[2018-12-01] MEDS: INSULIN ASPART 100 UNIT/ML 1 ML 10 ML VIAL SQ SCH ×4 (09:10→21:48)
[2018-12-01 09:48] LABS: Anion Gap 9 mmol/L; Blood Urea Nitrogen 33 mg/dL (7-17); Calcium 9.2 mg/dL (8.4-10.2); Carbon Dioxide 30 mmol/L (22-30); Chloride 99 mmol/L (98-107); Glucose 164 mg/dL (74-99); Potassium 4.8 mmol/L (3.5-5.1); Sodium 138 mmol/L (137-145)
[2018-12-01 10:10] LABS: HCT 39.3 % (34.0-46.0); HGB 12.3 gm/dL (11.4-16.0); MCH 30.5 pg (25.0-35.0); MCHC 31.3 g/dL (31.0-37.0); MCV 97.6 fL (80.0-100.0); Mean Platelet Volume 7.3; Platelet Count 318 k/uL (150-450); RBC 4.03 m/uL (3.80-5.40); RDW 13.6 % (11.5-15.5); WBC 22.5 k/uL (3.8-10.6)
[2018-12-01 10:40] LABS: Band Neutrophils % 2 %; Lymphocytes # (M) 2.03 k/uL (1.0-4.8); Metamyelocytes # (M) 0.68 k/uL (0); Metamyelocytes % 3 %; Monocytes # (M) 1.13 k/uL (0-1.0); Myelocytes # (M) 1.13 k/uL (0); Myelocytes % 5 %; Neutrophils % (M) 77 %; Nucleated Red Blood Cells 0 /100 WBC (0-0); Poikilocytosis (M) Present; Total Cells Counted 200
[2018-12-01 12:09] LABS: Glucose,Whole Blood 329 mg/dL (75-99)
--- NOTE | 2018-12-01 13:51 | P.PN ---
Subjective Progress Note Date: 12/01/18 Principal diagnosis: Cough congestion fever This is a 43-year-old white female patient of Dr. Murdock with past medical history of smoking induced interstitial lung disease, recurrent pneumonia, smoking, recent VATS with wedge biopsy of the right middle lobe in August [address] Rivero, which were positive for respiratory bronchiolitis, and cultures were negative. Patient follows with Dr. Cain in the pulmonary clinic, has a history of COPD, asthma, chronic pain syndrome, hearing loss, osteoarthritis, anxiety. Patient presented to the emergency department on 11/26/2018 for evaluation of cough, congestion, and has been feeling ill for the last month. She completed 2 courses of doxycycline through Dr. Rivero. She had a recent upper respiratory infection. She did have a fever at home, the temp of 104F. She was started on oral prednisone taper, and nebulized treatments, with no improvement. Was having some mild right ear pain, sore throat. Chest x-ray showed small minimal infiltrate in the anterior right middle lobe, which was actually improved compared the previous chest x-ray from 09/27/2018. Labs showed WBC of 15.5, hemoglobin of 14.5, sodium of 139, potassium is 5.5, chloride is 106, CO2 is 22, BUN is 25 and creatinine 0.54, troponin was negative 1, CRP was 52.6, urinalysis was negative, influenza screen was negative. Patient was started on azithromycin and Rocephin, IV steroids, and nebulized bronchodilators. On 11/29/2018 patient seen in follow-up on medical surgical floor. He still remains quite bronchospastic, feeling a little better overall, but still has chest tightness, lung sounds are positive for end expiratory wheezes, few rales at the left lung base. Today's labs have been reviewed, WBC is 19.9, hemoglobin was 12.6, electrolytes were within normal limits, BUN is 24 creatinine 0.61. Pulse ox is 92%, no fever or chills, vital signs are stable. Urine cultures showed strep agalactiae, group B, less than 10,000 colonies/ml. The patient denies any urinary symptoms. Sputum culture growing few gram- positive bacilli, few gram-positive cocci. Final cultures pending. Current abiotic coverage includes Zithromax and Rocephin. Patient seen today 11/30/2018 in follow-up on the regular medical floor. She is up ambulating in her room. She is awake and alert in no acute distress. She is better but not quite back to her baseline. Blood culture reveals no growth. Sputum reveals no growth. Urine culture was strep agalactia group B. She is maintaining O2 saturations in the low 90s on 2 L/m per nasal cannula. She does desaturate into the 80s on room air and needed some home oxygen. She' s been afebrile. Hemodynamically stable. White count 20.3. Hemoglobin 12.6. Creatinine 0.68. She remains on ceftriaxone and azithromycin along with DuoNeb inhalations, Symbicort, IV Solu-Medrol. The patient is seen today 12/01/2018 in follow-up on the regular medical floor. She remains awake and alert in no acute distress. She has been quite weak and dyspneic on minimal exertion however. Family maintaining O2 saturations in the low 90s on 2 L/m per nasal cannula. Home oxygen has been set up. She is afebrile. Blood culture revealed no growth. Sputum culture revealed no growth. He count 22.5. Hemoglobin 12.3. Neutrophils 17.7. Creatinine 0.64. She remains on ceftriaxone and azithromycin. ID is on the case. Objective - Vital Signs Vital signs: Vital Signs Temp 97.9 F 12/01/18 08:46 Pulse 72 12/01/18 11:56 Resp 18 12/01/18 08:46 BP 151/66 12/01/18 08:46 Pulse Ox 93 L 12/01/18 08:46 Intake & Output 11/30/18 12/01/18 12/01/18 18:59 06:59 18:59 Intake Total 200 1540 Balance 200 1540 Intake: Oral 200 1540 Other: Voiding Method Toilet Toilet # Voids 2 4 3 - Exam GENERAL EXAM: Alert, active, comfortable in no apparent distress. HEAD: Normocephalic/atraumatic. EYES: Normal reaction of pupils, equal size. Conjunctiva pink, sclera white. NOSE: Clear with pink turbinates. THROAT: No erythema or exudates. NECK: No masses, no JVD, no thyroid enlargement, no adenopathy. CHEST: No chest wall deformity. Symmetrical expansion. LUNGS: Equal air entry, diminished, with expiratory wheezing prolongation of expiratory phase CVS: Regular rate and rhythm, normal S1 and S2, no gallops, no murmurs, no rubs ABDOMEN: Soft, nontender. No hepatosplenomegaly, normal bowel sounds, no guarding or rigidity. EXTREMITIES: No clubbing, no edema, no cyanosis, 2+ pulses and upper and lower extremities. MUSCULOSKELETAL: Muscle strength and tone normal. SPINE: No scoliosis or deformity SKIN: No rashes CENTRAL NERVOUS SYSTEM: Alert and oriented -3. No focal deficits, tone is normal in all 4 extremities. PSYCHIATRIC: Alert and oriented -3. Appropriate affect. Intact judgment and insight. - Labs CBC & Chem 7: 12/01/18 08:25 12/01/18 08:25 Labs: Abnormal Lab Results - Last 24 Hours (Table) 11/30/18 11/30/18 12/01/18 Range/Units 16:51 20:22 07:10 WBC (3.8-10.6) k/uL Neutrophils # (Manual) (1.3-7.7) k/uL Monocytes # (Manual) (0-1.0) k/uL Metamyelocytes # (Man) (0) k/uL Myelocytes # (Manual) (0) k/uL BUN (7-17) mg/dL Glucose (74-99) mg/dL POC Glucose (mg/dL) 189 H 240 H 189 H (75-99) mg/dL 12/01/18 12/01/18 12/01/18 Range/Units 08:25 08:25 08:52 WBC 22.5 H (3.8-10.6) k/uL Neutrophils # (Manual) 17.70 H (1.3-7.7) k/uL Monocytes # (Manual) 1.13 H (0-1.0) k/uL Metamyelocytes # (Man) 0.68 H (0) k/uL Myelocytes # (Manual) 1.13 H (0) k/uL BUN 33 H (7-17) mg/dL Glucose 164 H (74-99) mg/dL POC Glucose (mg/dL) 161 H (75-99) mg/dL 12/01/18 Range/Units 11:29 WBC (3.8-10.6) k/uL Neutrophils # (Manual) (1.3-7.7) k/uL Monocytes # (Manual) (0-1.0) k/uL Metamyelocytes # (Man) (0) k/uL Myelocytes # (Manual) (0) k/uL BUN (7-17) mg/dL Glucose (74-99) mg/dL POC Glucose (mg/dL) 329 H (75-99) mg/dL Microbiology - Last 24 Hours (Table) 11/26/18 23:20 Blood Culture - Preliminary Blood No Growth after 96 hours 11/28/18 12:55 Gram Stain - Final Sputum Sputum Culture - Final Assessment and Plan Assessment: Assessment: #1. Acute hypoxic respiratory failure secondary to an acute COPD exacerbation, chest x-ray did not show any clear cut evidence of pneumonia, right middle lobe showed a small minimal infiltrate which actually improved from 09/27/2018 #2. Fever, leukocytosis #3. Recurrent episodes of pulmonary infections #4. Recent wedge biopsy of the right middle lobe in August 2018, and pathology was positive for smoking related respiratory bronchiolitis #5. History of chronic obstructive pulmonary disease #6. Nicotine dependence, ongoing #7. History of CVA/TIA #8. GERD #9. History of left breast biopsy #10. Anxiety Plan: The patient was seen and evaluated by Dr. Victoria. She has been slow to progress. We'll continue her current medications. We'll continue to follow. Home oxygen has been set up. I, the cosigning physician, performed a history & physical examination of the patient. Lungs sounds with few scattered rhonchi more so on the right. Maintaining good O2 saturations in the 90s on 2 L/m per nasal cannula. I discussed the assessment and plan of care with my nurse practitioner, Marylin Elaine. I attest to the above note as dictated by her.
[2018-12-01 17:12] LABS: Glucose,Whole Blood 189 mg/dL (75-99)
[2018-12-01 19:30] LABS: Glucose,Whole Blood 169 mg/dL (75-99)
[2018-12-01] MEDS: CARVEDILOL 3.125 MG TAB PO SCH (21:47)
[2018-12-01] MEDS: tiZANidine 4 MG TAB PO SCH (21:47)
[2018-12-02] MEDS: SODIUM CHLORIDE 0.9% 1,000 ML IV SCH (00:38)
[2018-12-02] MEDS: IPRATROPIUM-ALBUTEROL 3 ML NEB INHALATION SCH ×7 (01:29→21:24)
[2018-12-02] MEDS: oxyCODONE-APAP 10-325MG 1 EACH TAB PO PRN ×3 (05:12→21:00)
[2018-12-02] MEDS: BENZONATATE 100 MG CAP PO PRN ×2 (05:14→12:53)
[2018-12-02 07:18] LABS: Glucose,Whole Blood 153 mg/dL (75-99)
--- NOTE | 2018-12-02 08:03 | PN ---
PROGRESS NOTE DATE OF SERVICE: 12/01/2018 This 43-year-old woman was admitted with COPD acute exacerbation also suspected to have pneumonia. Patient also has interstitial lung disease. Dr. Victoria is following the patient closely with Infectious Disease. The patient is still having shortness of breath at this time. Home oxygen has been set up. PAST MEDICAL HISTORY: Reviewed. PHYSICAL EXAM: Patient is alert, oriented x3. Pulse 80, blood pressure 144/63, respiration 18, temperature 97.4, pulse ox 94% on 2 L. HEENT: Conjunctivae normal. NECK: No jugular venous distention. CARDIOVASCULAR: S1, S2 muffled. RESPIRATORY: Breath sounds diminished in the bases. A few scattered rhonchi. ABDOMEN: Soft. NERVOUS SYSTEM: No focal deficits. LABS: WBC 22.5, hemoglobin is 12.3. Accu-Cheks noted. ASSESSMENT: 1. Chronic obstructive pulmonary disease acute exacerbation as well as possible right middle lobe pneumonia, community-acquired with failure of outpatient treatment. 2. History of recent bilateral pneumonia, recurrent pneumonia and possible interstitial lung disease. 3. Urine culture showing strep agalactiae group B. 4. History of recent right lung biopsy. 5. Hypokalemia, mild. 6. Continued ongoing nicotine dependence. 7. Increased WBC. 8. Possible chronic obstructive pulmonary disease. 9. Cerebrovascular accident, transient ischemic attack. 10.History of DVT. 11.History of fibromyalgia. 12.History of gastroesophageal reflux disease. 13.History of degenerative joint disease. 14.History of breast surgery. 15.History of anxiety. RECOMMENDATIONS AND DISCUSSION: I recommend to continue current management, monitoring and symptomatic treatment with bronchodilators. Continue with steroids, continue with antibiotics. Closely follow with Infectious Disease and Pulmonary. Guarded prognosis. Further recommendations to follow. MMODL / IJN: [id number] /
[2018-12-02] MEDS: SYMBICORT 160-4.5 MCG INHALER INHALATION SCH ×2 (08:14→21:08)
[2018-12-02] MEDS: DULoxetine HCL 60 MG CAPSULE.DR PO SCH ×2 (08:38→21:00)
[2018-12-02] MEDS: traMADol 50 MG TAB PO PRN (08:38)
[2018-12-02] MEDS: PANTOPRAZOLE 40 MG TABLET PO SCH ×2 (08:38→21:00)
[2018-12-02] MEDS: rOPINIRole HCL 4 MG TABLET PO SCH ×3 (08:38→21:00)
[2018-12-02] MEDS: methylPREDNISolone SOD SUCCI 40 MG/ML 1 ML VIAL IV SCH ×2 (08:38→21:01)
[2018-12-02] MEDS: HEPARIN SODIUM,PORCINE 5,000 UNIT/ML 1 ML VIAL SQ SCH ×2 (08:39→21:01)
[2018-12-02] MEDS: INSULIN ASPART 100 UNIT/ML 1 ML 10 ML VIAL SQ SCH ×4 (08:39→21:01)
[2018-12-02] MEDS: AZITHROMYCIN 500 MG TAB PO SCH (08:39)
[2018-12-02] MEDS: ONDANSETRON ODT 4 MG TAB PO PRN ×2 (08:47→20:59)
[2018-12-02] MEDS: OXYMETAZOLINE 0.05% NASL SPRAY 1 SPRAY BOTTLE NASAL SCH ×2 (10:37→20:59)
[2018-12-02 11:04] LABS: HCT 38.6 % (34.0-46.0); HGB 12.4 gm/dL (11.4-16.0); MCH 31.1 pg (25.0-35.0); MCHC 32.1 g/dL (31.0-37.0); Mean Platelet Volume 7.2; Platelet Count 284 k/uL (150-450); RBC 3.98 m/uL (3.80-5.40); RDW 13.8 % (11.5-15.5); WBC 19.8 k/uL (3.8-10.6)
[2018-12-02 11:17] LABS: Anion Gap 8 mmol/L; Blood Urea Nitrogen 25 mg/dL (7-17); Carbon Dioxide 33 mmol/L (22-30); Chloride 97 mmol/L (98-107); Glucose 291 mg/dL (74-99); Potassium 4.5 mmol/L (3.5-5.1); Sodium 138 mmol/L (137-145)
[2018-12-02 11:35] LABS: Glucose,Whole Blood 294 mg/dL (75-99)
[2018-12-02 13:01] LABS: Band Neutrophils % 1 %; Lymphocytes # (M) 3.96 k/uL (1.0-4.8); Metamyelocytes # (M) 1.39 k/uL (0); Metamyelocytes % 7 %; Monocytes # (M) 0.59 k/uL (0-1.0); Myelocytes # (M) 1.98 k/uL (0); Myelocytes % 10 %; Neutrophils % (M) 60 %; Nucleated Red Blood Cells 0 /100 WBC (0-0); Total Cells Counted 200
[2018-12-02 14:14] LABS: Glucose,Whole Blood 186 mg/dL (75-99)
[2018-12-02] MEDS: ALPRAZolam 0.25 MG TAB PO PRN ×2 (16:35→21:00)
--- NOTE | 2018-12-02 16:36 | P.PN ---
Subjective Progress Note Date: 12/02/18 Principal diagnosis: Acute hypoxic respiratory failure secondary to acute COPD exacerbation. This is a 43-year-old white female patient of Dr. Murdock with past medical history of smoking induced interstitial lung disease, recurrent pneumonia, smoking, recent VATS with wedge biopsy of the right middle lobe in August [address] Rivero, which were positive for respiratory bronchiolitis, and cultures were negative. Patient follows with Dr. Cain in the pulmonary clinic, has a history of COPD, asthma, chronic pain syndrome, hearing loss, osteoarthritis, anxiety. Patient presented to the emergency department on 11/26/2018 for evaluation of cough, congestion, and has been feeling ill for the last month. She completed 2 courses of doxycycline through Dr. Rivero. She had a recent upper respiratory infection. She did have a fever at home, the temp of 104F. She was started on oral prednisone taper, and nebulized treatments, with no improvement. Was having some mild right ear pain, sore throat. Chest x-ray showed small minimal infiltrate in the anterior right middle lobe, which was actually improved compared the previous chest x-ray from 09/27/2018. Labs showed WBC of 15.5, hemoglobin of 14.5, sodium of 139, potassium is 5.5, chloride is 106, CO2 is 22, BUN is 25 and creatinine 0.54, troponin was negative 1, CRP was 52.6, urinalysis was negative, influenza screen was negative. Patient was started on azithromycin and Rocephin, IV steroids, and nebulized bronchodilators. On 11/29/2018 patient seen in follow-up on medical surgical floor. He still remains quite bronchospastic, feeling a little better overall, but still has chest tightness, lung sounds are positive for end expiratory wheezes, few rales at the left lung base. Today's labs have been reviewed, WBC is 19.9, hemoglobin was 12.6, electrolytes were within normal limits, BUN is 24 creatinine 0.61. Pulse ox is 92%, no fever or chills, vital signs are stable. Urine cultures showed strep agalactiae, group B, less than 10,000 colonies/ml. The patient denies any urinary symptoms. Sputum culture growing few gram- positive bacilli, few gram-positive cocci. Final cultures pending. Current abiotic coverage includes Zithromax and Rocephin. Patient seen today 11/30/2018 in follow-up on the regular medical floor. She is up ambulating in her room. She is awake and alert in no acute distress. She is better but not quite back to her baseline. Blood culture reveals no growth. Sputum reveals no growth. Urine culture was strep agalactia group B. She is maintaining O2 saturations in the low 90s on 2 L/m per nasal cannula. She does desaturate into the 80s on room air and needed some home oxygen. She' s been afebrile. Hemodynamically stable. White count 20.3. Hemoglobin 12.6. Creatinine 0.68. She remains on ceftriaxone and azithromycin along with DuoNeb inhalations, Symbicort, IV Solu-Medrol. The patient is seen today 12/01/2018 in follow-up on the regular medical floor. She remains awake and alert in no acute distress. She has been quite weak and dyspneic on minimal exertion however. Family maintaining O2 saturations in the low 90s on 2 L/m per nasal cannula. Home oxygen has been set up. She is afebrile. Blood culture revealed no growth. Sputum culture revealed no growth. He count 22.5. Hemoglobin 12.3. Neutrophils 17.7. Creatinine 0.64. She remains on ceftriaxone and azithromycin. ID is on the case. Patient was reevaluated today on 12/02/2018, feeling much better, breathing a lot easier, hence I believe the patient could be considered to be discharged home today. Discussed today on her meds, discussed the issue of smoking, and I felt the patient should have follow-up with Dr. Cain on outpatient basis in the next 2 weeks. She does have a bit of leukocytosis with WBC count of 19.8, hemoglobin is 12.4, basic metabolic profile is normal Objective - Vital Signs Vital signs: Vital Signs Temp 98.5 F 12/02/18 14:01 Pulse 78 12/02/18 16:23 Resp 16 12/02/18 08:40 BP 124/79 12/02/18 14:01 Pulse Ox 95 12/02/18 14:01 Intake & Output 12/01/18 12/02/18 12/02/18 18:59 06:59 18:59 Intake Total 1080 Balance 1080 Intake: Oral 1080 Other: Voiding Method Toilet # Voids 3 3 - Exam Physical Exam: Revealed a 43-year-old female in no distress. Head: Atraumatic normocephalic. HEENT:[Neck is supple.] [No neck masses.] [No thyromegaly.] [No JVD.] Chest: [Diminished breath sound bilaterally, some wheezing on forced expiratory maneuver only. Cardiac Exam: [Normal S1 and S2, no S3 gallop, no murmur.] Abdomen: [Soft, nontender, no megaly, no rebound, no guarding, normal bowel sounds.] Extremities: [No clubbing, no edema, no cyanosis.] Neurological Exam: [No focal neurologic deficit.] - Labs CBC & Chem 7: 12/02/18 10:39 12/02/18 10:39 Labs: Abnormal Lab Results - Last 24 Hours (Table) 12/01/18 12/01/18 12/02/18 Range/Units 17:00 19:28 07:17 WBC (3.8-10.6) k/uL Neutrophils # (Manual) (1.3-7.7) k/uL Metamyelocytes # (Man) (0) k/uL Myelocytes # (Manual) (0) k/uL Chloride (98-107) mmol/L Carbon Dioxide (22-30) mmol/L BUN (7-17) mg/dL Glucose (74-99) mg/dL POC Glucose (mg/dL) 189 H 169 H 153 H (75-99) mg/dL 12/02/18 12/02/18 12/02/18 Range/Units 10:39 10:39 11:23 WBC 19.8 H (3.8-10.6) k/uL Neutrophils # (Manual) 12.00 H (1.3-7.7) k/uL Metamyelocytes # (Man) 1.39 H (0) k/uL Myelocytes # (Manual) 1.98 H (0) k/uL Chloride 97 L (98-107) mmol/L Carbon Dioxide 33 H (22-30) mmol/L BUN 25 H (7-17) mg/dL Glucose 291 H (74-99) mg/dL POC Glucose (mg/dL) 294 H (75-99) mg/dL 12/02/18 Range/Units 14:12 WBC (3.8-10.6) k/uL Neutrophils # (Manual) (1.3-7.7) k/uL Metamyelocytes # (Man) (0) k/uL Myelocytes # (Manual) (0) k/uL Chloride (98-107) mmol/L Carbon Dioxide (22-30) mmol/L BUN (7-17) mg/dL Glucose (74-99) mg/dL POC Glucose (mg/dL) 186 H (75-99) mg/dL Microbiology - Last 24 Hours (Table) 11/26/18 23:20 Blood Culture - Preliminary Blood No Growth after 120 hours Assessment and Plan Assessment: #1. Acute hypoxic respiratory failure secondary to an acute COPD exacerbation, chest x-ray did not show any clear cut evidence of pneumonia, right middle lobe showed a small minimal infiltrate which actually improved from 09/27/2018 #2. Fever, leukocytosis #3. Recurrent episodes of pulmonary infections #4. Recent wedge biopsy of the right middle lobe in August 2018, and pathology was positive for smoking related respiratory bronchiolitis #5. History of chronic obstructive pulmonary disease #6. Nicotine dependence, ongoing #7. History of CVA/TIA #8. GERD #9. History of left breast biopsy #10. Anxiety Recommendation: Suggest switching the patient to oral medication, discharge the patient home on her usual bronchodilators, antibiotics, prednisone at 40 mg daily until she is seen by Dr. Cain in our office. Patient will need home O2 and this will be addressed again on outpatient basis. Time with Patient: Less than 30
[2018-12-02 17:14] LABS: Glucose,Whole Blood 117 mg/dL (75-99)
[2018-12-02 20:01] LABS: Glucose,Whole Blood 154 mg/dL (75-99)
[2018-12-02] MEDS: CARVEDILOL 3.125 MG TAB PO SCH (21:00)
[2018-12-02] MEDS: tiZANidine 4 MG TAB PO SCH (21:00)
[2018-12-03] MEDS: IPRATROPIUM-ALBUTEROL 3 ML NEB INHALATION SCH ×4 (00:39→12:40)
[2018-12-03] MEDS: oxyCODONE-APAP 10-325MG 1 EACH TAB PO PRN ×3 (01:39→14:29)
[2018-12-03] MEDS: SODIUM CHLORIDE 0.9% 1,000 ML IV SCH (02:25)
[2018-12-03 02:31] VITALS: RESP 16
--- NOTE | 2018-12-03 04:58 | PN ---
PROGRESS NOTE DATE OF SERVICE: 12/02/2018 This 43-year-old woman who was admitted with COPD and possible pneumonia is being closely monitored. The patient is seen by Pulmonology and Infectious Disease. No chest pain or palpitations. No fever. PHYSICAL EXAMINATION: On exam, alert and oriented x3. Pulse blood pressure 123/75, respiration 18, temperature 98.3, pulse ox 93% on 2 L. HEENT: Conjunctivae normal. NECK: No jugular venous distention. CARDIOVASCULAR: S1, S2 muffled. RESPIRATORY: Breath sounds diminished in the base. A few scattered rhonchi and crackles. Abdomen is soft, nontender. LEGS: No edema, no swelling. NERVOUS SYSTEM: No focal deficits. LABS: Labs are WBC 19.8. noted. Glucose noted. ASSESSMENT: 1. Chronic obstructive pulmonary disease acute exacerbation as well as possible right middle lobe pneumonia, community-acquired with failure of outpatient treatment. 2. History of recent bilateral pneumonia, recurrent pneumonia possibly interstitial lung disease. 3. Urine culture showing Strep agalactiae group B. 4. Metamyelocytes, myelocytes in the peripheral smear. 5. History of recent right lung biopsy. 6. Hyperkalemia, mild. 7. Continued ongoing nicotine dependence. 8. Increased WBC. 9. Possible chronic obstructive pulmonary disease. 10.Cerebrovascular accident, transient ischemic attack. 11.History of deep venous thrombosis. 12.Fibromyalgia. 13.Gastroesophageal reflux disease. 14.History of degenerative joint disease. 15.History of breast surgery. 16.History of anxiety. RECOMMENDATIONS AND DISCUSSION: Recommend to continue current medications. Continue with monitoring and symptomatic treatment. Otherwise at this time I recommend to continue with antibiotics and also recommend followup of the abnormal labs, which could be a reactive at this time but however prognosis guarded because of multiple complex medical issues. Further recommendations to follow. MMODL / IJN: [id number] / OBDULIA
[2018-12-03 07:35] LABS: Glucose,Whole Blood 210 mg/dL (75-99)
[2018-12-03] MEDS: DULoxetine HCL 60 MG CAPSULE.DR PO SCH (08:05)
[2018-12-03] MEDS: HEPARIN SODIUM,PORCINE 5,000 UNIT/ML 1 ML VIAL SQ SCH (08:05)
[2018-12-03] MEDS: PANTOPRAZOLE 40 MG TABLET PO SCH (08:05)
[2018-12-03] MEDS: OXYMETAZOLINE 0.05% NASL SPRAY 1 SPRAY BOTTLE NASAL SCH (08:05)
[2018-12-03] MEDS: INSULIN ASPART 100 UNIT/ML 1 ML 10 ML VIAL SQ SCH ×2 (08:06→13:16)
[2018-12-03] MEDS: methylPREDNISolone SOD SUCCI 40 MG/ML 1 ML VIAL IV SCH ×2 (08:08→11:06)
[2018-12-03] MEDS: ONDANSETRON ODT 4 MG TAB PO PRN (08:11)
[2018-12-03] MEDS: rOPINIRole HCL 4 MG TABLET PO SCH (08:12)
[2018-12-03] MEDS: AZITHROMYCIN 500 MG TAB PO SCH (08:12)
[2018-12-03] MEDS: BENZONATATE 100 MG CAP PO PRN (08:17)
[2018-12-03] MEDS: SYMBICORT 160-4.5 MCG INHALER INHALATION SCH (08:29)
[2018-12-03 09:08] LABS: HCT 41.8 % (34.0-46.0); HGB 12.7 gm/dL (11.4-16.0); MCH 29.4 pg (25.0-35.0); MCHC 30.4 g/dL (31.0-37.0); MCV 96.6 fL (80.0-100.0); Mean Platelet Volume 6.9; Platelet Count 336 k/uL (150-450); RBC 4.32 m/uL (3.80-5.40); RDW 13.9 % (11.5-15.5); WBC 21.7 k/uL (3.8-10.6)
[2018-12-03 09:19] LABS: Anion Gap 8 mmol/L; Blood Urea Nitrogen 32 mg/dL (7-17); Calcium 9.1 mg/dL (8.4-10.2); Carbon Dioxide 33 mmol/L (22-30); Chloride 95 mmol/L (98-107); Glucose 205 mg/dL (74-99); Potassium 4.6 mmol/L (3.5-5.1); Sodium 136 mmol/L (137-145)
[2018-12-03] MEDS ORDERED: predniSONE 20 MG TAB PO STA (10:39)
[2018-12-03 10:41] LABS: Band Neutrophils % 4 %; Lymphocytes # (M) 2.39 k/uL (1.0-4.8); Metamyelocytes # (M) 0.87 k/uL (0); Metamyelocytes % 4 %; Monocytes # (M) 0.65 k/uL (0-1.0); Myelocytes # (M) 0.65 k/uL (0); Myelocytes % 3 %; Neutrophils % (M) 76 %; Nucleated Red Blood Cells 0 /100 WBC (0-0); Total Cells Counted 200; Toxic Granulation Present
[2018-12-03 10:42] LABS: Anisocytosis (M) Present; Poikilocytosis (M) Present
[2018-12-03 11:58] LABS: Glucose,Whole Blood 152 mg/dL (75-99)
[2018-12-03 15:51] VITALS: BP 113/70; PULSE 80; TEMP 98.2
--- NOTE | 2018-12-03 16:22 | PN ---
PROGRESS NOTE This is a 43-year-old female with a history of acute hypoxemic respiratory failure secondary to acute COPD exacerbation. The patient has a history of respiratory bronchiolitis-interstitial lung disease/smoking-related interstitial fibrosis. The patient has a history of also having recurrent episodes of pulmonary infections, and a lung biopsy did show evidence of the smoking-related interstitial fibrosis. In addition she has a history of chronic and ongoing tobacco dependence, CVA, GERD, left breast biopsy and anxiety. The patient is feeling better. Less short of breath. She is very short of breath on exertion. I did assistant counsel her about the importance of smoking cessation. I believe she is continuing to smoke. She knows that her disease will never get better if she continues to smoke. Microbiologically, the urine showed evidence of group B strep. Laboratory-myers, she has a white count of 21.7, hemoglobin 12.7, hematocrit 41.8, platelet count 336,000. Sodium 136, potassium 4.6, chloride 95, CO2 33. Anion gap is normal. BUN and creatinine were 32 and 0.59. Current vital signs are reviewed. Temperature 98.2, heart rate 80, respiratory rate 16, blood pressure 113/70, mean 84. Two-liter saturation 94%. Appears in no acute distress. Very short of breath on activity, which is walking back from the bathroom to the bed. HEENT examination is grossly unremarkable. Mucous membranes are moist. No oral lesions. Neck is supple. Full range of motion. No adenopathy or thyromegaly. Neck veins are flat. Cardiovascular examination reveals regular rhythm and rate. S1, S2 normal. No S3, S4 or murmur. Lungs reveal a few scattered coarse rhonchi. Breath sounds are diminished. There is prolongation on forced maneuver. No crackles. Abdomen is soft. Abdomen is obese. Bowel sounds are noted. Extremities are intact. No cyanosis, clubbing or edema. Skin without rash. Neurologic examination is brief but nonfocal. Labs, x-rays and medications are all reviewed. Her only x-ray was on November 26. ASSESSMENT: 1. Acute hypoxemic respiratory failure secondary to chronic obstructive pulmonary disease exacerbation. No clear-cut evidence of pneumonia. 2. Recurrent episodes of pulmonary infections. 3. Status post VATS lung biopsy, right middle lobe, August 2018, showing evidence of respiratory bronchiolitis-interstitial lung disease/smoking-related interstitial fibrosis. 4. History of chronic obstructive pulmonary disease. 5. History of ongoing tobacco dependence and nicotine abuse. 6. History of cerebrovascular accident. 7. History of gastroesophageal reflux disease. 8. History of left breast biopsy. 9. History of anxiety. PLAN: The patient is doing better; possibly going to be discharged in next 24-48 hours. I asked her to make sure she sees me in the office in followup. She did miss her last appointment. The patient is again counseled about the importance of smoking cessation. She knows her disease will never improve if she continues to smoke. No additional recommendations are made. Prognosis is very guarded. MMODL / IJN: [id number] /
== END 2018-12-03 15:40 | disposition home or self-care (01) | DRG 190 ==
LOC: EC 21:40 → 4SSUR 11-27 00:35 → OBSVTOIN 11-29 09:02
PROVIDERS: ADMIT Hospitalist; ATTEND Hospitalist
DX: J44.0 Chronic obstructive pulmonary disease with (acute) lower respiratory infection (principal); J96.01 Acute respiratory failure with hypoxia; J84.9 Interstitial pulmonary disease, unspecified; J44.1 Chronic obstructive pulmonary disease with (acute) exacerbation; E66.9 Obesity, unspecified; Z68.33 Body mass index [BMI] 33.0-33.9, adult; F06.4 Anxiety disorder due to known physiological condition; F17.200 Nicotine dependence, unspecified, uncomplicated; F41.0 Panic disorder [episodic paroxysmal anxiety]; G89.4 Chronic pain syndrome; H91.91 Unspecified hearing loss, right ear; K21.9 Gastro-esophageal reflux disease without esophagitis; M79.7 Fibromyalgia; Z16.24 Resistance to multiple antibiotics; Z79.51 Long term (current) use of inhaled steroids; Z79.899 Other long term (current) drug therapy; Z80.0 Family history of malignant neoplasm of digestive organs; Z80.49 Family history of malignant neoplasm of other genital organs; Z82.49 Family history of ischemic heart disease and other diseases of the circulatory system; Z83.3 Family history of diabetes mellitus; Z86.718 Personal history of other venous thrombosis and embolism; Z86.73 Personal history of transient ischemic attack (TIA), and cerebral infarction without residual deficits; Z87.01 Personal history of pneumonia (recurrent); Z90.710 Acquired absence of both cervix and uterus; Z71.6 Tobacco abuse counseling
CPT/HCPCS: 36415; 71046; 80048; 80053; 81003; 83605; 84484; 85025; 85610; 85652; 85730; 86038; 86140; 86431; 86738; 87040; 87070; 87086; 87205; 87449; 87502; 94640; 94760; 96365; 96375; 99284

== ENCOUNTER → 2019-01-28 | Outpatient (CLI) | payer MEDICARE, OTHER ==
--- NOTE | 2019-01-28 21:21 | MR ---
EXAMINATION TYPE: MR lumbar spine wo con DATE OF EXAM: 01/28/2019 COMPARISON: CT lumbar spine 08/12/2018 HISTORY: Low back pain CONTRAST: 0 mL intravenous Gadavist. TECHNIQUE: Multiplanar, multisequence images of the lumbar spine were acquired. FINDINGS: L5-S1: There is a tiny central protrusion. No thecal sac compression is evident. No spinal canal sten osis present. Facet hypertrophy is present on the right without thecal sac compression. Mild right fo raminal stenosis is present. L4-L5: Broad-based disc bulging is anterior thecal sac flattening. No AP spinal canal stenosis is pre sent. Facet degenerative changes are present. Neural foramen are patent. L3-L4: No significant disc bulge or disc herniation. No spinal canal stenosis. No foraminal stenosi s. Mild facet degenerative changes present. L2-L3: No significant disc bulge or disc herniation. No spinal canal stenosis. No foraminal stenosi s. L1-L2: No significant disc bulge or disc herniation. No spinal canal stenosis. No foraminal stenosi s. T12-L1: No significant disc bulge or disc herniation. No spinal canal stenosis. No foraminal stenos is. Disc heights are preserved. Vertebral body heights are preserved. Disc hydration is normal. Cord terminates at the L1-2 level IMPRESSION: 1. Tiny central protrusion L5-S1 of questionable clinical significance. 2. Facet degenerative changes through the lower lumbar spine causing some mild right foraminal stenos is L5-S1.
== END | disposition home or self-care (01) ==
LOC: RADMRIMAIN 19:16
PROVIDERS: ATTEND Physician Assistant
DX: M48.07 Spinal stenosis, lumbosacral region (principal); M47.816 Spondylosis without myelopathy or radiculopathy, lumbar region
CPT/HCPCS: 72148

== ENCOUNTER 2019-04-27 23:37 | Emergency (ER) | payer MEDICARE, OTHER ==
--- NOTE | 2019-04-28 00:18 | XR ---
EXAM: XR Chest, 2 Views CLINICAL HISTORY: ITS.REASON XR Reason: cough TECHNIQUE: Frontal and lateral views of the chest. COMPARISON: 11/26/18 FINDINGS: Lungs: Mild streaky densities in the right middle lobe. No consolidation. Pleural space: Unremarkable. No pneumothorax. Heart: Unremarkable. No cardiomegaly. Mediastinum: Unremarkable. Bones/joints: Unremarkable. IMPRESSION: Possible right middle lobe pneumonia. Follow-up in 4-6 weeks to ensure resolution.
[2019-04-28] MEDS ORDERED: ACETAMINOPHEN TAB 325 MG TAB PO STA (02:11)
[2019-04-28] MEDS ORDERED: IPRATROPIUM-ALBUTEROL 3 ML NEB INHALATION STA (02:11)
[2019-04-28] MEDS ORDERED: AZITHROMYCIN 500 MG TAB PO STA (02:11)
--- NOTE | 2019-04-28 02:11 | ED ---
URI HPI - General Chief Complaint: Upper Respiratory Infection Stated Complaint: dx Pneumonia Time Seen by Provider: 04/28/19 00:53 Source: patient Mode of arrival: ambulatory Limitations: no limitations - History of Present Illness Initial Comments: This patient is a 44-year-old woman who states that she has had nearly 2 weeks as cough, intermittent fever, mild shortness of breath. She saw her clinic doctor and she was given a course of levofloxacin but states that the symptoms have continued despite this. Patient denies chest pain. MD Complaint: cough -: days(s) Consistency: constant Improves With: nothing Worsens With: nothing Associated Symptoms: fever, cough, shortness of breath Treatments Prior to Arrival: antibiotics - Related Data Home Medications Medication Instructions Recorded Confirmed DULoxetine HCL [Cymbalta] 60 mg PO BID 04/03/14 05/14/19 Pantoprazole Sodium [Protonix] 40 mg PO BID 04/03/14 05/14/19 Albuterol Nebulized [Ventolin 2.5 mg INHALATION RT-QID PRN 03/29/16 05/10/19 Nebulized] EPINEPHrine (Auto Inject) [Epipen] 0.3 mg IM ONCE PRN 08/15/16 05/14/19 traMADol HCL [Tramadol HCl] 100 mg PO Q6H PRN 11/11/16 05/14/19 Albuterol Sulfate [Proair Hfa] 1 - 2 puff INHALATION RT-Q6H PRN 03/23/17 05/10/19 Budesonide-Formot 160-4.5 Mcg 2 puff INHALATION RT-BID 04/03/17 05/14/19 [Symbicort 160-4.5 Mcg Inhaler] Carvedilol [Coreg] 3.125 mg PO HS 03/16/18 05/14/19 oxyCODONE-APAP 10-325MG [Percocet 1 tab PO Q4H PRN 03/16/18 05/14/19 10-325 mg] rOPINIRole HCL [Requip] 4 mg PO TID 03/16/18 05/14/19 Ondansetron Odt [Zofran ODT] 8 mg PO Q12HR PRN 09/13/18 05/14/19 tiZANidine [Zanaflex] 8 mg PO HS 11/26/18 05/14/19 Previous Rx's Medication Instructions Recorded Ipratropium-Albuterol Nebulize 3 ml INHALATION QID #120 ampul.neb 12/03/18 [Duoneb 0.5 mg-3 mg/3 ml Soln] Allergies Allergy/AdvReac Type Severity Reaction Status Date / Time aripiprazole [From Abilify] Allergy tremors,spa Verified 05/14/19 11:11 sms fentanyl Allergy Rash/Hives Verified 05/14/19 11:11 (only with patch) Iodinated Contrast- Oral and Allergy Anaphylaxis Verified 05/14/19 11:11 IV Dye [Iodinated Contrast Media - IV Dye] shellfish derived Allergy Anaphylaxis Verified 05/14/19 11:11 buspirone AdvReac Hallucinati Verified 05/14/19 11:11 ons escitalopram [From Lexapro] AdvReac "mean Verified 05/14/19 11:11 behavior" Review of Systems ROS Statement: Those systems with pertinent positive or pertinent negative responses have been documented in the HPI. ROS Other: All systems not noted in ROS Statement are negative. Constitutional: Reports: fever. Denies: chills, weakness Respiratory: Reports: cough, dyspnea. Denies: hemoptysis Cardiovascular: Denies: chest pain, palpitations, edema, syncope Gastrointestinal: Denies: abdominal pain, nausea, vomiting Genitourinary: Denies: dysuria, hematuria Musculoskeletal: Denies: back pain Skin: Denies: rash Neurological: Denies: headache Past Medical History Past Medical History: Asthma, COPD, CVA/TIA, Deep Vein Thrombosis (DVT), Fibromyalgia, GERD/Reflux, Osteoarthritis (OA), Pneumonia Additional Past Medical History / Comment(s): pneumonia for 3 months-multiple courses of A/B & steroids,*DEAF IN RIGHT EAR. TIA x2-speech affected & INCREASED HR-tachycardia. Neuropathy feet; UNSTEADY WHEN UP/BALANCE ISSUES- BORN CLUB FEET "I HAVE BAD KNEES AND BAD LT HIP". Dvt right leg-2001. PT STATED HAS BEEN EXPOSED TO BLACK MOLD, low threshold for seizures per pt,chronic back pain,aparna ble to lay flat, History of Any Multi-Drug Resistant Organisms: None Reported Past Surgical History: Breast Surgery, Ear Surgery, Heart Catheterization, Hysterectomy Additional Past Surgical History / Comment(s): Multiple SX day clubfeet. TUBES IN EARS, Kartush patches both ears, POLYPS REMOVED FROM THROAT-BENIGN. Lt shazia ast biopsy BRONCHOSCOPY-BENIGN NODULE REMOVED."bronchial septalplasty". COLONOSCOPY, right salpingo-oophorectomy, rt foot fusion/plate and screws jan 18 2018. lung biopsy. Past Anesthesia/Blood Transfusion Reactions: Previous Problems w/ Anesthesia, Motion Sickness, Postoperative Nausea & Vomiting (PONV) Additional Past Anesthesia/Blood Transfusion Reaction / Comment(s): Problems/w/anes in Nov after colonoscopy. "Too much given & couldn't wake up".....However, patient states they have to give her more meds to get her to be sedated."AFTER 1 SX THEY TOLD ME I STOPPED BREATHING DURING SX approx 14 yrs ago" Past Psychological History: Anxiety Smoking Status: Former smoker Past Alcohol Use History: None Reported Past Drug Use History: None Reported - Past Family History Mother Family Medical History: Diabetes Mellitus Additional Family Medical History / Comment(s): IRREG HEART BEAT. GRANDMOTHER HAD COLON CANCER AND HEART DISEASE Father Family Medical History: Hyperlipidemia, Hypertension Sister(s) Family Medical History: AFIB, Cancer, CVA/TIA, Hypertension Additional Family Medical History / Comment(s): CERVICAL CANCER General Exam Limitations: no limitations General appearance: alert, in no apparent distress Head exam: Present: atraumatic, normocephalic Eye exam: Present: normal appearance. Absent: scleral icterus, conjunctival injection ENT exam: Present: normal oropharynx Neck exam: Present: normal inspection Respiratory exam: Present: rales. Absent: respiratory distress, wheezes, rhonchi, stridor Cardiovascular Exam: Present: regular rate, normal rhythm, normal heart sounds GI/Abdominal exam: Present: soft. Absent: distended, tenderness, guarding, rebound, rigid, mass Extremities exam: Present: normal inspection, normal capillary refill. Absent: pedal edema, calf tenderness Back exam: Present: normal inspection. Absent: CVA tenderness (R), CVA tenderness (L) Skin exam: Present: warm, dry, intact, normal color. Absent: rash Course Vital Signs 04/27/19 04/28/19 23:54 02:55 Temperature 100.2 F H 97.8 F Pulse Rate 103 H 85 Respiratory 19 14 Rate Blood Pressure 119/80 112/66 O2 Sat by Pulse 96 96 Oximetry Medical Decision Making - Medical Decision Making Patient is a 44-year-old woman with respiratory symptoms including cough, intermittent fevers, mild shortness of breath x-ray shows possible persistence of a right sided infiltrate. We'll give patient's course of new antibiotic and appropriate further care and follow-up. Discussed other return parameters - Lab Data Lab Results 04/28/19 Range/Units 01:00 Influenza Type A RNA Not Detected (Not Detectd) Influenza Type B (PCR) Not Detected (Not Detectd) Disposition Clinical Impression: Pneumonia Disposition: HOME SELF-CARE Condition: Good Instructions (If sedation given, give patient instructions): Pneumonia (ED) Is patient prescribed a controlled substance at d/c from ED?: No Referrals: Judah Murdock DO [Primary Care Provider] - 1-2 days
[2019-04-28 02:56] VITALS: BP 112/66; PULSE 85; RESP 14; TEMP 97.8
== END 2019-04-28 03:05 | disposition home or self-care (01) ==
LOC: EEVIPCON 23:37 → EC 23:37
DX: J18.9 Pneumonia, unspecified organism (principal); J44.9 Chronic obstructive pulmonary disease, unspecified; K21.9 Gastro-esophageal reflux disease without esophagitis; F41.9 Anxiety disorder, unspecified; Z87.891 Personal history of nicotine dependence; Z79.51 Long term (current) use of inhaled steroids; Z79.899 Other long term (current) drug therapy; Z91.013 Allergy to seafood; Z91.041 Radiographic dye allergy status; Z88.8 Allergy status to other drugs, medicaments and biological substances; Z86.73 Personal history of transient ischemic attack (TIA), and cerebral infarction without residual deficits; Z86.718 Personal history of other venous thrombosis and embolism
CPT/HCPCS: 71046; 87502; 99283

== ENCOUNTER 2019-05-14 10:52 | Day surgery (SDC) | payer MEDICARE, OTHER ==
[2019-05-10 13:59] VITALS: BMI 33.0
[~2019-05-14 10:52] MED LIST changes: +ALBUTEROL NEB (CONC) 2.5 MG/0.5 ML INHALATION ONE; +ATROPINE SULFATE 0.4 MG/ML 1 ML VIAL IM ONE; +LIDOCAINE 1% 20 ML VIAL (10MG/ML) FOR IV START INTRADERMA PRN; +LIDOCAINE 2% (PF) 20 MG/ML 5 ML VIAL INHALATION ONE; +LIDOCAINE VISCOUS 300 MG/15 ML CUP MUCOUS MEM ONE; -ONDANSETRON 4 MG/2 ML VIAL IVP PRN; +SODIUM CHLORIDE 0.9% 1,000 ML IV SCH; -ceFAZolin IN SWFI 2 GM/20 ML SYRINGE IVP ONE
[2019-05-14 11:36] VITALS: RESP 16; TEMP 97.2
[2019-05-14] MEDS ORDERED: ONDANSETRON 4 MG/2 ML VIAL IVP ONE (11:37)
[2019-05-14 11:53] LABS: Glucose,Whole Blood 99 mg/dL (75-99)
[2019-05-14] MEDS ORDERED: LIDOCAINE 1% INJ 10MG/ML (20 ML MDV) ONE (11:54)
[2019-05-14] MEDS ORDERED: PROPOFOL 10 MG/ML 20 ML VIAL IV ONE (11:54)
[2019-05-14 13:15] VITALS: BP 119/76; PULSE 88
[2019-05-14 15:13] LABS: Appearance,BF Cloudy; Nucleated Cells, Body Fluid 158 /uL; RBC, Body Fluid 48 /uL
[2019-05-14 15:16] LABS: Mononuclear WBC,Body Fluid 77 %; Polynuclear WBC,Body Fluid 22 %; Total Cells Counted,Body Fluid 100
--- NOTE | 2019-05-14 23:49 | PCN ---
PROCEDURE NOTE PROCEDURE PERFORMED: Bronchoscopy, airway examination, therapeutic lavage and BAL. PREOP DIAGNOSIS: Respiratory bronchiolitis interstitial lung. POSTOP DIAGNOSIS: Respiratory bronchiolitis interstitial lung disease. There was informed consent. There was universal timeout. The patient's procedure took place in room #1. ANESTHESIA: Provided unconscious sedation and general anesthesia. AIR TABLE OPERATOR: Dr. Cain. DESCRIPTION OF PROCEDURE: After the patient was adequately sedated and being fully monitored, the bronchoscope was inserted through the right nostril. It passed through the right nasopharynx into the oropharynx. The hypopharynx was identified and topicalized. All the hypopharyngeal structures such as the anterior commissure, true cords, false cords, arytenoids, piriform sinuses, right and left vallecula and epiglottis all appeared normal. After topicalization, the bronchoscope was pushed through the glottic opening into the trachea. There was thick secretions that were purulent in color noted throughout the trachea and the right and left mainstem bronchi. The tracheal panda was sharp. The right and left mainstem bronchi were topicalized. The right upper lobe and its 3 segments, right middle lobe and its 2 segments, right lower lobe and its 5 segments, the left upper lobe and its 2 segments, the lingula and its 2 segments and the left lower lobe and its 4 segments had similar findings of diffuse bronchitis. There was airway hyperemia and erythema. There were thick secretions noted lining the bronchial air tubes. There was no dominant mass. All secretions were suctioned. The bronchoscope was then wedged into the right middle lobe. The BAL took place. The patient tolerated the procedure well. The bronchoscope was withdrawn. The patient will be recovered. I will speak to the patient's friend who brought the patient here. MMODL / IJN: [id number] /
== END 2019-05-14 13:12 | disposition home or self-care (01) ==
LOC: ORWHC2ENDO 10:52 → EEVIPCON 12:00 → ORWHC2ENDO 13:12
PROVIDERS: ATTEND Internal Medicine Critical Care Medicine
DX: J84.115 Respiratory bronchiolitis interstitial lung disease (principal); J44.9 Chronic obstructive pulmonary disease, unspecified; Z87.01 Personal history of pneumonia (recurrent); G47.00 Insomnia, unspecified; F41.1 Generalized anxiety disorder; K21.9 Gastro-esophageal reflux disease without esophagitis; G25.81 Restless legs syndrome; I10 Essential (primary) hypertension; M79.7 Fibromyalgia; Z87.891 Personal history of nicotine dependence; Z80.49 Family history of malignant neoplasm of other genital organs; Z90.710 Acquired absence of both cervix and uterus; Z79.891 Long term (current) use of opiate analgesic; Z79.51 Long term (current) use of inhaled steroids; Z79.899 Other long term (current) drug therapy; Z88.5 Allergy status to narcotic agent; Z91.013 Allergy to seafood; Z88.8 Allergy status to other drugs, medicaments and biological substances; Z91.048 Other nonmedicinal substance allergy status
CPT/HCPCS: 94640; 88108; 88305; 89050; 87252; 87070; 87205; 87116; 87102; 87206; 31624; J0461; J2405; J2001 ×2; J2704; 87496; 87498; 87502; 87529; 87634; 87798

== ENCOUNTER 2019-11-24 01:59 | Emergency (ER) | payer MEDICARE, OTHER ==
[2019-11-24 02:09] VITALS: RESP 18
--- NOTE | 2019-11-24 02:45 | XR ---
EXAMINATION TYPE: XR chest 2V DATE OF EXAM: 11/24/2019 COMPARISON: 05/09/2019 HISTORY: Cough TECHNIQUE: 2 views FINDINGS: There is no heart failure nor confluent pneumonic infiltrate. Costophrenic angles are clear . There is no pleural effusion. Heart is normal. Bony thorax is intact. IMPRESSION: Normal chest. No change.
[2019-11-24] MEDS ORDERED: IBUPROFEN 600 MG STARTER PACK 4 TAB BTL PO STA (03:51)
[2019-11-24] MEDS ORDERED: AZITHROMYCIN 500 MG TAB PO STA (03:51)
[2019-11-24] MEDS ORDERED: predniSONE 50 MG TAB PO STA (03:51)
[2019-11-24] MEDS ORDERED: IBUPROFEN 600 MG TAB PO STA (03:51)
--- NOTE | 2019-11-24 04:00 | ED ---
General Adult HPI - General Chief complaint: Upper Respiratory Infection Stated complaint: chest pressure Time Seen by Provider: 11/24/19 03:20 Source: patient, RN notes reviewed, old records reviewed Mode of arrival: ambulatory Limitations: no limitations - History of Present Illness Initial comments: 44-year-old female patient with past medical history significant for recurrent pneumonia, COPD, provoked DVT approximately 15 years back presents to ED for chief complaint of approximately 9 days cough, sinus congestion and drainage, productive with dark green mucus. Patient also reports that she has some right parasternal discomfort which is reproducible with palpation. Reports that she feels as if her breathing is around baseline, has some waxing and waning wheezing from time to time. Has been doing breathing treatments which helped. Denies any other complaints at this time. Systemic: Pt denies fatigue, fever/chills, rash. Pt denies weakness, night sweats, weight loss. Neuro: Pt denies headache, visual disturbances, syncope or pre-syncope. HEENT: Pt denies ocular discharge or irritation, otalgia, rhinorrhea, pharyngitis or notable lymphadenopathy. Cardiopulmonary: Pt denies chest pain, heart palpitations, dyspnea on exertion. Abdominal/GI: Pt denies abdominal pain, n/v/d. : Pt denies dysuria, burning w/ urination, frequency/urgency. Denies new onset urinary or bowel incontinence. MSK: Pt denies myalgia, loss of strength or function in extremities. Neuro: Pt denies new onset weakness, paresthesias. - Related Data Home Medications Medication Instructions Recorded Confirmed DULoxetine HCL [Cymbalta] 60 mg PO BID 04/03/14 05/14/19 Pantoprazole Sodium [Protonix] 40 mg PO BID 04/03/14 05/14/19 Albuterol Nebulized [Ventolin 2.5 mg INHALATION RT-QID PRN 03/29/16 05/10/19 Nebulized] EPINEPHrine (Auto Inject) [Epipen] 0.3 mg IM ONCE PRN 08/15/16 05/14/19 traMADol HCL [Tramadol HCl] 100 mg PO Q6H PRN 11/11/16 05/14/19 Albuterol Sulfate [Proair Hfa] 1 - 2 puff INHALATION RT-Q6H PRN 03/23/17 05/10/19 Budesonide-Formot 160-4.5 Mcg 2 puff INHALATION RT-BID 04/03/17 05/14/19 [Symbicort 160-4.5 Mcg Inhaler] Carvedilol [Coreg] 3.125 mg PO HS 03/16/18 05/14/19 oxyCODONE-APAP 10-325MG [Percocet 1 tab PO Q4H PRN 03/16/18 05/14/19 10-325 mg] rOPINIRole HCL [Requip] 4 mg PO TID 03/16/18 05/14/19 Ondansetron Odt [Zofran ODT] 8 mg PO Q12HR PRN 09/13/18 05/14/19 tiZANidine [Zanaflex] 8 mg PO HS 11/26/18 05/14/19 Previous Rx's Medication Instructions Recorded Ipratropium-Albuterol Nebulize 3 ml INHALATION QID #120 ampul.neb 12/03/18 [Duoneb 0.5 mg-3 mg/3 ml Soln] Albuterol Inhaler [Ventolin Hfa 1 - 2 puff INHALATION Q4-6H PRN #1 11/24/19 Inhaler] inhaler Albuterol Nebulized [Ventolin 2.5 mg INHALATION Q4H PRN 10 Days 11/24/19 Nebulized] nebu Azithromycin [Zithromax Z-pack] 0 mg PO DIRECTED #6 tab 11/24/19 predniSONE 50 mg PO DAILY #4 tab 11/24/19 Allergies Allergy/AdvReac Type Severity Reaction Status Date / Time aripiprazole [From Abilify] Allergy tremors,spa Verified 05/14/19 11:11 sms fentanyl Allergy Rash/Hives Verified 05/14/19 11:11 (only with patch) Iodinated Contrast Media Allergy Anaphylaxis Verified 05/14/19 11:11 [Iodinated Contrast Media - IV Dye] shellfish derived Allergy Anaphylaxis Verified 05/14/19 11:11 buspirone AdvReac Hallucinati Verified 05/14/19 11:11 ons escitalopram [From Lexapro] AdvReac "mean Verified 05/14/19 11:11 behavior" Review of Systems ROS Statement: Those systems with pertinent positive or pertinent negative responses have been documented in the HPI. ROS Other: All systems not noted in ROS Statement are negative. Past Medical History Past Medical History: Asthma, COPD, CVA/TIA, Deep Vein Thrombosis (DVT), Fibromyalgia, GERD/Reflux, Osteoarthritis (OA), Pneumonia Additional Past Medical History / Comment(s): pneumonia for 3 months (OCT 2018) -multiple courses of A/B & steroids- STATES PNEUMONIA AGAIN FOR THE LAST MONTH.,*DEAF IN RIGHT EAR. TIA x2 (2017)., tachycardia, Neuropathy feet; UNSTEADY WHEN UP/BALANCE ISSUUES, HX OF MULTIPLE SURGERIES ON CLUB FEET, PAIN IN FEET, LEGS, KNEES & HIPS., Hx of Dvt right groin & behind right knee. PT STATED HAS BEEN EXPOSED TO BLACK MOLD, low threshold for seizures per pt, unable to lay flat, STATES LUNG DISEASE-UNKNOWN NAME. 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 Lt breast biopsy BRONCHOSCOPY-BENIGN NODULE REMOVED."bronchial septalplasty". COLONOSCOPY, right salpingo-oophorectomy, rt foot fusion/plate and screws jan 18 2018. lung biopsy. Past Anesthesia/Blood Transfusion Reactions: Previous Problems w/ Anesthesia, Motion Sickness, Postoperative Nausea & Vomiting (PONV) Additional Past Anesthesia/Blood Transfusion Reaction / Comment(s): Problems/w/anes in Nov after colonoscopy. "Too much given & couldn't wake up".....However, patient states they have to give her more meds to get her to be sedated."AFTER 1 SX THEY TOLD ME I STOPPED BREATHING DURING SX approx 14 yrs ago" Past Psychological History: Anxiety Smoking Status: Former smoker Past Alcohol Use History: None Reported Past Drug Use History: None Reported - Past Family History Mother Family Medical History: Diabetes Mellitus Additional Family Medical History / Comment(s): IRREG HEART BEAT. GRANDMOTHER H AD COLON CANCER AND HEART DISEASE Father Family Medical History: Hyperlipidemia, Hypertension Sister(s) Family Medical History: AFIB, Cancer, CVA/TIA, Hypertension Additional Family Medical History / Comment(s): CERVICAL CANCER General Exam - General Exam Comments Initial Comments: Constitutional: NAD, AOX3, Pt has pleasant affect. HEENT: NC/AT, trachea midline, neck supple, no lymphadenopathy. Posterior pharynx non erythematous, without exudates. External ears appear normal, without discharge. Mucous membranes moist. Eyes PERRLA, EOM intact. There is no scleral icterus. No pallor noted. Cardiopulmonary: RRR, no murmurs, rubs or gallops, no JVD noted. Lungs CTAB in anterior and posterior greenberg. No peripheral edema. Abdominal exam: Abdomen soft and non-distended. Abdomen non-tender to palpation in all 4 quadrants. Bowel sounds active in LLQ. No hepatosplenomegaly. No ecchymosis Neuro: CN II-XII grossly intact. No nuchal rigidity. No raccon eyes, no campbell sign, no hemotympanum. No cervical spinal tenderness. MSK: Right parasternal discomfort reproducible upon palpation. No posterior calf tenderness bilaterally, homans sign negative bilaterally. Posterior tibialis and radial pulse +2 bilaterally. Sensation intact in upper and lower extremities. Full active ROM in upper and lower extremities, 5/5 stregnth. Limitations: no limitations Course Vital Signs 11/24/19 02:01 Temperature 97.8 F Pulse Rate 81 Respiratory 18 Rate Blood Pressure 127/82 O2 Sat by Pulse 98 Oximetry Medical Decision Making - Medical Decision Making 44-year-old female patient with past medical history significant for recurrent pneumonia, COPD, provoked DVT approximately 15 years back presents to ED for chief complaint of approximately 9 days cough, sinus congestion and drainage, productive with dark green mucus. Patient also reports that she has some right parasternal discomfort which is reproducible with palpation. Reports that she feels as if her breathing is around baseline, has some waxing and waning wheezing from time to time. Has been doing breathing treatments which helped. Denies any other complaints at this time. Patient vital signs are stable, afebrile. Physical exam displayed lungs clear to auscultation, right parasternal discomfort reproducible upon palpation. Patient does report this is the discomfort that she is experiencing. Laboratory investigations revealed negative influenza. Chest x-ray is negative. Patient is likely experiencing a bronchitis-like syndrome with some concurrent costochondritis. Patient will be initiated on steroids, anti-inflammatories, breathing treatments. Patient also be prescribed azithromycin. I discussed further workup for patient including laboratory investigations, EKG. Patient declined. Reports that she believes this is all due to the coughing, descending risk factors for PE with exception of prior provoked DVT. Discharged with strict return precautions. Patient to follow up with primary care prior to return to ER if condition worsens. Case discussed with Dr. Randhawa. - Lab Data Lab Results 11/24/19 Range/Units 02:10 Influenza Type A RNA Not Detected (Not Detectd) Influenza Type B (PCR) Not Detected (Not Detectd) Disposition Clinical Impression: Bronchitis, Costochondritis Disposition: HOME SELF-CARE Condition: Stable Instructions (If sedation given, give patient instructions): Costochondritis (ED), Acute Bronchitis (ED) Additional Instructions: Take medications as directed. Follow up with primary care provider tomorrow. Return to ER if condition worsens in any way. Prescriptions: predniSONE 50 mg PO DAILY #4 tab Albuterol Inhaler [Ventolin Hfa Inhaler] 1 - 2 puff INHALATION Q4-6H PRN #1 inhaler PRN Reason: Cough Albuterol Nebulized [Ventolin Nebulized] 2.5 mg INHALATION Q4H PRN 10 Days nebu PRN Reason: Cough Azithromycin [Zithromax Z-pack] 0 mg PO DIRECTED #6 tab Is patient prescribed a controlled substance at d/c from ED?: No Referrals: Judah Murdock DO [Primary Care Provider] - 1-2 days
[2019-11-24 04:33] VITALS: BP 123/79; PULSE 71; TEMP 97.7
== END 2019-11-24 04:33 | disposition home or self-care (01) ==
LOC: EC 01:59
DX: J40 Bronchitis, not specified as acute or chronic (principal); M94.0 Chondrocostal junction syndrome [Tietze]; J44.9 Chronic obstructive pulmonary disease, unspecified; K21.9 Gastro-esophageal reflux disease without esophagitis; F41.9 Anxiety disorder, unspecified; Z79.51 Long term (current) use of inhaled steroids; Z79.02 Long term (current) use of antithrombotics/antiplatelets; Z79.899 Other long term (current) drug therapy; Z88.8 Allergy status to other drugs, medicaments and biological substances; Z91.041 Radiographic dye allergy status; Z91.013 Allergy to seafood; Z86.718 Personal history of other venous thrombosis and embolism; Z86.73 Personal history of transient ischemic attack (TIA), and cerebral infarction without residual deficits; Z87.891 Personal history of nicotine dependence
CPT/HCPCS: 87502; 71046; 99284; J7512

== ENCOUNTER 2019-12-07 01:34 | Observation (INO) | payer MEDICARE, OTHER ==
[2019-12-07] MEDS ORDERED: IPRATROPIUM-ALBUTEROL 3 ML NEB INHALATION STA (02:07)
[2019-12-07] MEDS ORDERED: SODIUM CHLORIDE 0.9% 500 ML 500 ML IV STA (02:07)
--- NOTE | 2019-12-07 02:29 | XR ---
EXAMINATION TYPE: XR chest 2V DATE OF EXAM: 12/07/2019 COMPARISON: 11/24/2019 HISTORY: Chest pain TECHNIQUE: FINDINGS: Heart and mediastinum are normal. There is small linear density right lower lobe. The other lung greenberg are clear. Bony thorax is intact. There is no pleural effusion. IMPRESSION: There is subsegmental atelectasis or scarring right lower lobe unchanged. Normal heart.
[2019-12-07 02:37] LABS: Basophils # (A) 0.2 k/uL (0-0.2); Basophils % (A) 2 %; Eosinophils # (A) 0.1 k/uL (0-0.7); Eosinophils % (A) 1 %; HGB 11.9 gm/dL (11.4-16.0); Lymphocytes # (A) 1.1 k/uL (1.0-4.8); Lymphocytes % (A) 12 %; MCV 90.9 fL (80.0-100.0); Mean Platelet Volume 7.3; Monocytes # (A) 0.3 k/uL (0-1.0); Monocytes % (A) 3 %; Neutrophils # (A) 7.5 k/uL (1.3-7.7); Neutrophils % (A) 80 %; Platelet Count 309 k/uL (150-450); RBC 3.96 m/uL (3.80-5.40); WBC 9.4 k/uL (3.8-10.6)
[2019-12-07 02:42] LABS: ALT 30 U/L (4-34); AST 34 U/L (14-36); African American GFR (CKD) >90 (>60 ml/min/1.73 sqM); Albumin 3.8 g/dL (3.5-5.0); Alkaline Phosphatase 112 U/L (38-126); Anion Gap 8 mmol/L; Blood Urea Nitrogen 15 mg/dL (7-17); Calcium 9.1 mg/dL (8.4-10.2); Carbon Dioxide 26 mmol/L (22-30); Chloride 106 mmol/L (98-107); Glucose 141 mg/dL (74-99); Non-African American GFR(CKD) >90 (>60 ml/min/1.73 sqM); Potassium 3.5 mmol/L (3.5-5.1); Sodium 140 mmol/L (137-145); Total Bilirubin 0.3 mg/dL (0.2-1.3); Total Protein 6.6 g/dL (6.3-8.2)
[2019-12-07 02:49] LABS: D-Dimer 0.58 mg/L FEU (<0.60); INR 0.9 (<1.2); Partial Thromboplastin Time 25.1 sec (22.0-30.0); Prothrombin Time 9.7 sec (9.0-12.0)
[2019-12-07] MEDS ORDERED: FAMOTIDINE 20 MG/2 ML VIAL IV STA (02:56)
[2019-12-07] MEDS ORDERED: diphenhydrAMINE 50 MG/ML 1 ML VIAL IVP STA (02:56)
[2019-12-07] MEDS ORDERED: methylPREDNISolone SOD SUCCI 125 MG/2 ML VIAL IV STA (02:56)
[2019-12-07] MEDS ORDERED: METOCLOPRAMIDE 5 MG/ML 2 ML VIAL IVP STA (03:12)
[2019-12-07] MEDS ORDERED: SODIUM CHLORIDE 0.9% 1,000 ML IV STA (03:31)
--- NOTE | 2019-12-07 03:41 | CT ---
EXAMINATION TYPE: CT chest angio for PE DATE OF EXAM: 12/07/2019 COMPARISON: None HISTORY: R/O PE CT DLP: 575.20 mGycm Automated exposure control for dose reduction was used. CONTRAST: Performed with IV Contrast, patient injected with 100 mL of Isovue 370. There are 3-D post processed images. The lungs are clear of infiltrate. There is no evidence of a pulmonary mass. There is no pleural effu familia. There is mild subsegmental atelectasis at the right lung base. There is no pericardial effusion . There are bilateral bronchial lymph nodes that measure up to 2.2 cm. There is no mediastinal adenop athy. Thoracic aorta is intact without evidence of aneurysm or dissection. Ascending aorta measures 3 cm. There are possible filling defects within the right lower lobe pulmonary artery lateral basal segment branch. The remainder of the pulmonary arteries show no definite filling defect. The bony thorax is intact. IMPRESSION: Exam is a equivocal for small emboli in the lateral basal segment right lower lobe pulmonary artery. Nonspecific bronchial lymph nodes.
[2019-12-07] MEDS ORDERED: HEPARIN SODIUM,PORCINE 10,000 UNIT/ML 1 ML VIAL IV ONE (03:58)
[2019-12-07] MEDS ORDERED: HEPARIN SODIUM,PORCINE 5,000 UNIT/ML 1 ML VIAL IV PRN (03:58)
[2019-12-07] MEDS ORDERED: HEPARIN SOD,PORK IN 0.45% NACL 25,000 UNIT in 0.45% NACL 1 250ML.BAG IV SCH (04:00)
[2019-12-07] MEDS ORDERED: NALOXONE 0.4 MG/ML 1 ML VIAL IV PRN (04:06)
--- NOTE | 2019-12-07 04:09 | ED ---
General Adult HPI - General Chief complaint: Upper Respiratory Infection Stated complaint: Chest Pressure Time Seen by Provider: 12/07/19 01:55 Source: patient, RN notes reviewed, old records reviewed Mode of arrival: ambulatory Limitations: no limitations - History of Present Illness Initial comments: 44-year-old female patient with past history significant for asthma, COPD, prior provoked DVT presents to ED for chief complaint approximately 3 weeks of cough, congestion, shortness of breath, mild parasternal right chest pain. Patient was initially evaluated for these symptoms on 11/24 discharge antibiotics. Patient reports that she initially improved, however has been doing worse for approximately last 2 weeks. Reports she has been having fevers and chills at home. Denies any other complaints at this time. Patient has history of hysterectomy. Systemic: Pt denies fatigue, rash. Pt denies weakness, night sweats, weight loss. Neuro: Pt denies headache, visual disturbances, syncope or pre-syncope. HEENT: Pt denies ocular discharge or irritation, otalgia, rhinorrhea, pharyngitis or notable lymphadenopathy. Cardiopulmonary: Pt denies heart palpitations, dyspnea on exertion. Abdominal/GI: Pt denies abdominal pain, n/v/d. : Pt denies dysuria, burning w/ urination, frequency/urgency. Denies new onset urinary or bowel incontinence. MSK: Pt denies myalgia, loss of strength or function in extremities. Neuro: Pt denies new onset weakness, paresthesias. - Related Data Home Medications Medication Instructions Recorded Confirmed DULoxetine HCL [Cymbalta] 60 mg PO BID 04/03/14 05/14/19 Pantoprazole Sodium [Protonix] 40 mg PO BID 04/03/14 05/14/19 Albuterol Nebulized [Ventolin 2.5 mg INHALATION RT-QID PRN 03/29/16 05/10/19 Nebulized] EPINEPHrine (Auto Inject) [Epipen] 0.3 mg IM ONCE PRN 08/15/16 05/14/19 traMADol HCL [Tramadol HCl] 100 mg PO Q6H PRN 11/11/16 05/14/19 Albuterol Sulfate [Proair Hfa] 1 - 2 puff INHALATION RT-Q6H PRN 03/23/17 05/10/19 Budesonide-Formot 160-4.5 Mcg 2 puff INHALATION RT-BID 04/03/17 05/14/19 [Symbicort 160-4.5 Mcg Inhaler] Carvedilol [Coreg] 3.125 mg PO HS 03/16/18 05/14/19 oxyCODONE-APAP 10-325MG [Percocet 1 tab PO Q4H PRN 03/16/18 05/14/19 10-325 mg] rOPINIRole HCL [Requip] 4 mg PO TID 03/16/18 05/14/19 Ondansetron Odt [Zofran ODT] 8 mg PO Q12HR PRN 09/13/18 05/14/19 tiZANidine [Zanaflex] 8 mg PO HS 11/26/18 05/14/19 Previous Rx's Medication Instructions Recorded Ipratropium-Albuterol Nebulize 3 ml INHALATION QID #120 ampul.neb 12/03/18 [Duoneb 0.5 mg-3 mg/3 ml Soln] Albuterol Inhaler [Ventolin Hfa 1 - 2 puff INHALATION Q4-6H PRN #1 11/24/19 Inhaler] inhaler Albuterol Nebulized [Ventolin 2.5 mg INHALATION Q4H PRN 10 Days 11/24/19 Nebulized] nebu Azithromycin [Zithromax Z-pack] 0 mg PO DIRECTED #6 tab 11/24/19 predniSONE 50 mg PO DAILY #4 tab 11/24/19 Allergies Allergy/AdvReac Type Severity Reaction Status Date / Time aripiprazole [From Abilify] Allergy tremors,spa Verified 12/07/19 01:41 sms fentanyl Allergy Rash/Hives Verified 12/07/19 01:41 (only with patch) Iodinated Contrast Media Allergy Anaphylaxis Verified 12/07/19 01:41 [Iodinated Contrast Media - IV Dye] shellfish derived Allergy Anaphylaxis Verified 12/07/19 01:41 buspirone AdvReac Hallucinati Verified 12/07/19 01:41 ons escitalopram [From Lexapro] AdvReac "mean Verified 12/07/19 01:41 behavior" Review of Systems ROS Statement: Those systems with pertinent positive or pertinent negative responses have been documented in the HPI. ROS Other: All systems not noted in ROS Statement are negative. Past Medical History Past Medical History: Asthma, COPD, CVA/TIA, Deep Vein Thrombosis (DVT), Fibromyalgia, GERD/Reflux, Osteoarthritis (OA), Pneumonia Additional Past Medical History / Comment(s): *DEAF IN RIGHT EAR. TIA x2 (2017)., tachycardia, Neuropathy feet; UNSTEADY WHEN UP/BALANCE ISSUUES, HX OF MULTIPLE SURGERIES ON CLUB FEET, PAIN IN FEET, LEGS, KNEES & HIPS., Hx of Dvt right groin & behind right knee. PT STATED HAS BEEN EXPOSED TO BLACK MOLD, low threshold for seizures per pt, unable to lay flat, STATES LUNG DISEASE-UNKNOWN NAME. 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 Lt breast biopsy BRONCHOSCOPY-BENIGN NODULE REMOVED."bronchial septalplasty". COLONOSCOPY, right salpingo-oophorectomy, rt foot fusion/plate and screws jan 18 2018. lung biopsy. Past Anesthesia/Blood Transfusion Reactions: Previous Problems w/ Anesthesia, Motion Sickness, Postoperative Nausea & Vomiting (PONV) Additional Past Anesthesia/Blood Transfusion Reaction / Comment(s): Problems/w/anes in Nov after colonoscopy. "Too much given & couldn't wake up".....However, patient states they have to give her more meds to get her to be sedated."AFTER 1 SX THEY TOLD ME I STOPPED BREATHING DURING SX approx 14 yrs ago" Past Psychological History: Anxiety Smoking Status: Former smoker Past Alcohol Use History: None Reported Past Drug Use History: None Reported - Past Family History Mother Family Medical History: Diabetes Mellitus Additional Family Medical History / Comment(s): IRREG HEART BEAT. GRANDMOTHER HAD COLON CANCER AND HEART DISEASE Father Family Medical History: Hyperlipidemia, Hypertension Sister(s) Family Medical History: AFIB, Cancer, CVA/TIA, Hypertension Additional Family Medical History / Comment(s): CERVICAL CANCER General Exam - General Exam Comments Initial Comments: Constitutional: NAD, AOX3, Pt has pleasant affect. HEENT: NC/AT, trachea midline, neck supple, no lymphadenopathy. Posterior pharynx non erythematous, without exudates. External ears appear normal, without discharge. Mucous membranes moist. Eyes PERRLA, EOM intact. There is no scleral icterus. No pallor noted. Cardiopulmonary: RRR, no murmurs, rubs or gallops, no JVD noted. mild amount of wheezing noted n anterior and posterior greenberg. No peripheral edema. Abdominal exam: Abdomen soft and non-distended. Abdomen non-tender to palpation in all 4 quadrants. Bowel sounds active in LLQ. No hepatosplenomegaly. No ecch ymosis Neuro: CN II-XII grossly intact. No nuchal rigidity. No raccon eyes, no campbell sign, no hemotympanum. No cervical spinal tenderness. MSK: No posterior calf tenderness bilaterally, homans sign negative bilaterally. Posterior tibialis and radial pulse +2 bilaterally. Sensation intact in upper and lower extremities. Full active ROM in upper and lower extremities, 5/5 stregnth. Limitations: no limitations Course Vital Signs 12/07/19 12/07/19 12/07/19 01:38 02:41 02:52 Temperature 98.6 F 98.1 F Pulse Rate 87 98 92 Respiratory 16 18 Rate Blood Pressure 132/77 100/55 O2 Sat by Pulse 97 100 Oximetry Medical Decision Making - Medical Decision Making 44-year-old female patient with past history significant for asthma, COPD, prior provoked DVT presents to ED for chief complaint approximately 3 weeks of cough, congestion, shortness of breath, mild parasternal right chest pain. Patient was initially evaluated for these symptoms on 11/24 discharge antibiotics. Patient reports that she initially improved, however has been doing worse for approximately last 2 weeks. Reports she has been having fevers and chills at home. Denies any other complaints at this time. Patient has history of hysterectomy. Patient vital signs are stable, afebrile. Physical exam displayed mild/moderate wheezing in anterior lung greenberg. Laboratory investigations revealed d-dimer of 0.58. Influenza negative. Troponin negative. EKG nonischemic. Chest x-ray displayed no change. CTA pulmonary angiography was obtained which was equivocal for small emboli in the lateral basal segment right lower lobe pulmonary artery. Patient denies any recent surgery. Patient does report that approximate 4 days ago she had some blood in her stool. Reports that she hasn't had any pain that time. States that she has a history of hemorrhoids. Physical exam did display an internal hemorrhoid. Chaperoned by COLTON Danielson. Likely etiology for patient's symptoms. Patient initiated on high intensity heparin. Will be admitted for a pulmonology consultation. Case discussed in depth with Dr. Randhawa. - Lab Data Result diagrams: 12/07/19 02:17 12/07/19 02:17 Lab Results 12/07/19 12/07/19 12/07/19 Range/Units 02:17 02:17 02:17 WBC 9.4 (3.8-10.6) k/uL RBC 3.96 (3.80-5.40) m/uL Hgb 11.9 (11.4-16.0) gm/dL Hct 36.0 (34.0-46.0) % MCV 90.9 (80.0-100.0) fL MCH 30.0 (25.0-35.0) pg MCHC 33.0 (31.0-37.0) g/dL RDW 13.0 (11.5-15.5) % Plt Count 309 (150-450) k/uL Neutrophils % 80 % Lymphocytes % 12 % Monocytes % 3 % Eosinophils % 1 % Basophils % 2 % Neutrophils # 7.5 (1.3-7.7) k/uL Lymphocytes # 1.1 (1.0-4.8) k/uL Monocytes # 0.3 (0-1.0) k/uL Eosinophils # 0.1 (0-0.7) k/uL Basophils # 0.2 (0-0.2) k/uL PT 9.7 (9.0-12.0) sec INR 0.9 (<1.2) APTT 25.1 (22.0-30.0) sec D-Dimer 0.58 (<0.60) mg/L FEU Sodium 140 (137-145) mmol/L Potassium 3.5 (3.5-5.1) mmol/L Chloride 106 (98-107) mmol/L Carbon Dioxide 26 (22-30) mmol/L Anion Gap 8 mmol/L BUN 15 (7-17) mg/dL Creatinine 0.59 (0.52-1.04) mg/dL Est GFR (CKD-EPI)AfAm >90 (>60 ml/min/1.73 sqM) Est GFR (CKD-EPI)NonAf >90 (>60 ml/min/1.73 sqM) Glucose 141 H (74-99) mg/dL Calcium 9.1 (8.4-10.2) mg/dL Magnesium 2.0 (1.6-2.3) mg/dL Total Bilirubin 0.3 (0.2-1.3) mg/dL AST 34 (14-36) U/L ALT 30 (4-34) U/L Alkaline Phosphatase 112 (38-126) U/L Troponin I (0.000-0.034) ng/mL Total Protein 6.6 (6.3-8.2) g/dL Albumin 3.8 (3.5-5.0) g/dL Influenza Type A RNA (Not Detectd) Influenza Type B (PCR) (Not Detectd) 12/07/19 12/07/19 Range/Units 02:17 02:59 WBC (3.8-10.6) k/uL RBC (3.80-5.40) m/uL Hgb (11.4-16.0) gm/dL Hct (34.0-46.0) % MCV (80.0-100.0) fL MCH (25.0-35.0) pg MCHC (31.0-37.0) g/dL RDW (11.5-15.5) % Plt Count (150-450) k/uL Neutrophils % % Lymphocytes % % Monocytes % % Eosinophils % % Basophils % % Neutrophils # (1.3-7.7) k/uL Lymphocytes # (1.0-4.8) k/uL Monocytes # (0-1.0) k/uL Eosinophils # (0-0.7) k/uL Basophils # (0-0.2) k/uL PT (9.0-12.0) sec INR (<1.2) APTT (22.0-30.0) sec D-Dimer (<0.60) mg/L FEU Sodium (137-145) mmol/L Potassium (3.5-5.1) mmol/L Chloride (98-107) mmol/L Carbon Dioxide (22-30) mmol/L Anion Gap mmol/L BUN (7-17) mg/dL Creatinine (0.52-1.04) mg/dL Est GFR (CKD-EPI)AfAm (>60 ml/min/1.73 sqM) Est GFR (CKD-EPI)NonAf (>60 ml/min/1.73 sqM) Glucose (74-99) mg/dL Calcium (8.4-10.2) mg/dL Magnesium (1.6-2.3) mg/dL Total Bilirubin (0.2-1.3) mg/dL AST (14-36) U/L ALT (4-34) U/L Alkaline Phosphatase (38-126) U/L Troponin I <0.012 (0.000-0.034) ng/mL Total Protein (6.3-8.2) g/dL Albumin (3.5-5.0) g/dL Influenza Type A RNA Not Detected (Not Detectd) Influenza Type B (PCR) Not Detected (Not Detectd) - EKG Data -: EKG Interpreted by Me (and Dr. Randhawa) EKG Comments: Ventricular rate 84, CO interval 192, QRS 102, QT/QTc 42/475. Normal sinus rhythm, Nonspecific T wave abnormality. Prolonged QT, abnormal EKG. Disposition Clinical Impression: Pulmonary embolism Disposition: ADMITTED IP TO THIS HOSP Condition: Serious Is patient prescribed a controlled substance at d/c from ED?: No Referrals: Judah Murdock DO [Primary Care Provider] - 1-2 days
[2019-12-07] MEDS ORDERED: SODIUM CHLORIDE 0.9% 1,000 ML IV SCH (04:15)
[2019-12-07] MEDS ORDERED: ALBUTEROL NEBULIZED 2.5 MG/3 ML INHALATION PRN (04:22)
[2019-12-07] MEDS ORDERED: SUMAtriptan SUCCINATE 50 MG TAB PO PRN (10:17)
[2019-12-07] MEDS ORDERED: traMADol 50 MG TAB PO PRN (10:17)
[2019-12-07] MEDS ORDERED: ONDANSETRON ODT 4 MG TAB PO PRN (10:17)
[2019-12-07] MEDS ORDERED: oxyCODONE-APAP 10-325MG 1 EACH TAB PO PRN (10:17)
[2019-12-07] MEDS ORDERED: PANTOPRAZOLE 40 MG TABLET PO SCH (10:45)
[2019-12-07] MEDS ORDERED: DULoxetine HCL 60 MG CAPSULE.DR PO SCH (10:45)
[2019-12-07] MEDS ORDERED: rOPINIRole HCL 4 MG TABLET PO SCH (10:45)
[2019-12-07] MEDS ORDERED: ALPRAZolam 0.25 MG TAB PO PRN (14:44)
--- NOTE | 2019-12-07 14:56 | P.CNPUL ---
History of Present Illness Consult date: 12/07/19 Reason for consult: chest pain History of present illness: This is a 44-year-old female patient, not feeling well and cough and congestion and chest pain across the right anterior chest area that is been going on for at least a month. She was in the ED few days back for the same reason. She came back and a CT angiogram was done and it showed a questionable filling defect in the right lower lobe pulmonary artery branch basilar segment. This was a adequate vocal small embolism that is not certain. I reviewed the films and I'm not able to visualize this filling defects. Patient is currently on IV heparin. The patient's d-dimer is at 0.6. She has a remote history of a right lower extremity DVT back in 2001 following various surgeries for a clubfoot. She has been on no anti-coagulation for now. She is a chronic smoker. She has had a previous wedge biopsy of the lung showing a mild component of RILD, smoking- related interstitial lung disease. The patient is quite anxious. She is a bit emotional. She doesn't want to stay in the hospital. She has a lot of anxiety. She quit smoking cigarettes. She has no fever for now. Influenza screen is been negative. Her chest is sore to palpation and is obviously the pain is acr oss the chest that is musculoskeletal in nature. No other complaints otherwise. No prolonged immobilization pain no recent surgeries. No swelling in lower extremities. No calf pain or tenderness. No other significant events otherwise overnight. Review of Systems Constitutional: Denies chills, Denies fever Eyes: denies blurred vision, denies pain Ears, nose, mouth and throat: Denies headache, Denies sore throat Cardiovascular: chest pain, Denies shortness of breath , skeletal chest wall pain on the right side of the chest. Respiratory: Reports congestion, Reports cough with sputum, Reports dyspnea, Denies cough Gastrointestinal: Denies abdominal pain, Denies diarrhea, Denies nausea, Denies vomiting Genitourinary: Denies dysuria, Denies hematuria Musculoskeletal: Denies myalgias Integumentary: Denies pruritus, Denies rash Neurological: Denies numbness, Denies weakness Psychiatric: Denies anxiety, Denies depression Endocrine: Denies fatigue, Denies weight change Constitutional: Denies chills, Denies fever Eyes: denies as per HPI, denies blurred vision, denies bulging eye, denies decreased vision, denies diplopia, denies discharge, denies dry eye, denies irritation, denies itching, denies pain, denies photophobia, denies loss of peripheral vision, denies loss of vision, denies tunnel vision/blind spots Ears: right: decreased hearing, deny: ear discharge, earache, tinnitus Ears, nose, mouth and throat: Reports as per HPI Breasts: absent: as per HPI, change in shape, gynecomastia, masses, nipple discharge, pain, skin changes, swelling Cardiovascular: Reports chest pain, Denies shortness of breath Respiratory: Reports cough Gastrointestinal: Reports as per HPI Genitourinary: Reports as per HPI Menstruation: Reports as per HPI Musculoskeletal: Reports as per HPI Musculoskeletal: absent: ankle pain, ankle stiffness, ankle swelling, as per HPI , elbow pain, elbow stiffness, elbow swelling, foot pain, foot stiffness, foot swelling, hand pain, hand stiffness, hand swelling, hip pain, hip stiffness, hip swelling, knee pain, knee stiffness, knee swelling, shoulder pain, shoulder stiffness, shoulder swelling, wrist pain, wrist stiffness, wrist swelling Neurological: Denies numbness, Denies weakness Psychiatric: Reports as per HPI Endocrine: Reports as per HPI Hematologic/Lymphatic: Reports as per HPI Allergic/Immunologic: Reports as per HPI Past Medical History Past Medical History: COPD, CVA/TIA, Deep Vein Thrombosis (DVT), Fibromyalgia, GERD/Reflux, Osteoarthritis (OA) Additional Past Medical History / Comment(s): RB ILD, smoking-related inter stitial lung disease confirmed by an open lung biopsy, remote history of right lower extremity DVT 2001, neuropathy, history of clubfoot, history of exposure to black moles, chronic anxiety, chronic deafness in the right ear, history of TIA History of Any Multi-Drug Resistant Organisms: None Reported Past Surgical History: Breast Surgery, Ear Surgery, Heart Catheterization, Hysterectomy Additional Past Surgical History / Comment(s): Multiple SX day clubfeet (50) TUBES IN EARS, Kartush patches both ears, POLYPS REMOVED FROM THROAT-BENIGN. Lt breast biopsy BRONCHOSCOPY-BENIGN NODULE REMOVED."bronchial septalplasty". COLONOSCOPY, right salpingo-oophorectomy, rt foot fusion/plate and screws jan 18 2018. lung biopsy. Past Anesthesia/Blood Transfusion Reactions: Previous Problems w/ Anesthesia, Motion Sickness, Postoperative Nausea & Vomiting (PONV) Additional Past Anesthesia/Blood Transfusion Reaction / Comment(s): Problems/w/anes in Nov after colonoscopy. "Too much given & couldn't wake up".....However, patient states they have to give her more meds to get her to be sedated."AFTER 1 SX THEY TOLD ME I STOPPED BREATHING DURING SX approx 14 yrs ago" Past Psychological History: Anxiety Additional Psychological History / Comment(s): . Smoking Status: Former smoker Past Alcohol Use History: None Reported Additional Past Alcohol Use History / Comment(s): QUIT SMOKING NOV 26, 2018 ., STARTED SMOKING AT AGE 25(1999)., SMOKED 1/2 PPD. Past Drug Use History: None Reported - Past Family History Mother Family Medical History: Diabetes Mellitus Additional Family Medical History / Comment(s): IRREG HEART BEAT. GRANDMOTHER HAD COLON CANCER AND HEART DISEASE Father Family Medical History: Hyperlipidemia, Hypertension Sister(s) Family Medical History: AFIB, Cancer, CVA/TIA, Hypertension Additional Family Medical History / Comment(s): CERVICAL CANCER Medications and Allergies Home Medications Medication Instructions Recorded Confirmed Type DULoxetine HCL [Cymbalta] 60 mg PO BID 04/03/14 12/07/19 History Pantoprazole Sodium [Protonix] 40 mg PO BID 04/03/14 12/07/19 History EPINEPHrine (Auto Inject) [Epipen] 0.3 mg IM ONCE PRN 08/15/16 12/07/19 History traMADol HCL [Tramadol HCl] 100 mg PO Q6H PRN 11/11/16 12/07/19 History Budesonide-Formot 160-4.5 Mcg 2 puff INHALATION RT-BID 04/03/17 12/07/19 History [Symbicort 160-4.5 Mcg Inhaler] Carvedilol [Coreg] 3.125 mg PO HS 03/16/18 12/07/19 History oxyCODONE-APAP 10-325MG [Percocet 1 tab PO Q4H PRN 03/16/18 12/07/19 History 10-325 mg] rOPINIRole HCL [Requip] 4 mg PO TID 03/16/18 12/07/19 History Ondansetron Odt [Zofran ODT] 8 mg PO Q12HR PRN 09/13/18 12/07/19 History tiZANidine [Zanaflex] 8 mg PO HS 11/26/18 12/07/19 History Albuterol Inhaler [Ventolin Hfa 1 - 2 puff INHALATION RT-Q4H PRN 12/07/19 0 12/07/19 History Inhaler] Ipratropium-Albuterol Nebulize 3 ml INHALATION RT-QID 12/07/19 12/07/19 History [Duoneb 0.5 mg-3 mg/3 ml Soln] SUMAtriptan SUCCINATE [Imitrex] 50 mg PO BID PRN 12/07/19 12/07/19 History Allergies Allergy/AdvReac Type Severity Reaction Status Date / Time aripiprazole [From Abilify] Allergy tremors,spa Verified 12/07/19 08:58 sms fentanyl Allergy Rash/Hives Verified 12/07/19 08:58 (only with patch) Iodinated Contrast Media Allergy Anaphylaxis Verified 12/07/19 08:58 [Iodinated Contrast Media - IV Dye] shellfish derived Allergy Anaphylaxis Verified 12/07/19 08:58 buspirone AdvReac Hallucinati Verified 12/07/19 08:58 ons escitalopram [From Lexapro] AdvReac "mean Verified 12/07/19 08:58 behavior" Physical Exam Vitals: Vital Signs Temp Pulse Pulse Resp BP BP Pulse Ox 12/07/19 11:38 98.1 F 86 18 103/56 96 12/07/19 08:52 97.9 F 91 16 98/54 97 12/07/19 08:00 18 12/07/19 06:42 98.7 F 83 18 124/74 92 L 12/07/19 04:43 98 F 68 18 100/73 100 12/07/19 02:52 92 12/07/19 02:41 98.1 F 98 18 100/55 100 12/07/19 01:38 98.6 F 87 16 132/77 97 Intake and Output 12/06/19 12/07/19 12/07/19 22:59 06:59 14:59 Intake Total 155.938 Balance 155.938 Intake: Intake, IV Titration 155.938 Amount Heparin Sod,Pork in 0.45% 155.938 NaCl 25,000 unit In 0.45 % NaCl 1 250ml.bag @ 18 UNITS/KG/HR 17.554 mls/hr IV .[id number] Rx#: [id number] Other: Voiding Method Toilet Weight 97.522 kg GENERAL EXAM: Alert, active, comfortable in no apparent distress. HEAD: Normocephalic/atraumatic. EYES: Normal reaction of pupils, equal size. Conjunctiva pink, sclera white. NOSE: Clear with pink turbinates. THROAT: No erythema or exudates. NECK: No masses, no JVD, no thyroid enlargement, no adenopathy. CHEST: No chest wall deformity. Symmetrical expansion. LUNGS: Equal air entry, breath sounds equal and symmetrical and clear. The pat ient has a skeletal chest wall pain on the right and the patient's pain is very much reproducible upon palpation. CVS: Regular rate and rhythm, normal S1 and S2, no gallops, no murmurs, no rubs ABDOMEN: Soft, nontender. No hepatosplenomegaly, normal bowel sounds, no guarding or rigidity. EXTREMITIES: No clubbing, no edema, no cyanosis, 2+ pulses and upper and lower extremities. MUSCULOSKELETAL: Muscle strength and tone normal. SPINE: No scoliosis or deformity SKIN: No rashes CENTRAL NERVOUS SYSTEM: Alert and oriented -3. No focal deficits, tone is normal in all 4 extremities. PSYCHIATRIC: Alert and oriented -3. Appropriate affect. Intact judgment and insight. Results - Laboratory Findings CBC and BMP: 12/07/19 02:17 12/07/19 02:17 PT/INR, D-dimer PT 9.7 sec (9.0-12.0) 12/07/19 02:17 INR 0.9 (<1.2) 12/07/19 02:17 D-Dimer 0.58 mg/L FEU (<0.60) 12/07/19 02:17 Abnormal lab findings: Abnormal Labs 12/07/19 12/07/19 02:17 10:26 APTT 79.7 H Glucose 141 H - Diagnostic Findings CT scan - chest: image reviewed Assessment and Plan Plan: 1 musculoskeletal right-sided chest wall pain, very unlikely to be related to pulmonary embolism. Overall clinical presentation and clinical suspicion for pulmonary embolism is quite low. Well's score is less than 4 and the d-dimer is within normal limits. The pain is very much reproducible upon palpating the right chest area. 2 remote history of a DVT of the right lower extremity 2001 3 chronic anxiety 4 history of smoking 5 history of interstitial lung disease related to smoking, RB-ILD 6 history of TIA 7 history of impaired hearing Plan Obtain Doppler of the lower extremity. If negative, IV heparin can be stopped and the patient can be discharged home.
--- NOTE | 2019-12-07 14:58 | P.HPIM ---
History of Present Illness H&P Date: 12/07/19 Chief Complaint: Shortness of breath History of presenting complaint: This is a 44-year-old patient of Dr. Murdock. Chronic stable medical conditions include fibromyalgia, GERD, decreased hearing in the right ear, Kevin arthritis. Patient for a month visit respiratory symptoms. Including cough sputum. Green color had some fever and chills also. Appetite has not been good. Because of decreased appetite has had some constipation. Had a bowel movement earlier today after 4 days. Has been more short of breath also. Patient had a computed tomography scan of the chest and there was a questionable small emboli. Patient was started on IV heparin in the ER. Patient is very anxious and somewhat agitated because she been sick for a month. Review of systems: GEN.: Tired EYES: None HEENT: Decreased hearing in the right ear NECK: None RESPIRATORY: As above CARDIOVASCULAR: None GASTROINTESTINAL: None GENITOURINARY: None MUSCULOSKELETAL: Chronic pain in the joints LYMPHATICS: None HEMATOLOGICAL: None PSYCHIATRY: Very anxious and irritated NEUROLOGICAL: None Past medical history to include: COPD, DVT, fibromyalgia, GERD, or strength redness, if at the right ear, peripheral neuropathy, hasn't multiple surgeries for club feet, Social history: Patient smoked half a day for over 18 years stopped in 2018. Does not drink alcohol. Lives alone. Physical examination: VITAL SIGNS: 98.6, 87, 16, 132/77, 97% room air GENERAL: BMI 30.8, sitting up in bed very anxious and irritated. EYES: Pupils equal. Conjunctiva normal. HEENT: External appearance of nose and ears normal, oral cavity grossly normal. Decreased hearing in the right ear NECK: JVD not raised; masses not palpable. HEART: First and second heart sounds are normal; no edema. LUNGS: Respiratory rate normal; bili slightly decreased breath sounds. ABDOMEN: Soft, nontender, liver spleen not palpable, no masses palpable. PSYCH: [Alert and oriented x3; mood and affect very anxious and agitated. NEUROLOGICAL: Cranial nerves grossly intact; no facial asymmetry, power and sensation grossly intact. LYMPHATICS: No lymph nodes palpable in the axilla and neck INVESTIGATIONS, reviewed in the clinical context: White count 9.4 hemoglobin 11.9 platelets 329 potassium 3.5 creatinine 0.5 by Influenza A and B- both negative EKG tracing personally reviewed by me-normal sinus rhythm Chest x-ray film personally reviewed by me-patchy atelectasis right base Chest CTA-very small questionable pulmonary emboli. No obvious infiltrate Assessment: -Acute COPD exacerbation and an ex-smoker -Acute tracheobronchitis with clinical response -Chronic fibromyalgia -GERD Obesity BMI 30.8 -Uncontrolled anxiety --Doubt agreeable. Given that this is a very small PE, would not account for her symptoms in any case. Also the findings are very equi vocal. -IV heparin monitoring Plan: Patient will be on IV heparin. Blood nebulized bronchodilators. We'll also had DuoNeb. Per pulmonary to do Doppler ultrasound lower extremity and if negative for discomfort and IV heparin agree with the same. Constipation for anxiety control measurements including mindfulness. We will give a short course of Xanax when necessary. Past Medical History Past Medical History: Asthma, COPD, CVA/TIA, Deep Vein Thrombosis (DVT), Fibromyalgia, GERD/Reflux, Osteoarthritis (OA), Pneumonia Additional Past Medical History / Comment(s): *DEAF IN RIGHT EAR. TIA x2 (2017)., tachycardia, Neuropathy feet; UNSTEADY WHEN UP/BALANCE ISSUUES, HX OF MULTIPLE SURGERIES ON CLUB FEET, PAIN IN FEET, LEGS, KNEES & HIPS., Hx of Dvt right groin & behind right knee. PT STATED HAS BEEN EXPOSED TO BLACK MOLD, low threshold for seizures per pt, unable to lay flat, STATES LUNG DISEASE-UNKNOWN NAME. 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 Lt breast biopsy BRONCHOSCOPY-BENIGN NODULE REMOVED."bronchial septalplasty". COLONOSCOPY, right salpingo-oophorectomy, rt foot fusion/plate and screws jan 18 2018. lung biopsy. Past Anesthesia/Blood Transfusion Reactions: Previous Problems w/ Anesthesia, Motion Sickness, Postoperative Nausea & Vomiting (PONV) Additional Past Anesthesia/Blood Transfusion Reaction / Comment(s): Problems/w/anes in Nov after colonoscopy. "Too much given & couldn't wake up".....However, patient states they have to give her more meds to get her to be sedated."AFTER 1 SX THEY TOLD ME I STOPPED BREATHING DURING SX approx 14 yrs ago" Past Psychological History: Anxiety Additional Psychological History / Comment(s): . Smoking Status: Former smoker Past Alcohol Use History: None Reported Additional Past Alcohol Use History / Comment(s): QUIT SMOKING NOV 26, 2018 ., STARTED SMOKING AT AGE 25(1999)., SMOKED 1/2 PPD. Past Drug Use History: None Reported - Past Family History Mother Family Medical History: Diabetes Mellitus Additional Family Medical History / Comment(s): IRREG HEART BEAT. GRANDMOTHER HAD COLON CANCER AND HEART DISEASE Father Family Medical History: Hyperlipidemia, Hypertension Sister(s) Family Medical History: AFIB, Cancer, CVA/TIA, Hypertension Additional Family Medical History / Comment(s): CERVICAL CANCER Medications and Allergies Home Medications Medication Instructions Recorded Confirmed Type DULoxetine HCL [Cymbalta] 60 mg PO BID 04/03/14 12/07/19 History Pantoprazole Sodium [Protonix] 40 mg PO BID 04/03/14 12/07/19 History EPINEPHrine (Auto Inject) [Epipen] 0.3 mg IM ONCE PRN 08/15/16 12/07/19 History traMADol HCL [Tramadol HCl] 100 mg PO Q6H PRN 11/11/16 12/07/19 History Budesonide-Formot 160-4.5 Mcg 2 puff INHALATION RT-BID 04/03/17 12/07/19 History [Symbicort 160-4.5 Mcg Inhaler] Carvedilol [Coreg] 3.125 mg PO HS 03/16/18 12/07/19 History oxyCODONE-APAP 10-325MG [Percocet 1 tab PO Q4H PRN 03/16/18 12/07/19 History 10-325 mg] rOPINIRole HCL [Requip] 4 mg PO TID 03/16/18 12/07/19 History Ondansetron Odt [Zofran ODT] 8 mg PO Q12HR PRN 09/13/18 12/07/19 History tiZANidine [Zanaflex] 8 mg PO HS 11/26/18 12/07/19 History Albuterol Inhaler [Ventolin Hfa 1 - 2 puff INHALATION RT-Q4H PRN 12/07/1911/27 History Inhaler] Ipratropium-Albuterol Nebulize 3 ml INHALATION RT-QID 12/07/19 12/07/19 History [Duoneb 0.5 mg-3 mg/3 ml Soln] SUMAtriptan SUCCINATE [Imitrex] 50 mg PO BID PRN 12/07/19 12/07/19 History Allergies Allergy/AdvReac Type Severity Reaction Status Date / Time aripiprazole [From Abilify] Allergy tremors,spa Verified 12/07/19 08:58 sms fentanyl Allergy Rash/Hives Verified 12/07/19 08:58 (only with patch) Iodinated Contrast Media Allergy Anaphylaxis Verified 12/07/19 08:58 [Iodinated Contrast Media - IV Dye] shellfish derived Allergy Anaphylaxis Verified 12/07/19 08:58 buspirone AdvReac Hallucinati Verified 12/07/19 08:58 ons escitalopram [From Lexapro] AdvReac "mean Verified 12/07/19 08:58 behavior" Physical Exam Vitals: Vital Signs Temp Pulse Pulse Resp BP BP Pulse Ox 12/07/19 11:38 98.1 F 86 18 103/56 96 12/07/19 08:52 97.9 F 91 16 98/54 97 12/07/19 08:00 18 12/07/19 06:42 98.7 F 83 18 124/74 92 L 12/07/19 04:43 98 F 68 18 100/73 100 12/07/19 02:52 92 12/07/19 02:41 98.1 F 98 18 100/55 100 12/07/19 01:38 98.6 F 87 16 132/77 97 Intake and Output 12/06/19 12/07/19 12/07/19 22:59 06:59 14:59 Intake Total 155.938 Balance 155.938 Intake: Intake, IV Titration 155.938 Amount Heparin Sod,Pork in 0.45% 155.938 NaCl 25,000 unit In 0.45 % NaCl 1 250ml.bag @ 18 UNITS/KG/HR 17.554 mls/hr IV .[id number] [facility] Rx#: [id number] Other: Voiding Method Toilet Weight 97.522 kg Results CBC & Chem 7: 12/07/19 02:17 12/07/19 02:17 Labs: Abnormal Lab Results - Last 24 Hours (Table) 12/07/19 12/07/19 Range/Units 02:17 10:26 APTT 79.7 H (22.0-30.0) sec Glucose 141 H (74-99) mg/dL Thrombosis Risk Factor Assmnt - Choose All That Apply Each Factor Represents 1 point: Age 41-60 years, Obesity (BMI >25) Thrombosis Risk Factor Assessment Total Risk Factor Score: 2 Thrombosis Risk Factor Assessment Level: Low Risk
[2019-12-07] MEDS ORDERED: CEFDINIR 300 MG CAP PO SCH (15:15)
[2019-12-07] MEDS ORDERED: IPRATROPIUM-ALBUTEROL 3 ML NEB INHALATION SCH (15:15)
[2019-12-07] MEDS ORDERED: BUDESONIDE 1 MG/2 ML NEBU INHALATION SCH (15:15)
--- NOTE | 2019-12-07 16:03 | US ---
EXAMINATION TYPE: US venous doppler duplex LE BI DATE OF EXAM: 12/07/2019 3:45 PM COMPARISON: US CLINICAL HISTORY: suspected DVT. SIDE PERFORMED: Bilateral TECHNIQUE: The lower extremity deep venous system is examined utilizing real time linear array sonog gaby with graded compression, doppler sonography and color-flow sonography. VESSELS IMAGED: External Iliac Vein (EIV) Common Femoral Vein Deep Femoral Vein Greater Saphenous Vein * Femoral Vein Popliteal Vein Small Saphenous Vein * Proximal Calf Veins (* superficial vessels) Right Leg: Negative for DVT Left Leg: Negative for DVT IMPRESSION: Negative exam. No evidence of deep venous thrombosis in both legs.
[2019-12-07 16:16] VITALS: BP 105/67; PULSE 82; RESP 16; TEMP 98
[2019-12-07] MEDS ORDERED: CARVEDILOL 3.125 MG TAB PO SCH (21:00)
[2019-12-07] MEDS ORDERED: tiZANidine 4 MG TAB PO SCH (21:00)
--- NOTE | 2019-12-09 00:11 | P.DS ---
Providers Date of admission: 12/07/19 06:02 Expected date of discharge: 12/07/19 (Left AMA) Attending physician: Dillon Winston Consults: 12/07/19 04:06 Consult Physician Stat Consulting Provider: David Allen Consult Reason/Comments: pulmonary embolism Do you want consulting provider notified?: Yes Primary care physician: Judah Murdock [facility] Course: Chief Complaint: Shortness of breath History of presenting complaint: This is a 44-year-old patient of Dr. Murdock. Chronic stable medical conditions include fibromyalgia, GERD, decreased hearing in the right ear, Kevin arthritis. Patient for a month visit respiratory symptoms. Including cough sputum. Green color had some fever and chills also. Appetite has not been good. Because of decreased appetite has had some constipation. Had a bowel movement earlier today after 4 days. Has been more short of breath also. Patient had a computed tomography scan of the chest and there was a questionable small emboli. Patient was started on IV heparin in the ER. Patient is very anxious and somewhat agitated because she been sick for a month. Admitted with COPD exacerbation, acute tracheobronchitis. Not felt to have PE. Patient left AMA Consultation: Dr. Allen from pulmonary Physical examination: VITAL SIGNS: 98.6, 87, 16, 132/77, 97% room air GENERAL: BMI 30.8, sitting up in bed very anxious and irritated. EYES: Pupils equal. Conjunctiva normal. HEENT: External appearance of nose and ears normal, oral cavity grossly normal. Decreased hearing in the right ear NECK: JVD not raised; masses not palpable. HEART: First and second heart sounds are normal; no edema. LUNGS: Respiratory rate normal; bili slightly decreased breath sounds. ABDOMEN: Soft, nontender, liver spleen not palpable, no masses palpable. PSYCH: [Alert and oriented x3; mood and affect very anxious and agitated. NEUROLOGICAL: Cranial nerves grossly intact; no facial asymmetry, power and sensation grossly intact. LYMPHATICS: No lymph nodes palpable in the axilla and neck INVESTIGATIONS, reviewed in the clinical context: White count 9.4 hemoglobin 11.9 platelets 329 potassium 3.5 creatinine 0.5 by Influenza A and B- both negative EKG tracing personally reviewed by me-normal sinus rhythm Chest x-ray film personally reviewed by me-patchy atelectasis right base Chest CTA-very small questionable pulmonary emboli. No obvious infiltrate Assessment: -Acute COPD exacerbation and an ex-smoker -Acute tracheobronchitis with clinical response -Chronic fibromyalgia -GERD Obesity BMI 30.8 -Uncontrolled anxiety -Pulmonary embolism extremely unlikely. -IV heparin monitoring Disposition: Patient left AMA Patient Condition at Discharge: Undetermined Plan - Discharge Summary New Discharge Prescriptions: No Action Pantoprazole Sodium [Protonix] 40 mg PO BID DULoxetine HCL [Cymbalta] 60 mg PO BID EPINEPHrine (Auto Inject) [Epipen] 0.3 mg IM ONCE PRN PRN Reason: Anaphylaxis traMADol HCL [Tramadol HCl] 100 mg PO Q6H PRN PRN Reason: Pain Budesonide-Formot 160-4.5 Mcg [Symbicort 160-4.5 Mcg Inhaler] 2 puff INHALATION RT-BID oxyCODONE-APAP 10-325MG [Percocet 10-325 mg] 1 tab PO Q4H PRN PRN Reason: Pain rOPINIRole HCL [Requip] 4 mg PO TID Carvedilol [Coreg] 3.125 mg PO HS Ondansetron Odt [Zofran ODT] 8 mg PO Q12HR PRN PRN Reason: Nausea tiZANidine [Zanaflex] 8 mg PO HS Albuterol Inhaler [Ventolin Hfa Inhaler] 1 - 2 puff INHALATION RT-Q4H PRN PRN Reason: Cough Ipratropium-Albuterol Nebulize [Duoneb 0.5 mg-3 mg/3 ml Soln] 3 ml INHALATION RT-QID SUMAtriptan SUCCINATE [Imitrex] 50 mg PO BID PRN PRN Reason: Migraine Headache Discharge Medication List DULoxetine HCL [Cymbalta] 60 mg PO BID 04/03/14 [History] Pantoprazole Sodium [Protonix] 40 mg PO BID 04/03/14 [History] EPINEPHrine (Auto Inject) [Epipen] 0.3 mg IM ONCE PRN 08/15/16 [History] traMADol HCL [Tramadol HCl] 100 mg PO Q6H PRN 11/11/16 [History] Budesonide-Formot 160-4.5 Mcg [Symbicort 160-4.5 Mcg Inhaler] 2 puff INHALATION RT-BID 04/03/17 [History] Carvedilol [Coreg] 3.125 mg PO HS 03/16/18 [History] oxyCODONE-APAP 10-325MG [Percocet 10-325 mg] 1 tab PO Q4H PRN 03/16/18 [History] rOPINIRole HCL [Requip] 4 mg PO TID 03/16/18 [History] Ondansetron Odt [Zofran ODT] 8 mg PO Q12HR PRN 09/13/18 [History] tiZANidine [Zanaflex] 8 mg PO HS 11/26/18 [History] Albuterol Inhaler [Ventolin Hfa Inhaler] 1 - 2 puff INHALATION RT-Q4H PRN 12/07/19 [History] Ipratropium-Albuterol Nebulize [Duoneb 0.5 mg-3 mg/3 ml Soln] 3 ml INHALATION RT-QID 12/07/19 [History] SUMAtriptan SUCCINATE [Imitrex] 50 mg PO BID PRN 12/07/19 [History] Follow up Appointment(s)/Referral(s): Judah Murdock DO [Primary Care Provider] - 1-2 days (Offices are closed. Please call Monday to make a follow up appointment. ) Patient Instructions/Handouts: Upper Respiratory Infection (DC) Discharge Disposition: Left Against Medical Advice
== END 2019-12-07 17:26 | disposition left against medical advice (07) ==
LOC: EC 01:34 → 3SCARD 06:02
PROVIDERS: ADMIT Hospitalist; ATTEND Hospitalist
DX: J20.9 Acute bronchitis, unspecified (principal); J44.0 Chronic obstructive pulmonary disease with (acute) lower respiratory infection; J44.1 Chronic obstructive pulmonary disease with (acute) exacerbation; M79.7 Fibromyalgia; K21.9 Gastro-esophageal reflux disease without esophagitis; Z86.718 Personal history of other venous thrombosis and embolism; Z86.73 Personal history of transient ischemic attack (TIA), and cerebral infarction without residual deficits; M19.90 Unspecified osteoarthritis, unspecified site; E66.9 Obesity, unspecified; Z68.30 Body mass index [BMI] 30.0-30.9, adult; F41.9 Anxiety disorder, unspecified; H91.91 Unspecified hearing loss, right ear; Z87.891 Personal history of nicotine dependence; Z53.29 Procedure and treatment not carried out because of patient's decision for other reasons; Z90.710 Acquired absence of both cervix and uterus; Z88.8 Allergy status to other drugs, medicaments and biological substances; Z79.891 Long term (current) use of opiate analgesic; Z79.51 Long term (current) use of inhaled steroids; Z79.899 Other long term (current) drug therapy; Z91.041 Radiographic dye allergy status; Z83.3 Family history of diabetes mellitus; Z80.0 Family history of malignant neoplasm of digestive organs; Z82.3 Family history of stroke; Z82.49 Family history of ischemic heart disease and other diseases of the circulatory system; Z80.49 Family history of malignant neoplasm of other genital organs
CPT/HCPCS: 96366 ×2; 96376; 96365; 96375; 99285; 36415; 94640 ×2; 94760; 93005; 85379; 83880; 80053; 83735; 84484; 85025; 85610; 85730; 82272; 87502; 71046; 93970; 71275; G0378; J1200; J1644 ×2; J2765; J2930; Q9967

== ENCOUNTER 2020-06-17 12:41 | Emergency (ER) | payer MEDICARE, OTHER ==
[2020-06-17] MEDS ORDERED: METOCLOPRAMIDE 5 MG/ML 2 ML VIAL IVP STA (13:16)
[2020-06-17] MEDS ORDERED: PANTOPRAZOLE 40 MG/10 ML VIAL IVP STA (13:16)
[2020-06-17] MEDS ORDERED: SODIUM CHLORIDE 0.9% 1,000 ML IV STA ×2 (13:16)
[2020-06-17] MEDS ORDERED: HYDROmorphone 0.5 MG/0.5 ML SYRINGE IVP STA (13:16)
[2020-06-17] MEDS ORDERED: diphenhydrAMINE 50 MG/ML 1 ML VIAL IVP STA (13:16)
--- NOTE | 2020-06-17 13:19 | ED ---
Abdominal Pain HPI - General Source: patient, RN notes reviewed, old records reviewed Mode of arrival: ambulatory Limitations: no limitations <Maryann Hernandez - Last Filed: 06/17/20 13:17> <Dc Gómez - Last Filed: 06/17/20 16:52> - General Chief Complaint: Abdominal Pain Stated Complaint: abd pain Time Seen by Provider: 06/17/20 13:07 - History of Present Illness Initial Comments: This is a 45-year-old female presents emergency department today for evaluation for concern for right upper quadrant abdominal pain worsening over the past week. Patient reports that symptoms are worse after eating and states it's a crampy and sharp stabbing pain. She states that she's been having vomiting episodes associated with eating and reports later stools. She states that she has had no recorded fevers or chills. Surgical history includes total hysterectomy. She reports that she's been using Zofran at home for nausea which is not helping. (Maryann Hernandez) - Related Data Home Medications Medication Instructions Recorded Confirmed Pantoprazole Sodium [Protonix] 40 mg PO BID 04/03/14 06/17/20 traMADol HCL [Tramadol HCl] 100 mg PO Q6H PRN 11/11/16 06/17/20 oxyCODONE-APAP 10-325MG [Percocet 1 tab PO Q4H 03/16/18 06/17/20 10-325 mg] rOPINIRole HCL [Requip] 4 mg PO TID 03/16/18 06/17/20 Ondansetron Odt [Zofran ODT] 8 mg PO Q12H PRN 09/13/18 06/17/20 FLUoxetine HCL [PROzac] 20 mg PO HS 06/17/20 06/17/20 FLUoxetine HCL [PROzac] 40 mg PO HS 06/17/20 06/17/20 Galcanezumab-Gnlm [Emgality 120 mg SQ Q30D 06/17/20 06/17/20 Syringe] Loratadine [Claritin] 10 mg PO DAILY PRN 06/17/20 06/17/20 Allergies Allergy/AdvReac Type Severity Reaction Status Date / Time aripiprazole [From Abilify] Allergy tremors,spa Verified 06/17/20 16:35 sms fentanyl Allergy Rash/Hives Verified 06/17/20 16:35 (only with patch) Iodinated Contrast Media Allergy Anaphylaxis Verified 06/17/20 16:35 [Iodinated Contrast Media - IV Dye] shellfish derived Allergy Anaphylaxis Verified 06/17/20 16:35 buspirone AdvReac Hallucinati Verified 06/17/20 16:35 ons escitalopram [From Lexapro] AdvReac "mean Verified 06/17/20 16:35 behavior" Review of Systems ROS Other: All systems not noted in ROS Statement are negative. <Maryann Hernandez - Last Filed: 06/17/20 13:17> ROS Other: All systems not noted in ROS Statement are negative. <Dc Gómez - Last Filed: 06/17/20 16:52> ROS Statement: Those systems with pertinent positive or pertinent negative responses have been documented in the HPI. Past Medical History Past Medical History: Asthma, COPD, CVA/TIA, Deep Vein Thrombosis (DVT), Fibromyalgia, GERD/Reflux, Osteoarthritis (OA), Pneumonia Additional Past Medical History / Comment(s): *DEAF IN RIGHT EAR. TIA x2 (2017)., tachycardia, Neuropathy feet; UNSTEADY WHEN UP/BALANCE ISSUUES, HX OF MULTIPLE SURGERIES ON CLUB FEET, PAIN IN FEET, LEGS, KNEES & HIPS., Hx of Dvt right groin & behind right knee. PT STATED HAS BEEN EXPOSED TO BLACK MOLD, low threshold for seizures per pt, unable to lay flat, STATES LUNG DISEASE-UNKNOWN NAME. 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 Lt breast biopsy BRONCHOSCOPY-BENIGN NODULE REMOVED."bronchial septalplasty". COLONOSCOPY, right salpingo-oophorectomy, rt foot fusion/plate and screws jan 18 2018. lung biopsy. Past Anesthesia/Blood Transfusion Reactions: Previous Problems w/ Anesthesia, Motion Sickness, Postoperative Nausea & Vomiting (PONV) Additional Past Anesthesia/Blood Transfusion Reaction / Comment(s): Problems/w/anes in Nov after colonoscopy. "Too much given & couldn't wake up".....However, patient states they have to give her more meds to get her to be sedated."AFTER 1 SX THEY TOLD ME I STOPPED BREATHING DURING SX approx 14 yrs ago" Past Psychological History: Anxiety Smoking Status: Current every day smoker Past Alcohol Use History: None Reported Past Drug Use History: None Reported - Past Family History Mother Family Medical History: Diabetes Mellitus Additional Family Medical History / Comment(s): IRREG HEART BEAT. GRANDMOTHER HAD COLON CANCER AND HEART DISEASE Father Family Medical History: Hyperlipidemia, Hypertension Sister(s) Family Medical History: AFIB, Cancer, CVA/TIA, Hypertension Additional Family Medical History / Comment(s): CERVICAL CANCER <Maryann Hernandez - Last Filed: 06/17/20 13:17> General Exam Limitations: no limitations General appearance: alert, in no apparent distress Head exam: Present: atraumatic, normocephalic, normal inspection Eye exam: Present: normal appearance, PERRL, EOMI. Absent: scleral icterus, conjunctival injection, periorbital swelling ENT exam: Present: normal exam, mucous membranes moist Neck exam: Present: normal inspection. Absent: tenderness, meningismus, lymphadenopathy Respiratory exam: Present: normal lung sounds bilaterally. Absent: respiratory distress, wheezes, rales, rhonchi, stridor Cardiovascular Exam: Present: regular rate GI/Abdominal exam: Present: soft, tenderness (Right upper quadrant tenderness) Extremities exam: Present: normal inspection, full ROM, normal capillary refill. Absent: tenderness, pedal edema, joint swelling, calf tenderness Back exam: Present: normal inspection Neurological exam: Present: alert, oriented X3, CN II-XII intact Psychiatric exam: Present: normal affect, normal mood Skin exam: Present: warm, dry, intact, normal color. Absent: rash <Maryann Hernandez - Last Filed: 06/17/20 13:17> - General Exam Comments Initial Comments: 45-year-old female. Alert and oriented 3. Patient appears in no significant distress. (Maryann Hernandez) Course Vital Signs 06/17/20 06/17/20 06/17/20 12:45 14:29 15:35 Temperature 98.0 F Pulse Rate 84 66 63 Respiratory 16 18 18 Rate Blood Pressure 127/70 131/87 106/72 O2 Sat by Pulse 99 98 96 Oximetry Medical Decision Making - Lab Data Result diagrams: 06/17/20 14:16 06/17/20 14:16 <Dc Gómez - Last Filed: 06/17/20 16:52> - Medical Decision Making I see this patient as a signout from Maryann Stapleton PA-C patient has been having an upper quadrant pain for the last 4 days. Some mild nausea as well. Patient physical exam displayed mild upper quadrant tenderness. No other areas of abdominal tenderness. Left investigations are reviewed and are unremarkable. Ultrasound splays cholelithiasis no signs of cholecystitis. Patient is requesting discharge. Patient will be discharged with strict return precautions outpatient follow-up with Dr. Berrios and primary care provider.. Case discussed with Dr. Pemberton. (Dc Gómez) - Lab Data Lab Results 06/17/20 06/17/20 06/17/20 Range/Units 13:28 14:16 14:16 WBC 7.9 (3.8-10.6) k/uL RBC 4.60 (3.80-5.40) m/uL Hgb 14.6 (11.4-16.0) gm/dL Hct 44.4 (34.0-46.0) % MCV 96.6 (80.0-100.0) fL MCH 31.8 (25.0-35.0) pg MCHC 32.9 (31.0-37.0) g/dL RDW 13.6 (11.5-15.5) % Plt Count 262 (150-450) k/uL Neutrophils % 54 % Lymphocytes % 37 % Monocytes % 4 % Eosinophils % 3 % Basophils % 1 % Neutrophils # 4.2 (1.3-7.7) k/uL Lymphocytes # 2.9 (1.0-4.8) k/uL Monocytes # 0.3 (0-1.0) k/uL Eosinophils # 0.2 (0-0.7) k/uL Basophils # 0.1 (0-0.2) k/uL PT 9.6 (9.0-12.0) sec INR 0.9 (<1.2) APTT 26.2 (22.0-30.0) sec Sodium (137-145) mmol/L Potassium (3.5-5.1) mmol/L Chloride (98-107) mmol/L Carbon Dioxide (22-30) mmol/L Anion Gap mmol/L BUN (7-17) mg/dL Creatinine (0.52-1.04) mg/dL Est GFR (CKD-EPI)AfAm (>60 ml/min/1.73 sqM) Est GFR (CKD-EPI)NonAf (>60 ml/min/1.73 sqM) Glucose (74-99) mg/dL Calcium (8.4-10.2) mg/dL Total Bilirubin (0.2-1.3) mg/dL AST (14-36) U/L ALT (4-34) U/L Alkaline Phosphatase (38-126) U/L Total Protein (6.3-8.2) g/dL Albumin (3.5-5.0) g/dL Amylase (30-110) U/L Lipase (23-300) U/L Urine Color Yellow Urine Appearance Clear (Clear) Urine pH 6.0 (5.0-8.0) Ur Specific [place] 1.033 (1.001-1.035) Urine Protein Trace H (Negative) Urine Glucose (UA) Negative (Negative) Urine Ketones Trace H (Negative) Urine Blood Negative (Negative) Urine Nitrite Negative (Negative) Urine Bilirubin Negative (Negative) Urine Urobilinogen 2.0 (<2.0) mg/dL Ur Leukocyte Esterase Trace H (Negative) Urine RBC 2 (0-5) /hpf Urine WBC 3 (0-5) /hpf Ur Squamous Epith Cells 5 H (0-4) /hpf Urine Mucus Occasional H (None) /hpf 06/17/20 Range/Units 14:16 WBC (3.8-10.6) k/uL RBC (3.80-5.40) m/uL Hgb (11.4-16.0) gm/dL Hct (34.0-46.0) % MCV (80.0-100.0) fL MCH (25.0-35.0) pg MCHC (31.0-37.0) g/dL RDW (11.5-15.5) % Plt Count (150-450) k/uL Neutrophils % % Lymphocytes % % Monocytes % % Eosinophils % % Basophils % % Neutrophils # (1.3-7.7) k/uL Lymphocytes # (1.0-4.8) k/uL Monocytes # (0-1.0) k/uL Eosinophils # (0-0.7) k/uL Basophils # (0-0.2) k/uL PT (9.0-12.0) sec INR (<1.2) APTT (22.0-30.0) sec Sodium 139 (137-145) mmol/L Potassium 4.5 (3.5-5.1) mmol/L Chloride 104 (98-107) mmol/L Carbon Dioxide 27 (22-30) mmol/L Anion Gap 8 mmol/L BUN 19 H (7-17) mg/dL Creatinine 0.62 (0.52-1.04) mg/dL Est GFR (CKD-EPI)AfAm >90 (>60 ml/min/1.73 sqM) Est GFR (CKD-EPI)NonAf >90 (>60 ml/min/1.73 sqM) Glucose 99 (74-99) mg/dL Calcium 9.6 (8.4-10.2) mg/dL Total Bilirubin 0.5 (0.2-1.3) mg/dL AST 24 (14-36) U/L ALT 17 (4-34) U/L Alkaline Phosphatase 93 (38-126) U/L Total Protein 7.1 (6.3-8.2) g/dL Albumin 4.4 (3.5-5.0) g/dL Amylase 52 (30-110) U/L Lipase 101 (23-300) U/L Urine Color Urine Appearance (Clear) Urine pH (5.0-8.0) Ur Specific [place] (1.001-1.035) Urine Protein (Negative) Urine Glucose (UA) (Negative) Urine Ketones (Negative) Urine Blood (Negative) Urine Nitrite (Negative) Urine Bilirubin (Negative) Urine Urobilinogen (<2.0) mg/dL Ur Leukocyte Esterase (Negative) Urine RBC (0-5) /hpf Urine WBC (0-5) /hpf Ur Squamous Epith Cells (0-4) /hpf Urine Mucus (None) /hpf Disposition <Maryann Hernandez - Last Filed: 06/17/20 13:17> Is patient prescribed a controlled substance at d/c from ED?: No <Dc Gómez - Last Filed: 06/17/20 16:52> Clinical Impression: Biliary colic Disposition: HOME SELF-CARE Condition: Stable Instructions (If sedation given, give patient instructions): Biliary Colic (ED) Additional Instructions: Follow-up with primary care provider and general surgeon tomorrow. Return to ER if any worsening symptoms. Referrals: Judah Murdock DO [Primary Care Provider] - 1-2 days Kayce Berrios MD [STAFF PHYSICIAN] - 1-2 days
[2020-06-17] MEDS ORDERED: ONDANSETRON ODT 4 MG TAB PO STA (13:50)
[2020-06-17 13:54] LABS: Appearance,Urine Clear (Clear); Bilirubin,Urine Negative (Negative); Blood,Urine Negative (Negative); Color,Urine Yellow; Glucose,Urine (UA) Negative (Negative); Ketones,Urine Trace (Negative); Leukocyte Esterase,Urine Trace (Negative); Mucus,Urine Occasional /hpf; Nitrite,Urine Negative (Negative); Protein,Urine Trace (Negative); RBC,Urine 2 /hpf (0-5); Specific Gravity,Urine 1.033 (1.001-1.035); Squamous Epithelial Cell,Urine 5 /hpf (0-4); WBC,Urine 3 /hpf (0-5)
[2020-06-17 14:31] LABS: Basophils # (A) 0.1 k/uL (0-0.2); Basophils % (A) 1 %; Eosinophils # (A) 0.2 k/uL (0-0.7); Eosinophils % (A) 3 %; HCT 44.4 % (34.0-46.0); HGB 14.6 gm/dL (11.4-16.0); Lymphocytes # (A) 2.9 k/uL (1.0-4.8); Lymphocytes % (A) 37 %; MCH 31.8 pg (25.0-35.0); MCHC 32.9 g/dL (31.0-37.0); MCV 96.6 fL (80.0-100.0); Mean Platelet Volume 7.9; Monocytes # (A) 0.3 k/uL (0-1.0); Monocytes % (A) 4 %; Neutrophils # (A) 4.2 k/uL (1.3-7.7); Neutrophils % (A) 54 %; Platelet Count 262 k/uL (150-450); RDW 13.6 % (11.5-15.5); WBC 7.9 k/uL (3.8-10.6)
[2020-06-17 14:33] VITALS: RESP 18
[2020-06-17 14:41] LABS: ALT 17 U/L (4-34); AST 24 U/L (14-36); African American GFR (CKD) >90 (>60 ml/min/1.73 sqM); Albumin 4.4 g/dL (3.5-5.0); Alkaline Phosphatase 93 U/L (38-126); Amylase 52 U/L (30-110); Anion Gap 8 mmol/L; Blood Urea Nitrogen 19 mg/dL (7-17); Calcium 9.6 mg/dL (8.4-10.2); Carbon Dioxide 27 mmol/L (22-30); Chloride 104 mmol/L (98-107); Glucose 99 mg/dL (74-99); Non-African American GFR(CKD) >90 (>60 ml/min/1.73 sqM); Potassium 4.5 mmol/L (3.5-5.1); Sodium 139 mmol/L (137-145); Total Bilirubin 0.5 mg/dL (0.2-1.3); Total Protein 7.1 g/dL (6.3-8.2)
[2020-06-17 15:06] LABS: INR 0.9 (<1.2); Partial Thromboplastin Time 26.2 sec (22.0-30.0); Prothrombin Time 9.6 sec (9.0-12.0)
--- NOTE | 2020-06-17 16:12 | US ---
EXAMINATION TYPE: US gallbladder DATE OF EXAM: 06/17/2020 COMPARISON: CT 2017 CLINICAL HISTORY: RUQ pain. RUQ pain and N/V x 4 days EXAM MEASUREMENTS: Liver Length: 15.9 cm Gallbladder Wall: 0.2 cm CBD: 0.5 cm Right Kidney: 10.7 x 4.7 x 4.8 cm Pancreas: Normal where visualized. Liver: Mildly heterogenous echotexture. Gallbladder: The gallbladder is contracted with numerous shadowing cholelithiasis. Gallbladder wall thickness within normal limits. [employer] P[employer] reports positive sonographic Brennan's sign. CBD: No intrahepatic or extrahepatic biliary ductal dilatation. Right Kidney: No hydronephrosis. IMPRESSION: 1. Cholelithiasis. Steel Erecting Pusher reports positive Brennan's sign, however the gallbladder is nonthicken ed/nondistended which makes acute cholecystitis less likely. If there is clinical concern for acute c holecystitis, consider follow-up with nuclear medicine HIDA scan. 2. Heterogenous liver may represent diffuse hepatocellular disease.
[2020-06-17 16:58] VITALS: BP 110/82; PULSE 64; TEMP 97.8
== END 2020-06-17 16:58 | disposition home or self-care (01) ==
LOC: EC 12:41
DX: K80.70 Calculus of gallbladder and bile duct without cholecystitis without obstruction (principal); M79.7 Fibromyalgia; K21.9 Gastro-esophageal reflux disease without esophagitis; M19.90 Unspecified osteoarthritis, unspecified site; F41.9 Anxiety disorder, unspecified; F17.200 Nicotine dependence, unspecified, uncomplicated; Z95.818 Presence of other cardiac implants and grafts; Z86.73 Personal history of transient ischemic attack (TIA), and cerebral infarction without residual deficits; Z90.710 Acquired absence of both cervix and uterus; Z79.891 Long term (current) use of opiate analgesic; Z79.899 Other long term (current) drug therapy; Z88.8 Allergy status to other drugs, medicaments and biological substances; Z88.5 Allergy status to narcotic agent; Z91.041 Radiographic dye allergy status; Z91.013 Allergy to seafood
CPT/HCPCS: 36415; 80053; 82150; 83690; 85025; 85610; 85730; 81001; 76705; 99284; 96374; 96375 ×3; 96361 ×2; J1200; J2765; C9113; J1170

== ENCOUNTER 2020-06-29 06:18 | Day surgery (SDC) | payer MEDICARE, OTHER ==
[2020-06-26 09:12] VITALS: BMI 31.7
--- NOTE | 2020-06-28 18:38 | P.GSHP ---
History of Present Illness H&P Date: 06/29/20 CHIEF COMPLAINT: Cholecystitis HISTORY OF PRESENT ILLNESS: The patient is a 45-year-old female who presents with history of epigastric including right upper quadrant abdominal pain. She underwent diagnostic studies for her gallbladder. Separately her clinical picture was consistent with cholecystitis. Now she presents for surgical intervention. PAST MEDICAL HISTORY: Please see list PAST SURGICAL HISTORY: Please see list MEDICATIONS: Please see list ALLERGIES: Please see list SOCIAL HISTORY: Please see list FAMILY HISTORY: Please see list REVIEW OF ORGAN SYSTEMS: CONSTITUTIONAL: No reports of fevers or chills. HEENT: Denies any troubles with the vision or hearing. ENDOCRINE: No reports of hypothyroidism. No diabetes. RESPIRATORY: No recent pneumonias. Has asthma. CARDIOVASCULAR: Denies chest pain or palpitations GI: No blood in stools or constipation. Has GERD. MUSCULOSKELETAL: Has occasional joint pain including back pain. NEURO: No seizure disorders or headaches. No recent stroke. PSYCH: Depression. No suicidal ideation. GENITOURINARY: No active blood in urine. No urinary hesitancy. HEMATOLOGIC: No personal or family history of DVTs or pulmonary emboli. SKIN: No skin cancer. PHYSICAL EXAM: VITAL SIGNS: Afebrile vital signs stable GENERAL: Well-developed pleasant in no acute distress. HEENT: No scleral icterus. Extraocular movements grossly intact. Moist buccal mucosa. NECK: Supple without lymphadenopathy. CHEST: Unlabored respirations. Equal bilateral excursions. CARDIOVASCULAR: Regular rate regular rhythm rhythm. Distal 2+ pulses. ABDOMEN: Soft, nondistended. Tender along the epigastrium and right upper quadrant. MUSCULOSKELETAL: No clubbing, cyanosis, or edema. NEURO: Cranial nerves II to XII within normal limits. No focal or lateralizing signs. PSYCH: Alert and oriented to person, place and time. SKIN: Well-perfused good skin turgor. ASSESSMENT: 1. Epigastric and right upper quadrant abdominal pain 2. Chronic cholecystitis 3. Symptomatic gallstones. PLAN: 1. Will need a robotic cholecystectomy possible open. Benefits and risks were described. 2. Heparin for DVT prophylaxis 5000 units. 3. Antibiotic prophylaxis. Past Medical History Past Medical History: Asthma, COPD, CVA/TIA, Deep Vein Thrombosis (DVT), Fibromyalgia, GERD/Reflux, Hearing Disorder / Deafness, Osteoarthritis (OA), Pneumonia Additional Past Medical History / Comment(s): *DEAF IN RIGHT EAR. 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 Lt breast biopsy BRONCHOSCOPY-BENIGN NODULE REMOVED."bronchial surgery" . COLONOSCOPY, right salpingo-oophorectomy, rt foot fusion/plate and screws. lung biopsy. Past Anesthesia/Blood Transfusion Reactions: Previous Problems w/ Anesthesia, Motion Sickness, Postoperative Nausea & Vomiting (PONV) Additional Past Anesthesia/Blood Transfusion Reaction / Comment(s): TAKES LONGER TO WAKE UP "Too much given & couldn't wake up".....However, patient states they have to give her more meds to get her to be sedated."AFTER 1 SX THEY TOLD ME I STOPPED BREATHING DURING SX approx 14 yrs ago" Smoking Status: Current every day smoker - Past Family History Mother Family Medical History: Diabetes Mellitus Additional Family Medical History / Comment(s): IRREG HEART BEAT. GRANDMOTHER HAD COLON CANCER AND HEART DISEASE Father Family Medical History: Hyperlipidemia, Hypertension Sister(s) Family Medical History: AFIB, Cancer, CVA/TIA, Hypertension Additional Family Medical History / Comment(s): CERVICAL CANCER Medications and Allergies Home Medications Medication Instructions Recorded Confirmed Type Pantoprazole Sodium [Protonix] 40 mg PO BID 04/03/14 06/26/20 History traMADol HCL [Tramadol HCl] 100 mg PO Q6H PRN 11/11/16 06/26/20 History oxyCODONE-APAP 10-325MG [Percocet 1 tab PO Q4H 03/16/18 06/26/20 History 10-325 mg] rOPINIRole HCL [Requip] 4 mg PO TID 03/16/18 06/26/20 History Ondansetron Odt [Zofran ODT] 8 mg PO Q12H PRN 09/13/18 06/26/20 History FLUoxetine HCL [PROzac] 60 mg PO HS 06/17/20 06/26/20 History Loratadine [Claritin] 10 mg PO DAILY PRN 06/17/20 06/26/20 History Albuterol Inhaler [Ventolin Hfa 2 puff INHALATION RT-QID PRN 06/26/20 06/26/20 History Inhaler] Allergies Allergy/AdvReac Type Severity Reaction Status Date / Time aripiprazole [From Abilify] Allergy tremors,spa Verified 06/17/20 16:35 sms fentanyl Allergy Rash/Hives Verified 06/17/20 16:35 (only with patch) Iodinated Contrast Media Allergy Anaphylaxis Verified 06/17/20 16:35 [Iodinated Contrast Media - IV Dye] shellfish derived Allergy Anaphylaxis Verified 06/17/20 16:35 buspirone AdvReac Hallucinati Verified 06/17/20 16:35 ons escitalopram [From Lexapro] AdvReac "mean Verified 06/17/20 16:35 behavior" ibuprofen [From Motrin] AdvReac GI Verified 06/26/20 09:00 BLEEDING TOLD BY NOT TO TAKE"
[~2020-06-29 06:18] MED LIST changes: +ACETAMINOPHEN TAB 500 MG TAB PO STA; -ALBUTEROL NEB (CONC) 2.5 MG/0.5 ML INHALATION ONE; -ATROPINE SULFATE 0.4 MG/ML 1 ML VIAL IM ONE; +DEXAMETHASONE SOD PHOSPHATE 10 MG/ML 1 ML VIAL IV ONE; +GABAPENTIN 300 MG CAP PO STA; +HEPARIN SODIUM,PORCINE 5,000 UNIT/ML 1 ML VIAL SQ ONE; +KETOROLAC 30 MG/ML 1 ML VIAL IVP STA; +LIDOCAINE 1% (10MG/ML) FOR IV START INTRADERMA PRN; -LIDOCAINE 1% 20 ML VIAL (10MG/ML) FOR IV START INTRADERMA PRN; -LIDOCAINE 2% (PF) 20 MG/ML 5 ML VIAL INHALATION ONE; -LIDOCAINE VISCOUS 300 MG/15 ML CUP MUCOUS MEM ONE; +ONDANSETRON 4 MG/2 ML VIAL IVP ONE; -SODIUM CHLORIDE 0.9% 1,000 ML IV SCH
[2020-06-29] MEDS ORDERED: ONDANSETRON 4 MG/2 ML VIAL ONE (06:41)
[2020-06-29] MEDS ORDERED: HEPARIN SODIUM,PORCINE 5,000 UNIT/ML 1 ML VIAL ONE (06:41)
[2020-06-29] MEDS ORDERED: ACETAMINOPHEN TAB 500 MG TAB ONE (06:41)
[2020-06-29] MEDS ORDERED: HYDROmorphone (PF) 1 MG/ML ONE (07:32)
[2020-06-29] MEDS ORDERED: SUCCINYLCHOLINE CHLORIDE 100 MG/5 ML SYR IV ONE (07:32)
[2020-06-29] MEDS ORDERED: PROPOFOL 10 MG/ML 20 ML VIAL IV ONE (07:32)
[2020-06-29] MEDS ORDERED: GLYCOPYRROLATE 0.2 MG/ML 2 ML VIAL ONE (07:32)
[2020-06-29] MEDS ORDERED: ROCURONIUM BROMIDE 10 MG/ML 5 ML VIAL IV ONE (07:32)
[2020-06-29] MEDS ORDERED: MIDAZOLAM 2 MG/2 ML VIAL ONE (07:32)
[2020-06-29] MEDS ORDERED: NEOSTIGMINE 1 MG/ML 10 ML VIAL ONE (07:32)
[2020-06-29] MEDS ORDERED: LIDOCAINE 1%-EPI 1:100,000 20 ML VIAL SQ ONE (08:01)
--- NOTE | 2020-06-29 08:45 | P.OP ---
Date of Procedure: 06/29/20 Description of Procedure: SURGEON: KAYCE BERRIOS MD PREOPERATIVE DIAGNOSES: 1. Epigastric and right upper quadrant abdominal pain with intractable nausea vomiting 2. Symptomatic gallstones 3. Chronic cholecystitis 4. Chronic pain syndrome 5. Gastroesophageal reflux disease 6. Multiple drug ALLERGIES 7. Depressive disorder 8. Asthma 9. Interstitial lung disease 10. Neuropathy 11. History of DVT 12. Chronic dehydration POSTOPERATIVE DIAGNOSES: 1. Epigastric and right upper quadrant abdominal pain with intractable nausea vomiting 2. Symptomatic gallstones 3. Chronic cholecystitis 4. Chronic pain syndrome 5. Gastroesophageal reflux disease 6. Multiple drug ALLERGIES 7. Depressive disorder 8. Asthma 9. Interstitial lung disease 10. Neuropathy 11. History of DVT 12. Chronic dehydration OPERATION: Robotic-assisted da Rosendo Xi laparoscopic cholecystectomy, multiport ESTIMATED BLOOD LOSS: 30 mL. SPECIMENS REMOVED: Gallbladder. COMPLICATIONS: None. OPERATIVE FINDINGS: 1. Chronic cholecystitis 2. Pre-existing propensity for skin bleeding INDICATIONS: The patient is a 45-year-old female who presents with epigastric right upper quadrant persistent pain with symptomatic gallstones. Surgical intervention with a laparoscopic cholecystectomy was described. Robotic assisted laparoscopic approach was described. Benefits and risks of the procedure including but not limited to bleeding, infection, injury to the biliary tree was described. Informed consent was obtained. DESCRIPTION OF PROCEDURE: Patient was brought to the operating room, placed in supine position. After general induction, the abdomen had been prepped and draped in standard sterile fashion. The robotic da Rosendo XI system was primed. After a timeout protocol was performed, the patient had been prepped and draped in standard sterile fashion. A 5 mm 0 degrees laparoscopic trocar entry was performed along the left upper quadrant. The abdomen insufflated to 15 mmHg pressure which was tolerated well. Diagnostic laparoscopy demonstrated no injury to bowel viscera or mesentery. The liver surface was unremarkable. Next, two 8 mm robotic ports were placed along the right upper abdomen. The camera 8-mm port was maintained along the epigastrium. Another 8 mm port was placed along the left upper abdominal wall after exchanging the 5 mm port. Please note that the ports were placed at least 10 to 15 cm away from the target anatomy of the gallbladder. Bleeding along the skin was controlled with pressure. The robot was docked along the left lateral abdomen. The patient was repositioned in reverse Trendelenburg position. Using a grasper for arm 3, a grasper for arm 4, including hook cautery for arm 1, the robotic system was docked and primed as described. Instruments were interchanged by the chemistry research assistant including hook cautery, Bovie cautery and clip appliers. I had sat at the console. The gallbladder fundus was retracted over the dome of the liver. Initial attention was brought to the infundibulum including cystic lymph node. Initial dissection was performed over the cystic lymph node at the infundibulum using hook cautery. The infundibulum was retracted laterally to expose the cystic duct away from the common bile duct. The cystic duct was dissected free from its surrounding tissue. A critical view of safety was obtained. Large PLASTIC clips were used throughout the entire case. Using a clip client evaluator, 2 clips were placed at the junction of the infundibulum and cystic duct. The cystic duct was divided between clips. Next, the cystic artery was cauterized. Electro-Bovie cautery was used to remove the gallbladder from the hepatic fossa. Hemostasis was checked and found to be adequate. The robot was undocked. I re-scrubbed into the case. Using a 10 mm Endo Catch bag via the left upper quadrant incision, the specimen was removed from the abdominal cavity. All pneumoperitoneum instruments were evacuated from the abdominal cavity. The incisions were reapproximated using 4-0 Monocryl in an interrupted subcuticular fashion. Fascial defects were less than 8 mm in size. Please note along the trocar sites, local anesthetic was placed as a field block prior to insertion of all instruments. Liquid glue was applied to the skin. At the end of the procedure needle, sponge, and instrument count had been verified correct by the technical support technician. The patient was transferred to postanesthesia care unit in stable condition. Intraoperative films were shared with the patient's family who were pleased with the level of care. Plan - Discharge Summary Discharge Rx Participant: No New Discharge Prescriptions: Continue Pantoprazole Sodium [Protonix] 40 mg PO BID traMADol HCL [Tramadol HCl] 100 mg PO Q6H PRN PRN Reason: Pain oxyCODONE-APAP 10-325MG [Percocet 10-325 mg] 1 tab PO Q4H rOPINIRole HCL [Requip] 4 mg PO TID Ondansetron Odt [Zofran ODT] 8 mg PO Q12H PRN PRN Reason: Nausea Loratadine [Claritin] 10 mg PO DAILY PRN PRN Reason: Allergy Symptoms FLUoxetine HCL [PROzac] 60 mg PO HS Albuterol Inhaler [Ventolin Hfa Inhaler] 2 puff INHALATION RT-QID PRN PRN Reason: Shortness Of Breath Discharge Medication List Pantoprazole Sodium [Protonix] 40 mg PO BID 04/03/14 [History] traMADol HCL [Tramadol HCl] 100 mg PO Q6H PRN 11/11/16 [History] oxyCODONE-APAP 10-325MG [Percocet 10-325 mg] 1 tab PO Q4H 03/16/18 [History] rOPINIRole HCL [Requip] 4 mg PO TID 03/16/18 [History] Ondansetron Odt [Zofran ODT] 8 mg PO Q12H PRN 09/13/18 [History] FLUoxetine HCL [PROzac] 60 mg PO HS 06/17/20 [History] Loratadine [Claritin] 10 mg PO DAILY PRN 06/17/20 [History] Albuterol Inhaler [Ventolin Hfa Inhaler] 2 puff INHALATION RT-QID PRN 06/26/20 [History] Follow up Appointment(s)/Referral(s): Kayce Berrios MD [STAFF PHYSICIAN] - 07/08/20 Patient Instructions/Handouts: Laparoscopic Cholecystectomy (DC), Low Fat Diet (DC) Activity/Diet/Wound Care/Special Instructions: TAKE YOUR HOME PAIN MEDICATIONS FOR PAIN. NOTIFY YOUR PAIN SPECIALIST. No lifting over 10 pounds in 2 weeks until Jul 13March shower. No bath tub soaks for two weeks until Jul 13 Diet as tolerated. No driving while on narcotics. Use Tylenol and ibuprofen or Aleve scheduled for the next 24-48 hours for best pain relief. Use ice along incisions for the today to prevent swelling. For today, avoid high fat foods Discharge Disposition: HOME SELF-CARE
[2020-06-29 08:47] VITALS: TEMP 98.2
[2020-06-29 08:55] VITALS: RESP 16
[2020-06-29] MEDS ORDERED: SIMETHICONE 80 MG CHEWABLE PO SCH (09:00)
[2020-06-29] MEDS ORDERED: ONDANSETRON 4 MG/2 ML VIAL IVP ONE (09:05)
[2020-06-29] MEDS: HYDROmorphone 0.5 MG/0.5 ML SYRINGE IVP PRN ×4 (09:09→09:40)
[2020-06-29 10:09] VITALS: BP 102/66; PULSE 64
== END 2020-06-29 11:09 | disposition home or self-care (01) ==
LOC: OR 06:18
PROVIDERS: ATTEND Surgery Plastic and Reconstructive Surgery
DX: K80.10 Calculus of gallbladder with chronic cholecystitis without obstruction (principal); J44.9 Chronic obstructive pulmonary disease, unspecified; K21.9 Gastro-esophageal reflux disease without esophagitis; J84.9 Interstitial pulmonary disease, unspecified; G89.4 Chronic pain syndrome; G62.9 Polyneuropathy, unspecified; F32.9 Major depressive disorder, single episode, unspecified; E86.0 Dehydration; M79.7 Fibromyalgia; M19.90 Unspecified osteoarthritis, unspecified site; H91.91 Unspecified hearing loss, right ear; F17.210 Nicotine dependence, cigarettes, uncomplicated; Z86.73 Personal history of transient ischemic attack (TIA), and cerebral infarction without residual deficits; Z86.718 Personal history of other venous thrombosis and embolism; Z91.013 Allergy to seafood; Z88.6 Allergy status to analgesic agent; Z88.8 Allergy status to other drugs, medicaments and biological substances; Z79.891 Long term (current) use of opiate analgesic; Z90.710 Acquired absence of both cervix and uterus; Z79.899 Other long term (current) drug therapy; Z98.890 Other specified postprocedural states; Z90.721 Acquired absence of ovaries, unilateral; Z83.3 Family history of diabetes mellitus; Z82.49 Family history of ischemic heart disease and other diseases of the circulatory system; Z80.0 Family history of malignant neoplasm of digestive organs; Z80.49 Family history of malignant neoplasm of other genital organs
CPT/HCPCS: 88304; 47562; J2250; J1644; J1100; J2710; J0690; J2405; J1170 ×2; J0330; J2704

== ENCOUNTER → 2020-07-13 | Outpatient (CLI) | payer MEDICARE, OTHER ==
[~2020-07-13] MED LIST changes: -ACETAMINOPHEN TAB 500 MG TAB PO STA; -DEXAMETHASONE SOD PHOSPHATE 10 MG/ML 1 ML VIAL IV ONE; -GABAPENTIN 300 MG CAP PO STA; -HEPARIN SODIUM,PORCINE 5,000 UNIT/ML 1 ML VIAL SQ ONE; -KETOROLAC 30 MG/ML 1 ML VIAL IVP STA; -LACTATED RINGERS 1,000 ML IV SCH; -LIDOCAINE 1% (10MG/ML) FOR IV START INTRADERMA PRN; -ONDANSETRON 4 MG/2 ML VIAL IVP ONE; +SODIUM CHLORIDE 0.9% 500 ML 500 ML in EMPTY BAG 1 BAG IV PRN
[2020-07-13] MEDS: SODIUM CHLORIDE 0.9% 1,000 ML IV NR ×3 (11:58→12:58)
[2020-07-13 12:06] VITALS: BP 112/72; PULSE 86; RESP 16; TEMP 98.2
[2020-07-13 12:10] LABS: HCT 45.1 % (34.0-46.0); HGB 14.7 gm/dL (11.4-16.0); MCH 30.8 pg (25.0-35.0); MCHC 32.6 g/dL (31.0-37.0); MCV 94.5 fL (80.0-100.0); Mean Platelet Volume 8.6; Platelet Count 293 k/uL (150-450); RBC 4.77 m/uL (3.80-5.40); RDW 13.2 % (11.5-15.5); WBC 7.9 k/uL (3.8-10.6)
[2020-07-13 12:19] LABS: ALT 24 U/L (4-34); AST 24 U/L (14-36); African American GFR (CKD) >90 (>60 ml/min/1.73 sqM); Albumin 4.5 g/dL (3.5-5.0); Alkaline Phosphatase 102 U/L (38-126); Anion Gap 7 mmol/L; Blood Urea Nitrogen 21 mg/dL (7-17); Calcium 9.5 mg/dL (8.4-10.2); Carbon Dioxide 26 mmol/L (22-30); Chloride 106 mmol/L (98-107); Glucose 104 mg/dL (74-99); Non-African American GFR(CKD) >90 (>60 ml/min/1.73 sqM); Potassium 4.7 mmol/L (3.5-5.1); Sodium 139 mmol/L (137-145); Total Bilirubin 0.5 mg/dL (0.2-1.3); Total Protein 7.2 g/dL (6.3-8.2)
== END | disposition home or self-care (01) ==
LOC: PROCWHC3 11:46
PROVIDERS: ATTEND Surgery Plastic and Reconstructive Surgery
DX: E86.0 Dehydration (principal)
CPT/HCPCS: 36415; 80053; 85027; 96360; 96361

== ENCOUNTER 2020-07-29 09:19 | Day surgery (SDC) | payer MEDICARE, OTHER ==
[2020-07-27 10:41] VITALS: BMI 29.4
--- NOTE | 2020-07-29 04:43 | P.GSHP ---
History of Present Illness H&P Date: 07/29/20 CHIEF COMPLAINT: GERD HISTORY OF PRESENT ILLNESS: The patient is a 45-year-old female who presents reports gastroesophageal reflux disease. Upper endoscopy was offered for further evaluation and management. PAST MEDICAL HISTORY: Please see list. PAST SURGICAL HISTORY: Please see list. MEDICATIONS: Please see list. ALLERGIES: Please see list. SOCIAL HISTORY: No illicit drug use FAMILY HISTORY: No reports of Crohn disease or ulcerative colitis. REVIEW OF ORGAN SYSTEMS: CONSTITUTIONAL: No reports of fevers or chills. GI: Denies any blood in stools or constipation. PHYSICAL EXAM: VITAL SIGNS: Stable GENERAL: Well-developed and pleasant in no acute distress. HEENT: No scleral icterus. Extraocular movements grossly intact. Moist buccal mucosa. NECK: Supple without lymphadenopathy. CHEST: Unlabored respirations. Equal bilateral excursions. CARDIOVASCULAR: Regular rate and rhythm. Distal 2+ pulses. ABDOMEN: Soft, nondistended. MUSCULOSKELETAL: No clubbing, cyanosis, or edema. ASSESSMENT: 1. Gastroesophageal reflux disease PLAN: 1. Recommend proceeding with an upper endoscopy Past Medical History Past Medical History: Asthma, COPD, CVA/TIA, Deep Vein Thrombosis (DVT), Fibromyalgia, GERD/Reflux, Hearing Disorder / Deafness, Osteoarthritis (OA), Pneumonia Additional Past Medical History / Comment(s): *DEAF IN RIGHT EAR. 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 Lt breast biopsy BRONCHOSCOPY-BENIGN NODULE REMOVED."bronchial surgery" . COLONOSCOPY, right salpingo-oophorectomy, rt foot fusion/plate and screws. lung biopsy. Past Anesthesia/Blood Transfusion Reactions: Previous Problems w/ Anesthesia, Motion Sickness, Postoperative Nausea & Vomiting (PONV) Additional Past Anesthesia/Blood Transfusion Reaction / Comment(s): TAKES LONGER TO WAKE UP "Too much given & couldn't wake up".....However, patient states they have to give her more meds to get her to be sedated."AFTER 1 SX THEY TOLD ME I STOPPED BREATHING DURING SX approx 14 yrs ago" states had issues with propofol, "had to take a whole lot to be put out" Smoking Status: Current every day smoker - Past Family History Mother Family Medical History: Diabetes Mellitus Additional Family Medical History / Comment(s): IRREG HEART BEAT. GRANDMOTHER HAD COLON CANCER AND HEART DISEASE Father Family Medical History: Hyperlipidemia, Hypertension Sister(s) Family Medical History: AFIB, Cancer, CVA/TIA, Hypertension Additional Family Medical History / Comment(s): CERVICAL CANCER Medications and Allergies Home Medications Medication Instructions Recorded Confirmed Type Pantoprazole Sodium [Protonix] 40 mg PO BID 04/03/14 07/27/20 History traMADol HCL [Tramadol HCl] 100 mg PO Q6H PRN 11/11/16 07/27/20 History oxyCODONE-APAP 10-325MG [Percocet 1 tab PO Q4H 03/16/18 07/27/20 History 10-325 mg] rOPINIRole HCL [Requip] 4 mg PO TID 03/16/18 07/27/20 History Ondansetron Odt [Zofran ODT] 8 mg PO Q12H PRN 09/13/18 07/27/20 History FLUoxetine HCL [PROzac] 60 mg PO HS 06/17/20 07/27/20 History Loratadine [Claritin] 10 mg PO DAILY PRN 06/17/20 07/27/20 History Albuterol Inhaler [Ventolin Hfa 2 puff INHALATION RT-QID PRN 06/26/20 07/27/20 History Inhaler] Allergies Allergy/AdvReac Type Severity Reaction Status Date / Time aripiprazole [From Abilify] Allergy tremors,spa Verified 07/27/20 10:32 sms fentanyl Allergy Rash/Hives Verified 07/27/20 10:32 (only with patch) Iodinated Contrast Media Allergy Anaphylaxis Verified 07/27/20 10:32 [Iodinated Contrast Media - IV Dye] shellfish derived Allergy Anaphylaxis Verified 07/27/20 10:32 buspirone AdvReac Hallucinati Verified 07/27/20 10:32 ons escitalopram [From Lexapro] AdvReac "mean Verified 07/27/20 10:32 behavior" ibuprofen [From Motrin] AdvReac GI Verified 07/27/20 10:[address] NOT TO TAKE"
[~2020-07-29 09:19] MED LIST changes: +LACTATED RINGERS 1,000 ML IV SCH; -SODIUM CHLORIDE 0.9% 500 ML 500 ML in EMPTY BAG 1 BAG IV PRN
[2020-07-29 09:46] VITALS: TEMP 97.5
[2020-07-29] MEDS ORDERED: KETAMINE 10 MG/ML 20 ML VIAL ONE (10:27)
[2020-07-29] MEDS ORDERED: LIDOCAINE 1% INJ 10MG/ML (20 ML MDV) ONE (10:27)
[2020-07-29] MEDS ORDERED: GLYCOPYRROLATE 0.2 MG/ML 2 ML VIAL ONE (10:27)
[2020-07-29] MEDS ORDERED: PROPOFOL 10 MG/ML 20 ML VIAL IV ONE (10:27)
[2020-07-29] MEDS ORDERED: SODIUM CHLORIDE 0.9% 1,000 ML IV ONE (10:49)
--- NOTE | 2020-07-29 10:50 | P.PCN ---
Date of Procedure: 07/29/20 Description of Procedure: PREOPERATIVE DIAGNOSIS: Gastroesophageal reflux disease Epigastric abdominal pain POSTOPERATIVE DIAGNOSIS: Gastroesophageal reflux disease Epigastric abdominal pain Gastritis with superficial gastric ulcers Duodenitis OPERATION: Esophagogastroduodenoscopy with biopsies along antrum and duodenum SURGEON: Kayce Berrios MD ANESTHESIA: MAC. INDICATIONS: The patient is a 45-year-old female who presents with a history of reflux disease. Benefits and risks of the procedure were described. Informed consent was obtained. DESCRIPTION: The patient was brought into the endoscopy suite and laid in the left lateral decubitus position. An Olympus gastroscope was passed along the posterior oropharynx down to the distal esophagus where the squamocolumnar junction was encountered at 40 cm from the incisors. The stomach was entered and no bile reflux was found. Additional findings are listed below. Biopsies with cold forceps were obtained of the antrum. The first through third portion of the duodenum was examined and remarkable for duodenitis. Retroflexion of the scope confirmed Hill grade 2 lower esophageal valve. The squamocolumnar junction demonstrated LA grade B erosive esophagitis. The stomach was desufflated. The patient tolerated the procedure well. FINDINGS: Squamocolumnar junction 40 cm from the incisors. Diaphragmatic hiatus at 40 cm. Hill grade 2 lower esophageal valve. LA grade B erosive esophagitis. Active duodenitis. Chronic gastritis with superficial gastric ulcer RECOMMENDATIONS: Upper endoscopy as needed. Plan - Discharge Summary Discharge Rx Participant: No New Discharge Prescriptions: No Action Pantoprazole Sodium [Protonix] 40 mg PO BID traMADol HCL [Tramadol HCl] 100 mg PO Q6H PRN PRN Reason: Pain oxyCODONE-APAP 10-325MG [Percocet 10-325 mg] 1 tab PO Q4H rOPINIRole HCL [Requip] 4 mg PO TID Ondansetron Odt [Zofran ODT] 8 mg PO Q12H PRN PRN Reason: Nausea Loratadine [Claritin] 10 mg PO DAILY PRN PRN Reason: Allergy Symptoms FLUoxetine HCL [PROzac] 60 mg PO HS Albuterol Inhaler [Ventolin Hfa Inhaler] 2 puff INHALATION RT-QID PRN PRN Reason: Shortness Of Breath Discharge Medication List Pantoprazole Sodium [Protonix] 40 mg PO BID 04/03/14 [History] traMADol HCL [Tramadol HCl] 100 mg PO Q6H PRN 11/11/16 [History] oxyCODONE-APAP 10-325MG [Percocet 10-325 mg] 1 tab PO Q4H 03/16/18 [History] rOPINIRole HCL [Requip] 4 mg PO TID 03/16/18 [History] Ondansetron Odt [Zofran ODT] 8 mg PO Q12H PRN 09/13/18 [History] FLUoxetine HCL [PROzac] 60 mg PO HS 06/17/20 [History] Loratadine [Claritin] 10 mg PO DAILY PRN 06/17/20 [History] Albuterol Inhaler [Ventolin Hfa Inhaler] 2 puff INHALATION RT-QID PRN 06/26/20 [History]
[2020-07-29 11:22] VITALS: BP 113/76; PULSE 64; RESP 18
== END 2020-07-29 12:13 | disposition home or self-care (01) ==
LOC: ORWHC2ENDO 09:19
PROVIDERS: ATTEND Surgery Plastic and Reconstructive Surgery
DX: K21.0 Gastro-esophageal reflux disease with esophagitis (principal); K22.10 Ulcer of esophagus without bleeding; K29.80 Duodenitis without bleeding; K29.50 Unspecified chronic gastritis without bleeding; K25.9 Gastric ulcer, unspecified as acute or chronic, without hemorrhage or perforation; J44.9 Chronic obstructive pulmonary disease, unspecified; M79.7 Fibromyalgia; H91.91 Unspecified hearing loss, right ear; M19.90 Unspecified osteoarthritis, unspecified site; G62.9 Polyneuropathy, unspecified; R26.81 Unsteadiness on feet; J98.4 Other disorders of lung; G43.909 Migraine, unspecified, not intractable, without status migrainosus; I69.328 Other speech and language deficits following cerebral infarction; K08.89 Other specified disorders of teeth and supporting structures; F17.200 Nicotine dependence, unspecified, uncomplicated; Z86.718 Personal history of other venous thrombosis and embolism; Z87.76 Personal history of (corrected) congenital malformations of integument, limbs and musculoskeletal system; Z87.01 Personal history of pneumonia (recurrent); Z98.890 Other specified postprocedural states; Z90.49 Acquired absence of other specified parts of digestive tract; Z90.710 Acquired absence of both cervix and uterus; Z87.09 Personal history of other diseases of the respiratory system; Z90.79 Acquired absence of other genital organ(s); Z90.721 Acquired absence of ovaries, unilateral; Z98.1 Arthrodesis status; Z87.898 Personal history of other specified conditions; Z91.89 Other specified personal risk factors, not elsewhere classified; Z79.899 Other long term (current) drug therapy; Z79.891 Long term (current) use of opiate analgesic; Z91.041 Radiographic dye allergy status; Z91.013 Allergy to seafood; Z88.5 Allergy status to narcotic agent; Z88.8 Allergy status to other drugs, medicaments and biological substances; Z88.6 Allergy status to analgesic agent; Z83.3 Family history of diabetes mellitus; Z82.49 Family history of ischemic heart disease and other diseases of the circulatory system; Z80.0 Family history of malignant neoplasm of digestive organs; Z83.438 Family history of other disorder of lipoprotein metabolism and other lipidemia; Z80.49 Family history of malignant neoplasm of other genital organs; Z82.3 Family history of stroke
CPT/HCPCS: 88305; 43239; J2001; J2704

== ENCOUNTER → 2021-10-04 | Outpatient (CLI) | payer MEDICARE, OTHER ==
--- NOTE | 2021-10-04 16:14 | XR ---
EXAMINATION TYPE: XR Hip Bilateral and AP pelvis DATE OF EXAM: 10/04/2021 COMPARISON: NONE HISTORY: W19.XXXA TECHNIQUE: A single AP view of the pelvis is obtained. Two views of the bilateral hip are obtained. FINDINGS: There is no acute fracture/dislocation evident in the pelvis. The hip and sacroiliac join ts appear symmetric and unremarkable. The overlying soft tissue appears unremarkable. Two views of bilateral hip show no acute fracture or dislocation. No focal lytic or sclerotic lesion seen in the proximal bilateral femur. The overlying soft tissue is unremarkable. Calcification crescencio ng the greater trochanter is well-corticated. Some hypertrophic changes present at the lateral acetab ulum on the left. Some remodeling present the femoral heads. IMPRESSION: There is no acute fracture or dislocation in the pelvis or bilateral hip. Suspect some m ild osteoarthritic changes, consider acetabular femoral impingement on the left. Hip MRI may be of be nefit.
== END | disposition home or self-care (01) ==
LOC: RADXRMAIN 13:36
PROVIDERS: ATTEND Nurse Practitioner Family
DX: Z04.3 Encounter for examination and observation following other accident (principal); W19.XXXA Unspecified fall, initial encounter
CPT/HCPCS: 73521

== ENCOUNTER → 2021-10-20 | Outpatient (CLI) | payer MEDICARE ==
--- NOTE | 2021-10-22 11:21 | MR ---
EXAMINATION TYPE: MR hip LT wo/w con DATE OF EXAM: 10/20/2021 COMPARISON: Radiographs 10/04/2021 HISTORY: 46-year-old female M2 5.852, left hip joint disorder, pain, swelling Technique: Multiplanar, multisequence images of the left hip were obtained before and after administr ation of 9 mL intravenous Gadavist gadolinium contrast. FINDINGS: Bilocular cystic lesion in the left side of the pelvis measuring 3.5 x 3.1 x 2.9 cm of ovarian etiolo gy, likely physiologic change. Uterus surgically absent. Trace cul-de-sac free fluid likely physiolog ic. No evidence for hip fracture or AVN. There is some degenerative spurring at the left hip. No para lab ral cyst is identified. No significant hip joint effusion. The sacrum and SI joints appear intact. Some degenerative spurring is present at the right SI joint. Pubic symphysis is intact. No suspicious pulmonary edema or acute or healing fracture is identified. The rectus femoris origins are intact. There is increased signal at the right greater than left hamst rings origins compatible with tendinosis. There is edema in the bilateral positions, liquid right slight deficiency noted involving the lateral view is attachment is. Mild trochanteric bursal effusion on both sides. Iliopsoas insertions are intact. Normal course, caliber, and signal intensity of the sciatic nerves. IMPRESSION: 1. Bilateral gluteal insertional tendinosis, left greater than right with mild trochanteric bursitis. Suggestion of tiny partial tears at the gluteus medius insertions on both sides. 2. Mild bilateral hamstrings origin tendinosis, right greater than left. 3. Mild degenerative spurring at the left hip.
== END | disposition home or self-care (01) ==
LOC: RADMRIMAIN 13:32
PROVIDERS: ATTEND Nurse Practitioner Family
DX: M70.62 Trochanteric bursitis, left hip (principal); M70.61 Trochanteric bursitis, right hip; M76.892 Other specified enthesopathies of left lower limb, excluding foot; M67.854 Other specified disorders of tendon, left hip; M67.853 Other specified disorders of tendon, right hip
CPT/HCPCS: 73723; A9585

== ENCOUNTER 2025-01-27 19:36 | Emergency (ER) | payer MEDICARE, OTHER ==
--- NOTE | 2025-01-27 20:23 | ED ---
General Adult HPI - General Source: patient, RN notes reviewed <Maureen Spencer - Last Filed: 01/27/25 20:22> <Jg Ahumada - Last Filed: 01/28/25 01:22> - General Stated complaint: N/V, abdominal pain Time Seen by Provider: 01/27/25 19:50 - History of Present Illness Initial comments: Quick [id number] female presenting to emergency department for complaint of nausea, vomiting, epigastric pain over the past day. Patient states that her stepson at home has been having similar symptoms. She denies urinary complaints. Endorses fevers and chills. Previous surgical abdominal history of cholecystectomy. (Maureen Spencer) 49-year-old female presenting with chief complaint of nausea and vomiting. Patient states symptoms have been ongoing for 3 days. She is having upper abdominal discomfort. She was having diarrhea but this has resolved. She endorses chills. No chest pain or difficulty breathing. No urinary symptoms. No cough congestion or sore throat. No hematochezia, melena, hematemesis. Patient reports that she is very anxious as well. (Jg Ahumada) - Related Data Home Medications Medication Instructions Recorded Confirmed Pantoprazole Sodium [Protonix] 40 mg PO BID 04/03/14 07/29/20 traMADol HCL 100 mg PO Q6H PRN 11/11/16 07/29/20 oxyCODONE-APAP 10-325MG [Percocet 1 tab PO Q4H 03/16/18 07/29/20 10-325 mg] rOPINIRole HCL [Requip] 4 mg PO TID 03/16/18 07/29/20 Ondansetron Odt [Zofran ODT] 8 mg PO Q12H PRN 09/13/18 07/29/20 FLUoxetine HCL [PROzac] 60 mg PO HS 06/17/20 07/29/20 Loratadine [Claritin] 10 mg PO DAILY PRN 06/17/20 07/29/20 Albuterol Inhaler [Ventolin Hfa 2 puff INHALATION RT-QID PRN 06/26/20 07/29/20 Inhaler] Allergies Allergy/AdvReac Type Severity Reaction Status Date / Time aripiprazole [[facility] Allergy tremors,spa Verified 01/27/25 20:33 sms fentanyl Allergy Rash/Hives Verified 01/27/25 20:33 (only with patch) Iodinated Contrast Media Allergy Anaphylaxis Verified 01/27/25 20:33 [Iodinated Contrast Media - IV Dye] shellfish derived Allergy Anaphylaxis Verified 01/27/25 20:33 buspirone AdvReac Hallucinati Verified 01/27/25 20:33 ons escitalopram [From Lexapro] AdvReac "mean Verified 01/27/25 20:33 behavior" ibuprofen [From Motrin] AdvReac GI Verified 01/27/25 20:[address] NOT TO TAKE" Review of Systems ROS Other: All systems not noted in ROS Statement are negative. <Maureen Spencer - Last Filed: 01/27/25 20:22> ROS Other: All systems not noted in ROS Statement are negative. <Jg Ahumada - Last Filed: 01/28/25 01:22> ROS Statement: Those systems with pertinent positive or pertinent negative responses have been documented in the HPI. Past Medical History Past Medical History: Asthma, COPD, CVA/TIA, Deep Vein Thrombosis (DVT), Fibromyalgia, GERD/Reflux, Hearing Disorder / Deafness, Osteoarthritis (OA), Pneumonia Additional Past Medical History / Comment(s): *DEAF IN RIGHT EAR. 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 Lt breast biopsy BRONCHOSCOPY-BENIGN NODULE REMOVED."bronchial surgery" . COLONOSCOPY, right salpingo-oophorectomy, rt foot fusion/plate and screws. lung biopsy. Gallstones removal - 2019 Past Anesthesia/Blood Transfusion Reactions: Previous Problems w/ Anesthesia, Motion Sickness, Postoperative Nausea & Vomiting (PONV) Additional Past Anesthesia/Blood Transfusion Reaction / Comment(s): TAKES LONGER TO WAKE UP "Too much given & couldn't wake up".....However, patient states they have to give her more meds to get her to be sedated."AFTER 1 SX THEY TOLD ME I STOPPED BREATHING DURING SX approx 14 yrs ago" Smoking Status: Current every day smoker - Past Family History Mother Family Medical History: Diabetes Mellitus Additional Family Medical History / Comment(s): IRREG HEART BEAT. GRANDMOTHER HAD COLON CANCER AND HEART DISEASE Father Family Medical History: Hyperlipidemia, Hypertension Sister(s) Family Medical History: AFIB, Cancer, CVA/TIA, Hypertension Additional Family Medical History / Comment(s): CERVICAL CANCER <Maureen Spencer - Last Filed: 01/27/25 20:22> General Exam <Maureen Specner - Last Filed: 01/27/25 20:22> Limitations: no limitations General appearance: alert, in no apparent distress Head exam: Present: atraumatic, normocephalic, normal inspection Eye exam: Present: normal appearance, EOMI Neck exam: Present: normal inspection. Absent: meningismus Respiratory exam: Present: normal lung sounds bilaterally. Absent: respiratory distress, wheezes, rales, rhonchi, stridor Cardiovascular Exam: Present: regular rate, normal rhythm, normal heart sounds. Absent: systolic murmur, diastolic murmur, rubs, gallop, clicks GI/Abdominal exam: Present: soft, tenderness (There is diffuse discomfort with no localized tenderness ). Absent: distended, guarding, rebound, rigid Neurological exam: Present: alert, oriented X3 Psychiatric exam: Present: normal affect, normal mood Skin exam: Present: warm, dry, normal color <Jg Ahumada - Last Filed: 01/28/25 01:22> - General Exam Comments Initial Comments: Visual Physical Exam Vital signs reviewed General: Well-appearing, nontoxic, no acute distress. Head: Normocephalic, atraumatic Eyes: PERRLA, EOMI ENT: Airway patent Chest: Nonlabored breathing Skin: No visual rash, normal skin tone Neuro: Alert and oriented 3 Musculoskeletal: No gross abnormalities (AlvaeleMaureen ferguson) Course Vital Signs 01/27/25 01/27/25 20:28 23:56 Temperature 98.9 F Pulse Rate 105 H 98 Respiratory 18 18 Rate Blood Pressure 123/78 114/70 O2 Sat by Pulse 95 98 Oximetry Medical Decision Making <Maureen Spencer - Last Filed: 01/27/25 20:22> - Lab Data Result diagrams: 01/27/25 22:21 01/27/25 22:21 <Jg Ahumada - Last Filed: 01/28/25 01:22> - Medical Decision Making I completed the quick note portion of this chart signed Maureen Spencer PA-C (Maureen Spencer) Was pt. sent in by a medical professional or institution (RODERICK Santos, SENIOR COMMUNICATIONS ENGINEER, urgent care, hospital, or jail...) When possible be specific @ -No Did you speak to anyone other than the patient for history (EMS, parent, family, police, friend...)? What history was obtained from this source @ -No Did you review nursing and triage notes (agree or disagree)? Why? @ -I reviewed and agree with nursing and triage notes Were old charts reviewed (outside hosp., previous admission, EMS record, old EKG, old radiological studies, urgent care reports/EKG's, jail records)? Report findings @ -No old charts were reviewed Differential Diagnosis (chest pain, altered mental status, abdominal pain women, abdominal pain men, vaginal bleeding, weakness, fever, dyspnea, syncope, headache, dizziness, GI bleed, back pain, seizure, CVA, palpatations, mental health, musculoskeletal)? @ -MDM Differential Abdominal Pain Women: Appendicitis, Cholecystitis, diverticulosis, ischemic bowel, pancreatitis, hepatitis, UTI, gastroenteritis, AAA, incarcerated hernia, bowel obstruction, constipation, inflammatory bowel, hepatitis, peptic ulcer disease, splenic infarction, perforated viscus, vulvitis, ovarian torsion, PID, kidney stone, placenta abruption... This is not meant to be an all-inclusive list EKG interpreted by me (3pts min.). @ -EKG shows sinus tachycardia ventricular rate 118. AK interval 168. QRS 87. QT 431. QTc 501 X-rays interpreted by me (1pt min.). @ -None done CT interpreted by me (1pt min.). @ -None done U/S interpreted by me (1pt. min.). @ -None done What testing was considered but not performed or refused? (CT, X-rays, U/S, labs)? Why? @ -None What meds were considered but not given or refused? Why? @ -None Did you discuss the management of the patient with other professionals (professionals i.e. , PA, SENIOR COMMUNICATIONS ENGINEER, lab, RT, psych nurse, hospice social worker, skin fitter, teacher, prison officer, human services case manager)? Give summary @ -No Was smoking cessation discussed for >3mins.? @ -No Was critical care preformed (if so, how long)? @ -No Were there social determinants of health that impacted care today? How? (Homelessness, low income, unemployed, alcoholism, drug addiction, transport ation, low edu. Level, literacy, decrease access to med. care, fpc, rehab)? @ -No Was there de-escalation of care discussed even if they declined (Discuss DNR or withdrawal of care, Hospice)? DNR status @ -No What co-morbidities impacted this encounter? (DM, HTN, Smoking, COPD, CAD, Cancer, CVA, ARF, Chemo, Hep., AIDS, mental health diagnosis, sleep apnea, morbid obesity)? @ -None Was patient admitted / discharged? Hospital course, mention meds given and route, prescriptions, significant lab abnormalities, going to OR and other pertinent info. @ -49-year-old female presenting with chief complaint of nausea vomiting and abdominal pain. History and physical examination are conducted. There is treated with pain medication and antiemetics. White count of 15.4, likely reactive. BUN 23, likely due to dehydration and patient is receiving IV fluids. Negative troponin. Amylase and lipase are WNL. On reassessment patient reports that she is feeling better. She is eager for discharge and is requesting her discharge paperwork urgently. She is educated on today's findings. Follow-up with PCP. Report back to ER with any new or worsening symptoms. Discussed return parameters and answered all questions. Patient conveyed verbal understanding and agreed to the plan. I discussed this case in detail with my attending Dr. Iglesias Undiagnosed new problem with uncertain prognosis? @ -No Drug Therapy requiring intensive monitoring for toxicity (Heparin, Nitro, Insulin, Cardizem)? @ -No Were any procedures done? @ -No Diagnosis/symptom? @ -Nausea and vomiting Acute, or Chronic, or Acute on Chronic? @ -Acute Uncomplicated (without systemic symptoms) or Complicated (systemic symptoms)? @ -uncomplicated Side effects of treatment? @ -No Exacerbation, Progression, or Severe Exacerbation? @ -No Poses a threat to life or bodily function? How? (Chest pain, USA, MD, pneumonia, PE, COPD, DKA, ARF, appy, cholecystitis, CVA, Diverticulitis, Homicidal, Suicidal, threat to staff... and all critical care pts) @ -Low likelihood (Jg Ahumada) - Lab Data Lab Results 01/27/25 01/27/25 01/27/25 Range/Units 22:21 22:21 22:21 WBC 15.4 H (3.8-10.6) k/uL RBC 5.16 (3.80-5.40) m/uL Hgb 16.6 H (11.4-16.0) gm/dL Hct 49.8 H (34.0-46.0) % MCV 96.4 (80.0-100.0) fL MCH 32.2 (25.0-35.0) pg MCHC 33.4 (31.0-37.0) g/dL RDW 13.1 (11.5-15.5) % Plt Count 376 (150-450) k/uL MPV 7.2 Neutrophils % 84 % Lymphocytes % 10 % Monocytes % 4 % Eosinophils % 1 % Basophils % 0 % Neutrophils # 12.9 H (1.3-7.7) k/uL Lymphocytes # 1.6 (1.0-4.8) k/uL Monocytes # 0.6 (0-1.0) k/uL Eosinophils # 0.1 (0-0.7) k/uL Basophils # 0.1 (0-0.2) k/uL PT 11.2 (10.0-12.5) sec INR 1.0 (<1.2) APTT 23.2 (22.0-30.0) sec Sodium 141 (137-145) mmol/L Potassium 3.6 (3.5-5.1) mmol/L Chloride 95 L (98-107) mmol/L Carbon Dioxide 33 H (22-30) mmol/L Anion Gap 13 mmol/L BUN 23 H (7-17) mg/dL Creatinine 0.65 (0.52-1.04) mg/dL Est GFR (CKD-EPI)AfAm >90 (>60 ml/min/1.73 sqM) Est GFR (CKD-EPI)NonAf >90 (>60 ml/min/1.73 sqM) Glucose 136 H (74-99) mg/dL Calcium 10.9 H (8.4-10.2) mg/dL Total Bilirubin 0.6 (0.2-1.3) mg/dL AST 23 (14-36) U/L ALT 29 (4-34) U/L Alkaline Phosphatase 99 (38-126) U/L Troponin I (0.000-0.034) ng/mL Total Protein 8.6 H (6.3-8.2) g/dL Albumin 5.3 H (3.5-5.0) g/dL Amylase 52 (30-110) U/L Lipase 66 (23-300) U/L 01/27/25 Range/Units 22:21 WBC (3.8-10.6) k/uL RBC (3.80-5.40) m/uL Hgb (11.4-16.0) gm/dL Hct (34.0-46.0) % MCV (80.0-100.0) fL MCH (25.0-35.0) pg MCHC (31.0-37.0) g/dL RDW (11.5-15.5) % Plt Count (150-450) k/uL MPV Neutrophils % % Lymphocytes % % Monocytes % % Eosinophils % % Basophils % % Neutrophils # (1.3-7.7) k/uL Lymphocytes # (1.0-4.8) k/uL Monocytes # (0-1.0) k/uL Eosinophils # (0-0.7) k/uL Basophils # (0-0.2) k/uL PT (10.0-12.5) sec INR (<1.2) APTT (22.0-30.0) sec Sodium (137-145) mmol/L Potassium (3.5-5.1) mmol/L Chloride (98-107) mmol/L Carbon Dioxide (22-30) mmol/L Anion Gap mmol/L BUN (7-17) mg/dL Creatinine (0.52-1.04) mg/dL Est GFR (CKD-EPI)AfAm (>60 ml/min/1.73 sqM) Est GFR (CKD-EPI)NonAf (>60 ml/min/1.73 sqM) Glucose (74-99) mg/dL Calcium (8.4-10.2) mg/dL Total Bilirubin (0.2-1.3) mg/dL AST (14-36) U/L ALT (4-34) U/L Alkaline Phosphatase (38-126) U/L Troponin I <0.012 (0.000-0.034) ng/mL Total Protein (6.3-8.2) g/dL Albumin (3.5-5.0) g/dL Amylase (30-110) U/L Lipase (23-300) U/L Disposition <Maureen Spencer - Last Filed: 01/27/25 20:22> Is patient prescribed a controlled substance at d/c from ED?: No Time of Disposition: 23:10 <Jg Ahumada - Last Filed: 01/28/25 01:22> Clinical Impression: Nausea & vomiting Disposition: HOME SELF-CARE Condition: Good Instructions (If sedation given, give patient instructions): Acute Nausea and Vomiting (ED) Additional Instructions: Follow-up with PCP. Report back to ER with any new or worsening symptoms. Referrals: Judah Murdock DO [Primary Care Provider] - 1-2 days
[2025-01-27 20:33] VITALS: RESP 18; TEMP 98.9
[2025-01-27] MEDS: LORazepam 2 MG/ML INJ IV STA (22:18)
[2025-01-27] MEDS: ONDANSETRON 4 MG/2 ML VIAL IVP STA (22:19)
[2025-01-27] MEDS: SODIUM CHLORIDE 0.9% 1,000 ML IV STA (22:19)
[2025-01-27 22:35] LABS: Basophils # (A) 0.1 k/uL (0-0.2); Basophils % (A) 0 %; Eosinophils # (A) 0.1 k/uL (0-0.7); Eosinophils % (A) 1 %; HCT 49.8 % (34.0-46.0); HGB 16.6 gm/dL (11.4-16.0); Lymphocytes # (A) 1.6 k/uL (1.0-4.8); Lymphocytes % (A) 10 %; MCH 32.2 pg (25.0-35.0); MCHC 33.4 g/dL (31.0-37.0); MCV 96.4 fL (80.0-100.0); Mean Platelet Volume 7.2; Monocytes # (A) 0.6 k/uL (0-1.0); Monocytes % (A) 4 %; Neutrophils # (A) 12.9 k/uL (1.3-7.7); Neutrophils % (A) 84 %; Platelet Count 376 k/uL (150-450); RBC 5.16 m/uL (3.80-5.40); RDW 13.1 % (11.5-15.5); WBC 15.4 k/uL (3.8-10.6)
[2025-01-27] MEDS: FAMOTIDINE 20 MG/2 ML VIAL IV STA (22:40)
[2025-01-27 22:42] LABS: ALT 29 U/L (4-34); AST 23 U/L (14-36); African American GFR (CKD) >90 (>60 ml/min/1.73 sqM); Albumin 5.3 g/dL (3.5-5.0); Alkaline Phosphatase 99 U/L (38-126); Amylase 52 U/L (30-110); Anion Gap 13 mmol/L; Blood Urea Nitrogen 23 mg/dL (7-17); Calcium 10.9 mg/dL (8.4-10.2); Carbon Dioxide 33 mmol/L (22-30); Chloride 95 mmol/L (98-107); Glucose 136 mg/dL (74-99); Lipase 66 U/L (23-300); Non-African American GFR(CKD) >90 (>60 ml/min/1.73 sqM); Potassium 3.6 mmol/L (3.5-5.1); Sodium 141 mmol/L (137-145); Total Bilirubin 0.6 mg/dL (0.2-1.3); Total Protein 8.6 g/dL (6.3-8.2)
[2025-01-27 22:47] LABS: Partial Thromboplastin Time 23.2 sec (22.0-30.0); Prothrombin Time 11.2 sec (10.0-12.5)
[2025-01-27] MEDS: MAG HYDROX/AL HYDROX/SIMETH 30 ML CUP PO PRN (23:15)
[2025-01-27] MEDS: METOCLOPRAMIDE 5 MG/ML 2 ML VIAL IVP STA (23:15)
[2025-01-27 23:57] VITALS: BP 114/70; PULSE 98
== END 2025-01-27 23:57 | disposition home or self-care (01) ==
LOC: EC 19:36
DX: R10.13 Epigastric pain (principal); R11.2 Nausea with vomiting, unspecified; F17.200 Nicotine dependence, unspecified, uncomplicated
CPT/HCPCS: 36415; 93005; 80053; 82150; 83690; 84484; 85025; 85610; 85730; 99284; 96374; 96375 ×3; 96361; J2060; J2765; J2405; J3490